=== PATIENT | male | born 1940 | race Caucasian/White ===

== ENCOUNTER 2018-01-11 10:16 | Emergency (ER) | payer MEDICARE, SELFPAY ==
[2018-01-11 10:16] VITALS: BP 133/83; PULSE 82; RESP 16; TEMP 36.7; O2SAT 97; BMI 22.7
[2018-01-11 10:33] VITALS: PULSE 81; RESP 17
[2018-01-11] MEDS: 0.9% Normal Saline 1,000 ML 1000 ML IV (10:39)
[2018-01-11] MEDS: Ondansetron 4 MG/2 ML Vial IV (10:40)
[2018-01-11 10:58] LABS: Anion Gap 8 (5-15); BUN 14 mg/dL (7-18); BUN/Creat Ratio 16.4 RATIO (10-20); Calcium,Total 8.6 mg/dL (8.5-10.1); Chloride 104 mmol/L (98-107); Creatinine, Serum 0.85 mg/dL (0.70-1.30); EST Glomerular Filtration Rate 92 mL/min (>60); Est Glom Filt Rate - Afr Amer 111 mL/min (>60); Estimated Creatinine Clearance 75.95 ml/min; Glucose 159 mg/dL (74-106); Potassium 3.7 mmol/L (3.5-5.1); Sodium Level 138 mmol/L (136-145)
--- NOTE | 2018-01-11 12:24 | ED.VISSUMM ---
- ER Visit Summary Date of Service: 01/11/18 Chief Complaint: Abdominal pain with nausea, vomiting and diarrhea. History of Present Illness: The patient is a 77 M who presents to the emergency room because of abdominal pain with nausea, vomiting diarrhea. He vomited 6 times since awakening this morning and 2-3 loose watery stools without blood or mucus. Apparently did not feel well yesterday with complaint of headache and generalized weakness. He had increased week and slept more than normal according to the . Abdominal pain is intermittent and colicky. Pain is worse when he vomits or has a loose stool. He denies any fever, chills night sweats. There is no history of weight gain or weight loss. He denies any visual, ocular or auditory symptoms. I trouble speech or swallowing. Does complain of dry mouth and increased thirst. He denies any cardiac respiratory symptoms. He does report decreased urination. He denies dysuria, frequency, urgency or hematuria. He denies any skin lesions or bruising easily. Physical Examination: Pleasant elderly gentleman who is hard of hearing and needs to supplement his history. Blood pressure elevated 133/83. HEENT is remarkable for dry mucosa. Patient's heart irregular. Lungs are clear to auscultation. Abdomen is soft nontender with slightly increased bowel sounds. Lower extremity is without swelling, discoloration or tenderness. Pulses are palpable upper and lower extremity. Neuro exam is nonfocal. Test Results: BMP is remarkable for glucose of 159, otherwise normal Emergency Department Course and Treatment: Patient was treated with IV Zofran and 1 L of normal saline. Because he is elderly diabetic and complains of thirst lightheadedness a BMP was obtained. Treatment Plan: And felt better after first liter of normal saline. He passed p.o. challenge. Disposition: Discharged home with appropriate home-going instructions. Impression: 1. Acute abdominal pain with nausea, vomiting diarrhea secondary to viral illness 2. Mild dehydration 3. Hyperglycemia and type II diabetic This note was generated with Pikimal dictation software. It may contain incorrect words, spelling, and punctuation that were not noted in review of the chart prior to signing ED Disposition - Plan for ED Patient: Disposition: Home or Assisted Living Chief Complaint: Nausea/Vomiting/Diarrhea Instructions: ED Vomiting Diarrhea Nonspecific Ad Referrals: Julio C Ridley MD [Primary Care Provider] - 1-2 Days if not improving
[2018-01-11 12:39] VITALS: BP 146/89; PULSE 77; RESP 16; O2SAT 99
[2018-01-11 12:41] VITALS: BP 146/89; PULSE 77; RESP 16; O2SAT 99
== END 2018-01-11 12:51 | disposition home or self-care (01) ==
PROVIDERS: Emergency Provider Emergency Medicine; Family Provider Family Medicine; PCP Family Medicine
DX: R10.9 Unspecified abdominal pain (principal); R11.2 Nausea with vomiting, unspecified; A08.4 Viral intestinal infection, unspecified; E86.0 Dehydration; E11.65 Type 2 diabetes mellitus with hyperglycemia; I25.10 Atherosclerotic heart disease of native coronary artery without angina pectoris; I10 Essential (primary) hypertension; E78.00 Pure hypercholesterolemia, unspecified; I48.91 Unspecified atrial fibrillation; N40.0 Benign prostatic hyperplasia without lower urinary tract symptoms; Z79.51 Long term (current) use of inhaled steroids; Z79.02 Long term (current) use of antithrombotics/antiplatelets; Z79.82 Long term (current) use of aspirin; Z79.899 Other long term (current) drug therapy
CPT/HCPCS: 80048; 96361; 96374; 99283; J7030; A4216; J2405

== ENCOUNTER → 2018-02-08 09:29 | Outpatient (CLI) | payer MEDICARE, SELFPAY ==
[2018-02-08 12:36] LABS: Vitamin B12 870 pg/mL (211-911)
== END ==
PROVIDERS: Family Provider Family Medicine; PCP Family Medicine; Visit Provider Family Medicine
DX: E53.8 Deficiency of other specified B group vitamins (principal)
CPT/HCPCS: 36415; 82607

== ENCOUNTER → 2018-03-10 10:17 | Outpatient (CLI) | payer MEDICARE, SELFPAY ==
--- NOTE | 2018-03-10 10:25 | VDLE_ITS ---
Reason For Study: LEG PAIN AND SWELLING RIGHT LEFT GSV is normal. CFV is compressible, spontaneous, phasic, CFV is compressible, spontaneous, phasic, competent, and demonstrates normal competent and demonstrates normal augmentation. augmentation. FV is compressible, spontaneous, phasic, competent and demonstrates normal augmentation. POP V is compressible, spontaneous, phasic, competent and demonstrates normal augmentation. T/P Trunk is compressible. PTV is compressible. RT PerV is compressible. Heterogenous mass noted medial pop space measuring 2.7 x 2.6 x 4.6 cm. Non-vascular. Procedure Exam performed in department. A preliminary report was called and/or faxed to Dr. Ridley. Interpretation Summary Deep veins of the right lower extremity are patent and compressible segmentally. There is no evidence of right lower extremity deep vein thrombosis. Valvular competence appears intact within the proximal deep venous system on the right . The right greater saphenous vein appears patent and compressible segmentally. A non-vascular, heterogeneous structure is noted in the right medial popliteal space, measuring 2.7 cm x 2.6 cm x 4.6 cm. This probably represents a popliteal cyst. Clinical correlation is advised. Ordering Physician: Michael Ridley Referring Physician: Michael Ridley Performed By: Caitlin Lorenz RVT
== END ==
PROVIDERS: Family Provider Family Medicine; PCP Family Medicine; Visit Provider Family Medicine
DX: M79.89 Other specified soft tissue disorders (principal)
CPT/HCPCS: 93971

== ENCOUNTER → 2018-04-19 12:51 | Outpatient (CLI) | payer MEDICARE, SELFPAY ==
--- NOTE | 2018-04-19 12:56 | RAD_ITS ---
STUDY: X-RAY - RIGHT ELBOW REASON FOR EXAM: Male, 77 years old. fell on right elbow recently, right elbow pain and swelling TECHNIQUE: 3 view(s) of the elbow. COMPARISON: None. FINDINGS: Normal visualized humerus, radius and ulna. Normal radiocapitellar and ulnotrochlear articulations. The soft tissue structures are unremarkable. RAD/Elbow min 3 Views IMPRESSION: Normal x-ray examination of the elbow. Electronically Signed: Giorgio Cobian MD at 14:29 EDT Tel , Service support ,
== END ==
PROVIDERS: Family Provider Family Medicine; PCP Family Medicine; Visit Provider Family Medicine
DX: M25.521 Pain in right elbow (principal)
CPT/HCPCS: 73080

== ENCOUNTER → 2018-09-19 16:45 | Outpatient (CLI) | payer MEDICARE, SELFPAY ==
[2018-09-19 18:03] LABS: Absolute Lymphocyte Count 2.17 X10^3/ul (0.83-4.51); Absolute Neutrophil Count 2.2 X10^3/uL (2.0-7.7); Basophil# 0.06 X10^3/uL; Basophil% 1.1 % (0-1); Eosinophil# 0.07 X10^3/uL; Eosinophils% 1.3 % (0-5); Hematocrit 43.5 % (40-54); Hemoglobin 14.5 g/dl (13.0-16.5); Lymphocyte # 2.17 X10^3/ul (4.0); Lymphocyte % 39.1 % (19-41); Mean Corp Hgb Conc 33.3 g/gl (32-36); Mean Corpuscular Hgb 28.3 pg (27.0-32.0); Mean Platelet Vol. 10.9 fl (6.2-12.0); Monocyte# 0.93 X10^3/uL; Monocyte% 16.8 % (0-10); Neutrophil # 2.24 X10^3/uL (2.7-7.7); Neutrophil % 40.3 % (47-70); POSITIVE COUNT NO; POSITIVE DIFFERENTIAL NO; POSITIVE MORPHOLOGY NO; Platelet Count 208 K/mm3 (150-450); RBC Distribution Width CV 13.5 % (11.6-14.6); RBC Distribution Width SD 41.7 fl (35.1-43.9); Red Blood Count 5.12 M/mm3 (4.6-6.2); White Blood Count 5.6 K/mm3 (4.4-11.0)
[2018-09-19 18:30] LABS: Anion Gap 8 (5-15); BUN 15 mg/dL (7-18); BUN/Creat Ratio 12.8 RATIO (10-20); Chloride 100 mmol/L (98-107); Creatinine, Serum 1.17 mg/dL (0.70-1.30); EST Glomerular Filtration Rate 64 mL/min (>60); Est Glom Filt Rate - Afr Amer 77 mL/min (>60); Glucose 205 mg/dL (74-106); Potassium 4.1 mmol/L (3.5-5.1); Sodium Level 137 mmol/L (136-145); Thyroid Stim Hormone (TSH) 1.17 uIU/mL (0.358-3.74)
[2018-09-19 18:41] LABS: Vitamin B12 > 2000 pg/mL (211-911)
== END ==
PROVIDERS: Family Provider Family Medicine; PCP Family Medicine; Visit Provider Family Medicine
DX: E03.9 Hypothyroidism, unspecified (principal); I10 Essential (primary) hypertension; E53.8 Deficiency of other specified B group vitamins; W19.XXXA Unspecified fall, initial encounter
CPT/HCPCS: 36415; 80048; 82607; 84443; 85025

== ENCOUNTER 2018-09-22 17:13 | Inpatient (IN) | payer MEDICARE, SELFPAY ==
[2018-09-22 17:16] VITALS: BP 135/75; PULSE 100; RESP 18; TEMP 37.3; O2SAT 97; BMI 22.1
--- NOTE | 2018-09-22 17:35 | ED.RN ---
FAMILY STATES PT HAS NOT BEEN EATING. PT NEEDS ASSISTANCE WITH SITTING UP AND TAKING SHIRT OFF.
--- NOTE | 2018-09-22 18:12 | CT_ITS ---
STUDY: CT BRAIN WITHOUT CONTRAST REASON FOR EXAM: Male, 78 years old. Confusion and imbalance. RADIATION DOSAGE (If Supplied By Facility): CTDIvol = ( 44.99 ) mGy, DLP = ( 796.11 ) mGycm TECHNIQUE: Transaxial CT imaging of the brain was performed without administration of intravenous contrast material. Individualized dose optimization techniques were used for this CT. COMPARISON: Prior head CT exam of May 04, 2017 FINDINGS: Normal soft tissue structures. Normal calvarium. There is moderate cerebral atrophy with widening of the extra-axial spaces and ventricular dilatation. There are areas of decreased attenuation within the white matter tracts of the supratentorial brain, consistent with microvascular disease changes. 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 Normal cerebellum. There is no intracranial hemorrhage. There are no findings of an acute ischemic infarction. Normal visualized paranasal sinuses. CT/Brain/Head without Contrast IMPRESSION: No acute intracranial findings or changes. Negative for hemorrhage, hematoma or mass density. Stable chronic involutional changes. Electronically Signed: Nati Moore MD at 19:02 EST , Service support ,
--- NOTE | 2018-09-22 18:13 | EKG12_ITS ---
Test Reason : WEAKNESS Blood Pressure : / mmHG Vent. Rate : 070 BPM Atrial Rate : 049 BPM P-R Int : 000 ms QRS Dur : 092 ms QT Int : 390 ms P-R-T Axes : 000 013 045 degrees QTc Int : 421 ms Atrial fibrillation Abnormal ECG When compared with ECG of 04-MAY-2017 02:28, Questionable change in QRS axis Confirmed by JESSE KESSLER, LEW ([id number]), editorial assistant MARIAMA WELLS ([id number]) on 10/02/2018 2:24:57 PM Referred By: MARY Confirmed By:LEW MOLINA MD
--- NOTE | 2018-09-22 18:24 | ED.VISSUMM ---
- ER Visit Summary Date of Service: 09/22/18 Chief Complaint: Weakness, confusion History of Present Illness: The patient is a 78 M presents here with family from home for increasing weakness confusion and decreased appetite for the past week. Does not walk with assistance. Reports patient needing assistance for times this week. Reports that the weakness he would lowered himself to the ground however would need assistance up. Significant other at home who recently had a hysterectomy 2 weeks ago. Reports a nonproductive cough. No urinary symptoms. No vomiting or diarrhea. Normal bowel movements over the last 2 days. History of dementia on medications. Reports more confused than normal. Patient denies any pain. Reports blood work 2 days outpatient was normal. Discussed with covering physician Dr. Gonsales today was sent to ED for evaluation. Physical Examination: General: Alert and oriented to person, no acute distress HEENT: Normocephalic, atraumatic. Moist mucosa membranes Neck: supple, nontender. Cardiovascular: Irregular rhythm normal rate, no murmurs Respiratory: Normal breath sounds, symmetric, no distress Abdomen: Soft, nontender, nondistended Extremities: Nontender, no edema, pulses intact ?4 Neuro: no focal neurological deficits. Test Results: CT head no acute process. Chest x-ray atelectasis versus infiltrate right lower lobe. White count 6.0. Hemoglobin 13. Creatinine 0.91. Urine with leukocytes. EKG A. fib rate of 70. Emergency Department Course and Treatment: EKG was A. fib rate controlled. Chronic A. fib history. Weakness workup labs stable. Chest x-ray noted atelectasis versus right lobe infiltrate. He has been coughing. CT head negative. Reevaluation discussion with family is been increasing weakness decreased appetite over the past week. Discussed with hospitalist Dr. Bell, secondary cough and weakness will cover for community acquired pneumonia with Rocephin and Zithromax. He does not meet sepsis criteria. He will be admitted to [facility] floor for management. Treatment Plan: [] Disposition: Admission Impression: 1. Weakness 2. Community-acquired pneumonia 3. Chronic A. fib This note was generated with Xoinkaation software. It may contain incorrect words, spelling, and punctuation that were not noted in review of the chart prior to signing ED Disposition - Plan for ED Patient: Disposition: Acute Care Hospital [facility] Chief Complaint: Weakness Diagnosis: Weakness, Community acquired pneumonia, Chronic atrial fibrillation Referrals: Julio C Ridley MD [Primary Care Provider] -
[2018-09-22] MEDS: 0.9% Normal Saline 1,000 ML 150 ML IV (18:28)
--- NOTE | 2018-09-22 18:40 | RAD_ITS ---
STUDY: X-RAY CHEST REASON FOR EXAM: Male, 78 years old. Increased weakness, confusion and fatigue. History of dementia. TECHNIQUE: Single AP portable view of the chest. COMPARISON: A prior chest radiograph of May 04, 2017, March 14, 2017 and November 04, 2016 FINDINGS: Shallow inspiration with bibasilar atelectatic changes that is asymmetrically greater on the right side. Negative for substantial pleural effusion. Stable cardiac size allowing for poor reduced inspiration. Normal mediastinum and martin. Normal visualized pulmonary arteries. There is atherosclerotic calcification of the aortic arch with tortuosity. There are diffuse degenerative changes of the visualized thoracic spine. Normal visualized ribs, clavicles, and shoulders. There is no demonstrated abnormality of the visualized soft tissue structures of the upper abdomen. RAD/Chest 1 View (Portable) IMPRESSION: Shallow inspiration with mild atelectatic changes at the left lung base. More substantial atelectatic changes versus pneumonic infiltrate at the right lung base. Negative for pleural effusion. Stable cardiac size without evidence of pulmonary venous congestion. Electronically Signed: Nati Moore MD at 19:07 EST , Service support ,
[2018-09-22 19:50] VITALS: BP 122/94; PULSE 68; RESP 14; O2SAT 95
[2018-09-22 20:25] LABS: Absolute Lymphocyte Count 2.14 X10^3/ul (0.83-4.51); Absolute Neutrophil Count 3.1 X10^3/uL (2.0-7.7); Basophil# 0.03 X10^3/uL; Basophil% 0.5 % (0-1); Eosinophil# 0.07 X10^3/uL; Eosinophils% 1.2 % (0-5); Hematocrit 39.6 % (40-54); Hemoglobin 13.1 g/dl (13.0-16.5); Lymphocyte # 2.14 X10^3/ul (4.0); Lymphocyte % 35.4 % (19-41); Mean Corp Hgb Conc 33.1 g/gl (32-36); Mean Corpuscular Volume 84.6 fL (80-94); Mean Platelet Vol. 9.9 fl (6.2-12.0); Monocyte# 0.72 X10^3/uL; Monocyte% 11.9 % (0-10); Neutrophil # 3.05 X10^3/uL (2.7-7.7); Neutrophil % 50.5 % (47-70); Platelet Count 177 K/mm3 (150-450); RBC Distribution Width CV 13.6 % (11.6-14.6); RBC Distribution Width SD 41.4 fl (35.1-43.9); Red Blood Count 4.68 M/mm3 (4.6-6.2)
[2018-09-22 20:33] LABS: Anion Gap 5 (5-15); BUN 12 mg/dL (7-18); BUN/Creat Ratio 13.2 RATIO (10-20); Calcium,Total 8.3 mg/dL (8.5-10.1); Chloride 99 mmol/L (98-107); Creatinine, Serum 0.91 mg/dL (0.70-1.30); EST Glomerular Filtration Rate 85 mL/min (>60); Est Glom Filt Rate - Afr Amer 103 mL/min (>60); Estimated Creatinine Clearance 67.71 ml/min; Glucose 162 mg/dL (74-106); Potassium 3.9 mmol/L (3.5-5.1); Sodium Level 131 mmol/L (136-145)
[2018-09-22 20:52] LABS: Bacteria 0 SEEN /hpf (None Seen); Mucous, Urine 0 SEEN /hpf (<or=2+); Red Blood Cells-Urine 0 SEEN /hpf (0-5); Squamous Epithelial Cells - UA 0 SEEN /hpf (0-5); White Blood Cells 0 SEEN /hpf (0-5)
[2018-09-22 20:53] LABS: Color, Urine Yellow (Yellow); Glucose, Dipstick Normal (Normal); Ketone-Dipstick 5 mg/dl (Negative); Leukocyte Esterase-Dipstick 25 /ul (Negative); Nitrite-Dipstick Negative (Negative); Occult Blood-Urine Negative /ul (Negative); Protein-Dipstick 30 mg/dl (Negative); Urine Bilirubin Dipstick Negative (Negative); Urine Clarity Clear (Clear); Urine Urobilinogen 4 mg/dl (Normal)
[2018-09-22 20:55] LABS: POSITIVE COUNT NO; POSITIVE DIFFERENTIAL NO; POSITIVE MORPHOLOGY NO
[2018-09-22 21:00] VITALS: BP 129/76; PULSE 70; RESP 18; O2SAT 98
[2018-09-22] MEDS: Ceftriaxone 1 GM/50 ML BAG IV (22:19)
[2018-09-22 22:22] VITALS: BP 145/98; PULSE 75; RESP 16; O2SAT 96
--- NOTE | 2018-09-22 22:30 | PCM.HP.STD ---
Problem List (1) Weakness Status: Acute (2) Community acquired pneumonia Status: Acute History of Present Illness Date of Admission: 09/22/18 Chief Complaint: Generalized weakness The patient is a 78 year old M with a significant history of hypertension; diabetes; chronic A. fib; and dementia who presents with 1 week history of progressively worsening weakness. Per his patient is listless and sleeps most of the day. He has had episode where he slid to the floor and it was difficult for him to get up. Associated with his symptoms is increasing confusion; anorexia and cough. His reported that patient states that things smells differently. Patient has been using Flonase at home. Patient complains of pain around his maxillary area. Past Medical History Past Medical History (Chronic Problems): Chronic Problems (Last Reviewed 09/22/18 @ 22:46 by Jeanmarie Bell MD) Chronic atrial fibrillation (Chronic) Nonrheumatic tricuspid valve regurgitation (Chronic) Syncope and collapse (Chronic) Atherosclerosis of [place] coronary artery (Chronic) PTCA of RCA intracoronary stent November 1999 Presence of coronary angioplasty implant and graft (Chronic) PTCA of the RCA intracoronary stent 11/1999 HTN (hypertension) (Chronic) HLD (hyperlipidemia) (Chronic) Essential (primary) hypertension (Chronic) CAD (coronary artery disease) (Chronic) BPH (benign prostatic hyperplasia) (Chronic) DM2 (diabetes mellitus, type 2) (Chronic) S/P PTCA (percutaneous transluminal coronary angioplasty) (Chronic) PTCA of RCA intracoronary stent November 1999 HLD (hyperlipidemia) (Chronic) Diabetes mellitus (Chronic) Aphasia (Chronic) Medical History: Medical History (Last Reviewed 09/22/18 @ 22:46 by Jeanmarie Bell MD) Chronic atrial fibrillation (Chronic) I48.2 Nonrheumatic tricuspid valve regurgitation (Chronic) I36.1 Syncope and collapse (Chronic) R55 Atherosclerosis of [place] coronary artery (Chronic) I25.10 PTCA of RCA intracoronary stent November 1999 HTN (hypertension) (Chronic) I10 HLD (hyperlipidemia) (Chronic) E78.5 Essential (primary) hypertension (Chronic) I10 CAD (coronary artery disease) (Chronic) I25.10 DM2 (diabetes mellitus, type 2) (Chronic) E11.9 HLD (hyperlipidemia) (Chronic) E78.5 custodial use of drug Z79.899 Allergies lovastatin [From Mevacor] Adverse Reaction (Severe, Verified 09/22/18 17:18) myalgias metoprolol succinate [From Toprol XL] Adverse Reaction (Severe, Verified 09/22/18 17:18) Heart rate too slow beta blockers Adverse Reaction (Uncoded 09/22/18 17:18) low heart rate Home Medications: Ambulatory Orders Medication Instructions Recorded Atorvastatin Calcium [Lipitor] 10 mg PO QHS 11/30/14 Donepezil HCl [Aricept] 10 mg PO DAILY 09/30/16 Tamsulosin HCl [Flomax] 0.8 mg PO QHS 09/30/16 Cholecalciferol (Vitamin D3) 2,000 unit PO DAILY 11/04/16 [Vitamin D3] Metformin HCl [Metformin HCl ER] 500 mg PO BID 11/04/16 Apixaban [Eliquis] 5 mg PO BID #90 tab 11/05/16 Albuterol Sulfate [Ventolin Hfa] 18 gm IH DAILY PRN 05/03/17 memantine 5 mg tablet 5 mg PO QDAY 11/25/17 escitalopram 10 mg tablet 10 mg PO QDAY 12/29/17 Aspirin E.C. [Ecotrin] 81 mg PO DAILY 09/22/18 Fluticasone 0.05% [Flonase Nasal 1 spray NASAL PRN PRN 09/22/18 [place]] Levothyroxine Sodium [Synthroid] 125 mcg PO DAILY 09/22/18 Omeprazole Magnesium [Prilosec Otc] 20 mg PO DAILY 09/22/18 Ramipril 10 mg PO DAILY 09/22/18 Surgical History: Surgical History (Last Reviewed 09/22/18 @ 22:46 by Jeanmarie Bell MD) Presence of coronary angioplasty implant and graft (Chronic) Z95.5 PTCA of the RCA intracoronary stent 11/1999 S/P PTCA (percutaneous transluminal coronary angioplasty) (Chronic) Z98.61 PTCA of RCA intracoronary stent November 1999 H/O hernia repair Z98.890, Z87.19 History of tonsillectomy Z98.890, Z90.89 History of left heart catheterization (LHC) Z98.890 LHC: 11/20/1999 Surgical History: angioplasty Lives: Spouse/ Significant Other Smoking Status: Former smoker Alcohol: None - *Family History Offspring Family History: Family History (Last Reviewed 09/22/18 @ 22:46 by Jeanmarie Bell MD) Father Cancer Mother CAD (coronary artery disease) CVA (cerebral vascular accident) Brother CAD (coronary artery disease) Brother CVA (cerebral vascular accident) Hypertension Sister Myocardial infarction, Onset Age: 73 Sister CVA (cerebral vascular accident) Sister CVA (cerebral vascular accident) Sister Breast cancer Sister CVA (cerebral vascular accident) Sister TIA (transient ischemic attack) History Items: Heart Disease Review of Systems Constitutional: Reports: Weakness. Denies: Chills, Fever, Weight Change HEENT: Denies: Head Aches Cardiovascular: Denies: Chest Pain, Palpitations Respiratory: Reports: Cough. Denies: Shortness of breath at rest Gastrointestinal: Denies: Abdominal Pain, Nausea, Vomiting Genitourinary: Denies: Dysuria Musculoskeletal: Denies: Joint Pain, Joint Tenderness Skin: Denies: Rash, Wounds Neurological: Denies: Numbness, Tingling, Focal weakness Psychiatric: Denies: Anxiety, Depression, Homicidal Ideations, Suicidal Ideations Hematologic/ Lymphatic: Denies: Easy Bruising, Easy Bleeding VTE Information - Inpt Only VTE Present on Admission: No VTE Mechan Device Prophylaxis: None VTE Pharm Prophylaxis ordered?: No Reason prophylaxis not ordered:: Treatment Not Indicated - On Eliquis for A. fib. Patient Problems: Active and Suspected Problems (Last Reviewed 09/22/18 @ 22:46 by Jeanmarie Bell MD) Weakness (Acute) Community acquired pneumonia (Acute) - Physical Exam General: Alert, Confused HEENT: Atraumatic, PERRLA, EOMI, Normocephalic Neck: Supple, No JVD, Negative Carotid Bruits Lungs: Clear to auscultation, Normal air movement Cardiovascular: No murmurs, Irregular Rate Abdomen: Bowel Sounds Present, Soft, Non Tender Extremities: No edema, Capillary Refill Less than 3 Seconds Skin: No rashes, No breakdown Musculoskeletal: No Tenderness to Palpation of Joints or Extremities Neurological: Cranial nerves II-XII grossly intact Psych/Mental Status: Normal Affect, Appropriate Vital Signs Temp Pulse Resp BP Pulse Ox 99.2 F H 75 16 145/98 H 96 09/22/18 17:16 09/22/18 22:22 09/22/18 22:22 09/22/18 22:22 09/22/18 22:22 Oxygen Delivery Method Room Air Weight: 73.936 kg Body Mass Index (BMI) 22.1 Finger Stick Blood Glucose 181 Laboratory Tests Past 24 Hrs 09/22/18 09/22/18 09/22/18 20:05 20:05 20:39 WBC 6.0 RBC 4.68 Hgb 13.1 Hct 39.6 L MCV 84.6 MCH 28.0 MCHC 33.1 RDW 13.6 RDW Differential 41.4 Plt Count 177 MPV 9.9 Immature Gran % (Auto) 0.500 Neut % (Auto) 50.5 Lymph % (Auto) 35.4 Alexander % (Auto) 11.9 H Eos % (Auto) 1.2 Baso % (Auto) 0.5 Absolute Neuts (auto) 3.1 Absolute Lymphs (auto) 2.14 Total Counted Not Reportable Sodium 131 L Potassium 3.9 Chloride 99 Carbon Dioxide 27.0 Anion Gap 5 BUN 12 Creatinine 0.91 Estim Creat Clear Calc 67.71 Est GFR (MDRD) Af Amer 103 Est GFR (MDRD) Non-Af 85 BUN/Creatinine Ratio 13.2 Glucose 162 H Calcium 8.3 L Urine Color Yellow Urine Clarity Clear Urine pH 7.0 Ur Specific [place] 1.010 Urine Protein 30 H Urine Glucose (UA) Normal Urine Ketones 5 H Urine Occult Blood Negative Urine Nitrite Negative Urine Bilirubin Negative Urine Urobilinogen 4 H Ur Leukocyte Esterase 25 H Urine RBC 0 SEEN Urine WBC 0 SEEN Ur Squamous Epith Cells 0 SEEN Urine Bacteria 0 SEEN Urine Mucus 0 SEEN Assessment/Plan All Active Problems (Last Reviewed 09/22/18 @ 22:46 by Jeanmarie Bell MD) Weakness (Acute) Community acquired pneumonia (Acute) The patient is a 78 year old M with a significant history of hypertension; diabetes; chronic A. fib; and dementia who presents with 1 week history of progressively worsening weakness; smelling changes of maxillary pain and found to have radiographic evidence of lung atelectasis versus infiltrate. Generalized weakness Likely due to debility. Patient to work with PT and OT. PT and OT to make recommendation to see whether patient would benefit from rehabilitation. Probable pneumonia Independent review of chest x-ray confirms atelectasis versus infiltrates. Patient has no fever, chills or leukocytosis making pneumonia less likely. However because of his generalized weakness which can be explained fully we will treat as community-acquired pneumonia. Patient received azithromycin and ceftriaxone at emergency department Ceftriaxone and azithromycin continued. Incentive parameter and chest physiotherapy ordered. No Blood cultures or sputum cultures ordered at this time. Probable sinusitis. Family is concerned whether patient had a sinus infection and was requesting test to prove. It was explained to family that if patient has sinusitis same antibiotics for pneumonia would be adequate. Ceftriaxone and azithromycin as above. Continue Flonase. Acute encephalopathy CT head unremarkable. Likely progression of his dementia We will do CMP. Hyponatremia Sodium level of 131; mild Trend BMP. Hypocalcemia Calcium on admission 8.3; mild Albumin level measured. Hypertension Blood pressure on admission was not within goal. Ramipril continued Trend blood pressure and adjust blood pressure medication as necessary. Dementia Continue Namenda and Aricept Diabetes mellitus stated that patient is pre-diabetic, while son stated that patient is diabetic. Blood glucose is within goal of 140-180 Patient is on home metformin. We will hold home metformin since it is too early in his admission. Correction scale insulin sliding scale ordered. Depression Lexapro continued Hypothyroidism Synthroid continued Chronic A. fib Eliquis continued. BPH Flomax continued. DVT prophylaxis Not Indicated. Patient on Eliquis for A. fib. Code Visit OBSV E&M: [id number] Initial observation care L3
[2018-09-22 22:51] VITALS: BMI 21.6
[2018-09-22 22:57] VITALS: BP 152/68; PULSE 72; RESP 24; TEMP 37.4; O2SAT 95
[2018-09-22 23:03] VITALS: BMI 21.6
[2018-09-23 02:52] VITALS: BP 148/76; PULSE 73; RESP 16; TEMP 37.2; O2SAT 96
[2018-09-23] MEDS: Levothyroxine 125 MCG Tablet PO (06:21)
[2018-09-23 06:31] LABS: Bedside Glucose 153 mg/dL (70-110)
[2018-09-23] MEDS: Insulin Lispro 100 UNIT/ML INSULN.PEN SQ ×2 (06:31→12:32)
[2018-09-23 06:37] LABS: Absolute Lymphocyte Count 2.02 X10^3/ul (0.83-4.51); Absolute Neutrophil Count 2.5 X10^3/uL (2.0-7.7); Basophil# 0.04 X10^3/uL; Basophil% 0.7 % (0-1); Eosinophil# 0.07 X10^3/uL; Eosinophils% 1.2 % (0-5); Hematocrit 38.6 % (40-54); Hemoglobin 13.2 g/dl (13.0-16.5); Lymphocyte # 2.02 X10^3/ul (4.0); Lymphocyte % 33.9 % (19-41); Mean Corp Hgb Conc 34.2 g/gl (32-36); Mean Corpuscular Hgb 28.3 pg (27.0-32.0); Mean Corpuscular Volume 82.7 fL (80-94); Mean Platelet Vol. 10.4 fl (6.2-12.0); Monocyte# 1.31 X10^3/uL; Neutrophil # 2.48 X10^3/uL (2.7-7.7); Neutrophil % 41.5 % (47-70); Platelet Count 204 K/mm3 (150-450); RBC Distribution Width CV 13.2 % (11.6-14.6); RBC Distribution Width SD 39.4 fl (35.1-43.9); Red Blood Count 4.67 M/mm3 (4.6-6.2)
[2018-09-23 06:42] LABS: POSITIVE COUNT NO; POSITIVE DIFFERENTIAL NO; POSITIVE MORPHOLOGY NO
[2018-09-23 07:03] LABS: ALB/GLOB Ratio 0.7 RATIO (0.9-2.4); AST(SGOT) 44 U/L (15-37); Alanine Aminotransfer ALT/SGPT 44 U/L (16-61); Albumin, Serum 2.8 g/dL (3.2-5.0); Alkaline Phosphatase 153 U/L (45-117); Anion Gap 8 (5-15); BUN 10 mg/dL (7-18); BUN/Creat Ratio 11.4 RATIO (10-20); Calcium,Total 8.4 mg/dL (8.5-10.1); Chloride 102 mmol/L (98-107); Creatinine, Serum 0.88 mg/dL (0.70-1.30); EST Glomerular Filtration Rate 89 mL/min (>60); Est Glom Filt Rate - Afr Amer 107 mL/min (>60); Estimated Creatinine Clearance 68.56 ml/min; Globulin 3.8 g/dL (2.2-4.2); Glucose 135 mg/dL (74-106); Potassium 3.9 mmol/L (3.5-5.1); Protein, Total 6.6 g/dL (6.4-8.2); Sodium Level 135 mmol/L (136-145)
[2018-09-23 09:00] VITALS: BP 139/86; PULSE 91; RESP 16; TEMP 36.7; O2SAT 97
[2018-09-23] MEDS: Donepezil HCl 10 MG Tablet PO (10:13)
[2018-09-23] MEDS: APIXABAN 5 MG TABLET PO ×2 (10:13→22:26)
[2018-09-23] MEDS: Escitalopram Oxalate 10 MG Tablet PO (10:13)
[2018-09-23] MEDS: Memantine Hydrochloride 5 MG Tablet PO (10:13)
[2018-09-23] MEDS: Aspirin E.C. 81 MG Tablet PO (10:13)
[2018-09-23] MEDS: Ramipril 10 MG Capsule PO (10:13)
[2018-09-23] MEDS: Pantoprazole Sodium 20 MG Tablet PO (10:13)
[2018-09-23] MEDS: Glucerna Shake 120 ML LIQUID PO ×3 (10:52→22:26)
[2018-09-23 12:46] LABS: Bedside Glucose 224 mg/dL (70-110)
--- NOTE | 2018-09-23 14:49 | CT_ITS ---
STUDY: CT CHEST WITH CONTRAST REASON FOR EXAM: Male, 78 years old. Weight loss, anorexia, weakness, pneumonia with history of coronary artery disease, atrial fibrillation, hypertension and diabetes. RADIATION DOSAGE (If Supplied By Facility): CTDIvol = ( 17.18 ) mGy, DLP = ( 1404.41 ) mGycm TECHNIQUE: Transaxial imaging was performed following intravenous administration of 100ML ml of Isovue 300 contrast material. Coronal and sagittal 2-D MPR Individualized dose optimization techniques were used for this CT. COMPARISON: CT abdomen and pelvis same date. X-ray chest 09/22/2018. FINDINGS: Supraclavicular: Normal. Thoracic body wall soft tissues: Normal. Osseous structures: There is a heterogeneous pattern of osteopenia in the thoracic spine, with numerous small punched out appearing lytic foci in the bones. This could be a lytic pattern of osteopenia, infiltrate or metastatic disease. Upper abdomen: Normal appearance of the evaluated portions of the liver, biliary tree, adrenal glands, spleen, stomach and bowel. There is mild pancreatic atrophy. There is an exophytic cyst projecting from the superior pole of the left kidney, posterior laterally, measuring 1 cm, incompletely characterized at the base of the field of view. See dictation of CT abdomen and pelvis for details. Mediastinum: Normal esophagus. Metastatic-appearing mediastinal lymphadenopathy. Subcarinal lymph node measuring 5.6 x 2.1 x 2.7 cm, lymph node subjacent to the right mainstem bronchus measuring 1.7 x 2.5 cm. Pretracheal lymph node at the level of the nader measuring 2.3 x 2.3 cm. Enlarged right hilar lymph nodes, superior hilum 1.4 x 1.6 cm, clustered enlarged lymph nodes. Hilum measuring up to 4.0 x 2.7 cm, and the largest lymph node of the inferior hilum measuring 1.7 x 1.8 cm. In the superior mediastinum, multiple clustered mildly enlarged lymph nodes. There is no left-sided hilar lymphadenopathy. Cardiovascular: Mild cardiomegaly without pericardial effusion. Three-vessel coronary calcifications. Ectatic aortic arch without aneurysm, ascending aorta 3.5 cm. Mild arch atherosclerosis with widely patent three-vessel cervical arch branching. Normal central pulmonary arteries. Lungs: The left lung is clear. There is irregular masslike spiculated focus within the right lower lobe, lateral basilar segment, measuring approximately 3.6 cm anterior-posterior, up to 1.8 cm transverse, and up to 1.9 cm craniocaudal. Pulmonary nodule of the right lower lobe posterior basilar segment posterior pleural margin 7 mm. Another in the superior aspect of the lateral basilar segment measuring 1 cm. Pneumonialike infiltrate with intermediately dense groundglass opacities in the posterior segment of the right upper lobe along the margin of the major fissure, nearly segmental distribution. Centered within this there is an additional pulmonary nodule measuring approximately 1.3 cm. Minimal right pleural effusion. CT/Chest WITH Contrast IMPRESSION: Right lower lobe lung mass associated with prominent right hilar and mediastinal lymphadenopathy. Right lower lobe and right upper lobe pulmonary nodules may reflect additional neoplasia. Infiltrate of the right upper lobe posterior basilar segment is most suspicious for acute pneumonia. Centered within this is a 1.3 cm pulmonary nodule suspicious for additional neoplasia. Cardiomegaly and prominent three-vessel coronary atherosclerosis. Conspicuous appearance of the bones, numerous small lytic foci, heterogeneous pattern of osteopenia, which must be regarded with suspicion for metastatic disease. Follow-up PET/CT scan is recommended. A bone scan may be helpful for assessment of the distribution of suspected bone metastases. Electronically Signed: Minh Jim, at 18:42 EST Tel , Service support ,
--- NOTE | 2018-09-23 14:49 | CT_ITS ---
STUDY: CT ABDOMEN AND PELVIS WITH CONTRAST REASON FOR EXAM: Male, 78 years old. Anorexia, weight loss, weakness, pneumonia. RADIATION DOSAGE (If Supplied By Facility): CTDIvol = ( 17.18 ) mGy, DLP = ( 1404.41 ) mGycm TECHNIQUE: Transaxial images were obtained from the dome of the diaphragm to the symphysis pubis without oral contrast. 100ML ml of Isovue 300 contrast was administered. Sagittal and coronal images were reconstructed. Individualized dose optimization techniques were used for this CT. COMPARISON: CT chest same date. FINDINGS: Body wall soft tissues: No acute process. Osseous structures: Multifocal small lytic lesions in numerous lumbar vertebral bodies. The largest lesion lies in the posterior inferior aspect of the L3 vertebral body about 9 mm, the remainder are rather small. The background mineralization pattern of the bones mildly heterogeneous. There is lumbar degenerative disc disease at multiple levels most prominent at L2-L3 and L3-L4 contributing to mild foraminal stenosis. There is no convincing evidence of sacral or pelvic metastatic disease. Inferior chest: Please see chest CT dictation same date. Multiple pertinent findings. Hepatobiliary: Normal. Pancreas: Moderate atrophy. Spleen: Normal. Adrenal glands: Normal. Urogenital: There are multiple subcentimeter grossly simple appearing cysts of the right kidney. Incompletely characterized due to small size. In the left kidney, inferior pole simple cyst 1.0 cm, superior pole simple cyst 1.2 cm. Otherwise normal kidneys, clicking systems, ureters, urinary bladder. Mild prostatomegaly. Normal seminal vesicles. Pelvic floor and sidewalls and retroperitoneum: No mass or adenopathy. Vasculature: Moderate atherosclerosis. Stomach: No acute process. Small bowel and mesentery: No acute process. Large bowel: Normal appendix. Mild sigmoid diverticulosis without diverticulitis. Normal rectum. Free fluid or free air: None. CT/Abdomen/Pelvis WITH Contrast IMPRESSION: No acute intra-abdominal or intrapelvic process is evident. Numerous small lytic bone lesions suspicious for metastatic disease. Follow-up PET/CT is recommended. A bone scan may be helpful for further assessment of distribution of suspected bone lesions. Electronically Signed: Minh Jim, at 18:46 EST Tel , Service support ,
--- NOTE | 2018-09-23 14:57 | PN_ITS ---
Patient Problems: Active and Suspected Problems (Last Reviewed 09/22/18 @ 22:46 by Jeanmarie Bell MD) Weakness (Acute) Community acquired pneumonia (Acute) Subjective: Pt sitting up in chair and doesn't give me direct answers to questions or confabulates answers. and son at bedside and state that his lack of appetite and wgt loss has been worsening over the last several mos and report at least a 10 lb wgt loss in the last 3mos. His states that his po intake is down and state that he c/o things just not tasting good with intermittent co things getting stuck in his upper esophagus. 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 Mental status has overall been worse in the last several weeks. Son reports that this is the thinnest he ever remembers his father. They have visited doctors and have been told that his lab work all looks okay. Dementia was diagnosed 2 yrs ago. - Physical Exam General: Alert, Cooperative, Confused, Disoriented, - - thin overall with decreased lean mm mass and temporal wasting HEENT: Atraumatic, PERRLA, EOMI, EAC Clear Oral: Moist Mucosa, No Gingival or Mucosal Lesions/ Ulcerations, - - dentures in place and appear well fitting Neck: Supple, No JVD, Negative Carotid Bruits, No Nodes, Trachea Midline, Thyroid Normal Size and Texture Lungs: Clear to auscultation, No rhonchi, No wheeze, No rales, Diminished - R base Cardiovascular: No murmurs, No rub noted, No Gallop, - - irregularly irregular Abdomen: Bowel Sounds Present, Soft, Non Tender, Non-Distended, No Hepato- splenomegaly, No hernias noted Extremities: No clubbing, No cyanosis, No edema, Capillary Refill Less than 3 Seconds Skin: No rashes, No breakdown Musculoskeletal: No Tenderness to Palpation of Joints or Extremities, No Muscle Wasting Lymphatic: No Cervical, Supraclavicular, or Inguinal Adenopathy Neurological: Cranial nerves II-XII grossly intact, Neuro grossly intact, - - generalized weakness-->proximal>distal Psych/Mental Status: Impulsive, - - confused Vital Signs Temp Pulse Resp BP Pulse Ox 98.1 F 91 16 139/86 H 97 09/23/18 09:00 09/23/18 09:00 09/23/18 09:00 09/23/18 09:00 09/23/18 09:00 Oxygen Delivery Method Room Air Weight: 72.4 kg Body Mass Index (BMI) 21.6 Finger Stick Blood Glucose 181 Intake and Output for Last 24 Hours 09/21/18 09/22/18 09/23/18 23:59 23:59 23:59 Intake Total 1225 / 1225 Output Total 300 / 300 Balance 925 / 925 Laboratory Tests Past 24 Hrs 09/22/18 09/22/18 09/22/18 20:05 20:05 20:39 WBC 6.0 RBC 4.68 Hgb 13.1 Hct 39.6 L MCV 84.6 MCH 28.0 MCHC 33.1 RDW 13.6 RDW Differential 41.4 Plt Count 177 MPV 9.9 Immature Gran % (Auto) 0.500 Neut % (Auto) 50.5 Lymph % (Auto) 35.4 Baxter % (Auto) 11.9 H Eos % (Auto) 1.2 Baso % (Auto) 0.5 Absolute Neuts (auto) 3.1 Absolute Lymphs (auto) 2.14 Total Counted Not Reportable Sodium 131 L Potassium 3.9 Chloride 99 Carbon Dioxide 27.0 Anion Gap 5 BUN 12 Creatinine 0.91 Estim Creat Clear Calc 67.71 Est GFR (MDRD) Af Amer 103 Est GFR (MDRD) Non-Af 85 BUN/Creatinine Ratio 13.2 Glucose 162 H Calcium 8.3 L Total Bilirubin AST ALT Alkaline Phosphatase Total Protein Albumin Globulin Albumin/Globulin Ratio Urine Color Yellow Urine Clarity Clear Urine pH 7.0 Ur Specific [place] 1.010 Urine Protein 30 H Urine Glucose (UA) Normal Urine Ketones 5 H Urine Occult Blood Negative Urine Nitrite Negative Urine Bilirubin Negative Urine Urobilinogen 4 H Ur Leukocyte Esterase 25 H Urine RBC 0 SEEN Urine WBC 0 SEEN Ur Squamous Epith Cells 0 SEEN Urine Bacteria 0 SEEN Urine Mucus 0 SEEN 09/23/18 09/23/18 06:23 06:23 WBC 6.0 RBC 4.67 Hgb 13.2 Hct 38.6 L MCV 82.7 MCH 28.3 MCHC 34.2 RDW 13.2 RDW Differential 39.4 Plt Count 204 MPV 10.4 Immature Gran % (Auto) 0.700 Neut % (Auto) 41.5 L Lymph % (Auto) 33.9 Baxter % (Auto) 22.0 H Eos % (Auto) 1.2 Baso % (Auto) 0.7 Absolute Neuts (auto) 2.5 Absolute Lymphs (auto) 2.02 Total Counted Not Reportable Sodium 135 L Potassium 3.9 Chloride 102 Carbon Dioxide 25.0 Anion Gap 8 BUN 10 Creatinine 0.88 Estim Creat Clear Calc 68.56 Est GFR (MDRD) Af Amer 107 Est GFR (MDRD) Non-Af 89 BUN/Creatinine Ratio 11.4 Glucose 135 H Calcium 8.4 L Total Bilirubin 0.80 AST 44 H ALT 44 Alkaline Phosphatase 153 H Total Protein 6.6 Albumin 2.8 L Globulin 3.8 Albumin/Globulin Ratio 0.7 L Urine Color Urine Clarity Urine pH Ur Specific [place] Urine Protein Urine Glucose (UA) Urine Ketones Urine Occult Blood Urine Nitrite Urine Bilirubin Urine Urobilinogen Ur Leukocyte Esterase Urine RBC Urine WBC Ur Squamous Epith Cells Urine Bacteria Urine Mucus POC Glucose 09/23/18 09/23/18 12:30 06:26 POC Glucose 224 H 153 H Medical Necessity - Tobacco Use Smoking Status: Former smoker Assessment/Plan All Active Problems (Last Reviewed 09/22/18 @ 22:46 by Jeanmarie Bell MD) Weakness (Acute) Community acquired pneumonia (Acute) 1. ? Acute Pneumonia -infiltrate noted on R ML/LL on CXR -check urine antigens -check viral resp panel -GUEST SERVICES ATTENDANT to r/o aspiration with h/o dementia -check blood cx -CT of chest -continue CTX and Azithro for now -no leukocytosis and not febrile but has had cough on and off -maintaining sats on room air 2. Toxic/Metabolic Encephalopathy -suspect 2/2 to acute illness -CT head neg for acute issues--> chronic atrophy noted -no sinusitis on CT 3. Hyponatremia -improved -will follow -check TSH in am 4. Anorexia/wgt loss -GUEST SERVICES ATTENDANT eval -will liberalize diet -IVF -check CT of chest/abd/pelvis -at least 10 lb wgt loss in the last 3 mos -? if related to worsening dementia -TSH 5. DM-2 -SSI if BGT consistently > 180 6. CAD/HTN/HPL -Continue home meds 7. Hypothyroidism -check am TSH -continue home synthroid 8. [id number] -OAC with Eliquis -rate controlled on no meds 9. Dementia--> suspect vascular dementia -continue Aricept and Namenda -was diagnosed 2 yrs ago -check B12 10. GERD -continue PPI 11. BPH -continue Flomax 12. Depression -continue Lexapro 13. Debility -PT/OT 14. DVT Prophylaxis -fully anti-coagulated with apixaban
[2018-09-23] MEDS: Lactated Ringers 1,000 ML 75 ML IV (15:51)
[2018-09-23 15:57] VITALS: BP 130/80; PULSE 62; RESP 16; TEMP 37.2; O2SAT 99
[2018-09-23 18:06] LABS: Bedside Glucose 131 mg/dL (70-110)
[2018-09-23 22:00] VITALS: BP 162/86; PULSE 75; RESP 16; TEMP 36.4; O2SAT 95
[2018-09-23] MEDS: Tamsulosin HCl 0.4 MG Capsule 0.8 MG PO (22:26)
[2018-09-23] MEDS: Atorvastatin Calcium 10 MG Tablet PO (22:26)
[2018-09-23] MEDS: Ceftriaxone 1 GM/50 ML BAG IV (22:35)
[2018-09-23] MEDS: MELATONIN 10 MG TABLET 5 MG PO (22:36)
[2018-09-23 22:46] LABS: Bedside Glucose 139 mg/dL (70-110)
[2018-09-24 04:00] VITALS: BP 140/82; PULSE 108; RESP 16; TEMP 36.9; O2SAT 99
[2018-09-24] MEDS: Levothyroxine 125 MCG Tablet PO (05:59)
[2018-09-24] MEDS: Insulin Lispro 100 UNIT/ML INSULN.PEN SQ ×2 (06:28→16:51)
[2018-09-24 06:36] LABS: Bedside Glucose 151 mg/dL (70-110)
[2018-09-24 07:09] LABS: Thyroid Stim Hormone (TSH) 1.41 uIU/mL (0.358-3.74)
[2018-09-24 07:40] VITALS: O2SAT 93
[2018-09-24 07:44] LABS: Absolute Lymphocyte Count 1.53 X10^3/ul (0.83-4.51); Absolute Neutrophil Count 3.8 X10^3/uL (2.0-7.7); Basophil# 0.03 X10^3/uL; Basophil% 0.4 % (0-1); Eosinophil# 0.07 X10^3/uL; Hematocrit 40.6 % (40-54); Hemoglobin 13.3 g/dl (13.0-16.5); Lymphocyte # 1.53 X10^3/ul (4.0); Lymphocyte % 21.9 % (19-41); Mean Corp Hgb Conc 32.8 g/gl (32-36); Mean Corpuscular Hgb 27.5 pg (27.0-32.0); Mean Corpuscular Volume 83.9 fL (80-94); Mean Platelet Vol. 10.5 fl (6.2-12.0); Monocyte# 1.56 X10^3/uL; Monocyte% 22.3 % (0-10); Neutrophil # 3.77 X10^3/uL (2.7-7.7); Neutrophil % 53.8 % (47-70); Platelet Count 199 K/mm3 (150-450); RBC Distribution Width CV 13.4 % (11.6-14.6); RBC Distribution Width SD 40.7 fl (35.1-43.9); Red Blood Count 4.84 M/mm3 (4.6-6.2)
[2018-09-24 07:48] LABS: Differential Indicated SCAN CRITERIA MET; POSITIVE COUNT NO; POSITIVE DIFFERENTIAL YES; POSITIVE MORPHOLOGY NO
[2018-09-24 07:52] LABS: Anion Gap 10 (5-15); BUN 8 mg/dL (7-18); BUN/Creat Ratio 8.9 RATIO (10-20); Calcium,Total 8.2 mg/dL (8.5-10.1); Chloride 98 mmol/L (98-107); EST Glomerular Filtration Rate 86 mL/min (>60); Est Glom Filt Rate - Afr Amer 105 mL/min (>60); Estimated Creatinine Clearance 67.04 ml/min; Glucose 134 mg/dL (74-106); Potassium 3.8 mmol/L (3.5-5.1); Sodium Level 134 mmol/L (136-145)
[2018-09-24 08:01] LABS: Differential Comment SCANNED
--- NOTE | 2018-09-24 08:47 | PCM.CONS.GEN ---
Problem List (1) Dementia, vascular Status: Suspected Qualifiers: Dementia behavioral disturbance: without behavioral disturbance Qualified Code(s): F01.50 - Vascular dementia without behavioral disturbance (2) Community acquired pneumonia Status: Acute (3) Nonrheumatic tricuspid valve regurgitation Status: Chronic (4) Syncope and collapse Status: Chronic (5) Atherosclerosis of squax[place] coronary artery Status: Chronic Qualifiers: [place] vs. transplanted heart: squ[place] heart Associated angina: without angina Qualified Code(s): I25.10 - Atherosclerotic heart disease of [place] coronary artery without angina pectoris Comment: PTCA of RCA intracoronary stent November 1999 (6) Presence of coronary angioplasty implant and graft Status: Chronic Comment: PTCA of the RCA intracoronary stent 11/1999 (7) HTN (hypertension) Status: Chronic Qualifiers: Hypertension type: essential hypertension Qualified Code(s): I10 - Essential (primary) hypertension (8) HLD (hyperlipidemia) Status: Chronic (9) CAD (coronary artery disease) Status: Chronic Qualifiers: Coronary Disease-Associated Artery/Lesion type: [place] artery [place] vs. transplanted heart: squ[place] heart Associated angina: without angina Qualified Code(s): I25.10 - Atherosclerotic heart disease of [place] coronary artery without angina pectoris (10) BPH (benign prostatic hyperplasia) Status: Chronic Qualifiers: Lower urinary tract symptom presence: presence of symptoms unspecified Qualified Code(s): N40.0 - Benign prostatic hyperplasia without lower urinary tract symptoms (11) DM2 (diabetes mellitus, type 2) Status: Chronic Qualifiers: Diabetes mellitus longterm insulin use: without roasterman use Diabetes mellitus complication status: without complication Qualified Code(s): E11.9 - Type 2 diabetes mellitus without complications (12) S/P PTCA (percutaneous transluminal coronary angioplasty) Status: Chronic Comment: PTCA of RCA intracoronary stent November 1999 (13) HLD (hyperlipidemia) Status: Chronic Qualifiers: Hyperlipidemia type: pure hypercholesterolemia Qualified Code(s): E78.00 - Pure hypercholesterolemia, unspecified; E78.0 - Pure hypercholesterolemia (14) Diabetes mellitus Status: Chronic Qualifiers: Diabetes mellitus type: type 2 (15) Aphasia Status: Chronic Reason for Consult Date of Consultation: 09/24/18 Reason for Consultation: Abnormal chest CT History of Present Illness: The patient is a 78 year old M, with past medical history listed below, who presented to [facility] on 09/22/2018 secondary to increasing weakness, confusion and decreased appetite for the past week. Patient reportedly was unable to ambulate without any assistance and frequently lowered himself to the ground with an inability to stand back up. Patient did report a nonproductive cough, but no fever, urinary symptoms, vomiting or diarrhea have been reported. Patient does have a history of dementia at baseline and is taking medications. However, patient's family reported that he was more confused than normal. No pain have been reported. Patient had been receiving a workup for failure to thrive as an outpatient. While in the hospital, patient has been noted to have decreased p.o. diet with a right lower lobe infiltrate. This led to a CT scan of the chest showing mediastinal lymphadenopathy and right lower lobe nodules. A pulmonary consultation has been obtained for recommendations. Patient is being followed for speech therapy for possible aspiration given history of dementia. During my evaluation, patient's and son were not available at the bedside. Patient was very pleasant, but unable to provide any other information. Most of the information was per the electronic medical record and discussion with the hospitalist. Patient reportedly does have a 21-29-jvsy-year smoking history. 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 Patient denies any need for taking the trenches for pipe. Unable to provide any other review of systems. Past Medical History Past Medical History (Chronic Problems): Chronic Problems (Last Reviewed 09/22/18 @ 22:46 by Jeanmarie Bell MD) Chronic atrial fibrillation (Chronic) Nonrheumatic tricuspid valve regurgitation (Chronic) Syncope and collapse (Chronic) Atherosclerosis of squaxin coronary artery (Chronic) PTCA of RCA intracoronary stent November 1999 Presence of coronary angioplasty implant and graft (Chronic) PTCA of the RCA intracoronary stent 11/1999 HTN (hypertension) (Chronic) HLD (hyperlipidemia) (Chronic) Essential (primary) hypertension (Chronic) CAD (coronary artery disease) (Chronic) BPH (benign prostatic hyperplasia) (Chronic) DM2 (diabetes mellitus, type 2) (Chronic) S/P PTCA (percutaneous transluminal coronary angioplasty) (Chronic) PTCA of RCA intracoronary stent November 1999 HLD (hyperlipidemia) (Chronic) Diabetes mellitus (Chronic) Aphasia (Chronic) Medical History: Medical History (Last Reviewed 09/22/18 @ 22:46 by Jeanmarie Bell MD) Chronic atrial fibrillation (Chronic) I48.2 Nonrheumatic tricuspid valve regurgitation (Chronic) I36.1 Syncope and collapse (Chronic) R55 Atherosclerosis of squaxin coronary artery (Chronic) I25.10 PTCA of RCA intracoronary stent November 1999 HTN (hypertension) (Chronic) I10 HLD (hyperlipidemia) (Chronic) E78.5 Essential (primary) hypertension (Chronic) I10 CAD (coronary artery disease) (Chronic) I25.10 DM2 (diabetes mellitus, type 2) (Chronic) E11.9 HLD (hyperlipidemia) (Chronic) 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 Allergies lovastatin [From Mevacor] Adverse Reaction (Severe, Verified 09/22/18 17:18) myalgias metoprolol succinate [From Toprol XL] Adverse Reaction (Severe, Verified 09/22/18 17:18) Heart rate too slow beta blockers Adverse Reaction (Uncoded 09/22/18 17:18) low heart rate Home Medications: Ambulatory Orders Medication Instructions Recorded Atorvastatin Calcium [Lipitor] 10 mg PO QHS 11/30/14 Donepezil HCl [Aricept] 10 mg PO DAILY 09/30/16 Tamsulosin HCl [Flomax] 0.8 mg PO QHS 09/30/16 Cholecalciferol (Vitamin D3) 2,000 unit PO DAILY 11/04/16 [Vitamin D3] Metformin HCl [Metformin HCl ER] 500 mg PO BID 11/04/16 Apixaban [Eliquis] 5 mg PO BID #90 tab 11/05/16 Albuterol Sulfate [Ventolin Hfa] 18 gm IH DAILY PRN 05/03/17 memantine 5 mg tablet 5 mg PO QDAY 11/25/17 escitalopram 10 mg tablet 10 mg PO QDAY 12/29/17 Aspirin E.C. [Ecotrin] 81 mg PO DAILY 09/22/18 Fluticasone 0.05% [Flonase Nasal 1 spray NASAL PRN PRN 09/22/18 [place]] Levothyroxine Sodium [Synthroid] 125 mcg PO DAILY 09/22/18 Omeprazole Magnesium [Prilosec Otc] 20 mg PO DAILY 09/22/18 Ramipril 10 mg PO DAILY 09/22/18 Surgical History: Surgical History (Last Reviewed 09/22/18 @ 22:46 by Jeanmarie Bell MD) Presence of coronary angioplasty implant and graft (Chronic) Z95.5 PTCA of the RCA intracoronary stent 11/1999 S/P PTCA (percutaneous transluminal coronary angioplasty) (Chronic) Z98.61 PTCA of RCA intracoronary stent November 1999 H/O hernia repair Z98.890, Z87.19 History of tonsillectomy Z98.890, Z90.89 History of left heart catheterization (LHC) Z98.890 LHC: 11/20/1999 Surgical History: angioplasty Lives: Spouse/ Significant Other Smoking Status: Former smoker Alcohol: None - *Family History Offspring Family History: Family History (Last Reviewed 09/22/18 @ 22:46 by Jeanmarie Bell MD) Father Cancer Mother CAD (coronary artery disease) CVA (cerebral vascular accident) Brother CAD (coronary artery disease) Brother CVA (cerebral vascular accident) Hypertension Sister Myocardial infarction, Onset Age: 73 Sister CVA (cerebral vascular accident) Sister CVA (cerebral vascular accident) Sister Breast cancer Sister CVA (cerebral vascular accident) Sister TIA (transient ischemic attack) History Items: Heart Disease Review of Systems Unable to obtain accurate/complete ROS d/t: See HPI Patient Problems: Active and Suspected Problems (Last Reviewed 09/22/18 @ 22:46 by Jeanmarie Bell MD) Weakness (Acute) Community acquired pneumonia (Acute) Dementia, vascular (Suspected) Objective: CT scan of the chest, abdomen and pelvis were personally reviewed. Agree with formal interpretation. Patient does have significant mediastinal lymphadenopathy and right lower lobe infiltrate. Some possible nodules versus consolidation appreciated within the infiltrate. Patient also has a lytic lesion of L3. CT of the head did not show any masses and there appears to be chronic involutional changes. Last echocardiogram was relatively unremarkable in 2015 with an EF of 60%, pulmonary artery pressure of 21 mmHg and mild valvular insufficiency. No pulmonary function tests are available for review. - Physical Exam General: Alert, Cooperative, No apparent distress, Disoriented, - - Pleasant. Alopecia. Appears stated age. HEENT: Atraumatic, PERRLA, EOMI, Normocephalic, - - No scleral icterus or injection noted. Oral: Moist Mucosa, No Gingival or Mucosal Lesions/ Ulcerations Neck: Supple, No JVD, No Nodes, Trachea Midline Lungs: No wheeze, No rales, Diminished, Rhonchi - Right lung base, - - Symmetric expansion. No dullness to percussion. Cardiovascular: Regular rate, Regular Rhythm, Normal S1, Normal S2, Murmur - Grade 2 out of 6 systolic ejection murmur right sternal border, No rub noted, No Gallop Abdomen: Bowel Sounds Present, Soft, Non Tender, Non-Distended Extremities: No clubbing, No cyanosis, No edema, Capillary Refill Less than 3 Seconds Skin: No rashes, No breakdown Musculoskeletal: No Tenderness to Palpation of Joints or Extremities Lymphatic: No Cervical, Supraclavicular, or Inguinal Adenopathy Neurological: Cranial nerves II-XII grossly intact, Neuro grossly intact, Motor Exam 5/5 strength throughout Psych/Mental Status: Appropriate, Flat Affect Vital Signs Temp Pulse Resp BP Pulse Ox 36.9 C 108 H 16 140/82 H 93 09/24/18 04:00 09/24/18 04:00 09/24/18 04:00 09/24/18 04:00 09/24/18 07:40 Oxygen Delivery Method Room Air Weight: 72.4 kg Body Mass Index (BMI) 21.6 Finger Stick Blood Glucose 181 Intake and Output for Last 24 Hours 09/22/18 09/23/18 09/24/18 23:59 23:59 23:59 Intake Total 1686 / 1686 1222 / 1222 Output Total 300 / 300 100 / 100 Balance 1386 / 1386 1122 / 1122 Microbiology Past 72 Hours 09/22/18 20:39 Streptococcus pneumoniae Antigen (M - Final Urine, Clean Catch 09/22/18 20:39 Legionella Antigen - Final Urine, Clean Catch Laboratory Tests Past 24 Hrs 09/23/18 09/24/18 09/24/18 06:23 06:00 06:00 WBC RBC Hgb Hct MCV MCH MCHC RDW RDW Differential Plt Count MPV Immature Gran % (Auto) Neut % (Auto) Lymph % (Auto) [place] % (Auto) Eos % (Auto) Baso % (Auto) Absolute Neuts (auto) Absolute Lymphs (auto) Total Counted Differential Comment Sodium Potassium Chloride Carbon Dioxide Anion Gap BUN Creatinine Estim Creat Clear Calc Est GFR (MDRD) Af Amer Est GFR (MDRD) Non-Af BUN/Creatinine Ratio Glucose Calcium Vitamin B12 Pending Cancelled TSH 1.41 09/24/18 09/24/18 06:00 06:00 WBC 7.0 RBC 4.84 Hgb 13.3 Hct 40.6 MCV 83.9 MCH 27.5 MCHC 32.8 RDW 13.4 RDW Differential 40.7 Plt Count 199 MPV 10.5 Immature Gran % (Auto) 0.600 Neut % (Auto) 53.8 Lymph % (Auto) 21.9 [place] % (Auto) 22.3 H Eos % (Auto) 1.0 Baso % (Auto) 0.4 Absolute Neuts (auto) 3.8 Absolute Lymphs (auto) 1.53 Total Counted Not Reportable Differential Comment SCANNED Sodium 134 L Potassium 3.8 Chloride 98 Carbon Dioxide 26.0 Anion Gap 10 BUN 8 Creatinine 0.90 Estim Creat Clear Calc 67.04 Est GFR (MDRD) Af Amer 105 Est GFR (MDRD) Non-Af 86 BUN/Creatinine Ratio 8.9 L Glucose 134 H Calcium 8.2 L Vitamin B12 TSH POC Glucose 09/24/18 09/23/18 09/23/18 06:26 22:35 15:54 POC Glucose 151 H 139 H 131 H 09/23/18 12:30 POC Glucose 224 H Clinical Impression(s) from Imaging Studies Brain CT 09/22/18 18:12 IMPRESSION: No acute intracranial findings or changes. Negative for hemorrhage, hematoma or mass density. Stable chronic involutional changes. Electronically Signed: Nati Moore MD at 19:02 EST , Service support , Chest X-Ray 09/22/18 18:40 IMPRESSION: Shallow inspiration with mild atelectatic changes at the left lung base. More substantial atelectatic changes versus pneumonic infiltrate at the right lung base. Negative for pleural effusion. Stable cardiac size without evidence of pulmonary venous congestion. Electronically Signed: Nati Moore MD at 19:07 EST , Service support , Abdomen/Pelvis CT 09/23/18 14:49 IMPRESSION: No acute intra-abdominal or intrapelvic process is evident. Numerous small lytic bone lesions suspicious for metastatic disease. Follow-up PET/CT is recommended. A bone scan may be helpful for further assessment of distribution of suspected bone lesions. Electronically Signed: Minh Jim, at 18:46 EST Tel , Service support , Chest CT 09/23/18 14:49 IMPRESSION: Right lower lobe lung mass associated with prominent right hilar and mediastinal lymphadenopathy. Right lower lobe and right upper lobe pulmonary nodules may reflect additional neoplasia. Infiltrate of the right upper lobe posterior basilar segment is most suspicious for acute pneumonia. Centered within this is a 1.3 cm pulmonary nodule suspicious for additional neoplasia. Cardiomegaly and prominent three-vessel coronary atherosclerosis. Conspicuous appearance of the bones, numerous small lytic foci, heterogeneous pattern of osteopenia, which must be regarded with suspicion for metastatic disease. Follow-up PET/CT scan is recommended. A bone scan may be helpful for assessment of the distribution of suspected bone metastases. Electronically Signed: Minh Jim, at 18:42 EST Tel , Service support , Assessment/Plan All Active Problems (Last Reviewed 09/22/18 @ 22:46 by Jeanmarie Bell MD) Weakness (Acute) Community acquired pneumonia (Acute) RECOMMENDATIONS: 1. Family meeting to discuss test results 2. Potential candidate for outpatient EBUS versus L3 biopsy 3. Await swallow evaluation 4. Consider outpatient complete PFT IMPRESSIONS: 1. Abnormal CT Patient does have an infiltrate in the right lower lobe on CT scan of the chest. There are 2 areas that appear to be nodules versus increased infiltrate in this area. Significant mediastinal lymphadenopathy is appreciated. Patient is on antibiotics, but does not have any leukocytosis at this time. Patient also has a possible lytic lesion of L3. Cannot exclude metastatic disease. Biopsy could be obtained using EBUS versus CT-guided L3 biopsy if aggressive course is recommended/requested. Cannot exclude a postobstructive pneumonia, but airways appear to be patent at this time. Patient does have significant mediastinal lymphadenopathy, which could limit pulmonary toileting. 2. Anorexia/weight loss/metabolic encephalopathy Patient does not have any lytic lesions noted in the CT scan of the head. Patient likely has an element of vascular dementia and is on medications at this time. Not able to provide much history. Patient does have weight loss, but denies any dysphasia, odynophagia or choking episodes. 3. Probable vascular dementia/paroxysmal A. fib/hypothyroidism/CAD/diabetes mellitus type 2/GERD/BPH/depression/debility Complicates care, management, recovery and prognosis. Patient appears to be relatively advanced on his dementia at this time. Unclear if patient has an element of delirium. Clinical suspicion that patient will not tolerate aggressive intervention for cancer given his debility. Hospitalist to speak with the family about goals of therapy prior to any biopsies. Code Visit Inpatient E&M: 62690 Init Hosp L2
--- NOTE | 2018-09-24 08:52 | CON.PCM_ITS ---
Problem List (1) Dementia, vascular Status: Suspected Qualifiers: Dementia behavioral disturbance: without behavioral disturbance Qualified Code(s): F01.50 - Vascular dementia without behavioral disturbance (2) Community acquired pneumonia Status: Acute (3) Nonrheumatic tricuspid valve regurgitation Status: Chronic (4) Syncope and collapse Status: Chronic (5) Atherosclerosis of [place] coronary artery Status: Chronic Qualifiers: [place] vs. transplanted heart: [place] heart Associated angina: without angina Qualified Code(s): I25.10 - Atherosclerotic heart disease of [place] coronary artery without angina pectoris Comment: PTCA of RCA intracoronary stent November 1999 (6) Presence of coronary angioplasty implant and graft Status: Chronic Comment: PTCA of the RCA intracoronary stent 11/1999 (7) HTN (hypertension) Status: Chronic Qualifiers: Hypertension type: essential hypertension Qualified Code(s): I10 - Essential (primary) hypertension (8) HLD (hyperlipidemia) Status: Chronic (9) CAD (coronary artery disease) Status: Chronic Qualifiers: Coronary Disease-Associated Artery/Lesion type: [place] artery [place] vs. transplanted heart: [place] heart Associated angina: without angina Qualified Code(s): I25.10 - Atherosclerotic heart disease of [place] coronary artery without angina pectoris (10) BPH (benign prostatic hyperplasia) Status: Chronic Qualifiers: Lower urinary tract symptom presence: presence of symptoms unspecified Qualified Code(s): N40.0 - Benign prostatic hyperplasia without lower urinary tract symptoms (11) DM2 (diabetes mellitus, type 2) Status: Chronic Qualifiers: Diabetes mellitus fpc insulin use: without technician terminal and repeater use Diabetes mellitus complication status: without complication Qualified Code(s): E11.9 - Type 2 diabetes mellitus without complications (12) S/P PTCA (percutaneous transluminal coronary angioplasty) Status: Chronic Comment: PTCA of RCA intracoronary stent November 1999 (13) HLD (hyperlipidemia) Status: Chronic Qualifiers: Hyperlipidemia type: pure hypercholesterolemia Qualified Code(s): E78.00 - Pure hypercholesterolemia, unspecified; E78.0 - Pure hypercholesterolemia (14) Diabetes mellitus Status: Chronic Qualifiers: Diabetes mellitus type: type 2 (15) Aphasia Status: Chronic Reason for Consult Date of Consultation: 09/24/18 Reason for Consultation: Abnormal chest CT History of Present Illness: The patient is a 78 year old M, with past medical history listed below, who presented to [facility] on 09/22/2018 secondary to increasing weakness, confusion and decreased appetite for the past week. Patient reportedly was unable to ambulate without any assistance and frequently lowered himself to the ground with an inability to stand back up. Patient did report a nonproductive cough, but no fever, urinary symptoms, vomiting or diarrhea have been reported. Patient does have a history of dementia at baseline and is taking medications. However, patient's family reported that he was more confused than normal. No pain have been reported. Patient had been receiving a workup for failure to thrive as an outpatient. While in the hospital, patient has been noted to have decreased p.o. diet with a right lower lobe infiltrate. This led to a CT scan of the chest showing mediastinal lymphadenopathy and right lower lobe nodules. A pulmonary consultation has been obtained for recommendations. Patient is being followed for speech therapy for possible aspiration given history of dementia. During my evaluation, patient's and son were not available at the bedside. Patient was very pleasant, but unable to provide any other information. Most of the information was per the electronic medical record and discussion with the hospitalist. Patient reportedly does have a [id number]-szuf-year smoking history. 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 Patient denies any need for taking the trenches for pipe. Unable to provide any other review of systems. Past Medical History Past Medical History (Chronic Problems): Chronic Problems (Last Reviewed 09/22/18 @ 22:46 by Jeanmarie Bell MD) Chronic atrial fibrillation (Chronic) Nonrheumatic tricuspid valve regurgitation (Chronic) Syncope and collapse (Chronic) Atherosclerosis of [place] coronary artery (Chronic) PTCA of RCA intracoronary stent November 1999 Presence of coronary angioplasty implant and graft (Chronic) PTCA of the RCA intracoronary stent 11/1999 HTN (hypertension) (Chronic) HLD (hyperlipidemia) (Chronic) Essential (primary) hypertension (Chronic) CAD (coronary artery disease) (Chronic) BPH (benign prostatic hyperplasia) (Chronic) DM2 (diabetes mellitus, type 2) (Chronic) S/P PTCA (percutaneous transluminal coronary angioplasty) (Chronic) PTCA of RCA intracoronary stent November 1999 HLD (hyperlipidemia) (Chronic) Diabetes mellitus (Chronic) Aphasia (Chronic) Medical History: Medical History (Last Reviewed 09/22/18 @ 22:46 by Jeanmarie Bell MD) Chronic atrial fibrillation (Chronic) I48.2 Nonrheumatic tricuspid valve regurgitation (Chronic) I36.1 Syncope and collapse (Chronic) R55 Atherosclerosis of [place] coronary artery (Chronic) I25.10 PTCA of RCA intracoronary stent November 1999 HTN (hypertension) (Chronic) I10 HLD (hyperlipidemia) (Chronic) E78.5 Essential (primary) hypertension (Chronic) I10 CAD (coronary artery disease) (Chronic) I25.10 DM2 (diabetes mellitus, type 2) (Chronic) E11.9 HLD (hyperlipidemia) (Chronic) 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 Z79.899 Allergies lovastatin [From Mevacor] Adverse Reaction (Severe, Verified 09/22/18 17:18) myalgias metoprolol succinate [From Toprol XL] Adverse Reaction (Severe, Verified 09/22/18 17:18) Heart rate too slow beta blockers Adverse Reaction (Uncoded 09/22/18 17:18) low heart rate Home Medications: Ambulatory Orders Medication Instructions Recorded Atorvastatin Calcium [Lipitor] 10 mg PO QHS 11/30/14 Donepezil HCl [Aricept] 10 mg PO DAILY 09/30/16 Tamsulosin HCl [Flomax] 0.8 mg PO QHS 09/30/16 Cholecalciferol (Vitamin D3) 2,000 unit PO DAILY 11/04/16 [Vitamin D3] Metformin HCl [Metformin HCl ER] 500 mg PO BID 11/04/16 Apixaban [Eliquis] 5 mg PO BID #90 tab 11/05/16 Albuterol Sulfate [Ventolin Hfa] 18 gm IH DAILY PRN 05/03/17 memantine 5 mg tablet 5 mg PO QDAY 11/25/17 escitalopram 10 mg tablet 10 mg PO QDAY 12/29/17 Aspirin E.C. [Ecotrin] 81 mg PO DAILY 09/22/18 Fluticasone 0.05% [Flonase Nasal 1 spray NASAL PRN PRN 09/22/18 [place]] Levothyroxine Sodium [Synthroid] 125 mcg PO DAILY 09/22/18 Omeprazole Magnesium [Prilosec Otc] 20 mg PO DAILY 09/22/18 Ramipril 10 mg PO DAILY 09/22/18 Surgical History: Surgical History (Last Reviewed 09/22/18 @ 22:46 by Jeanmarie Bell MD) Presence of coronary angioplasty implant and graft (Chronic) Z95.5 PTCA of the RCA intracoronary stent 11/1999 S/P PTCA (percutaneous transluminal coronary angioplasty) (Chronic) Z98.61 PTCA of RCA intracoronary stent November 1999 H/O hernia repair Z98.890, Z87.19 History of tonsillectomy Z98.890, Z90.89 History of left heart catheterization (LHC) Z98.890 LHC: 11/20/1999 Surgical History: angioplasty Lives: Spouse/ Significant Other Smoking Status: Former smoker Alcohol: None - *Family History Offspring Family History: Family History (Last Reviewed 09/22/18 @ 22:46 by Jeanmarie Bell MD) Father Cancer Mother CAD (coronary artery disease) CVA (cerebral vascular accident) Brother CAD (coronary artery disease) Brother CVA (cerebral vascular accident) Hypertension Sister Myocardial infarction, Onset Age: 73 Sister CVA (cerebral vascular accident) Sister CVA (cerebral vascular accident) Sister Breast cancer Sister CVA (cerebral vascular accident) Sister TIA (transient ischemic attack) History Items: Heart Disease Review of Systems Unable to obtain accurate/complete ROS d/t: See HPI Patient Problems: Active and Suspected Problems (Last Reviewed 09/22/18 @ 22:46 by Jeanmarie Bell MD) Weakness (Acute) Community acquired pneumonia (Acute) Dementia, vascular (Suspected) Objective: CT scan of the chest, abdomen and pelvis were personally reviewed. Agree with formal interpretation. Patient does have significant mediastinal lymphadenopathy and right lower lobe infiltrate. Some possible nodules versus consolidation appreciated within the infiltrate. Patient also has a lytic lesion of L3. CT of the head did not show any masses and there appears to be chronic involutional changes. Last echocardiogram was relatively unremarkable in 2015 with an EF of 60%, pulmonary artery pressure of 21 mmHg and mild valvular insufficiency. No pulmonary function tests are available for review. - Physical Exam General: Alert, Cooperative, No apparent distress, Disoriented, - - Pleasant. Alopecia. Appears stated age. HEENT: Atraumatic, PERRLA, EOMI, Normocephalic, - - No scleral icterus or injection noted. Oral: Moist Mucosa, No Gingival or Mucosal Lesions/ Ulcerations Neck: Supple, No JVD, No Nodes, Trachea Midline Lungs: No wheeze, No rales, Diminished, Rhonchi - Right lung base, - - Symmetric expansion. No dullness to percussion. Cardiovascular: Regular rate, Regular Rhythm, Normal S1, Normal S2, Murmur - Grade 2 out of 6 systolic ejection murmur right sternal border, No rub noted, No Gallop Abdomen: Bowel Sounds Present, Soft, Non Tender, Non-Distended Extremities: No clubbing, No cyanosis, No edema, Capillary Refill Less than 3 Seconds Skin: No rashes, No breakdown Musculoskeletal: No Tenderness to Palpation of Joints or Extremities Lymphatic: No Cervical, Supraclavicular, or Inguinal Adenopathy Neurological: Cranial nerves II-XII grossly intact, Neuro grossly intact, Motor Exam 5/5 strength throughout Psych/Mental Status: Appropriate, Flat Affect Vital Signs Temp Pulse Resp BP Pulse Ox 36.9 C 108 H 16 140/82 H 93 09/24/18 04:00 09/24/18 04:00 09/24/18 04:00 09/24/18 04:00 09/24/18 07:40 Oxygen Delivery Method Room Air Weight: 72.4 kg Body Mass Index (BMI) 21.6 Finger Stick Blood Glucose 181 Intake and Output for Last 24 Hours 09/22/18 09/23/18 09/24/18 23:59 23:59 23:59 Intake Total 1686 / 1686 1222 / 1222 Output Total 300 / 300 100 / 100 Balance 1386 / 1386 1122 / 1122 Microbiology Past 72 Hours 09/22/18 20:39 Streptococcus pneumoniae Antigen (M - Final Urine, Clean Catch 09/22/18 20:39 Legionella Antigen - Final Urine, Clean Catch Laboratory Tests Past 24 Hrs 09/23/18 09/24/18 09/24/18 06:23 06:00 06:00 WBC RBC Hgb Hct MCV MCH MCHC RDW RDW Differential Plt Count MPV Immature Gran % (Auto) Neut % (Auto) Lymph % (Auto) [place] % (Auto) Eos % (Auto) Baso % (Auto) Absolute Neuts (auto) Absolute Lymphs (auto) Total Counted Differential Comment Sodium Potassium Chloride Carbon Dioxide Anion Gap BUN Creatinine Estim Creat Clear Calc Est GFR (MDRD) Af Amer Est GFR (MDRD) Non-Af BUN/Creatinine Ratio Glucose Calcium Vitamin B12 Pending Cancelled TSH 1.41 09/24/18 09/24/18 06:00 06:00 WBC 7.0 RBC 4.84 Hgb 13.3 Hct 40.6 MCV 83.9 MCH 27.5 MCHC 32.8 RDW 13.4 RDW Differential 40.7 Plt Count 199 MPV 10.5 Immature Gran % (Auto) 0.600 Neut % (Auto) 53.8 Lymph % (Auto) 21.9 [place] % (Auto) 22.3 H Eos % (Auto) 1.0 Baso % (Auto) 0.4 Absolute Neuts (auto) 3.8 Absolute Lymphs (auto) 1.53 Total Counted Not Reportable Differential Comment SCANNED Sodium 134 L Potassium 3.8 Chloride 98 Carbon Dioxide 26.0 Anion Gap 10 BUN 8 Creatinine 0.90 Estim Creat Clear Calc 67.04 Est GFR (MDRD) Af Amer 105 Est GFR (MDRD) Non-Af 86 BUN/Creatinine Ratio 8.9 L Glucose 134 H Calcium 8.2 L Vitamin B12 TSH POC Glucose 09/24/18 09/23/18 09/23/18 06:26 22:35 15:54 POC Glucose 151 H 139 H 131 H 09/23/18 12:30 POC Glucose 224 H Clinical Impression(s) from Imaging Studies Brain CT 09/22/18 18:12 IMPRESSION: No acute intracranial findings or changes. Negative for hemorrhage, hematoma or mass density. Stable chronic involutional changes. Electronically Signed: Nati Moore MD at 19:02 EST , Service support , Chest X-Ray 09/22/18 18:40 IMPRESSION: Shallow inspiration with mild atelectatic changes at the left lung base. More substantial atelectatic changes versus pneumonic infiltrate at the right lung base. Negative for pleural effusion. Stable cardiac size without evidence of pulmonary venous congestion. Electronically Signed: Nati Moore MD at 19:07 EST , Service support , Abdomen/Pelvis CT 09/23/18 14:49 IMPRESSION: No acute intra-abdominal or intrapelvic process is evident. Numerous small lytic bone lesions suspicious for metastatic disease. Follow-up PET/CT is recommended. A bone scan may be helpful for further assessment of distribution of suspected bone lesions. Electronically Signed: Minh Jim, at 18:46 EST Tel , Service support , Chest CT 09/23/18 14:49 IMPRESSION: Right lower lobe lung mass associated with prominent right hilar and mediastinal lymphadenopathy. Right lower lobe and right upper lobe pulmonary nodules may reflect additional neoplasia. Infiltrate of the right upper lobe posterior basilar segment is most suspicious for acute pneumonia. Centered within this is a 1.3 cm pulmonary nodule suspicious for additional neoplasia. Cardiomegaly and prominent three-vessel coronary atherosclerosis. Conspicuous appearance of the bones, numerous small lytic foci, heterogeneous pattern of osteopenia, which must be regarded with suspicion for metastatic disease. Follow-up PET/CT scan is recommended. A bone scan may be helpful for assessment of the distribution of suspected bone metastases. Electronically Signed: Minh Jim, at 18:42 EST Tel , Service support , Assessment/Plan All Active Problems (Last Reviewed 09/22/18 @ 22:46 by Jeanmarie Bell MD) Weakness (Acute) Community acquired pneumonia (Acute) RECOMMENDATIONS: 1. Family meeting to discuss test results 2. Potential candidate for outpatient EBUS versus L3 biopsy 3. Await swallow evaluation 4. Consider outpatient complete PFT IMPRESSIONS: 1. Abnormal CT Patient does have an infiltrate in the right lower lobe on CT scan of the chest. There are 2 areas that appear to be nodules versus increased infiltrate in this area. Significant mediastinal lymphadenopathy is appreciated. Patient is on antibiotics, but does not have any leukocytosis at this time. Patient also has a possible lytic lesion of L3. Cannot exclude metastatic disease. Biopsy could be obtained using EBUS versus CT-guided L3 biopsy if aggressive course is recommended/requested. Cannot exclude a postobstructive pneumonia, but airways appear to be patent at this time. Patient does have significant mediastinal lymphadenopathy, which could limit pulmonary toileting. 2. Anorexia/weight loss/metabolic encephalopathy Patient does not have any lytic lesions noted in the CT scan of the head. Patient likely has an element of vascular dementia and is on medications at this time. Not able to provide much history. Patient does have weight loss, but denies any dysphasia, odynophagia or choking episodes. 3. Probable vascular dementia/paroxysmal A. fib/hypothyroidism/CAD/diabetes mellitus type 2/GERD/BPH/depression/debility Complicates care, management, recovery and prognosis. Patient appears to be relatively advanced on his dementia at this time. Unclear if patient has an element of delirium. Clinical suspicion that patient will not tolerate aggressive intervention for cancer given his debility. Hospitalist to speak with the family about goals of therapy prior to any biopsies. Code Visit Inpatient E&M: 56462 Init Hosp L2
--- NOTE | 2018-09-24 10:56 | PN_ITS ---
Patient Problems: Active and Suspected Problems (Last Reviewed 09/22/18 @ 22:46 by Jeanmarie Bell MD) Weakness (Acute) Community acquired pneumonia (Acute) Dementia, vascular (Suspected) Subjective: States he is feeling okay. Denies pain. Per he has had some back pain. Reviewed results of CT scans with and son. Would like to proceed with bx. PO intake remains poor. - Physical Exam General: Alert, Confused, Disoriented HEENT: Atraumatic, PERRLA, EOMI, Normocephalic, EAC Clear Oral: Moist Mucosa, No Gingival or Mucosal Lesions/ Ulcerations Neck: Supple, No JVD, Negative Carotid Bruits, Negative Hepatojugular Reflux, No Nuchal Rigidity Lungs: Clear to auscultation, No rhonchi, No wheeze, No rales, Diminished - diffusely Cardiovascular: Normal S1, Normal S2, No murmurs, No rub noted, No Gallop, - - irreg/irreg Abdomen: Bowel Sounds Present, Soft, Non Tender, Non-Distended, - - thin Extremities: No clubbing, No cyanosis, No edema Skin: No rashes, No breakdown Musculoskeletal: No Tenderness to Palpation of Joints or Extremities, Cachexia, Muscle Wasting Lymphatic: No Cervical, Supraclavicular, or Inguinal Adenopathy Neurological: Cranial nerves II-XII grossly intact, Neuro grossly intact Psych/Mental Status: Normal Affect, - - confused Vital Signs Temp Pulse Resp BP Pulse Ox 98.5 F 108 H 16 140/82 H 93 09/24/18 04:00 09/24/18 04:00 09/24/18 04:00 09/24/18 04:00 09/24/18 07:40 Oxygen Delivery Method Room Air Weight: 72.4 kg Body Mass Index (BMI) 21.6 Finger Stick Blood Glucose 181 Intake and Output for Last 24 Hours 09/22/18 09/23/18 09/24/18 23:59 23:59 23:59 Intake Total 1686 / 1686 1222 / 1222 Output Total 300 / 300 100 / 100 Balance 1386 / 1386 1122 / 1122 Microbiology Past 72 Hours 09/22/18 20:39 Streptococcus pneumoniae Antigen (M - Final Urine, Clean Catch 09/22/18 20:39 Legionella Antigen - Final Urine, Clean Catch Laboratory Tests Past 24 Hrs 09/23/18 09/24/18 09/24/18 06:23 06:00 06:00 WBC RBC Hgb Hct MCV MCH MCHC RDW RDW Differential Plt Count MPV Immature Gran % (Auto) Neut % (Auto) Lymph % (Auto) [place] % (Auto) Eos % (Auto) Baso % (Auto) Absolute Neuts (auto) Absolute Lymphs (auto) Total Counted Differential Comment Sodium Potassium Chloride Carbon Dioxide Anion Gap BUN Creatinine Estim Creat Clear Calc Est GFR (MDRD) Af Amer Est GFR (MDRD) Non-Af BUN/Creatinine Ratio Glucose Calcium Vitamin B12 Pending Cancelled TSH 1.41 09/24/18 09/24/18 06:00 06:00 WBC 7.0 RBC 4.84 Hgb 13.3 Hct 40.6 MCV 83.9 MCH 27.5 MCHC 32.8 RDW 13.4 RDW Differential 40.7 Plt Count 199 MPV 10.5 Immature Gran % (Auto) 0.600 Neut % (Auto) 53.8 Lymph % (Auto) 21.9 [place] % (Auto) 22.3 H Eos % (Auto) 1.0 Baso % (Auto) 0.4 Absolute Neuts (auto) 3.8 Absolute Lymphs (auto) 1.53 Total Counted Not Reportable Differential Comment SCANNED Sodium 134 L Potassium 3.8 Chloride 98 Carbon Dioxide 26.0 Anion Gap 10 BUN 8 Creatinine 0.90 Estim Creat Clear Calc 67.04 Est GFR (MDRD) Af Amer 105 Est GFR (MDRD) Non-Af 86 BUN/Creatinine Ratio 8.9 L Glucose 134 H Calcium 8.2 L Vitamin B12 TSH POC Glucose 09/24/18 09/23/18 09/23/18 06:26 22:35 15:54 POC Glucose 151 H 139 H 131 H 09/23/18 12:30 POC Glucose 224 H Medical Necessity - Tobacco Use Smoking Status: Former smoker Assessment/Plan All Active Problems (Last Reviewed 09/22/18 @ 22:46 by Jeanmarie Bell MD) Weakness (Acute) Community acquired pneumonia (Acute) 1. Suspected Lung Mass with Mediasinal LAD and lytic lesions in lumbar spine -change to zosyn alone for abx to cover potential post-obstructive PNA -no leukocytosis and not febrile but has had cough on and off -maintaining sats on room air -Consult to Pulmonlogy for EBUS for diagnosis as family would like to pursue a tissue diagnosis and at the very least find out what his options are--> hold NOAC -check coags in am -will hold on further diagnostic studies ie bone scan for now -consult heme/onc once tissue dx 2. Toxic/Metabolic Encephalopathy -suspect 2/2 to acute illness/+/- metastatic dz--> CT neg--> ? MRI will await bx if family want to proceed -CT head neg for acute issues--> chronic atrophy noted -no sinusitis on CT 3. Hyponatremia -TSH WNL -? mild SIADH from Lung cancer -will follow -stable 4. Anorexia/wgt loss -[employer] eval -will liberalize diet -supplements added -at least 10 lb wgt loss in the last 3 mos 5. DM-2 -SSI if BGT consistently > 180 -no current need for further treatment 6. CAD/HTN/HPL -Continue home meds 7. Hypothyroidism -continue home synthroid -tsh wnl 8. [id number] -OAC with Eliquis--> will hold now for potential bronch with EBUS -rate controlled on no meds 9. Dementia--> suspect vascular dementia -continue Aricept and Namenda -was diagnosed 2 yrs ago -B12 pending 10. GERD -continue PPI 11. BPH -continue Flomax 12. Depression -continue Lexapro 13. Debility -PT/OT 14. DVT Prophylaxis -start sub q heparin since holding NOAC
[2018-09-24 11:00] VITALS: BP 143/73; PULSE 78; RESP 20; TEMP 36.9; O2SAT 96
[2018-09-24] MEDS: Lactated Ringers 1,000 ML 75 ML IV (11:31)
[2018-09-24] MEDS: Ramipril 10 MG Capsule PO (11:37)
[2018-09-24] MEDS: Aspirin E.C. 81 MG Tablet PO (11:37)
[2018-09-24] MEDS: Pantoprazole Sodium 20 MG Tablet PO (11:37)
[2018-09-24] MEDS: Memantine Hydrochloride 5 MG Tablet PO (11:39)
[2018-09-24] MEDS: Donepezil HCl 10 MG Tablet PO (11:39)
[2018-09-24] MEDS: Escitalopram Oxalate 10 MG Tablet PO (11:39)
[2018-09-24] MEDS: Glucerna Shake 120 ML LIQUID PO ×4 (11:56→21:11)
[2018-09-24 12:10] LABS: Bedside Glucose 144 mg/dL (70-110)
[2018-09-24 16:28] VITALS: BP 155/82; PULSE 83; RESP 20; TEMP 38.4; O2SAT 98
[2018-09-24] MEDS: Piperacil/Tazobactam 3.375 GM/50 ML ML IV ×2 (16:39→22:28)
[2018-09-24] MEDS: Acetaminophen 325 MG Tablet 650 MG PO (16:39)
[2018-09-24 17:21] LABS: Bedside Glucose 207 mg/dL (70-110)
[2018-09-24 18:43] VITALS: TEMP 37
[2018-09-24 20:51] VITALS: BP 99/62; PULSE 68; RESP 20; TEMP 36.4; O2SAT 98
[2018-09-24] MEDS: Tamsulosin HCl 0.4 MG Capsule 0.8 MG PO (21:12)
[2018-09-24] MEDS: Atorvastatin Calcium 10 MG Tablet PO (21:13)
[2018-09-24] MEDS: Heparin Injection (Vial) 5,000 UNIT/ML VIAL 5000 UNIT SC (21:16)
[2018-09-24] MEDS: MELATONIN 3 MG TABLET PO (21:16)
[2018-09-24 22:05] LABS: Bedside Glucose 147 mg/dL (70-110)
[2018-09-25] MEDS: Lactated Ringers 1,000 ML 75 ML IV ×2 (01:35→14:48)
[2018-09-25 02:35] VITALS: BP 111/76; PULSE 73; RESP 18; TEMP 36.2; O2SAT 95
[2018-09-25 05:50] LABS: Absolute Lymphocyte Count 1.14 X10^3/ul (0.83-4.51); Absolute Neutrophil Count 2.4 X10^3/uL (2.0-7.7); Basophil# 0.03 X10^3/uL; Basophil% 0.6 % (0-1); Eosinophil# 0.09 X10^3/uL; Eosinophils% 1.9 % (0-5); Hematocrit 40.3 % (40-54); Hemoglobin 13.5 g/dl (13.0-16.5); Lymphocyte # 1.14 X10^3/ul (4.0); Lymphocyte % 24.4 % (19-41); Mean Corp Hgb Conc 33.5 g/gl (32-36); Mean Corpuscular Hgb 28.1 pg (27.0-32.0); Mean Corpuscular Volume 83.8 fL (80-94); Mean Platelet Vol. 10.4 fl (6.2-12.0); Monocyte# 0.98 X10^3/uL; Neutrophil # 2.39 X10^3/uL (2.7-7.7); Neutrophil % 51.2 % (47-70); Platelet Count 187 K/mm3 (150-450); RBC Distribution Width CV 13.5 % (11.6-14.6); Red Blood Count 4.81 M/mm3 (4.6-6.2); White Blood Count 4.7 K/mm3 (4.4-11.0)
[2018-09-25 05:57] LABS: POSITIVE COUNT NO; POSITIVE DIFFERENTIAL NO; POSITIVE MORPHOLOGY NO
[2018-09-25 06:01] LABS: Anion Gap 11 (5-15); BUN 9 mg/dL (7-18); BUN/Creat Ratio 9.2 RATIO (10-20); Calcium,Total 8.3 mg/dL (8.5-10.1); Chloride 102 mmol/L (98-107); Creatinine, Serum 0.98 mg/dL (0.70-1.30); EST Glomerular Filtration Rate 79 mL/min (>60); Est Glom Filt Rate - Afr Amer 95 mL/min (>60); Estimated Creatinine Clearance 61.56 ml/min; Glucose 190 mg/dL (74-106); Potassium 4.1 mmol/L (3.5-5.1); Sodium Level 139 mmol/L (136-145)
[2018-09-25 06:05] LABS: International Normalized Ratio 1.3
[2018-09-25] MEDS: Levothyroxine 125 MCG Tablet PO (06:24)
[2018-09-25] MEDS: Piperacil/Tazobactam 3.375 GM/50 ML ML IV ×3 (06:24→22:06)
[2018-09-25] MEDS: Insulin Lispro 100 UNIT/ML INSULN.PEN SQ ×4 (06:39→22:26)
--- NOTE | 2018-09-25 06:59 | PCM.PROGNOTE ---
Patient Problems: Active and Suspected Problems (Last Reviewed 09/22/18 @ 22:46 by Jeanmarie Bell MD) Weakness (Acute) Community acquired pneumonia (Acute) Dementia, vascular (Suspected) Subjective: The patient was seen and examined at the bedside this morning. Events from the last 24 hours have been reviewed. The patient is currently afebrile, hemodynamically stable and maintaining appropriate oxygen saturations on room air. The patient is currently resting in his bedside recliner with his at the bedside. He denies any chest pain or shortness of breath. Objective: The patient's most recent lab work, culture data and imaging studies have all been personally reviewed. CT chest revealed extensive mediastinal and hilar adenopathy along with a masslike density in the right lower lobe measuring 3.6 cm. Blood cultures are currently pending. Strep and urine Legionella antigens were both negative. Respiratory viral panel was negative. - Physical Exam General: Alert, Cooperative, No apparent distress HEENT: Atraumatic, PERRLA, Normocephalic Oral: No Gingival or Mucosal Lesions/ Ulcerations Neck: Supple, No Nodes, Trachea Midline Lungs: No rhonchi, No wheeze, No rales, Diminished Cardiovascular: Regular rate, Regular Rhythm, Normal S1, Normal S2, Murmur Abdomen: Bowel Sounds Present, Soft, Non Tender, Non-Distended Extremities: No clubbing, No cyanosis, No edema Skin: No breakdown Musculoskeletal: No Tenderness to Palpation of Joints or Extremities Lymphatic: No Cervical, Supraclavicular, or Inguinal Adenopathy Neurological: Cranial nerves II-XII grossly intact, Neuro grossly intact Psych/Mental Status: Normal Affect, Appropriate Vital Signs Temp Pulse Resp BP Pulse Ox 36.2 C L 73 18 111/76 95 09/25/18 02:35 09/25/18 02:35 09/25/18 02:35 09/25/18 02:35 09/25/18 02:35 Oxygen Delivery Method Room Air Weight: 159 lb 9.835 oz Body Mass Index (BMI) 21.6 Finger Stick Blood Glucose 181 Intake and Output for Last 24 Hours 09/23/18 09/24/18 09/25/18 23:59 23:59 23:59 Intake Total 1686 / 1686 2653 / 2653 1530 / 1530 Output Total 300 / 300 200 / 200 700 / 700 Balance 1386 / 1386 2453 / 2453 830 / 830 Microbiology Past 72 Hours 09/23/18 15:38 Respiratory Panel (PCR) - Final Mucosa - Nose 09/22/18 20:39 Streptococcus pneumoniae Antigen (M - Final Urine, Clean Catch 09/22/18 20:39 Legionella Antigen - Final Urine, Clean Catch Laboratory Tests Past 24 Hrs 09/24/18 09/24/18 09/24/18 06:00 06:00 06:00 WBC 7.0 RBC 4.84 Hgb 13.3 Hct 40.6 MCV 83.9 MCH 27.5 MCHC 32.8 RDW 13.4 RDW Differential 40.7 Plt Count 199 MPV 10.5 Immature Gran % (Auto) 0.600 Neut % (Auto) 53.8 Lymph % (Auto) 21.9 [place] % (Auto) 22.3 H Eos % (Auto) 1.0 Baso % (Auto) 0.4 Absolute Neuts (auto) 3.8 Absolute Lymphs (auto) 1.53 Total Counted Not Reportable Differential Comment SCANNED PT INR Sodium 134 L Potassium 3.8 Chloride 98 Carbon Dioxide 26.0 Anion Gap 10 BUN 8 Creatinine 0.90 Estim Creat Clear Calc 67.04 Est GFR (MDRD) Af Amer 105 Est GFR (MDRD) Non-Af 86 BUN/Creatinine Ratio 8.9 L Glucose 134 H Calcium 8.2 L TSH 1.41 09/25/18 09/25/18 09/25/18 05:10 05:10 05:10 WBC 4.7 RBC 4.81 Hgb 13.5 Hct 40.3 MCV 83.8 MCH 28.1 MCHC 33.5 RDW 13.5 RDW Differential 41.0 Plt Count 187 MPV 10.4 Immature Gran % (Auto) 0.900 Neut % (Auto) 51.2 Lymph % (Auto) 24.4 [place] % (Auto) 21.0 H Eos % (Auto) 1.9 Baso % (Auto) 0.6 Absolute Neuts (auto) 2.4 Absolute Lymphs (auto) 1.14 Total Counted Not Reportable Differential Comment PT Pending INR Pending Sodium 139 Potassium 4.1 Chloride 102 Carbon Dioxide 26.0 Anion Gap 11 BUN 9 Creatinine 0.98 Estim Creat Clear Calc 61.56 Est GFR (MDRD) Af Amer 95 Est GFR (MDRD) Non-Af 79 BUN/Creatinine Ratio 9.2 L Glucose 190 H Calcium 8.3 L TSH POC Glucose 09/24/18 09/24/18 09/24/18 21:09 16:45 11:36 POC Glucose 147 H 207 H 144 H Clinical Impression(s) from Imaging Studies Brain CT 09/22/18 18:12 IMPRESSION: No acute intracranial findings or changes. Negative for hemorrhage, hematoma or mass density. Stable chronic involutional changes. Electronically Signed: Nati Moore MD at 19:02 EST , Service support , Chest X-Ray 09/22/18 18:40 IMPRESSION: Shallow inspiration with mild atelectatic changes at the left lung base. More substantial atelectatic changes versus pneumonic infiltrate at the right lung base. Negative for pleural effusion. Stable cardiac size without evidence of pulmonary venous congestion. Electronically Signed: Nati Moore MD at 19:07 EST , Service support , Abdomen/Pelvis CT 09/23/18 14:49 IMPRESSION: No acute intra-abdominal or intrapelvic process is evident. Numerous small lytic bone lesions suspicious for metastatic disease. Follow-up PET/CT is recommended. A bone scan may be helpful for further assessment of distribution of suspected bone lesions. Electronically Signed: Minh Jim, at 18:46 EST Tel , Service support , Chest CT 09/23/18 14:49 IMPRESSION: Right lower lobe lung mass associated with prominent right hilar and mediastinal lymphadenopathy. Right lower lobe and right upper lobe pulmonary nodules may reflect additional neoplasia. Infiltrate of the right upper lobe posterior basilar segment is most suspicious for acute pneumonia. Centered within this is a 1.3 cm pulmonary nodule suspicious for additional neoplasia. Cardiomegaly and prominent three-vessel coronary atherosclerosis. Conspicuous appearance of the bones, numerous small lytic foci, heterogeneous pattern of osteopenia, which must be regarded with suspicion for metastatic disease. Follow-up PET/CT scan is recommended. A bone scan may be helpful for assessment of the distribution of suspected bone metastases. Electronically Signed: Minh Jim, at 18:42 EST Tel , Service support , Medical Necessity - Tobacco Use Smoking Status: Former smoker Assessment/Plan All Active Problems (Last Reviewed 09/22/18 @ 22:46 by Jeanmarie Bell MD) Weakness (Acute) Community acquired pneumonia (Acute) RECOMMENDATIONS: 1. Mediastinal lymph node sampling can be accomplished on an outpatient basis by EBUS. 2. Continue antibiotics 3. Continue gentle supplemental IV fluid hydration. IMPRESSIONS: 1. Abnormal chest CT The patient's chest CT was personally reviewed and did reveal significant mediastinal and hilar adenopathy. In addition, there is a masslike density/consolidation in the right lower lobe along with several pulmonary nodules and evidence of right upper lobe groundglass changes. While the patient would be a candidate for mediastinal lymph node sampling via EBUS, this would need to be accomplished as an outpatient. Given the current [facility] caseload, the earliest the patient could be scheduled for bronchoscopy would be mid October. Alternatively, a tissue diagnosis could be attempted from the patient's lumbar lytic lesion. This would need to be discussed with radiology further. The family is wishing to discuss further with regards to how aggressive to be, as I am not certain that the patient would be a great candidate from a performance status for aggressive treatment. Okay from my perspective to continue antibiotics for potential pneumonia, pending finalized infectious workup. 2. Anorexia/weight loss/metabolic encephalopathy CT head did not reveal any significant lesions. The patient likely has an element of vascular dementia. 3. Atrial fibrillation/dementia/hypertension/hypothyroidism/hyperlipidemia Complicates care, management, recovery and prognosis. Continue Eliquis, unless radiology is planning for L spine biopsy. This note was generated with [employer] dictation software. It may contain incorrect words, spelling, and punctuation that were not noted in checking the note before signing. Code Visit Inpatient E&M: 56471 Subs Hosp L2
[2018-09-25 07:01] LABS: Bedside Glucose 196 mg/dL (70-110)
--- NOTE | 2018-09-25 07:07 | PN_ITS ---
Patient Problems: Active and Suspected Problems (Last Reviewed 09/22/18 @ 22:46 by Jeanmarie Bell MD) Weakness (Acute) Community acquired pneumonia (Acute) Dementia, vascular (Suspected) Subjective: The patient was seen and examined at the bedside this morning. Events from the last 24 hours have been reviewed. The patient is currently afebrile, hemodynamically stable and maintaining appropriate oxygen saturations on room air. The patient is currently resting in his bedside recliner with his at the bedside. He denies any chest pain or shortness of breath. Objective: The patient's most recent lab work, culture data and imaging studies have all been personally reviewed. CT chest revealed extensive mediastinal and hilar adenopathy along with a masslike density in the right lower lobe measuring 3.6 cm. Blood cultures are currently pending. Strep and urine Legionella antigens were both negative. Respiratory viral panel was negative. - Physical Exam General: Alert, Cooperative, No apparent distress HEENT: Atraumatic, PERRLA, Normocephalic Oral: No Gingival or Mucosal Lesions/ Ulcerations Neck: Supple, No Nodes, Trachea Midline Lungs: No rhonchi, No wheeze, No rales, Diminished Cardiovascular: Regular rate, Regular Rhythm, Normal S1, Normal S2, Murmur Abdomen: Bowel Sounds Present, Soft, Non Tender, Non-Distended Extremities: No clubbing, No cyanosis, No edema Skin: No breakdown Musculoskeletal: No Tenderness to Palpation of Joints or Extremities Lymphatic: No Cervical, Supraclavicular, or Inguinal Adenopathy Neurological: Cranial nerves II-XII grossly intact, Neuro grossly intact Psych/Mental Status: Normal Affect, Appropriate Vital Signs Temp Pulse Resp BP Pulse Ox 36.2 C L 73 18 111/76 95 09/25/18 02:35 09/25/18 02:35 09/25/18 02:35 09/25/18 02:35 09/25/18 02:35 Oxygen Delivery Method Room Air Weight: 159 lb 9.835 oz Body Mass Index (BMI) 21.6 Finger Stick Blood Glucose 181 Intake and Output for Last 24 Hours 09/23/18 09/24/18 09/25/18 23:59 23:59 23:59 Intake Total 1686 / 1686 2653 / 2653 1530 / 1530 Output Total 300 / 300 200 / 200 700 / 700 Balance 1386 / 1386 2453 / 2453 830 / 830 Microbiology Past 72 Hours 09/23/18 15:38 Respiratory Panel (PCR) - Final Mucosa - Nose 09/22/18 20:39 Streptococcus pneumoniae Antigen (M - Final Urine, Clean Catch 09/22/18 20:39 Legionella Antigen - Final Urine, Clean Catch Laboratory Tests Past 24 Hrs 09/24/18 09/24/18 09/24/18 06:00 06:00 06:00 WBC 7.0 RBC 4.84 Hgb 13.3 Hct 40.6 MCV 83.9 MCH 27.5 MCHC 32.8 RDW 13.4 RDW Differential 40.7 Plt Count 199 MPV 10.5 Immature Gran % (Auto) 0.600 Neut % (Auto) 53.8 Lymph % (Auto) 21.9 [place] % (Auto) 22.3 H Eos % (Auto) 1.0 Baso % (Auto) 0.4 Absolute Neuts (auto) 3.8 Absolute Lymphs (auto) 1.53 Total Counted Not Reportable Differential Comment SCANNED PT INR Sodium 134 L Potassium 3.8 Chloride 98 Carbon Dioxide 26.0 Anion Gap 10 BUN 8 Creatinine 0.90 Estim Creat Clear Calc 67.04 Est GFR (MDRD) Af Amer 105 Est GFR (MDRD) Non-Af 86 BUN/Creatinine Ratio 8.9 L Glucose 134 H Calcium 8.2 L TSH 1.41 09/25/18 09/25/18 09/25/18 05:10 05:10 05:10 WBC 4.7 RBC 4.81 Hgb 13.5 Hct 40.3 MCV 83.8 MCH 28.1 MCHC 33.5 RDW 13.5 RDW Differential 41.0 Plt Count 187 MPV 10.4 Immature Gran % (Auto) 0.900 Neut % (Auto) 51.2 Lymph % (Auto) 24.4 [place] % (Auto) 21.0 H Eos % (Auto) 1.9 Baso % (Auto) 0.6 Absolute Neuts (auto) 2.4 Absolute Lymphs (auto) 1.14 Total Counted Not Reportable Differential Comment PT Pending INR Pending Sodium 139 Potassium 4.1 Chloride 102 Carbon Dioxide 26.0 Anion Gap 11 BUN 9 Creatinine 0.98 Estim Creat Clear Calc 61.56 Est GFR (MDRD) Af Amer 95 Est GFR (MDRD) Non-Af 79 BUN/Creatinine Ratio 9.2 L Glucose 190 H Calcium 8.3 L TSH POC Glucose 09/24/18 09/24/18 09/24/18 21:09 16:45 11:36 POC Glucose 147 H 207 H 144 H Clinical Impression(s) from Imaging Studies Brain CT 09/22/18 18:12 IMPRESSION: No acute intracranial findings or changes. Negative for hemorrhage, hematoma or mass density. Stable chronic involutional changes. Electronically Signed: Nati Moore MD at 19:02 EST , Service support , Chest X-Ray 09/22/18 18:40 IMPRESSION: Shallow inspiration with mild atelectatic changes at the left lung base. More substantial atelectatic changes versus pneumonic infiltrate at the right lung base. Negative for pleural effusion. Stable cardiac size without evidence of pulmonary venous congestion. Electronically Signed: Nati Moore MD at 19:07 EST , Service support , Abdomen/Pelvis CT 09/23/18 14:49 IMPRESSION: No acute intra-abdominal or intrapelvic process is evident. Numerous small lytic bone lesions suspicious for metastatic disease. Follow-up PET/CT is recommended. A bone scan may be helpful for further assessment of distribution of suspected bone lesions. Electronically Signed: Minh Jim, at 18:46 EST Tel , Service support , Chest CT 09/23/18 14:49 IMPRESSION: Right lower lobe lung mass associated with prominent right hilar and mediastinal lymphadenopathy. Right lower lobe and right upper lobe pulmonary nodules may reflect additional neoplasia. Infiltrate of the right upper lobe posterior basilar segment is most suspicious for acute pneumonia. Centered within this is a 1.3 cm pulmonary nodule suspicious for additional neoplasia. Cardiomegaly and prominent three-vessel coronary atherosclerosis. Conspicuous appearance of the bones, numerous small lytic foci, heterogeneous pattern of osteopenia, which must be regarded with suspicion for metastatic disease. Follow-up PET/CT scan is recommended. A bone scan may be helpful for assessment of the distribution of suspected bone metastases. Electronically Signed: Minh Jim, at 18:42 EST Tel , Service support , Medical Necessity - Tobacco Use Smoking Status: Former smoker Assessment/Plan All Active Problems (Last Reviewed 09/22/18 @ 22:46 by Jeanmarie Bell MD) Weakness (Acute) Community acquired pneumonia (Acute) RECOMMENDATIONS: 1. Mediastinal lymph node sampling can be accomplished on an outpatient basis by EBUS. 2. Continue antibiotics 3. Continue gentle supplemental IV fluid hydration. IMPRESSIONS: 1. Abnormal chest CT The patient's chest CT was personally reviewed and did reveal significant mediastinal and hilar adenopathy. In addition, there is a masslike density/consolidation in the right lower lobe along with several pulmonary nodules and evidence of right upper lobe groundglass changes. While the patient would be a candidate for mediastinal lymph node sampling via EBUS, this would need to be accomplished as an outpatient. Given the current [facility] caseload, the earliest the patient could be scheduled for bronchoscopy would be mid October. Alternatively, a tissue diagnosis could be attempted from the patient's lumbar lytic lesion. This would need to be discussed with radiology further. The family is wishing to discuss further with regards to how aggressive to be, as I am not certain that the patient would be a great candidate from a performance status for aggressive treatment. Okay from my perspective to continue antibiotics for potential pneumonia, pending finalized infectious workup. 2. Anorexia/weight loss/metabolic encephalopathy CT head did not reveal any significant lesions. The patient likely has an element of vascular dementia. 3. Atrial fibrillation/dementia/hypertension/hypothyroidism/hyperlipidemia Complicates care, management, recovery and prognosis. Continue Eliquis, unless radiology is planning for L spine biopsy. This note was generated with [employer] dictation software. It may contain incorrect words, spelling, and punctuation that were not noted in checking the note before signing. Code Visit Inpatient E&M: 03632 Subs Hosp L2
[2018-09-25 08:11] VITALS: O2SAT 95
--- NOTE | 2018-09-25 08:47 | EKG12_ITS ---
Test Reason : CP Blood Pressure : / mmHG Vent. Rate : 080 BPM Atrial Rate : 197 BPM P-R Int : 000 ms QRS Dur : 088 ms QT Int : 378 ms P-R-T Axes : 000 024 038 degrees QTc Int : 435 ms Atrial fibrillation Abnormal ECG When compared with ECG of 22-SEP-2018 18:32, MANUAL COMPARISON REQUIRED, DATA IS UNCONFIRMED Confirmed by JESSE KESSLER, LEW ([id number]), loan expeditor MARIAMA WELLS ([id number] on 10/02/2018 2:25:28 PM Referred By: DR. NUNEZ Confirmed By:LEW MOLINA MD
[2018-09-25] MEDS: Ramipril 10 MG Capsule PO (09:49)
[2018-09-25 09:50] VITALS: BP 123/71; PULSE 68; RESP 18; TEMP 37; O2SAT 97
[2018-09-25] MEDS: Escitalopram Oxalate 10 MG Tablet PO (09:50)
[2018-09-25] MEDS: Memantine Hydrochloride 5 MG Tablet PO (09:50)
[2018-09-25] MEDS: Aspirin E.C. 81 MG Tablet PO (09:50)
[2018-09-25] MEDS: Donepezil HCl 10 MG Tablet PO (09:50)
[2018-09-25] MEDS: Heparin Injection (Vial) 5,000 UNIT/ML VIAL 5000 UNIT SC ×2 (09:51→22:33)
[2018-09-25] MEDS: Glucerna Shake 120 ML LIQUID PO ×4 (09:51→22:19)
[2018-09-25] MEDS: Pantoprazole Sodium 20 MG Tablet PO (09:53)
[2018-09-25 10:08] LABS: Vitamin B12 > 2000 pg/mL (211-911)
--- NOTE | 2018-09-25 10:12 | PCM.PN.HOSP ---
Patient Problems: Active and Suspected Problems (Last Reviewed 09/22/18 @ 22:46 by Jeanmarie Bell MD) Weakness (Acute) Community acquired pneumonia (Acute) Dementia, vascular (Suspected) Subjective: Patient seen and examined. He was admitted with a complaint of progressively worsening weakness and was initially managed for pneumonia. CT scan done picked up right lung mass with mediastinal lymphadenopathy. Pulmonary is on board and plan is for an endoscopic bronchial ultrasound with biopsy. However because of the schedule, patient can have it until October. Patient was seen with granddaughter by his bedside he was eating breakfast. It turns out that patient has not been told by the family about this lung mass as they do not want him to know yet. I had an extensive discussion with patient's and granddaughter to know the goals of care. was very tearful and feels guilty that patient was still diagnosed earlier. However she cannot take care of him at home because she says she just had surgery and a hysterectomy and a bladder lift and so cannot care for him. However granddaughter insist that patient would want to go home. Family counseled that they would have to discuss patient's wishes as states that she knows that patient would not want any further intervention. However family wants him to have a biopsy to get a definite diagnosis. to discuss with son for signal whether they would want him to go home in the interim or there would want him placed as cannot take care of him at home. Patient denies any fever or chills, any cough or chest pain, shortness of breath, abdominal pain, diarrhea vomiting. Review of systems otherwise negative. Labs and vitals reviewed. Vitals/I&O's: Vital Signs Temp Pulse Resp BP Pulse Ox 97.2 F L 73 18 111/76 95 09/25/18 02:35 09/25/18 02:35 09/25/18 02:35 09/25/18 02:35 09/25/18 08:11 Oxygen Delivery Method Room Air Weight: 159 lb 9.835 oz Body Mass Index (BMI) 21.6 Finger Stick Blood Glucose 181 Intake and Output for Last 24 Hours 09/23/18 09/24/18 09/25/18 23:59 23:59 23:59 Intake Total 1686 / 1686 2653 / 2653 1530 / 1530 Output Total 300 / 300 200 / 200 700 / 700 Balance 1386 / 1386 2453 / 2453 830 / 830 General: Alert, Cooperative, No apparent distress, - HEENT: Atraumatic, PERRLA, EOMI, Normocephalic Oral: Moist Mucosa Neck: Supple, No JVD, Negative Carotid Bruits Lungs: - - has few crackles bibasally, with no wheezing or rhonchi Cardiovascular: Regular rate, Regular Rhythm, Normal S1, Normal S2, No murmurs Abdomen: Bowel Sounds Present, Soft, Non Tender, Non-Distended, No Hepato-splenomegaly Extremities: No clubbing, No cyanosis, No edema, Capillary Refill Less than 3 Seconds Skin: No rashes, No breakdown Musculoskeletal: No Tenderness to Palpation of Joints or Extremities Lymphatic: No Cervical, Supraclavicular, or Inguinal Adenopathy Neurological: Cranial nerves II-XII grossly intact, Neuro grossly intact, Motor Exam 5/5 strength throughout Psych/Mental Status: Normal Affect, Appropriate, Alert and oriented to time, place, person, mood and affect Microbiology Past 72 Hours 09/23/18 15:38 Mucosa - Nose Respiratory Panel (PCR) - Final 09/22/18 20:39 Urine, Clean Catch Streptococcus pneumoniae Antigen (M - Final 09/22/18 20:39 Urine, Clean Catch Legionella Antigen - Final Laboratory Results 09/23/18 06:23: Vitamin B12 > 2000 H 09/24/18 11:36: POC Glucose 144 H 09/24/18 16:45: POC Glucose 207 H 09/24/18 21:09: POC Glucose 147 H 09/25/18 05:10: WBC 4.7, RBC 4.81, Hgb 13.5, Hct 40.3, MCV 83.8, MCH 28.1, MCHC 33.5, RDW 13.5, RDW Differential 41.0, Plt Count 187, MPV 10.4, Immature Gran % (Auto) 0.900, Neut % (Auto) 51.2, Lymph % (Auto) 24.4, [place] % (Auto) 21.0 H, Eos % (Auto) 1.9, Baso % (Auto) 0.6, Absolute Neuts (auto) 2.4, Absolute Lymphs (auto) 1.14, Total Counted Not Reportable 09/25/18 05:10: PT 16.0 H, INR 1.3 11/19/18 05:10: Sodium 139, Potassium 4.1, Chloride 102, Carbon Dioxide 26.0, Anion Gap 11, BUN 9, Creatinine 0.98, Estim Creat Clear Calc 61.56, Est GFR (MDRD) Af Amer 95, Est GFR (MDRD) Non-Af 79, BUN/Creatinine Ratio 9.2 L, Glucose 190 H, Calcium 8.3 L 09/25/18 06:35: POC Glucose 196 H 09/25/18 09:00: Troponin I < 0.[address] 09/22/18 18:12 IMPRESSION: No acute intracranial findings or changes. Negative for hemorrhage, hematoma or mass density. Stable chronic involutional changes. Electronically Signed: Ntai Moore MD at 19:02 EST , Service support , Chest X-Ray 09/22/18 18:40 IMPRESSION: Shallow inspiration with mild atelectatic changes at the left lung base. More substantial atelectatic changes versus pneumonic infiltrate at the right lung base. Negative for pleural effusion. Stable cardiac size without evidence of pulmonary venous congestion. Electronically Signed: Nati Moore MD at 19:07 EST , Service support , Abdomen/Pelvis CT 09/23/18 14:49 IMPRESSION: No acute intra-abdominal or intrapelvic process is evident. Numerous small lytic bone lesions suspicious for metastatic disease. Follow-up PET/CT is recommended. A bone scan may be helpful for further assessment of distribution of suspected bone lesions. Electronically Signed: Minh Jim, at 18:46 EST Tel , Service support , Chest CT 09/23/18 14:49 IMPRESSION: Right lower lobe lung mass associated with prominent right hilar and mediastinal lymphadenopathy. Right lower lobe and right upper lobe pulmonary nodules may reflect additional neoplasia. Infiltrate of the right upper lobe posterior basilar segment is most suspicious for acute pneumonia. Centered within this is a 1.3 cm pulmonary nodule suspicious for additional neoplasia. Cardiomegaly and prominent three-vessel coronary atherosclerosis. Conspicuous appearance of the bones, numerous small lytic foci, heterogeneous pattern of osteopenia, which must be regarded with suspicion for metastatic disease. Follow-up PET/CT scan is recommended. A bone scan may be helpful for assessment of the distribution of suspected bone metastases. Electronically Signed: Minh Jim, at 18:42 EST Tel , Service support , Current Medications Acetaminophen (Tylenol) 650 mg PO Q6H PRN PRN PRN Reason: temp > 100.4 Last Admin: 09/24/18 16:39 Dose: 650 mg Albuterol Sulfate (Ventolin Aerosols) 2.5 mg INHALATION Q2H PRN PRN PRN Reason: sob/wheezing Aspirin (Ecotrin) 81 mg PO DAILYCM [facility] Last Admin: 09/25/18 09:50 Dose: 81 mg Atorvastatin Calcium (Lipitor) 10 mg PO QHS [facility] Last Admin: 09/24/18 21:13 Dose: 10 mg Cholecalciferol (Vitamin D) 2,000 unit PO DAILY [facility] Last Admin: 09/25/18 09:49 Dose: 2,000 unit Dextrose (D50w Syringe) 0 gm IV X1 PRN; Protocol PRN Reason: Hypoglycemia Donepezil HCl (Aricept) 10 mg PO DAILY [facility] Last Admin: 09/25/18 09:50 Dose: 10 mg Escitalopram Oxalate (Lexapro) 10 mg PO DAILY [facility] Last Admin: 09/25/18 09:50 Dose: 10 mg Fluticasone Propionate (Flonase Nasal [place]) 1 spray NASAL DAILY PRN PRN PRN Reason: ALLERGIES Glucagon () 1 mg IM .X1 PRN PRN Reason: Hypoglycemia Heparin Sodium (Porcine) (Heparin Na) 5,000 unit SC Q12 [facility] Last Admin: 09/25/18 09:51 Dose: 5,000 unit Sodium Chloride () 250 mls @ 15 mls/hr IV .[id number] PRN PRN Reason: SALINE FLUSH Lactated Ringer's () 1,000 mls @ 75 mls/hr IV .[id number] [facility] Last Admin: 09/25/18 01:35 Dose: 75 mls/hr Piperacillin Sod/Tazobactam Sod (Zosyn) 3.375 gm in 50 mls @ 12.5 mls/hr IV Q8 [facility] Last Admin: 09/25/18 06:24 Dose: 12.5 mls/hr Insulin Human Lispro (Humalog Kwikpen (Bkc)) 0 unit SQ ACHS [facility]; Protocol Last Admin: 09/25/18 06:39 Dose: 2 u Levothyroxine Sodium (Synthroid) 125 mcg PO DAILY@0600 [facility] Last Admin: 09/25/18 06:24 Dose: 125 mcg Magnesium Hydroxide (Milk Of Magnesia) 30 ml PO DAILY PRN PRN PRN Reason: Constipation Melatonin (Melatonin) 3 mg PO QHS [facility] Last Admin: 09/24/18 21:16 Dose: 3 mg Memantine (Namenda) 5 mg PO DAILY [facility] Last Admin: 09/25/18 09:50 Dose: 5 mg Nutritional Formula (Lactose Free) (Glucerna Shake) 120 ml PO 4X/DAY [facility] Last Admin: 09/25/18 09:51 Dose: 120 ml Pantoprazole Sodium (Protonix) 20 mg PO DAILY [facility] Last Admin: 09/25/18 09:53 Dose: 20 mg Ramipril (Altace) 10 mg PO DAILY [facility] Last Admin: 09/25/18 09:49 Dose: 10 mg Sodium Chloride () 5 - 30 ml IV UD PRN PRN Reason: SALINE FLUSH Tamsulosin HCl (Flomax) 0.8 mg PO QHS [facility] Last Admin: 09/24/18 21:12 Dose: 0.8 mg Medical Necessity - Tobacco Use Smoking Status: Former smoker Assessment/Plan All Active Problems (Last Reviewed 09/22/18 @ 22:46 by Jeanmarie Bell MD) Weakness (Acute) Community acquired pneumonia (Acute) 1. 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 and granddaughter counseled extensively that it is important that the goals of care be established and if patient would not want to be treated, whether they would want to go through the whole process of an E bus for diagnosis. Again, she is cannot take care of patient at home in the interim until he has a E bus. However granddaughter and says that patient would want to go home. Family undecided about goals of care and were counseled extensively that they needed to do was best for the patient and with the belief that the patient would want and this included telling the patient and became aware of what is going on so that he could be involved in the plan of care. Discussed with Dr. Corrigan as well. Another possibility is for him to have a biopsy of the spinal and bone lesions if that can be done earlier. keep NOACs on hold for now, pending decision about bone biopsy 2. Post obstructive pneumonia currently afebrile, with no leucocytosis remains on IV zosyn will stop afer today and switch to oral antibiotic as patient is tolerating oral diet 3. Acute metaoblic encephalopathy Was thought to be due to the pneumonia. Brain metastasis ruled out with negative CT. Resolving. Patient is currently alert and oriented and able to carry on a conversation. 4. Hyponatremia: resolved. Na is now 139 5. Afib: currently rate and rhythm controlled. Eliquis on hold o/a of potential biopsy. Stable 6. Dementia: on aricept and namenda 7. Hypertension: On ramipril 8. Hypothyroidism: On Synthroid 9. Hyperlipidemia: on statin 10. GERD: on PPI 11. Depression: on lexapro DVT prophylaxis: heparin Code status: full code. Code Visit Inpatient E&M: 56204 [facility] Hosp L3
--- NOTE | 2018-09-25 10:17 | PN_ITS ---
Patient Problems: Active and Suspected Problems (Last Reviewed 09/22/18 @ 22:46 by Jeanmarie Bell MD) Weakness (Acute) Community acquired pneumonia (Acute) Dementia, vascular (Suspected) Subjective: Patient seen and examined. He was admitted with a complaint of progressively worsening weakness and was initially managed for pneumonia. CT scan done picked up right lung mass with mediastinal lymphadenopathy. Pulmonary is on board and plan is for an endoscopic bronchial ultrasound with biopsy. However because of the schedule, patient can have it until October. Patient was seen with granddaughter by his bedside he was eating breakfast. It turns out that patient has not been told by the family about this lung mass as they do not want him to know yet. I had an extensive discussion with patient's and granddaughter to know the goals of care. was very tearful and feels guilty that patient was still diagnosed earlier. However she cannot take care of him at home because she says she just had surgery and a hysterectomy and a bladder lift and so cannot care for him. However granddaughter insist that patient would want to go home. Family counseled that they would have to discuss patient's wishes as states that she knows that patient would not want any further intervention. However family wants him to have a biopsy to get a definite diagnosis. to discuss with son for signal whether they would want him to go home in the interim or there would want him placed as cannot take care of him at home. Patient denies any fever or chills, any cough or chest pain, shortness of breath, abdominal pain, diarrhea vomiting. Review of systems otherwise negative. Labs and vitals reviewed. Vitals/I&O's: Vital Signs Temp Pulse Resp BP Pulse Ox 97.2 F L 73 18 111/76 95 09/25/18 02:35 09/25/18 02:35 09/25/18 02:35 09/25/18 02:35 09/25/18 08:11 Oxygen Delivery Method Room Air Weight: 159 lb 9.835 oz Body Mass Index (BMI) 21.6 Finger Stick Blood Glucose 181 Intake and Output for Last 24 Hours 09/23/18 09/24/18 09/25/18 23:59 23:59 23:59 Intake Total 1686 / 1686 2653 / 2653 1530 / 1530 Output Total 300 / 300 200 / 200 700 / 700 Balance 1386 / 1386 2453 / 2453 830 / 830 General: Alert, Cooperative, No apparent distress, - HEENT: Atraumatic, PERRLA, EOMI, Normocephalic Oral: Moist Mucosa Neck: Supple, No JVD, Negative Carotid Bruits Lungs: - - has few crackles bibasally, with no wheezing or rhonchi Cardiovascular: Regular rate, Regular Rhythm, Normal S1, Normal S2, No murmurs Abdomen: Bowel Sounds Present, Soft, Non Tender, Non-Distended, No Hepato- splenomegaly Extremities: No clubbing, No cyanosis, No edema, Capillary Refill Less than 3 Seconds Skin: No rashes, No breakdown Musculoskeletal: No Tenderness to Palpation of Joints or Extremities Lymphatic: No Cervical, Supraclavicular, or Inguinal Adenopathy Neurological: Cranial nerves II-XII grossly intact, Neuro grossly intact, Motor Exam 5/5 strength throughout Psych/Mental Status: Normal Affect, Appropriate, Alert and oriented to time, place, person, mood and affect Microbiology Past 72 Hours 09/23/18 15:38 Mucosa - Nose Respiratory Panel (PCR) - Final 09/22/18 20:39 Urine, Clean Catch Streptococcus pneumoniae Antigen (M - Final 09/22/18 20:39 Urine, Clean Catch Legionella Antigen - Final Laboratory Results 09/23/18 06:23: Vitamin B12 > 2000 H 09/24/18 11:36: POC Glucose 144 H 09/24/18 16:45: POC Glucose 207 H 09/24/18 21:09: POC Glucose 147 H 09/25/18 05:10: WBC 4.7, RBC 4.81, Hgb 13.5, Hct 40.3, MCV 83.8, MCH 28.1, MCHC 33.5, RDW 13.5, RDW Differential 41.0, Plt Count 187, MPV 10.4, Immature Gran % (Auto) 0.900, Neut % (Auto) 51.2, Lymph % (Auto) 24.4, [place] % (Auto) 21.0 H, Eos % (Auto) 1.9, Baso % (Auto) 0.6, Absolute Neuts (auto) 2.4, Absolute Lymphs (auto) 1.14, Total Counted Not Reportable 09/25/18 05:10: PT 16.0 H, INR 1.3 11/19/18 05:10: Sodium 139, Potassium 4.1, Chloride 102, Carbon Dioxide 26.0, Anion Gap 11, BUN 9, Creatinine 0.98, Estim Creat Clear Calc 61.56, Est GFR (MDRD) Af Amer 95, Est GFR (MDRD) Non-Af 79, BUN/Creatinine Ratio 9.2 L, Glucose 190 H, Calcium 8.3 L 09/25/18 06:35: POC Glucose 196 H 09/25/18 09:00: Troponin I < 0.[address] 09/22/18 18:12 IMPRESSION: No acute intracranial findings or changes. Negative for hemorrhage, hematoma or mass density. Stable chronic involutional changes. Electronically Signed: Nati Moore MD at 19:02 EST , Service support , Chest X-Ray 09/22/18 18:40 IMPRESSION: Shallow inspiration with mild atelectatic changes at the left lung base. More substantial atelectatic changes versus pneumonic infiltrate at the right lung base. Negative for pleural effusion. Stable cardiac size without evidence of pulmonary venous congestion. Electronically Signed: Nati Moore MD at 19:07 EST , Service support , Abdomen/Pelvis CT 09/23/18 14:49 IMPRESSION: No acute intra-abdominal or intrapelvic process is evident. Numerous small lytic bone lesions suspicious for metastatic disease. Follow-up PET/CT is recommended. A bone scan may be helpful for further assessment of distribution of suspected bone lesions. Electronically Signed: Minh Jim, at 18:46 EST Tel , Service support , Chest CT 09/23/18 14:49 IMPRESSION: Right lower lobe lung mass associated with prominent right hilar and mediastinal lymphadenopathy. Right lower lobe and right upper lobe pulmonary nodules may reflect additional neoplasia. Infiltrate of the right upper lobe posterior basilar segment is most suspicious for acute pneumonia. Centered within this is a 1.3 cm pulmonary nodule suspicious for additional neoplasia. Cardiomegaly and prominent three-vessel coronary atherosclerosis. Conspicuous appearance of the bones, numerous small lytic foci, heterogeneous pattern of osteopenia, which must be regarded with suspicion for metastatic disease. Follow-up PET/CT scan is recommended. A bone scan may be helpful for assessment of the distribution of suspected bone metastases. Electronically Signed: Minh Jim, at 18:42 EST Tel , Service support , Current Medications Acetaminophen (Tylenol) 650 mg PO Q6H PRN PRN PRN Reason: temp > 100.4 Last Admin: 09/24/18 16:39 Dose: 650 mg Albuterol Sulfate (Ventolin Aerosols) 2.5 mg INHALATION Q2H PRN PRN PRN Reason: sob/wheezing Aspirin (Ecotrin) 81 mg PO DAILYCM [facility] Last Admin: 09/25/18 09:50 Dose: 81 mg Atorvastatin Calcium (Lipitor) 10 mg PO QHS [facility] Last Admin: 09/24/18 21:13 Dose: 10 mg Cholecalciferol (Vitamin D) 2,000 unit PO DAILY [facility] Last Admin: 09/25/18 09:49 Dose: 2,000 unit Dextrose (D50w Syringe) 0 gm IV X1 PRN; Protocol PRN Reason: Hypoglycemia Donepezil HCl (Aricept) 10 mg PO DAILY [facility] Last Admin: 09/25/18 09:50 Dose: 10 mg Escitalopram Oxalate (Lexapro) 10 mg PO DAILY [facility] Last Admin: 09/25/18 09:50 Dose: 10 mg Fluticasone Propionate (Flonase Nasal [place]) 1 spray NASAL DAILY PRN PRN PRN Reason: ALLERGIES Glucagon () 1 mg IM .X1 PRN PRN Reason: Hypoglycemia Heparin Sodium (Porcine) (Heparin Na) 5,000 unit SC Q12 [facility] Last Admin: 09/25/18 09:51 Dose: 5,000 unit Sodium Chloride () 250 mls @ 15 mls/hr IV .[id number] PRN PRN Reason: SALINE FLUSH Lactated Ringer's () 1,000 mls @ 75 mls/hr IV .[id number] [facility] Last Admin: 09/25/18 01:35 Dose: 75 mls/hr Piperacillin Sod/Tazobactam Sod (Zosyn) 3.375 gm in 50 mls @ 12.5 mls/hr IV Q8 [facility] Last Admin: 09/25/18 06:24 Dose: 12.5 mls/hr Insulin Human Lispro (Humalog Kwikpen (Bkc)) 0 unit SQ ACHS [facility]; Protocol Last Admin: 09/25/18 06:39 Dose: 2 u Levothyroxine Sodium (Synthroid) 125 mcg PO DAILY@0600 [facility] Last Admin: 09/25/18 06:24 Dose: 125 mcg Magnesium Hydroxide (Milk Of Magnesia) 30 ml PO DAILY PRN PRN PRN Reason: Constipation Melatonin (Melatonin) 3 mg PO QHS [facility] Last Admin: 09/24/18 21:16 Dose: 3 mg Memantine (Namenda) 5 mg PO DAILY [facility] Last Admin: 09/25/18 09:50 Dose: 5 mg Nutritional Formula (Lactose Free) (Glucerna Shake) 120 ml PO 4X/DAY [facility] Last Admin: 09/25/18 09:51 Dose: 120 ml Pantoprazole Sodium (Protonix) 20 mg PO DAILY [facility] Last Admin: 09/25/18 09:53 Dose: 20 mg Ramipril (Altace) 10 mg PO DAILY [facility] Last Admin: 09/25/18 09:49 Dose: 10 mg Sodium Chloride () 5 - 30 ml IV UD PRN PRN Reason: SALINE FLUSH Tamsulosin HCl (Flomax) 0.8 mg PO QHS [facility] Last Admin: 09/24/18 21:12 Dose: 0.8 mg Medical Necessity - Tobacco Use Smoking Status: Former smoker Assessment/Plan All Active Problems (Last Reviewed 09/22/18 @ 22:46 by Jeanmarie Bell MD) Weakness (Acute) Community acquired pneumonia (Acute) 1. Right lung mass likely malignant * has mediastinal lymphadenopathy and lytic lesions in lumbar spine * pulmonary on board; for EBUS, but procedure can only be done in October on outpatient basis * paitent not yet informed by family about probable malignant lung mass * Per , patient may not even want to treatment. and granddaughter counseled extensively that it is important that the goals of care be established and if patient would not want to be treated, whether they would want to go through the whole process of an E bus for diagnosis. Again, she is cannot take care of patient at home in the interim until he has a E bus. However granddaughter and says that patient would want to go home. Family undecided about goals of care and were counseled extensively that they needed to do was best for the patient and with the belief that the patient would want and this included telling the patient and became aware of what is going on so that he could be involved in the plan of care. * Discussed with Dr. Corrigan as well. Another possibility is for him to have a biopsy of the spinal and bone lesions if that can be done earlier. * keep NOACs on hold for now, pending decision about bone biopsy * 2. Post obstructive pneumonia * currently afebrile, with no leucocytosis * remains on IV zosyn * will stop afer today and switch to oral antibiotic as patient is tolerating oral diet * 3. Acute metaoblic encephalopathy * Was thought to be due to the pneumonia. Brain metastasis ruled out with negative CT. * Resolving. Patient is currently alert and oriented and able to carry on a conversation. * 4. Hyponatremia: resolved. Na is now 139 5. Afib: currently rate and rhythm controlled. Eliquis on hold o/a of potential biopsy. Stable 6. Dementia: on aricept and namenda 7. Hypertension: On ramipril 8. Hypothyroidism: On Synthroid 9. Hyperlipidemia: on statin 10. GERD: on PPI 11. Depression: on lexapro DVT prophylaxis: heparin Code status: full code. Code Visit Inpatient E&M: 43248 [facility] Hosp L3
[2018-09-25 12:20] LABS: Bedside Glucose 193 mg/dL (70-110)
--- NOTE | 2018-09-25 14:00 | CASEMGMT ---
RN KITA and AARON Aaron in to speak with patient and regarding discharge planning. Discharge options reviewed, as well as patient's progress with therapy. Patient and understand patient's needs at this time and are agreeable to SNF. AARON Aaron provided list of in-network facilities. Patient and family's first choice is TCU, second choice [facility]. AARON Aaron to assist with SNF placement.
[2018-09-25 14:50] VITALS: BP 126/73; PULSE 96; RESP 18; TEMP 36.9; O2SAT 96
--- NOTE | 2018-09-25 15:42 | CASEMGMT ---
Social Work Note AARON and LIBERTAD Cerrato met with pt and pt's present in room. RN KITA and SW explained options for discharge planning and at this time pt is a mod assist of 2. Pt and pt's agreeable to SNF at discharge. SW provided pt's with list of in network facilities. Pt and pt's would like [facility]. SW explained that this worker will have to check on bed availability and will have to see if TCU is able to accept pt. AARON explained that once a facility accepts pt, pre-cert from pt's insurance will need to be obtained before pt can discharge. Pt and pt's states understanding. AARON placed a call to [facility] in [facility]. Per [facility], she has beds available and can accept pt and will start pre-cert. Plan: TCU pending pre-cert Jennifer Aaron MSW,[employer]
[2018-09-25 16:35] LABS: Bedside Glucose 165 mg/dL (70-110)
[2018-09-25] MEDS: Acetaminophen 325 MG Tablet 650 MG PO (19:16)
[2018-09-25 21:21] VITALS: BP 130/59; PULSE 57; RESP 18; TEMP 37.1; O2SAT 94
[2018-09-25] MEDS: MELATONIN 3 MG TABLET PO (22:23)
[2018-09-25] MEDS: Tamsulosin HCl 0.4 MG Capsule 0.8 MG PO (22:23)
[2018-09-25] MEDS: Atorvastatin Calcium 10 MG Tablet PO (22:23)
[2018-09-25 22:40] LABS: Bedside Glucose 224 mg/dL (70-110)
[2018-09-26 03:20] VITALS: BP 125/75; PULSE 51; RESP 16; TEMP 36.5
[2018-09-26] MEDS: Lactated Ringers 1,000 ML 75 ML IV ×2 (03:22→16:39)
[2018-09-26] MEDS: 0.9% NaCl IVPB Med Flush (250 mL) 15 ML IV (05:36)
[2018-09-26] MEDS: Piperacil/Tazobactam 3.375 GM/50 ML ML IV ×3 (05:39→21:22)
[2018-09-26] MEDS: Levothyroxine 125 MCG Tablet PO (06:47)
[2018-09-26 06:50] LABS: Absolute Lymphocyte Count 1.21 X10^3/ul (0.83-4.51); Basophil# 0.07 X10^3/uL; Basophil% 1.6 % (0-1); Eosinophil# 0.11 X10^3/uL; Eosinophils% 2.6 % (0-5); Hematocrit 38.5 % (40-54); Lymphocyte # 1.21 X10^3/ul (4.0); Lymphocyte % 28.1 % (19-41); Mean Corp Hgb Conc 33.8 g/gl (32-36); Mean Corpuscular Hgb 28.6 pg (27.0-32.0); Mean Corpuscular Volume 84.6 fL (80-94); Mean Platelet Vol. 10.6 fl (6.2-12.0); Monocyte# 0.89 X10^3/uL; Monocyte% 20.6 % (0-10); Neutrophil % 46.4 % (47-70); Platelet Count 200 K/mm3 (150-450); RBC Distribution Width CV 13.6 % (11.6-14.6); RBC Distribution Width SD 41.4 fl (35.1-43.9); Red Blood Count 4.55 M/mm3 (4.6-6.2); White Blood Count 4.3 K/mm3 (4.4-11.0)
--- NOTE | 2018-09-26 06:55 | PN_ITS ---
Patient Problems: Active and Suspected Problems (Last Reviewed 09/22/18 @ 22:46 by Jeanmarie Bell MD) Weakness (Acute) Community acquired pneumonia (Acute) Dementia, vascular (Suspected) Subjective: The patient was seen and examined at the bedside this morning. Events from the last 24 hours have been reviewed. The patient is currently afebrile, hemodynamically stable and maintaining appropriate oxygen saturations on room air. Decision regarding proceeding with biopsy remains unclear at this time. Objective: The patient's most recent lab work, culture data and imaging studies have all been personally reviewed. CT chest revealed extensive mediastinal and hilar adenopathy along with a masslike density in the right lower lobe measuring 3.6 cm. Blood cultures are currently pending. Strep and urine Legionella antigens were both negative. Respiratory viral panel was negative. - Physical Exam General: Alert, Cooperative, No apparent distress HEENT: Atraumatic, PERRLA, Normocephalic Oral: Moist Mucosa, No Gingival or Mucosal Lesions/ Ulcerations Neck: Supple, No Nodes, Trachea Midline Lungs: Normal air movement, No rhonchi, No wheeze, No rales Cardiovascular: Regular rate, Regular Rhythm, Normal S1, Normal S2, No murmurs Abdomen: Bowel Sounds Present, Soft, Non Tender Extremities: No clubbing, No cyanosis, No edema Skin: No breakdown Musculoskeletal: No Tenderness to Palpation of Joints or Extremities Lymphatic: No Cervical, Supraclavicular, or Inguinal Adenopathy Neurological: Neuro grossly intact Psych/Mental Status: Normal Affect, Appropriate Vital Signs Temp Pulse Resp BP Pulse Ox 36.5 C L 51 L 16 125/75 H 94 09/26/18 03:20 09/26/18 03:20 09/26/18 03:20 09/26/18 03:20 09/25/18 21:21 Oxygen Delivery Method Room Air Weight: 159 lb 9.835 oz Body Mass Index (BMI) 21.6 Finger Stick Blood Glucose 181 Intake and Output for Last 24 Hours 09/24/18 09/25/18 09/26/18 23:59 23:59 23:59 Intake Total 2653 / 2653 2890 / 2890 1328 / 1328 Output Total 200 / 200 700 / 700 625 / 625 Balance 2453 / 2453 2190 / 2190 703 / 703 Microbiology Past 72 Hours 09/23/18 15:38 Respiratory Panel (PCR) - Final Mucosa - Nose 09/22/18 20:39 Streptococcus pneumoniae Antigen (M - Final Urine, Clean Catch 09/22/18 20:39 Legionella Antigen - Final Urine, Clean Catch Laboratory Tests Past 24 Hrs 09/23/18 09/25/18 09/25/18 06:23 05:10 09:00 WBC RBC Hgb Hct MCV MCH MCHC RDW RDW Differential Plt Count Neut % (Auto) Absolute Neuts (auto) Total Counted PT 16.0 H INR 1.3 Sodium Potassium Chloride Carbon Dioxide Anion Gap BUN Creatinine Est GFR (MDRD) Af Amer Est GFR (MDRD) Non-Af BUN/Creatinine Ratio Glucose Calcium Troponin I < 0.015 Vitamin B12 > 2000 H 09/26/18 09/26/18 06:15 06:15 WBC Pending RBC Pending Hgb Pending Hct Pending MCV Pending MCH Pending MCHC Pending RDW Pending RDW Differential Pending Plt Count Pending Neut % (Auto) Pending Absolute Neuts (auto) Pending Total Counted Pending PT INR Sodium Pending Potassium Pending Chloride Pending Carbon Dioxide Pending Anion Gap Pending BUN Pending Creatinine Pending Est GFR (MDRD) Af Amer Pending Est GFR (MDRD) Non-Af Pending BUN/Creatinine Ratio Pending Glucose Pending Calcium Pending Troponin I Vitamin B12 POC Glucose 09/25/18 09/25/18 09/25/18 22:17 16:27 12:07 POC Glucose 224 H 165 H 193 H 09/25/18 06:35 POC Glucose 196 H Clinical Impression(s) from Imaging Studies Brain CT 09/22/18 18:12 IMPRESSION: No acute intracranial findings or changes. Negative for hemorrhage, hematoma or mass density. Stable chronic involutional changes. Electronically Signed: Nati Moore MD at 19:02 EST , Service support , Chest X-Ray 09/22/18 18:40 IMPRESSION: Shallow inspiration with mild atelectatic changes at the left lung base. More substantial atelectatic changes versus pneumonic infiltrate at the right lung base. Negative for pleural effusion. Stable cardiac size without evidence of pulmonary venous congestion. Electronically Signed: Nati Moore MD at 19:07 EST , Service support , Abdomen/Pelvis CT 09/23/18 14:49 IMPRESSION: No acute intra-abdominal or intrapelvic process is evident. Numerous small lytic bone lesions suspicious for metastatic disease. Follow-up PET/CT is recommended. A bone scan may be helpful for further assessment of distribution of suspected bone lesions. Electronically Signed: Minh Jim, at 18:46 EST Tel , Service support , Chest CT 09/23/18 14:49 IMPRESSION: Right lower lobe lung mass associated with prominent right hilar and mediastinal lymphadenopathy. Right lower lobe and right upper lobe pulmonary nodules may reflect additional neoplasia. Infiltrate of the right upper lobe posterior basilar segment is most suspicious for acute pneumonia. Centered within this is a 1.3 cm pulmonary nodule suspicious for additional neoplasia. Cardiomegaly and prominent three-vessel coronary atherosclerosis. Conspicuous appearance of the bones, numerous small lytic foci, heterogeneous pattern of osteopenia, which must be regarded with suspicion for metastatic disease. Follow-up PET/CT scan is recommended. A bone scan may be helpful for assessment of the distribution of suspected bone metastases. Electronically Signed: Minh Jim, at 18:42 EST Tel , Service support , Medical Necessity - Tobacco Use Smoking Status: Former smoker Assessment/Plan All Active Problems (Last Reviewed 09/22/18 @ 22:46 by Jeanmarie Bell MD) Weakness (Acute) Community acquired pneumonia (Acute) RECOMMENDATIONS: 1. Mediastinal lymph node sampling can be accomplished on an outpatient basis by EBUS. 2. Continue antibiotics IMPRESSIONS: 1. Abnormal chest CT The patient's chest CT was personally reviewed and did reveal significant mediastinal and hilar adenopathy. In addition, there is a masslike densi ty/consolidation in the right lower lobe along with several pulmonary nodules and evidence of right upper lobe groundglass changes. While the patient would be a candidate for mediastinal lymph node sampling via EBUS, this would need to be accomplished as an outpatient. Given the current EBUS caseload, the earliest the patient could be scheduled for bronchoscopy would be mid October. The family is wishing to discuss further with regards to how aggressive to be, as I am not certain that the patient would be a great candidate from a performance status for aggressive treatment. The patient is now being considered for a percutaneous CT-guided lung biopsy. However, the decision to proceed with said biopsy is still unclear at this time. 2. Anorexia/weight loss/metabolic encephalopathy CT head did not reveal any significant lesions. The patient likely has an element of vascular dementia. 3. Atrial fibrillation/dementia/hypertension/hypothyroidism/hyperlipidemia Complicates care, management, recovery and prognosis. Continue Eliquis, unless radiology is planning for L spine biopsy. This note was generated with [employer] dictation software. It may contain incorrect words, spelling, and punctuation that were not noted in checking the note before signing. DISPOSITION: Given the lack of further acute pulmonary needs, will sign off. Please call if the patient wishes to proceed with EBUS and I will assist in coordinating the procedure. Code Visit Inpatient E&M: 67959 Subs Hosp L2
[2018-09-26 06:56] LABS: Bedside Glucose 136 mg/dL (70-110)
[2018-09-26 06:59] LABS: POSITIVE COUNT NO; POSITIVE DIFFERENTIAL NO; POSITIVE MORPHOLOGY NO
[2018-09-26 07:15] LABS: Anion Gap 10 (5-15); BUN 6 mg/dL (7-18); Calcium,Total 8.4 mg/dL (8.5-10.1); Chloride 108 mmol/L (98-107); Creatinine, Serum 0.86 mg/dL (0.70-1.30); EST Glomerular Filtration Rate 91 mL/min (>60); Est Glom Filt Rate - Afr Amer 111 mL/min (>60); Estimated Creatinine Clearance 70.16 ml/min; Glucose 117 mg/dL (74-106); Sodium Level 138 mmol/L (136-145)
[2018-09-26 08:36] VITALS: BP 142/64; PULSE 68; RESP 18; TEMP 36.7; O2SAT 97
[2018-09-26] MEDS: Glucerna Shake 120 ML LIQUID PO ×4 (08:40→21:22)
[2018-09-26] MEDS: Aspirin E.C. 81 MG Tablet PO (08:41)
[2018-09-26] MEDS: Pantoprazole Sodium 20 MG Tablet PO (08:41)
[2018-09-26] MEDS: Donepezil HCl 10 MG Tablet PO (08:41)
[2018-09-26] MEDS: Ramipril 10 MG Capsule PO (08:41)
[2018-09-26] MEDS: Escitalopram Oxalate 10 MG Tablet PO (08:41)
[2018-09-26] MEDS: Heparin Injection (Vial) 5,000 UNIT/ML VIAL 5000 UNIT SC ×2 (08:42→21:23)
[2018-09-26] MEDS: Memantine Hydrochloride 5 MG Tablet PO (08:43)
[2018-09-26 08:45] VITALS: O2SAT 93
[2018-09-26] MEDS: Insulin Lispro 100 UNIT/ML INSULN.PEN SQ ×2 (11:13→16:42)
[2018-09-26 11:21] LABS: Bedside Glucose 243 mg/dL (70-110)
--- NOTE | 2018-09-26 12:16 | PCM.PN.HOSP ---
Patient Problems: Active and Suspected Problems (Last Reviewed 09/22/18 @ 22:46 by Jeanmarie Bell MD) Weakness (Acute) Community acquired pneumonia (Acute) Dementia, vascular (Suspected) Subjective: Patient seen and examined. He was lying in bed comfortably and had no complaints. Granddaughter and her boyfriend were by his side. He denied any fever, chills, cough, chest pain, SOB, abdominal pain, diarrhea or vomiting. Review of systems was otherwise negative. Labs and vitals reviewed. I discussed with Dr Conteh about possible biopsy of lumbar lytic lesion. However, he said that would be difficult, but proposed that he would be able to take a biopsy of the lung mass tomorrow. Vitals/I&O's: Vital Signs Temp Pulse Resp BP Pulse Ox 98.0 F 68 18 142/64 H 93 09/26/18 08:36 09/26/18 08:36 09/26/18 08:36 09/26/18 08:36 09/26/18 08:45 Oxygen Delivery Method Room Air Weight: 159 lb 9.835 oz Body Mass Index (BMI) 21.6 Finger Stick Blood Glucose 181 Intake and Output for Last 24 Hours 09/24/18 09/25/18 09/26/18 23:59 23:59 23:59 Intake Total 2653 / 2653 2890 / 2890 1328 / 1328 Output Total 200 / 200 700 / 700 625 / 625 Balance 2453 / 2453 2190 / 2190 703 / 703 General: Alert, Oriented x3, Cooperative, No apparent distress HEENT: Atraumatic, PERRLA, EOMI, Normocephalic Oral: Moist Mucosa Neck: Supple, No JVD, Negative Carotid Bruits Lungs: Clear to auscultation, Normal air movement, No rhonchi, No wheeze, No rales Cardiovascular: Regular rate, Regular Rhythm, Normal S1, Normal S2, No murmurs Abdomen: Bowel Sounds Present, Soft, Non Tender, Non-Distended, No Hepato-splenomegaly Extremities: No clubbing, No cyanosis, No edema, Capillary Refill Less than 3 Seconds Skin: No rashes, No breakdown Musculoskeletal: No Tenderness to Palpation of Joints or Extremities Lymphatic: No Cervical, Supraclavicular, or Inguinal Adenopathy Neurological: Cranial nerves II-XII grossly intact, Neuro grossly intact, Motor Exam 5/5 strength throughout Psych/Mental Status: Normal Affect, Appropriate, Alert and oriented to time, place, person, mood and affect - does have brief episodes of confusion, but is lucid most of the time and is able to carry on a conversation. Microbiology Past 72 Hours 09/23/18 15:50 Blood Culture (Wb) - Left Hand Blood Culture - Preliminary No growth in 48 hours. 09/23/18 15:25 Blood Culture (Wb) - Left Forearm Blood Culture - Preliminary No growth in 48 hours. 09/23/18 15:38 Mucosa - Nose Respiratory Panel (PCR) - Final 09/22/18 20:39 Urine, Clean Catch Streptococcus pneumoniae Antigen (M - Final 09/22/18 20:39 Urine, Clean Catch Legionella Antigen - Final Laboratory Results 09/25/18 12:07: POC Glucose 193 H 09/25/18 16:27: POC Glucose 165 H 09/25/18 22:17: POC Glucose 224 H 09/26/18 06:15: WBC 4.3 L, RBC 4.55 L, Hgb 13.0, Hct 38.5 L, MCV 84.6, MCH 28.6, MCHC 33.8, RDW 13.6, RDW Differential 41.4, Plt Count 200, MPV 10.6, Immature Gran % (Auto) 0.700, Neut % (Auto) 46.4 L, Lymph % (Auto) 28.1, [place] % (Auto) 20.6 H, Eos % (Auto) 2.6, Baso % (Auto) 1.6 H, Absolute Neuts (auto) 2.0, Absolute Lymphs (auto) 1.21, Total Counted Not Reportable 09/26/18 06:15: Sodium 138, Potassium 4.0, Chloride 108 H, Carbon Dioxide 20.0 L, Anion Gap 10, BUN 6 L, Creatinine 0.86, Estim Creat Clear Calc 70.16, Est GFR (MDRD) Af Amer 111, Est GFR (MDRD) Non-Af 91, BUN/Creatinine Ratio 7.0 L, Glucose 117 H, Calcium 8.4 L 09/26/18 06:42: POC Glucose 136 H 09/26/18 11:12: POC Glucose 243 H Diagnostic Data Brain CT 09/22/18 18:12 IMPRESSION: No acute intracranial findings or changes. Negative for hemorrhage, hematoma or mass density. Stable chronic involutional changes. Electronically Signed: Nati Moore MD at 19:02 EST , Service support , Chest X-Ray 09/22/18 18:40 IMPRESSION: Shallow inspiration with mild atelectatic changes at the left lung base. More substantial atelectatic changes versus pneumonic infiltrate at the right lung base. Negative for pleural effusion. Stable cardiac size without evidence of pulmonary venous congestion. Electronically Signed: Nati Moore MD at 19:07 EST , Service support , Abdomen/Pelvis CT 09/23/18 14:49 IMPRESSION: No acute intra-abdominal or intrapelvic process is evident. Numerous small lytic bone lesions suspicious for metastatic disease. Follow-up PET/CT is recommended. A bone scan may be helpful for further assessment of distribution of suspected bone lesions. Electronically Signed: Minh Jim, at 18:46 EST Tel , Service support , Chest CT 09/23/18 14:49 IMPRESSION: Right lower lobe lung mass associated with prominent right hilar and mediastinal lymphadenopathy. Right lower lobe and right upper lobe pulmonary nodules may reflect additional neoplasia. Infiltrate of the right upper lobe posterior basilar segment is most suspicious for acute pneumonia. Centered within this is a 1.3 cm pulmonary nodule suspicious for additional neoplasia. Cardiomegaly and prominent three-vessel coronary atherosclerosis. Conspicuous appearance of the bones, numerous small lytic foci, heterogeneous pattern of osteopenia, which must be regarded with suspicion for metastatic disease. Follow-up PET/CT scan is recommended. A bone scan may be helpful for assessment of the distribution of suspected bone metastases. Electronically Signed: Minh Jim, at 18:42 EST Tel , Service support , Current Medications Acetaminophen (Tylenol) 650 mg PO Q6H PRN PRN PRN Reason: temp > 100.4 Last Admin: 09/25/18 19:16 Dose: 650 mg Albuterol Sulfate (Ventolin Aerosols) 2.5 mg INHALATION Q2H PRN PRN PRN Reason: sob/wheezing Aspirin (Ecotrin) 81 mg PO DAILYCM [facility] Last Admin: 09/26/18 08:41 Dose: 81 mg Atorvastatin Calcium (Lipitor) 10 mg PO QHS [facility] Last Admin: 09/25/18 22:23 Dose: 10 mg Cholecalciferol (Vitamin D) 2,000 unit PO DAILY [facility] Last Admin: 09/26/18 08:40 Dose: 2,000 unit Dextrose (D50w Syringe) 0 gm IV X1 PRN; Protocol PRN Reason: Hypoglycemia Donepezil HCl (Aricept) 10 mg PO DAILY [facility] Last Admin: 09/26/18 08:41 Dose: 10 mg Escitalopram Oxalate (Lexapro) 10 mg PO DAILY [facility] Last Admin: 09/26/18 08:41 Dose: 10 mg Fluticasone Propionate (Flonase Nasal [place]) 1 spray NASAL DAILY PRN PRN PRN Reason: ALLERGIES Glucagon () 1 mg IM .X1 PRN PRN Reason: Hypoglycemia Heparin Sodium (Porcine) (Heparin Na) 5,000 unit SC Q12 [facility] Last Admin: 09/26/18 08:42 Dose: 5,000 unit Sodium Chloride () 250 mls @ 15 mls/hr IV .[id number] PRN PRN Reason: SALINE FLUSH Last Admin: 09/26/18 05:36 Dose: 15 mls/hr Lactated Ringer's () 1,000 mls @ 75 mls/hr IV .[id number] [facility] Last Admin: 09/26/18 03:22 Dose: 75 mls/hr Piperacillin Sod/Tazobactam Sod (Zosyn) 3.375 gm in 50 mls @ 12.5 mls/hr IV Q8 [facility] Last Admin: 09/26/18 05:39 Dose: 12.5 mls/hr Insulin Human Lispro (Humalog Kwikpen (Bkc)) 0 unit SQ ACHS [facility]; Protocol Last Admin: 09/26/18 11:13 Dose: 3 u Levothyroxine Sodium (Synthroid) 125 mcg PO DAILY@0600 [facility] Last Admin: 09/26/18 06:47 Dose: 125 mcg Magnesium Hydroxide (Milk Of Magnesia) 30 ml PO DAILY PRN PRN PRN Reason: Constipation Melatonin (Melatonin) 3 mg PO QHS [facility] Last Admin: 09/25/18 22:23 Dose: 3 mg Memantine (Namenda) 5 mg PO DAILY [facility] Last Admin: 09/26/18 08:43 Dose: 5 mg Nutritional Formula (Lactose Free) (Glucerna Shake) 120 ml PO 4X/DAY [facility] Last Admin: 09/26/18 08:40 Dose: 120 ml Pantoprazole Sodium (Protonix) 20 mg PO DAILY [facility] Last Admin: 09/26/18 08:41 Dose: 20 mg Ramipril (Altace) 10 mg PO DAILY [facility] Last Admin: 09/26/18 08:41 Dose: 10 mg Sodium Chloride () 5 - 30 ml IV UD PRN PRN Reason: SALINE FLUSH Tamsulosin HCl (Flomax) 0.8 mg PO QHS [facility] Last Admin: 09/25/18 22:23 Dose: 0.8 mg Medical Necessity - Tobacco Use Smoking Status: Former smoker Assessment/Plan All Active Problems (Last Reviewed 09/22/18 @ 22:46 by Jeanmarie Bell MD) Weakness (Acute) Community acquired pneumonia (Acute) 1. 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 However, the radiologist that this would be difficult and is to propose that he biopsy the lung mass. Patient's informed about the biopsy. Patient still has not been told about his condition. is unable to make a decision was very tearful as her granddaughter was upset that was considering residential for patient. As stated previously, patient may not want all the workup done if he was told about it. I expressed my strong reservations to the about the fact that patient had not been told about the mass in his lung, and had no see whatsoever in his care so far per the family wishes as they said he did not want to tell him. I asked how we could possibly do a biopsy for the patient without getting consent from him since he was alert and oriented x3 and she did not want us to tell him about this lung mass and the need for biopsy. 's explanation is that they do not want to scare patient but I counseled that by saying that since patient may not want all this workup, the biopsy may be futile if he is able to make an informed decision about his care. I urged strongly to inform patient about his condition, so he could make his wishes known. says she is going to discuss with her son before deciding on whether to tell the patient about his condition, and to decide if they want him to do the biopsy tomorrow continue keeping xarelto on hold for now, pending possible biopsy tomorrow 2. Post obstructive pneumonia still afebrile, no leucocoytosis continue IV zosyn for now, until after biopsy 3. Acute metabolic encephalopathy Was thought to be due to the pneumonia. Brain metastasis ruled out with negative CT. Resolving. Patient is currently alert and oriented and able to carry on a conversation. 4. Hyponatremia: resolved. 5. Afib: currently rate and rhythm controlled. Eliquis on hold o/a of potential biopsy. Stable 6. Dementia: on aricept and namenda 7. Hypertension: On ramipril 8. Hypothyroidism: On Synthroid 9. Hyperlipidemia: on statin 10. GERD: on PPI 11. Depression: on lexapro DVT prophylaxis: heparin Code status: full code. Disposition: family considering residential placement for him. Code Visit Inpatient E&M: 45715 Subs Hosp L3
--- NOTE | 2018-09-26 12:21 | PN_ITS ---
Patient Problems: Active and Suspected Problems (Last Reviewed 09/22/18 @ 22:46 by Jeanmarie Bell MD) Weakness (Acute) Community acquired pneumonia (Acute) Dementia, vascular (Suspected) Subjective: Patient seen and examined. He was lying in bed comfortably and had no complaints. Granddaughter and her boyfriend were by his side. He denied any fever, chills, cough, chest pain, SOB, abdominal pain, diarrhea or vomiting. Review of systems was otherwise negative. Labs and vitals reviewed. I discussed with Dr Conteh about possible biopsy of lumbar lytic lesion. However, he said that would be difficult, but proposed that he would be able to take a biopsy of the lung mass tomorrow. Vitals/I&O's: Vital Signs Temp Pulse Resp BP Pulse Ox 98.0 F 68 18 142/64 H 93 09/26/18 08:36 09/26/18 08:36 09/26/18 08:36 09/26/18 08:36 09/26/18 08:45 Oxygen Delivery Method Room Air Weight: 159 lb 9.835 oz Body Mass Index (BMI) 21.6 Finger Stick Blood Glucose 181 Intake and Output for Last 24 Hours 09/24/18 09/25/18 09/26/18 23:59 23:59 23:59 Intake Total 2653 / 2653 2890 / 2890 1328 / 1328 Output Total 200 / 200 700 / 700 625 / 625 Balance 2453 / 2453 2190 / 2190 703 / 703 General: Alert, Oriented x3, Cooperative, No apparent distress HEENT: Atraumatic, PERRLA, EOMI, Normocephalic Oral: Moist Mucosa Neck: Supple, No JVD, Negative Carotid Bruits Lungs: Clear to auscultation, Normal air movement, No rhonchi, No wheeze, No rales Cardiovascular: Regular rate, Regular Rhythm, Normal S1, Normal S2, No murmurs Abdomen: Bowel Sounds Present, Soft, Non Tender, Non-Distended, No Hepato- splenomegaly Extremities: No clubbing, No cyanosis, No edema, Capillary Refill Less than 3 Seconds Skin: No rashes, No breakdown Musculoskeletal: No Tenderness to Palpation of Joints or Extremities Lymphatic: No Cervical, Supraclavicular, or Inguinal Adenopathy Neurological: Cranial nerves II-XII grossly intact, Neuro grossly intact, Motor Exam 5/5 strength throughout Psych/Mental Status: Normal Affect, Appropriate, Alert and oriented to time, place, person, mood and affect - does have brief episodes of confusion, but is lucid most of the time and is able to carry on a conversation. Microbiology Past 72 Hours 09/23/18 15:50 Blood Culture (Wb) - Left Hand Blood Culture - Preliminary No growth in 48 hours. 09/23/18 15:25 Blood Culture (Wb) - Left Forearm Blood Culture - Preliminary No growth in 48 hours. 09/23/18 15:38 Mucosa - Nose Respiratory Panel (PCR) - Final 09/22/18 20:39 Urine, Clean Catch Streptococcus pneumoniae Antigen (M - Final 09/22/18 20:39 Urine, Clean Catch Legionella Antigen - Final Laboratory Results 09/25/18 12:07: POC Glucose 193 H 09/25/18 16:27: POC Glucose 165 H 09/25/18 22:17: POC Glucose 224 H 09/26/18 06:15: WBC 4.3 L, RBC 4.55 L, Hgb 13.0, Hct 38.5 L, MCV 84.6, MCH 28.6, MCHC 33.8, RDW 13.6, RDW Differential 41.4, Plt Count 200, MPV 10.6, Immature Gran % (Auto) 0.700, Neut % (Auto) 46.4 L, Lymph % (Auto) 28.1, [place] % (Auto) 20.6 H, Eos % (Auto) 2.6, Baso % (Auto) 1.6 H, Absolute Neuts (auto) 2.0, Absolute Lymphs (auto) 1.21, Total Counted Not Reportable 09/26/18 06:15: Sodium 138, Potassium 4.0, Chloride 108 H, Carbon Dioxide 20.0 L , Anion Gap 10, BUN 6 L, Creatinine 0.86, Estim Creat Clear Calc 70.16, Est GFR (MDRD) Af Amer 111, Est GFR (MDRD) Non-Af 91, BUN/Creatinine Ratio 7.0 L, Glucose 117 H, Calcium 8.4 L 09/26/18 06:42: POC Glucose 136 H 09/26/18 11:12: POC Glucose 243 H Diagnostic Data Brain CT 09/22/18 18:12 IMPRESSION: No acute intracranial findings or changes. Negative for hemorrhage, hematoma or mass density. Stable chronic involutional changes. Electronically Signed: Nati Moore MD at 19:02 EST , Service support , Chest X-Ray 09/22/18 18:40 IMPRESSION: Shallow inspiration with mild atelectatic changes at the left lung base. More substantial atelectatic changes versus pneumonic infiltrate at the right lung base. Negative for pleural effusion. Stable cardiac size without evidence of pulmonary venous congestion. Electronically Signed: Nati Moore MD at 19:07 EST , Service support , Abdomen/Pelvis CT 09/23/18 14:49 IMPRESSION: No acute intra-abdominal or intrapelvic process is evident. Numerous small lytic bone lesions suspicious for metastatic disease. Follow-up PET/CT is recommended. A bone scan may be helpful for further assessment of distribution of suspected bone lesions. Electronically Signed: Minh Jim, at 18:46 EST Tel , Service support , Chest CT 09/23/18 14:49 IMPRESSION: Right lower lobe lung mass associated with prominent right hilar and mediastinal lymphadenopathy. Right lower lobe and right upper lobe pulmonary nodules may reflect additional neoplasia. Infiltrate of the right upper lobe posterior basilar segment is most suspicious for acute pneumonia. Centered within this is a 1.3 cm pulmonary nodule suspicious for additional neoplasia. Cardiomegaly and prominent three-vessel coronary atherosclerosis. Conspicuous appearance of the bones, numerous small lytic foci, heterogeneous pattern of osteopenia, which must be regarded with suspicion for metastatic disease. Follow-up PET/CT scan is recommended. A bone scan may be helpful for assessment of the distribution of suspected bone metastases. Electronically Signed: Minh Jim, at 18:42 EST Tel , Service support , Current Medications Acetaminophen (Tylenol) 650 mg PO Q6H PRN PRN PRN Reason: temp > 100.4 Last Admin: 09/25/18 19:16 Dose: 650 mg Albuterol Sulfate (Ventolin Aerosols) 2.5 mg INHALATION Q2H PRN PRN PRN Reason: sob/wheezing Aspirin (Ecotrin) 81 mg PO DAILYCM [facility] Last Admin: 09/26/18 08:41 Dose: 81 mg Atorvastatin Calcium (Lipitor) 10 mg PO QHS [facility] Last Admin: 09/25/18 22:23 Dose: 10 mg Cholecalciferol (Vitamin D) 2,000 unit PO DAILY [facility] Last Admin: 09/26/18 08:40 Dose: 2,000 unit Dextrose (D50w Syringe) 0 gm IV X1 PRN; Protocol PRN Reason: Hypoglycemia Donepezil HCl (Aricept) 10 mg PO DAILY [facility] Last Admin: 09/26/18 08:41 Dose: 10 mg Escitalopram Oxalate (Lexapro) 10 mg PO DAILY [facility] Last Admin: 09/26/18 08:41 Dose: 10 mg Fluticasone Propionate (Flonase Nasal [place]) 1 spray NASAL DAILY PRN PRN PRN Reason: ALLERGIES Glucagon () 1 mg IM .X1 PRN PRN Reason: Hypoglycemia Heparin Sodium (Porcine) (Heparin Na) 5,000 unit SC Q12 [facility] Last Admin: 09/26/18 08:42 Dose: 5,000 unit Sodium Chloride () 250 mls @ 15 mls/hr IV .[id number] PRN PRN Reason: SALINE FLUSH Last Admin: 09/26/18 05:36 Dose: 15 mls/hr Lactated Ringer's () 1,000 mls @ 75 mls/hr IV .[id number] [facility] Last Admin: 09/26/18 03:22 Dose: 75 mls/hr Piperacillin Sod/Tazobactam Sod (Zosyn) 3.375 gm in 50 mls @ 12.5 mls/hr IV Q8 [facility] Last Admin: 09/26/18 05:39 Dose: 12.5 mls/hr Insulin Human Lispro (Humalog Kwikpen (Bkc)) 0 unit SQ ACHS [facility]; Protocol Last Admin: 09/26/18 11:13 Dose: 3 u Levothyroxine Sodium (Synthroid) 125 mcg PO DAILY@0600 [facility] Last Admin: 09/26/18 06:47 Dose: 125 mcg Magnesium Hydroxide (Milk Of Magnesia) 30 ml PO DAILY PRN PRN PRN Reason: Constipation Melatonin (Melatonin) 3 mg PO QHS [facility] Last Admin: 09/25/18 22:23 Dose: 3 mg Memantine (Namenda) 5 mg PO DAILY [facility] Last Admin: 09/26/18 08:43 Dose: 5 mg Nutritional Formula (Lactose Free) (Glucerna Shake) 120 ml PO 4X/DAY [facility] Last Admin: 09/26/18 08:40 Dose: 120 ml Pantoprazole Sodium (Protonix) 20 mg PO DAILY [facility] Last Admin: 09/26/18 08:41 Dose: 20 mg Ramipril (Altace) 10 mg PO DAILY [facility] Last Admin: 09/26/18 08:41 Dose: 10 mg Sodium Chloride () 5 - 30 ml IV UD PRN PRN Reason: SALINE FLUSH Tamsulosin HCl (Flomax) 0.8 mg PO QHS [facility] Last Admin: 09/25/18 22:23 Dose: 0.8 mg Medical Necessity - Tobacco Use Smoking Status: Former smoker Assessment/Plan All Active Problems (Last Reviewed 09/22/18 @ 22:46 by Jeanmarie Bell MD) Weakness (Acute) Community acquired pneumonia (Acute) 1. 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 However, the radiologist that this would be difficult and is to propose that he biopsy the lung mass. * Patient's informed about the biopsy. Patient still has not been told about his condition. is unable to make a decision was very tearful as her granddaughter was upset that was considering jail for patient. As stated previously, patient may not want all the workup done if he was told about it. I expressed my strong reservations to the about the fact that patient had not been told about the mass in his lung, and had no see whatsoever in his care so far per the family wishes as they said he did not want to tell him. I asked how we could possibly do a biopsy for the patient without getting consent from him since he was alert and oriented x3 and she did not want us to tell him about this lung mass and the need for biopsy. 's explanation is that they do not want to scare patient but I counseled that by saying that since patient may not want all this workup, the biopsy may be futile if he is able to make an informed decision about his care. I urged strongly to inform patient about his condition, so he could make his wishes known. * says she is going to discuss with her son before deciding on whether to tell the patient about his condition, and to decide if they want him to do the biopsy tomorrow * continue keeping xarelto on hold for now, pending possible biopsy tomorrow * 2. Post obstructive pneumonia * still afebrile, no leucocoytosis * continue IV zosyn for now, until after biopsy * 3. Acute metabolic encephalopathy * Was thought to be due to the pneumonia. Brain metastasis ruled out with negative CT. * Resolving. Patient is currently alert and oriented and able to carry on a conversation. * 4. Hyponatremia: resolved. 5. Afib: currently rate and rhythm controlled. Eliquis on hold o/a of potential biopsy. Stable 6. Dementia: on aricept and namenda 7. Hypertension: On ramipril 8. Hypothyroidism: On Synthroid 9. Hyperlipidemia: on statin 10. GERD: on PPI 11. Depression: on lexapro DVT prophylaxis: heparin Code status: full code. Disposition: family considering jail placement for him. Code Visit Inpatient E&M: 96406 Subs Hosp L3
--- NOTE | 2018-09-26 12:57 | CASEMGMT ---
Social Work Note AARON received call from Maral in TCU stating pre-cert has been obtained. Per physician, pt is not medically ready to be discharged today. AARON updated Maral in TCU of this. Pt was updated on acceptance into TCU. Plan: TCU once medically cleared Jennifer Aaron TRANSPLANT SURGEON, DAIRY POWDER MIXER OPERATOR
--- NOTE | 2018-09-26 13:45 | CASEMGMT ---
Social Work Note SW met with pt and pt's . Pt's states that she is very overwhelmed at this time. SW offered support to pt's . SW explained that it is pt's choice and pt's choice in regards to discharge planning. Pt and Pt's is still agreeable to pt going to TCU at discharge. SW explained that it can be for short term. SW asked pt's about advanced directives. Pt's states pt has completed them and pt's son Jignesh is supposed to be bringing them in to [facility]. SW explained that once Advanced directives are brought into [facility], staff can make a copy and place on pt's chart. Pt and pt's state understanding. Plan: TCU once medically cleared Jennifer Aaron RFID MANAGER, TINTER PHOTOGRAPH
--- NOTE | 2018-09-26 13:48 | CASEMGMT ---
Social Work Note Per pt's , pt's son Jignesh has advanced directives and can bring in copy to [facility]. Jennifer Aaron POCKETBOOK MAKER, SENIOR MEDICAL TECHNOLOGIST
[2018-09-26 14:45] VITALS: BP 129/62; PULSE 77; RESP 18; TEMP 37.1; O2SAT 95
[2018-09-26 16:56] LABS: Bedside Glucose 160 mg/dL (70-110)
[2018-09-26 21:15] VITALS: O2SAT 97
[2018-09-26 21:20] VITALS: BP 141/84; PULSE 61; RESP 18; TEMP 37.3; O2SAT 97
[2018-09-26] MEDS: Atorvastatin Calcium 10 MG Tablet PO (21:22)
[2018-09-26] MEDS: QUEtiapine 25 MG Tablet PO (21:22)
[2018-09-26] MEDS: MELATONIN 3 MG TABLET PO (21:22)
[2018-09-26] MEDS: Tamsulosin HCl 0.4 MG Capsule 0.8 MG PO (21:22)
[2018-09-26 21:40] LABS: Bedside Glucose 146 mg/dL (70-110)
[2018-09-27] VITALS (8 sets, daily range): BP systolic 115–145; BP diastolic 56–81; PULSE 62–79; RESP 14–27; TEMP 36.6–38.6; O2SAT 32–98
[2018-09-27] MEDS: Lactated Ringers 1,000 ML 75 ML IV (04:47)
[2018-09-27] MEDS: Piperacil/Tazobactam 3.375 GM/50 ML ML IV ×2 (04:51→13:56)
[2018-09-27 05:46] LABS: Absolute Lymphocyte Count 1.38 X10^3/ul (0.83-4.51); Absolute Neutrophil Count 3.2 X10^3/uL (2.0-7.7); Basophil# 0.03 X10^3/uL; Basophil% 0.5 % (0-1); Eosinophil# 0.08 X10^3/uL; Eosinophils% 1.4 % (0-5); Hematocrit 35.8 % (40-54); Hemoglobin 12.1 g/dl (13.0-16.5); Lymphocyte # 1.38 X10^3/ul (4.0); Lymphocyte % 24.3 % (19-41); Mean Corp Hgb Conc 33.8 g/gl (32-36); Mean Corpuscular Hgb 28.1 pg (27.0-32.0); Mean Corpuscular Volume 83.3 fL (80-94); Mean Platelet Vol. 10.3 fl (6.2-12.0); Monocyte# 1.02 X10^3/uL; Monocyte% 17.9 % (0-10); Neutrophil # 3.16 X10^3/uL (2.7-7.7); Neutrophil % 55.5 % (47-70); Platelet Count 226 K/mm3 (150-450); RBC Distribution Width CV 13.6 % (11.6-14.6); RBC Distribution Width SD 40.9 fl (35.1-43.9); White Blood Count 5.7 K/mm3 (4.4-11.0)
[2018-09-27 05:47] LABS: POSITIVE COUNT NO; POSITIVE DIFFERENTIAL NO; POSITIVE MORPHOLOGY NO
[2018-09-27 05:51] LABS: International Normalized Ratio 1.2; Prothrombin Time (Protime)PT. 15.2 SECONDS (11.7-14.9)
[2018-09-27 06:19] LABS: Anion Gap 11 (5-15); BUN 8 mg/dL (7-18); BUN/Creat Ratio 8.7 RATIO (10-20); Chloride 103 mmol/L (98-107); Creatinine, Serum 0.92 mg/dL (0.70-1.30); EST Glomerular Filtration Rate 84 mL/min (>60); Est Glom Filt Rate - Afr Amer 102 mL/min (>60); Estimated Creatinine Clearance 65.58 ml/min; Glucose 126 mg/dL (74-106); Sodium Level 136 mmol/L (136-145)
[2018-09-27 07:01] LABS: Bedside Glucose 140 mg/dL (70-110)
--- NOTE | 2018-09-27 08:00 | CT_ITS ---
STUDY: CT CHEST WITHOUT CONTRAST REASON FOR EXAM: Male, 78 years old. Pneumonia versus mass. RADIATION DOSAGE (If Supplied By Facility): CTDIvol = ( 16.59 ) mGy, DLP = ( 592.68 ) mGycm TECHNIQUE: Transaxial imaging was performed without the administration of intravenous contrast material. Individualized dose optimization techniques were used for this CT. COMPARISON: None. FINDINGS: Heart size is normal. Pericardium is unremarkable. Descending aortic aneurysm measures 4 cm. Descending thoracic aorta is borderline aneurysmal, measuring 3 cm in AP diameter. There is mild mediastinal adenopathy. There is mild right hilar adenopathy. Small bilateral pleural effusions are noted. Airspace disease in the right upper lobe is consistent with pneumonia. There is masslike airspace disease in the right lower lobe, which may represent pneumonia versus mass. There is a 4 mm nodule in the left lower lobe on series 4 image 86. Demonstrated abdomen is unremarkable. There is no osseous abnormality. CT/Chest without Contrast IMPRESSION: 1. Acute right upper lobe pneumonia. 2. Right lower lobe pneumonia is favored over mass. Follow-up to resolution is advised to exclude underlying malignancy. 3. Mild mediastinal adenopathy. This may be reactive, but is nonspecific. 4. A 4 mm nodule in the left lower lobe. 12 month follow-up is advised if the patient is at high risk for pulmonary malignancy. 5. Small bilateral pleural effusions. Electronically Signed: Natacha Vazquez MD at 18:28 EST Tel , Service support ,
--- NOTE | 2018-09-27 09:10 | CT_ITS ---
PROCEDURE: CT GUIDED CORE NEEDLE BIOPSY OF A right lower lobe LUNG LESION INDICATION: Male, 78 years old. Irregular mass in the right lower lobe. PHYSICIAN: CONSENT: Written informed consent was obtained having explained the risks, benefits and alternatives in detail with the patient who accepted the risks and agreed to proceed. Laboratory review and clinical assessment was performed. CONSCIOUS SEDATION PROTOCOL: The Drugs used were: 1 mg Versed, IV., and 25 mcg Fentanyl, IV. The sedation time was: 15 minutes. The conscious sedation protocol was independently monitored. RADIATION DOSAGE (If Supplied By Facility): CTDIvol = ( 16.67 ) mGy, DLP = ( 471.26 ) mGycm Individualized dose optimization techniques were used for this CT. TECHNIQUE: The patient was placed in the left side down decubitus position. A noncontrast CT was performed to localize the lesion in the . The skin surface was prepped and draped in a sterile fashion. 1% lidocaine was used for local anesthesia. Using CT guidance, a 20-gauge coaxial biopsy device was utilized. Due to the patient's mental condition, the biopsy was not successful. CT/Biopsy/Inj or Needle Placement IMPRESSION: 1. Successful right lower lobe lung biopsy due to the patient's condition. The patient was nonstationary. There was constant movement despite sedation. 2. Conscious Sedation protocol utilized with independent monitoring. Electronically Signed: Dragan Conteh MD at 14:42 EST Tel [phone], Service support ,
[2018-09-27] MEDS: fentaNYL 100 MCG/2 ML Ampul IV (09:50)
[2018-09-27] MEDS: Midazolam 2 MG/2 ML Syringe IV (09:51)
[2018-09-27] MEDS: Ramipril 10 MG Capsule PO (10:59)
[2018-09-27] MEDS: Memantine Hydrochloride 5 MG Tablet PO (10:59)
[2018-09-27] MEDS: Pantoprazole Sodium 20 MG Tablet PO (11:00)
[2018-09-27] MEDS: Escitalopram Oxalate 10 MG Tablet PO (11:00)
[2018-09-27] MEDS: Donepezil HCl 10 MG Tablet PO (11:00)
[2018-09-27 12:05] LABS: Bedside Glucose 139 mg/dL (70-110)
[2018-09-27] MEDS: Glucerna Shake 120 ML LIQUID PO (13:56)
--- NOTE | 2018-09-27 14:17 | PCM.TXEXTCAR ---
- Diet 09/27/18 11:19 Diet: Cardiac/Low Cholesterol Is pt able to select menu?: No - Routine Orders/Code Status Enema Type: Fleetz Enema Frequency: Daily PRN Suppository Type: Dulcolax 10mg Suppository Frequency: Daily PRN O2 Frequency: PRN Keep PO Greater than or Equal to (%): 92 Code Status: Full Code - Wound(s) Left Knee Wound Type: Abrasion - Therapies Weight Bearing: Weight bearing as tolerated Physical Therapy: Eval and Treat Occupational Therapy: Eval and Treat - Allergies/Procedures Done in Hospital Allergies/Adverse Reactions: Allergies lovastatin [From Mevacor] Adverse Reaction (Severe, Verified 09/22/18 17:18) myalgias metoprolol succinate [From Toprol XL] Adverse Reaction (Severe, Verified 09/22/18 17:18) Heart rate too slow beta blockers Adverse Reaction (Uncoded 09/22/18 17:18) low heart rate Procedures: None - Type of Care/Length of Stay Estimated LOS: Convalescent Care Less Than 30 days Type of Care Needed: Skilled Rehab Potential: Fair Prognosis: Fair - Additional Orders/Day of Discharge Additional Orders: Follow up with Dr Israel Corrigan [phone]) in 1 week for EBUS to be scheduled. Also pls call Dr Jacqueline Villa's office ([phone]) for appointment to see if EBUS can be done earlier. Aspirin and Eliquis should be held 5 days and 2 days respectively prior to EBUS. Day of Discharge: 09/27/18 - Dietary and Speech Recommendations Dietitian Recommendations/Changes: Rec liberalize diet to regular d/t very poor intake at meals. May benefit from appetite stimulant. Will continue to provide Glucerna ONS w/ medpass and Magic Cup BID for additional calories/protein if consumed. - Follow Up Care Primary Care Physician: Julio C Ridley MD [Primary Care Provider] - Please follow up with your Primary Care Physician in: 1 week Please Follow Up With: Israel Corrigan DO When: 1 week
--- NOTE | 2018-09-27 14:18 | CASEMGMT ---
Social Work Note SW updated javier in TCU that pt is able to discharge to TCU today. Plan: TCU today Jennifer Aaron DIRECTOR OF PATIENT SAFETY, PAINT ROLLER COVER MACHINE SETTER
--- NOTE | 2018-09-27 14:22 | PCM.DC.SUM ---
Discharge Date and Diagnosis - Problem List Patient Problems: Active and Suspected Problems (Last Reviewed 09/22/18 @ 22:46 by Jeanmarie Bell MD) Weakness (Acute) Community acquired pneumonia (Acute) Dementia, vascular (Suspected) Date of Admission: 09/22/18 Date of Discharge: 09/27/18 - Primary Discharge Diagnosis Active and Suspected Problems (Last Reviewed 09/22/18 @ 22:46 by Jeanmarie Bell MD) Weakness (Acute) Community acquired pneumonia (Acute) Dementia, vascular (Suspected) lung mass - Secondary Discharge Diagnosis Chronic Problems (Last Reviewed 09/22/18 @ 22:46 by Jeanmarie Bell MD) Chronic atrial fibrillation (Chronic) Nonrheumatic tricuspid valve regurgitation (Chronic) Syncope and collapse (Chronic) Atherosclerosis of [place] coronary artery (Chronic) PTCA of RCA intracoronary stent November 1999 Presence of coronary angioplasty implant and graft (Chronic) PTCA of the RCA intracoronary stent 11/1999 HTN (hypertension) (Chronic) HLD (hyperlipidemia) (Chronic) Essential (primary) hypertension (Chronic) CAD (coronary artery disease) (Chronic) BPH (benign prostatic hyperplasia) (Chronic) DM2 (diabetes mellitus, type 2) (Chronic) S/P PTCA (percutaneous transluminal coronary angioplasty) (Chronic) PTCA of RCA intracoronary stent November 1999 HLD (hyperlipidemia) (Chronic) Diabetes mellitus (Chronic) Aphasia (Chronic) Hospital Course and Treatment Imaging Results: 09/27/18 08:00 Chest without Contrast [CT] Urgent 09/27/18 09:10 Biopsy/Inj or Needle Placement [CT] Urgent Diagnostic Data Brain CT 09/22/18 18:12 IMPRESSION: No acute intracranial findings or changes. Negative for hemorrhage, hematoma or mass density. Stable chronic involutional changes. Electronically Signed: Nati Moore MD at 19:02 EST , Service support , Chest X-Ray 09/22/18 18:40 IMPRESSION: Shallow inspiration with mild atelectatic changes at the left lung base. More substantial atelectatic changes versus pneumonic infiltrate at the right lung base. Negative for pleural effusion. Stable cardiac size without evidence of pulmonary venous congestion. Electronically Signed: Nati Moore MD at 19:07 EST , Service support , Abdomen/Pelvis CT 09/23/18 14:49 IMPRESSION: No acute intra-abdominal or intrapelvic process is evident. Numerous small lytic bone lesions suspicious for metastatic disease. Follow-up PET/CT is recommended. A bone scan may be helpful for further assessment of distribution of suspected bone lesions. Electronically Signed: Minh Jmi, at 18:46 EST Tel , Service support , Biopsy CT 09/27/18 09:10 IMPRESSION: 1. Successful right lower lobe lung biopsy due to the patient's condition. The patient was nonstationary. There was constant movement despite sedation. 2. Conscious Sedation protocol utilized with independent monitoring. Electronically Signed: Dragna Conteh MD at 14:42 EST Tel [phone], Service support , pulmonology- Dr Corrigan Operations: None Procedures: - - CT guided biopsy of lung nodule attempted and was unsuccessful as patient kept on moving. Summary of Care Provided: The patient is a 78 year old M with a PMH of hypertension, diabetes and chronic A. fib as well as dementia. He was admitted through the ED with a one-week history of progressively worsening weakness and lethargy. He had assisted increasing confusion, anorexia and cough. Initial x-ray done showed atelectasis versus infiltrates. He was initially admitted and managed for community-acquired pneumonia. Chest and abdominal CT done showed numerous small lytic bone lesions suspicious for metastatic disease. Chest CT showed an irregular masslike spiculated focus in the right lower lobe measuring about 3.6 cm anterior-posterior and a pulmonary nodule the right lower lobe measuring about 7 mm. He also had associated prominent right hilar and mediastinal lymphadenopathy and also had an infiltrate of the right upper lobe suspicious for acute pneumonia. He was managed for pneumonia and started on IV ceftriaxone and azithromycin. Pulmonology was consulted on account of lung mass and nodules. Pulmonology, patient will need EBUS to biopsy the mediastinal lymph nodes in the lung nodules. However to be done on an outpatient basis and according to pulmonology, the schedule was fully perpendicular to his procedure until at least the middle of October. Radiology was consulted to biopsy the lung nodules. However, despite sedation, patient was agitated throughout the procedure and so the biopsy was not successful. Family was also given option to follow-up with Dr. Gutierrez in [facility]. Dr. Corrigan's recommendation to see if he could do the EBUS procedure earlier. In the interim, patient was told to follow-up with Dr. Corrigan for the EBUS to be done for tissue biopsy and definite diagnosis to be made. After this is done, plan is to refer patient to oncology as needed if cancer is diagnosed for treatment options to be discussed with patient. Of note, patient's family initially did not want to tell him about his diagnosis and wanted to wait until the biopsy was done before telling him. However it was explained to patient's family that patient had a right to know to be part of the decision-making process as part of his right to autonomy. Patient was therefore informed by his family on 09/26/2018 and he consented to biopsy which was not successful as detailed above. Patient was discharged to the transitional care unit on 09/27/2018. He is to resume his Eliquis which had been on hold since admission on account of need for a BUS and biopsy. He is to hold the Eliquis 48 hours before and aspirin for 5 days before the EBUS procedure on which he would need to be scheduled by either Dr. Corrigan or Dr. Villa. He is to follow-up with Dr. Corrigan's office in 1 week and his primary care doctor in 1 week and is to call Dr. Villa's office at [facility] to make an appointment to see if the EBU S procedure can be done for him earlier. Patient was seen and examined prior to discharge. He complained of feeling tired as he wasnt able to get enough sleep during the night. He denied any fever or chills, any cough or chest pain, any shortness of breath, abdominal pain, any diarrhea vomiting. Review of systems is otherwise negative. Labs and vitals reviewed. On examination: Vital Signs Height 6 ft Weight: 159 lb 9.835 oz Weight in Pounds 159.6 lbs Pulse Ox 92 Temperature 101.4 F Pulse Rate [6] 70 Pulse Rate [5] 74 Pulse Rate [4] 75 Pulse Rate [3] 70 Pulse Rate [2] 64 Pulse Rate [1 (Initial 65 Baseline)] Pulse Rate 76 Respiratory Rate [6] 26 Respiratory Rate [5] 25 Respiratory Rate [4] 21 Respiratory Rate [3] 23 Respiratory Rate [2] 27 Respiratory Rate [1 (Initial 14 Baseline)] Respiratory Rate 18 Blood Pressure [BP] 130/81 Blood Pressure [6] 115/64 Blood Pressure [5] 120/81 Blood Pressure [4] 136/61 Blood Pressure [3] 135/60 Blood Pressure [2] 131/75 Blood Pressure [1 (Initial 131/75 Baseline)] Blood Pressure 144/75 Blood Pressure Position [BP] Semi-Fowlers Blood Pressure Position Semi-Fowlers [] General: Alert, Oriented x3, Cooperative, No apparent distress HEENT: Atraumatic, PERRLA, EOMI, Normocephalic Oral: Moist Mucosa Neck: Supple, No JVD, Negative Carotid Bruits Lungs: Clear to auscultation, Normal air movement, No rhonchi, No wheeze, No rales Cardiovascular: Regular rate, Regular Rhythm, Normal S1, Normal S2, No murmurs Abdomen: Bowel Sounds Present, Soft, Non Tender, Non-Distended, No Hepato-splenomegaly Extremities: No clubbing, No cyanosis, No edema, Capillary Refill Less than 3 Seconds Skin: No rashes, No breakdown Musculoskeletal: No Tenderness to Palpation of Joints or Extremities Lymphatic: No Cervical, Supraclavicular, or Inguinal Adenopathy Neurological: Cranial nerves II-XII grossly intact, Neuro grossly intact, Motor Exam 5/5 strength throughout Psych/Mental Status: Normal Affect, Appropriate, Alert and oriented to time, place, person, mood and affect Plan as described above. Family counselled several times during this meeting about patient's condition. He remains full code. Patient Problems: Active and Suspected Problems (Last Reviewed 09/22/18 @ 22:46 by Jeanmarie Bell MD) Weakness (Acute) Community acquired pneumonia (Acute) Dementia, vascular (Suspected) - Physical Exam Vital Signs Temp Pulse Resp BP Pulse Ox 101.4 F H 76 18 144/75 H 92 09/27/18 13:53 09/27/18 13:53 09/27/18 13:53 09/27/18 13:53 09/27/18 13:53 Oxygen Flow Rate (L/min) [6] 2 Oxygen Flow Rate (L/min) [5] 2 Oxygen Flow Rate (L/min) [4] 2 Oxygen Flow Rate (L/min) [3] 2 Oxygen Flow Rate (L/min) [2] 2 Oxygen Flow Rate (L/min) [1 ( 2 Initial Baseline)] Oxygen Flow Rate (L/min) 2 Oxygen Delivery Method [6] Nasal Cannula Oxygen Delivery Method [5] Nasal Cannula Oxygen Delivery Method [4] Nasal Cannula Oxygen Delivery Method [3] Nasal Cannula Oxygen Delivery Method [2] Nasal Cannula Oxygen Delivery Method [1 ( Nasal Cannula Initial Baseline)] Oxygen Delivery Method Room Air Weight: 159 lb 9.835 oz Body Mass Index (BMI) 21.6 Finger Stick Blood Glucose 181 Intake and Output for Last 24 Hours 09/25/18 09/26/18 09/27/18 23:59 23:59 23:59 Intake Total 2890 / 2890 2997 / 2997 1703 / 1703 Output Total 700 / 700 625 / 625 Balance 2190 / 2190 2372 / 2372 1703 / 1703 Microbiology Past 72 Hours 09/23/18 15:50 Blood Culture - Preliminary Blood Culture (Wb) - Left Hand No growth in 48 hours. 09/23/18 15:25 Blood Culture - Preliminary Blood Culture (Wb) - Left Forearm No growth in 48 hours. 09/23/18 15:38 Respiratory Panel (PCR) - Final Mucosa - Nose Laboratory Tests Past 24 Hrs 09/27/18 09/27/18 09/27/18 05:20 05:20 05:20 WBC 5.7 RBC 4.30 L Hgb 12.1 L Hct 35.8 L MCV 83.3 MCH 28.1 MCHC 33.8 RDW 13.6 RDW Differential 40.9 Plt Count 226 MPV 10.3 Immature Gran % (Auto) 0.400 Neut % (Auto) 55.5 Lymph % (Auto) 24.3 [place] % (Auto) 17.9 H Eos % (Auto) 1.4 Baso % (Auto) 0.5 Absolute Neuts (auto) 3.2 Absolute Lymphs (auto) 1.38 Total Counted Not Reportable PT 15.2 H INR 1.2 Sodium 136 Potassium 4.0 Chloride 103 Carbon Dioxide 22.0 Anion Gap 11 BUN 8 Creatinine 0.92 Estim Creat Clear Calc 65.58 Est GFR (MDRD) Af Amer 102 Est GFR (MDRD) Non-Af 84 BUN/Creatinine Ratio 8.7 L Glucose 126 H Calcium 8.0 L POC Glucose 09/27/18 09/27/18 09/26/18 10:55 06:48 21:31 POC Glucose 139 H 140 H 146 H 09/26/18 16:41 POC Glucose 160 H Discharge Diet: Low fat/ Low Cholesterol Weight Bearing Status: Weight bearing as tolerated Call your doctor if you observe: Fever of 101 or Higher, Shortness of breath Home Medications: Medications to take at Discharge Atorvastatin Calcium [Lipitor] 10 mg PO QHS 11/30/14 Donepezil HCl [Aricept] 10 mg PO DAILY 09/30/16 Tamsulosin HCl [Flomax] 0.8 mg PO QHS 09/30/16 Cholecalciferol (Vitamin D3) [Vitamin D3] 2,000 unit PO DAILY 11/04/16 Metformin HCl [Metformin HCl ER] 500 mg PO BID 11/04/16 Apixaban [Eliquis] 5 mg PO BID #90 tab 11/05/16 Albuterol Sulfate [Ventolin Hfa] 18 gm IH DAILY PRN 05/03/17 memantine 5 mg tablet 5 mg PO QDAY 11/25/17 escitalopram 10 mg tablet 10 mg PO QDAY 12/29/17 Aspirin E.C. [Ecotrin] 81 mg PO DAILY 09/22/18 Fluticasone 0.05% [Flonase Nasal [place]] 1 spray NASAL PRN PRN 09/22/18 Levothyroxine Sodium [Synthroid] 125 mcg PO DAILY 09/22/18 Omeprazole Magnesium [Prilosec Otc] 20 mg PO DAILY 09/22/18 Ramipril 10 mg PO DAILY 09/22/18 Primary Care Physician: Julio C Ridley MD [Primary Care Provider] - Please follow up with your Primary Care Physician in: 1 week Please Follow Up With: Israel Corrigan DO When: 1 week Additional Instructions: To call Dr Flaquito Villa's office at [facility] ([phone]) for an appointment to try to schedule EBUS earlier. Disposition: Home Minutes spent on discharge:: 45 Patient Condition:: Fair Medical Necessity - Tobacco Use Smoking Status: Former smoker Meaningful Use Info Meaningful Use Diagnoses (Choose all that apply): None applicable Code Visit Inpatient E&M: 40177 Disch Hosp
--- NOTE | 2018-09-27 15:23 | NURSING ---
Called report to Victoria in TCU at this time.
== END 2018-09-27 15:33 | disposition skilled nursing facility (03) | DRG 193 ==
LOC: ED 22:15 → MS3 22:58 → ED 09-23 16:26
PROVIDERS: Internal Medicine; Admitting Provider Hospitalist; Emergency Provider Emergency Medicine; Family Provider Family Medicine; PCP Family Medicine; Visit Provider Student in an Organized Health Care Education/Training Program
DX: J18.9 Pneumonia, unspecified organism (principal); G93.41 Metabolic encephalopathy; E87.1 Hypo-osmolality and hyponatremia; F32.9 Major depressive disorder, single episode, unspecified; I48.2 Chronic atrial fibrillation; R91.8 Other nonspecific abnormal finding of lung field; N40.0 Benign prostatic hyperplasia without lower urinary tract symptoms; E03.9 Hypothyroidism, unspecified; F01.50 Vascular dementia, unspecified severity, without behavioral disturbance, psychotic disturbance, mood disturbance, and anxiety; E78.5 Hyperlipidemia, unspecified; I25.10 Atherosclerotic heart disease of native coronary artery without angina pectoris; E83.51 Hypocalcemia; I10 Essential (primary) hypertension; I36.1 Nonrheumatic tricuspid (valve) insufficiency; Z95.5 Presence of coronary angioplasty implant and graft; E11.9 Type 2 diabetes mellitus without complications; Z79.899 Other long term (current) drug therapy; Z79.84 Long term (current) use of oral hypoglycemic drugs; Z79.01 Long term (current) use of anticoagulants; K21.9 Gastro-esophageal reflux disease without esophagitis; Z87.891 Personal history of nicotine dependence; R53.1 Weakness
CPT/HCPCS: 36415; 70450; 71045; 71250; 71260; 74177; 77012; 80048; 80053; 81001; 82607; 82962; 84443; 84484; 85025; 85610; 87040; 87449; 87633; 92526; 93005; 94667; 94668; 97162; 97166; 97530; 97802; 99156; 99157; 99282; J7030; J7040; J7050; J7120; Q9967; A4216

== ENCOUNTER 2018-09-27 15:47 | Inpatient (IN) | payer MEDICARE, SELFPAY ==
[2018-09-27 15:51] VITALS: BP 156/92; PULSE 85; RESP 20; TEMP 36.9; O2SAT 91
--- NOTE | 2018-09-27 15:53 | NURSING ---
pt arrived via bed from [facility], at side
[2018-09-27 16:26] VITALS: BMI 24.0
[2018-09-27 16:29] VITALS: BMI 24.0
[2018-09-27 17:01] LABS: Bedside Glucose 137 mg/dL (70-110)
[2018-09-27] MEDS: APIXABAN 5 MG TABLET PO (18:23)
--- NOTE | 2018-09-27 18:44 | NURSING ---
PT IS REQUESTING A PAIN MED FOR THE PT. REPORTED TO LIBERTAD JACKSON
[2018-09-27 19:10] VITALS: TEMP 39.8
--- NOTE | 2018-09-27 19:11 | NURSING ---
PT TEMP AT 103.6 AX. REPORTED TO LIBERTAD JACKSON
--- NOTE | 2018-09-27 19:18 | NURSING ---
GAVE TYLENOL TO PT ,OK PER RAJAT FROM PHARMACY TO TAKE OUT OF ACCUDOSE AND GIVE DUE TO PT HAVING FEVER AND MAR WILL NOT LET RN ACKNOWLEDGE MED. OK PER LIBERTAD JACKSON
[2018-09-27 20:05] VITALS: BP 149/83; PULSE 80; RESP 20; TEMP 37.4; O2SAT 92
--- NOTE | 2018-09-27 20:16 | PCM.HP.STD ---
Problem List (1) Encephalopathy Status: Acute (2) Lung mass Status: Acute (3) Mediastinal lymphadenopathy Status: Acute (4) Lytic bone lesions on xray Status: Acute (5) Atrial fibrillation Status: Chronic (6) Alzheimer's disease Status: Chronic (7) Depression Status: Chronic (8) GERD (gastroesophageal reflux disease) Status: Chronic (9) Weakness Status: Acute (10) Community acquired pneumonia Status: Acute (11) HTN (hypertension) Status: Chronic Qualifiers: (12) BPH (benign prostatic hyperplasia) Status: Chronic (13) HLD (hyperlipidemia) Status: Chronic Qualifiers: (14) Diabetes mellitus Status: Chronic History of Present Illness Date of Admission: 09/27/18 Chief Complaint: Here for rehabilitation, strengthening, prior to disposition determination. The patient is a 78 year old Male with below past medical history presented to [facility] Emergency Department 09/22/2018 with weakness confusion. 09/22/2018 CT brain chronic involutional changes. 09/22/2018 Chest X-ray right base atelectasis vs. infiltrate. Weakness, confusion, decreased appetite x 1 week. Dry cough. WBC 6, Hemoglobin 13, Cr 0.91. UA leukocytes, EKG atrial fibrillation HR 70. Rocephin, Zithromax given. 09/22/2018 Admit to Hospital. PT/OT. Rocephin, Zithromax after panculture for community acquired pneumonia. 09/23/2018 CT abdomen/pelvis showed lumbar lytic bony lesions concerning for metastatic disease. 09/27/2018 CT chest right upper lobe pneumonia, right lower lobe pneumonia. Mild mediastinal adenopathy. Left lower lobe nodule. CT guided biopsy of lung mass failed. EBUS biopsy offered for definitive diagnosis of metastatic lung cancer. 11/27/2017 Admit to TCU with debility, here for rehabilitation, strengthening, prior to disposition determination. I had long discuss with Mrs. Villafuerte. I let her know EBUS biopsy will give the lung cancer a name, but unlikely to change his prognosis or management. Resident's dementia is severe, and he is unlikely to survive for long. He is not eating, and I offered to add Mirtazapine as appetite stimulant. I let spouse know we will try our best to improve Jose's functional status, but if he is unable to improve, hospice care is a preferable option. Spouse unable to care for him at home, she is recovering from recent hysterectomy. Jose may benefit from either inpatient hospice care or manager terminal care with hospice. I let spouse know resident has about 2 months to live, maybe less. Past Medical History Past Medical History (Chronic Problems): Chronic Problems (Last Reviewed 09/22/18 @ 22:46 by Jeanmarie Bell MD) Atrial fibrillation (Chronic) Alzheimer's disease (Chronic) Depression (Chronic) GERD (gastroesophageal reflux disease) (Chronic) Chronic atrial fibrillation (Chronic) Nonrheumatic tricuspid valve regurgitation (Chronic) Syncope and collapse (Chronic) Atherosclerosis of [place] coronary artery (Chronic) PTCA of RCA intracoronary stent November 1999 Presence of coronary angioplasty implant and graft (Chronic) PTCA of the RCA intracoronary stent 11/1999 HTN (hypertension) (Chronic) HLD (hyperlipidemia) (Chronic) Essential (primary) hypertension (Chronic) CAD (coronary artery disease) (Chronic) BPH (benign prostatic hyperplasia) (Chronic) DM2 (diabetes mellitus, type 2) (Chronic) S/P PTCA (percutaneous transluminal coronary angioplasty) (Chronic) PTCA of RCA intracoronary stent November 1999 HLD (hyperlipidemia) (Chronic) Diabetes mellitus (Chronic) Aphasia (Chronic) Medical History: Medical History (Last Reviewed 09/22/18 @ 22:46 by Jeanmarie Bell MD) Chronic atrial fibrillation (Chronic) I48.2 Nonrheumatic tricuspid valve regurgitation (Chronic) I36.1 Syncope and collapse (Chronic) R55 Atherosclerosis of [place] coronary artery (Chronic) I25.10 PTCA of RCA intracoronary stent November 1999 HTN (hypertension) (Chronic) I10 HLD (hyperlipidemia) (Chronic) E78.5 Essential (primary) hypertension (Chronic) I10 CAD (coronary artery disease) (Chronic) I25.10 DM2 (diabetes mellitus, type 2) (Chronic) E11.9 HLD (hyperlipidemia) (Chronic) E78.5 intermediate use of drug Z79.899 Allergies lovastatin [From Mevacor] Adverse Reaction (Severe, Verified 09/22/18 17:18) myalgias metoprolol succinate [From Toprol XL] Adverse Reaction (Severe, Verified 09/22/18 17:18) Heart rate too slow beta blockers Adverse Reaction (Uncoded 09/22/18 17:18) low heart rate Home Medications: Ambulatory Orders Medication Instructions Recorded Atorvastatin Calcium [Lipitor] 10 mg PO QHS 11/30/14 Donepezil HCl [Aricept] 10 mg PO DAILY 09/30/16 Tamsulosin HCl [Flomax] 0.8 mg PO QHS 09/30/16 Cholecalciferol (Vitamin D3) 2,000 unit PO DAILY 11/04/16 [Vitamin D3] Metformin HCl [Metformin HCl ER] 500 mg PO BID 11/04/16 Albuterol Sulfate [Ventolin Hfa] 18 gm IH DAILY PRN 05/03/17 memantine 5 mg tablet 5 mg PO QDAY 11/25/17 escitalopram 10 mg tablet 10 mg PO QDAY 12/29/17 Aspirin E.C. [Ecotrin] 81 mg PO DAILY 09/22/18 Fluticasone 0.05% [Flonase Nasal 1 spray NASAL PRN PRN 09/22/18 [place]] Levothyroxine Sodium [Synthroid] 125 mcg PO DAILY 09/22/18 Omeprazole Magnesium [Prilosec Otc] 20 mg PO DAILY 09/22/18 Ramipril 10 mg PO DAILY 09/22/18 Apixaban [Eliquis] 5 mg PO BID 09/27/18 Surgical History: Surgical History (Last Reviewed 09/22/18 @ 22:46 by Jeanmarie Bell MD) Presence of coronary angioplasty implant and graft (Chronic) Z95.5 PTCA of the RCA intracoronary stent 11/1999 S/P PTCA (percutaneous transluminal coronary angioplasty) (Chronic) Z98.61 PTCA of RCA intracoronary stent November 1999 H/O hernia repair Z98.890, Z87.19 History of tonsillectomy Z98.890, Z90.89 History of left heart catheterization (LHC) Z98.890 LHC: 11/20/1999 Surgical History: angioplasty, herniorrhaphy, tonsillectomy Psychiatric History: Depression Lives: Spouse/ Significant Other Smoking Status: Former smoker Tobacco Use: Cigarettes Alcohol: None Drugs: None - *Family History Offspring Family History: Family History (Last Reviewed 09/22/18 @ 22:46 by Jeanmarie Bell MD) Father Cancer Mother CAD (coronary artery disease) CVA (cerebral vascular accident) Brother CAD (coronary artery disease) Brother CVA (cerebral vascular accident) Hypertension Sister Myocardial infarction, Onset Age: 73 Sister CVA (cerebral vascular accident) Sister CVA (cerebral vascular accident) Sister Breast cancer Sister CVA (cerebral vascular accident) Sister TIA (transient ischemic attack) History Items: Heart Disease Review of Systems Constitutional: Denies: Chills, Fever, Weight Change HEENT: Denies: Head Aches, Sinus Congestion, Sinus Drainage Cardiovascular: Denies: Chest Pain, Palpitations Respiratory: Denies: Cough, Shortness of breath at rest, Sputum production Gastrointestinal: Denies: Abdominal Pain, Nausea, Vomiting Genitourinary: Denies: Dysuria Musculoskeletal: Denies: Joint Pain, Joint Tenderness Skin: Denies: Rash, Wounds Neurological: Denies: Numbness, Tingling, Focal weakness Psychiatric: Denies: Anxiety, Depression, Homicidal Ideations, Suicidal Ideations Hematologic/ Lymphatic: Denies: Easy Bruising, Easy Bleeding VTE Information - Inpt Only VTE Present on Admission: No VTE Mechan Device Prophylaxis: Knee High YAMIL Hose VTE Pharm Prophylaxis ordered?: No Reason prophylaxis not ordered:: Treatment Not Indicated Patient Problems: Active and Suspected Problems (Last Reviewed 09/22/18 @ 22:46 by Jeanmarie Bell MD) Encephalopathy (Acute) Lung mass (Acute) Mediastinal lymphadenopathy (Acute) Lytic bone lesions on xray (Acute) - Physical Exam General: Alert, Oriented x3, Cooperative HEENT: Atraumatic, PERRLA, EOMI, Normocephalic Neck: Supple, No JVD, Negative Carotid Bruits Lungs: Clear to auscultation, Normal air movement Cardiovascular: Regular rate, No murmurs Abdomen: Bowel Sounds Present, Soft, Non Tender Extremities: No edema, Capillary Refill Less than 3 Seconds Skin: No rashes, No breakdown Musculoskeletal: No Tenderness to Palpation of Joints or Extremities Neurological: Cranial nerves II-XII grossly intact Psych/Mental Status: Normal Affect, Appropriate Vital Signs Temp Pulse Resp BP Pulse Ox 103.6 F H 85 20 H 156/92 H 91 09/27/18 19:10 09/27/18 15:51 09/27/18 15:51 09/27/18 15:51 09/27/18 15:51 Oxygen Delivery Method Room Air Weight: 78 kg Body Mass Index (BMI) 24.0 Finger Stick Blood Glucose 181 POC Glucose 09/27/18 16:55 POC Glucose 137 H Assessment/Plan All Active Problems (Last Reviewed 09/22/18 @ 22:46 by Jeanmarie Bell MD) Weakness (Acute) Community acquired pneumonia (Acute) Encephalopathy (Acute) Lung mass (Acute) Mediastinal lymphadenopathy (Acute) Lytic bone lesions on xray (Acute) 78 year old male with below past medical history significant for severe Alzheimer's Disease, hospitalized for encephalopathy secondary to community acquired pneumonia, complicated by metastatic lung cancer, admitted to TCU with debility, here for rehabilitation, strengthening, prior to disposition determination. Debility - PT/OT. Pain - Tylenol 1000MG Q6H PRN mild pain. Bowel - Miralax 17GM daily, Senna/colace 1 tablet BID, Dulcolax 10MG PO daily PRN. Pneumonia vaccination - Administer Prevnar 13 and/or Pneumovax 23 as necessary. DVT prophylaxis - Not necessary, already on Eliquis. Shortness of breath - Albuterol 2.5MG nebulized daily PRN. Atrial Fibrillation - Eliquis 5MG BID. Coronary Artery Disease - Ramipril 10MG daily, Aspirin 81MG daily. Hyperlipidemia - Atorvastatin 10MG QHS. Vitamin D deficiency - D3 2000IU daily. Alzheimer's Disease - Donepezil 10MG QHS, Memantine 5MG daily. Depression - Lexapro 10MG daily, resident doing well with chronic penitentiary use, GDR clinically contraindicated. Allergic Rhinitis - Flonase 1 spray daily. Hypothyroidism - Levothyroxine 125MCG daily. Diabetes Mellitus II - Metformin XR 500MG BID, Ramipril 10MG daily, Aspirin 81MG daily, follow glucose. GERD - Pantoprazole 20MG daily. BPH - Tamsulosin 0.8MG QHS. Appetite decrease - Rx Mirtazapine 7.5MG QHS. Metastatic lung cancer - Recommend AGAINST EBUS biopsy, will not price changer, resident is dying. Recommend hospice care when appropriate.
[2018-09-27] MEDS: Atorvastatin Calcium 10 MG Tablet PO (20:27)
[2018-09-27] MEDS: Tamsulosin HCl 0.4 MG Capsule 0.8 MG PO (20:27)
--- NOTE | 2018-09-27 20:27 | HP.PCM_ITS ---
Problem List (1) Encephalopathy Status: Acute (2) Lung mass Status: Acute (3) Mediastinal lymphadenopathy Status: Acute (4) Lytic bone lesions on xray Status: Acute (5) Atrial fibrillation Status: Chronic (6) Alzheimer's disease Status: Chronic (7) Depression Status: Chronic (8) GERD (gastroesophageal reflux disease) Status: Chronic (9) Weakness Status: Acute (10) Community acquired pneumonia Status: Acute (11) HTN (hypertension) Status: Chronic Qualifiers: (12) BPH (benign prostatic hyperplasia) Status: Chronic (13) HLD (hyperlipidemia) Status: Chronic Qualifiers: (14) Diabetes mellitus Status: Chronic History of Present Illness Date of Admission: 09/27/18 Chief Complaint: Here for rehabilitation, strengthening, prior to disposition determination. The patient is a 78 year old Male with below past medical history presented to [facility] Emergency Department 09/22/2018 with weakness confusion. 09/22/2018 CT brain chronic involutional changes. 09/22/2018 Chest X-ray right base atelectasis vs. infiltrate. Weakness, confusion, decreased appetite x 1 week. Dry cough. WBC 6, Hemoglobin 13, Cr 0.91. UA leukocytes, EKG atrial fibrillation HR 70. Rocephin, Zithromax given. 09/22/2018 Admit to Hospital. PT/OT. Rocephin, Zithromax after panculture for community acquired pneumonia. 09/23/2018 CT abdomen/pelvis showed lumbar lytic bony lesions concerning for metastatic disease. 09/27/2018 CT chest right upper lobe pneumonia, right lower lobe pneumonia. Mild mediastinal adenopathy. Left lower lobe nodule. CT guided biopsy of lung mass failed. EBUS biopsy offered for definitive diagnosis of metastatic lung cancer. 11/27/2017 Admit to TCU with debility, here for rehabilitation, strengthening, prior to disposition determination. I had long discuss with Mrs. Villafuerte. I let her know EBUS biopsy will give the lung cancer a name, but unlikely to change his prognosis or management. Resident's dementia is severe, and he is unlikely to survive for long. He is not eating, and I offered to add Mirtazapine as appetite stimulant. I let spouse know we will try our best to improve Jose's functional status, but if he is unable to improve, hospice care is a preferable option. Spouse unable to care for him at home, she is recovering from recent hysterectomy. 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 I let spouse know resident has about 2 months to live, maybe less. Past Medical History Past Medical History (Chronic Problems): Chronic Problems (Last Reviewed 09/22/18 @ 22:46 by Jeanmarie Bell MD) Atrial fibrillation (Chronic) Alzheimer's disease (Chronic) Depression (Chronic) GERD (gastroesophageal reflux disease) (Chronic) Chronic atrial fibrillation (Chronic) Nonrheumatic tricuspid valve regurgitation (Chronic) Syncope and collapse (Chronic) Atherosclerosis of [place] coronary artery (Chronic) PTCA of RCA intracoronary stent November 1999 Presence of coronary angioplasty implant and graft (Chronic) PTCA of the RCA intracoronary stent 11/1999 HTN (hypertension) (Chronic) HLD (hyperlipidemia) (Chronic) Essential (primary) hypertension (Chronic) CAD (coronary artery disease) (Chronic) BPH (benign prostatic hyperplasia) (Chronic) DM2 (diabetes mellitus, type 2) (Chronic) S/P PTCA (percutaneous transluminal coronary angioplasty) (Chronic) PTCA of RCA intracoronary stent November 1999 HLD (hyperlipidemia) (Chronic) Diabetes mellitus (Chronic) Aphasia (Chronic) Medical History: Medical History (Last Reviewed 09/22/18 @ 22:46 by Jeanmarie Bell MD) Chronic atrial fibrillation (Chronic) I48.2 Nonrheumatic tricuspid valve regurgitation (Chronic) I36.1 Syncope and collapse (Chronic) R55 Atherosclerosis of [place] coronary artery (Chronic) I25.10 PTCA of RCA intracoronary stent November 1999 HTN (hypertension) (Chronic) I10 HLD (hyperlipidemia) (Chronic) E78.5 Essential (primary) hypertension (Chronic) I10 CAD (coronary artery disease) (Chronic) I25.10 DM2 (diabetes mellitus, type 2) (Chronic) E11.9 HLD (hyperlipidemia) (Chronic) E78.5 [facility] use of drug Z79.899 Allergies lovastatin [From Mevacor] Adverse Reaction (Severe, Verified 09/22/18 17:18) myalgias metoprolol succinate [From Toprol XL] Adverse Reaction (Severe, Verified 09/22/18 17:18) Heart rate too slow beta blockers Adverse Reaction (Uncoded 09/22/18 17:18) low heart rate Home Medications: Ambulatory Orders Medication Instructions Recorded Atorvastatin Calcium [Lipitor] 10 mg PO QHS 11/30/14 Donepezil HCl [Aricept] 10 mg PO DAILY 09/30/16 Tamsulosin HCl [Flomax] 0.8 mg PO QHS 09/30/16 Cholecalciferol (Vitamin D3) 2,000 unit PO DAILY 11/04/16 [Vitamin D3] Metformin HCl [Metformin HCl ER] 500 mg PO BID 11/04/16 Albuterol Sulfate [Ventolin Hfa] 18 gm IH DAILY PRN 05/03/17 memantine 5 mg tablet 5 mg PO QDAY 11/25/17 escitalopram 10 mg tablet 10 mg PO QDAY 12/29/17 Aspirin E.C. [Ecotrin] 81 mg PO DAILY 09/22/18 Fluticasone 0.05% [Flonase Nasal 1 spray NASAL PRN PRN 09/22/18 [place]] Levothyroxine Sodium [Synthroid] 125 mcg PO DAILY 09/22/18 Omeprazole Magnesium [Prilosec Otc] 20 mg PO DAILY 09/22/18 Ramipril 10 mg PO DAILY 09/22/18 Apixaban [Eliquis] 5 mg PO BID 09/27/18 Surgical History: Surgical History (Last Reviewed 09/22/18 @ 22:46 by Jeanmarie Bell MD) Presence of coronary angioplasty implant and graft (Chronic) Z95.5 PTCA of the RCA intracoronary stent 11/1999 S/P PTCA (percutaneous transluminal coronary angioplasty) (Chronic) Z98.61 PTCA of RCA intracoronary stent November 1999 H/O hernia repair Z98.890, Z87.19 History of tonsillectomy Z98.890, Z90.89 History of left heart catheterization (LHC) Z98.890 LHC: 11/20/1999 Surgical History: angioplasty, herniorrhaphy, tonsillectomy Psychiatric History: Depression Lives: Spouse/ Significant Other Smoking Status: Former smoker Tobacco Use: Cigarettes Alcohol: None Drugs: None - *Family History Offspring Family History: Family History (Last Reviewed 09/22/18 @ 22:46 by Jeanmarie Bell MD) Father Cancer Mother CAD (coronary artery disease) CVA (cerebral vascular accident) Brother CAD (coronary artery disease) Brother CVA (cerebral vascular accident) Hypertension Sister Myocardial infarction, Onset Age: 73 Sister CVA (cerebral vascular accident) Sister CVA (cerebral vascular accident) Sister Breast cancer Sister CVA (cerebral vascular accident) Sister TIA (transient ischemic attack) History Items: Heart Disease Review of Systems Constitutional: Denies: Chills, Fever, Weight Change HEENT: Denies: Head Aches, Sinus Congestion, Sinus Drainage Cardiovascular: Denies: Chest Pain, Palpitations Respiratory: Denies: Cough, Shortness of breath at rest, Sputum production Gastrointestinal: Denies: Abdominal Pain, Nausea, Vomiting Genitourinary: Denies: Dysuria Musculoskeletal: Denies: Joint Pain, Joint Tenderness Skin: Denies: Rash, Wounds Neurological: Denies: Numbness, Tingling, Focal weakness Psychiatric: Denies: Anxiety, Depression, Homicidal Ideations, Suicidal Ideations Hematologic/ Lymphatic: Denies: Easy Bruising, Easy Bleeding VTE Information - Inpt Only VTE Present on Admission: No VTE Mechan Device Prophylaxis: Knee High YAMIL Hose VTE Pharm Prophylaxis ordered?: No Reason prophylaxis not ordered:: Treatment Not Indicated Patient Problems: Active and Suspected Problems (Last Reviewed 09/22/18 @ 22:46 by Jeanmarie Bell MD) Encephalopathy (Acute) Lung mass (Acute) Mediastinal lymphadenopathy (Acute) Lytic bone lesions on xray (Acute) - Physical Exam General: Alert, Oriented x3, Cooperative HEENT: Atraumatic, PERRLA, EOMI, Normocephalic Neck: Supple, No JVD, Negative Carotid Bruits Lungs: Clear to auscultation, Normal air movement Cardiovascular: Regular rate, No murmurs Abdomen: Bowel Sounds Present, Soft, Non Tender Extremities: No edema, Capillary Refill Less than 3 Seconds Skin: No rashes, No breakdown Musculoskeletal: No Tenderness to Palpation of Joints or Extremities Neurological: Cranial nerves II-XII grossly intact Psych/Mental Status: Normal Affect, Appropriate Vital Signs Temp Pulse Resp BP Pulse Ox 103.6 F H 85 20 H 156/92 H 91 09/27/18 19:10 09/27/18 15:51 09/27/18 15:51 09/27/18 15:51 09/27/18 15:51 Oxygen Delivery Method Room Air Weight: 78 kg Body Mass Index (BMI) 24.0 Finger Stick Blood Glucose 181 POC Glucose 09/27/18 16:55 POC Glucose 137 H Assessment/Plan All Active Problems (Last Reviewed 09/22/18 @ 22:46 by Jeanmarie Bell MD) Weakness (Acute) Community acquired pneumonia (Acute) Encephalopathy (Acute) Lung mass (Acute) Mediastinal lymphadenopathy (Acute) Lytic bone lesions on xray (Acute) 78 year old male with below past medical history significant for severe Alzheimer's Disease, hospitalized for encephalopathy secondary to community acquired pneumonia, complicated by metastatic lung cancer, admitted to TCU with debility, here for rehabilitation, strengthening, prior to disposition determination. * Debility - PT/OT. * Pain - Tylenol 1000MG Q6H PRN mild pain. * Bowel - Miralax 17GM daily, Senna/colace 1 tablet BID, Dulcolax 10MG PO daily PRN. * Pneumonia vaccination - Administer Prevnar 13 and/or Pneumovax 23 as necessary. * DVT prophylaxis - Not necessary, already on Eliquis. * Shortness of breath - Albuterol 2.5MG nebulized daily PRN. * Atrial Fibrillation - Eliquis 5MG BID. * Coronary Artery Disease - Ramipril 10MG daily, Aspirin 81MG daily. * Hyperlipidemia - Atorvastatin 10MG QHS. * Vitamin D deficiency - D3 2000IU daily. * Alzheimer's Disease - Donepezil 10MG QHS, Memantine 5MG daily. 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 * Allergic Rhinitis - Flonase 1 spray daily. * Hypothyroidism - Levothyroxine 125MCG daily. * Diabetes Mellitus II - Metformin XR 500MG BID, Ramipril 10MG daily, Aspirin 81MG daily, follow glucose. * GERD - Pantoprazole 20MG daily. * BPH - Tamsulosin 0.8MG QHS. * Appetite decrease - Rx Mirtazapine 7.5MG QHS. * Metastatic lung cancer - Recommend AGAINST EBUS biopsy, will not exchange specialist, resident is dying. Recommend hospice care when appropriate.
--- NOTE | 2018-09-27 20:49 | PCM.PN.RX ---
<MignonalinfernandoCarmine - Last Filed: 09/27/18 20:49> Progress Note - Pharmacy Subjective: TCU Admission Objective: Allergies lovastatin [From Mevacor] Adverse Reaction (Severe, Verified 09/22/18 17:18) myalgias metoprolol succinate [From Toprol XL] Adverse Reaction (Severe, Verified 09/22/18 17:18) Heart rate too slow beta blockers Adverse Reaction (Uncoded 09/22/18 17:18) low heart rate Current Medications Generic Name Dose Route Start Last Admin Trade Name Freq PRN Reason Stop Dose Admin Acetaminophen 1,000 mg 09/27/18 19:01 Tylenol PO Q6H PRN PRN MILD PAIN (1-10) Albuterol Sulfate 2.5 mg 09/27/18 17:33 Ventolin Aerosols INHALATION DAILY PRN PRN SHORTNESS OF BREATH/WHEEZING Apixaban 5 mg 09/27/18 18:00 09/27/18 18:23 Eliquis PO 5 mg BID SHELDON Administration Aspirin 81 mg 09/28/18 06:00 Ecotrin PO DAILY [facility] Atorvastatin Calcium 10 mg 09/27/18 22:00 09/27/18 20:27 Lipitor PO 10 mg QHS [facility] Administration Bisacodyl 10 mg 09/27/18 20:38 Dulcolax PO DAILY PRN PRN Constipation Cholecalciferol 2,000 unit 09/28/18 06:00 Vitamin D PO DAILY [facility] Donepezil HCl 10 mg 09/28/18 22:00 Aricept PO QHS [facility] Escitalopram Oxalate 10 mg 09/28/18 06:00 Lexapro PO DAILY [facility] Fluticasone Propionate 1 spray 09/27/18 17:06 Flonase Nasal [place] NASAL DAILY PRN PRN ALLERGIES Levothyroxine Sodium 125 mcg 09/28/18 06:00 Synthroid PO DAILY [facility] Memantine 5 mg 09/28/18 06:00 Namenda PO DAILY [facility] Metformin HCl 500 mg 09/28/18 08:00 [facility] Mirtazapine 7.5 mg 09/27/18 22:00 Remeron PO QHS [facility] Pantoprazole Sodium 20 mg 09/28/18 06:00 Protonix PO DAILY [facility] Polyethylene Glycol 17 gm 09/28/18 06:00 Miralax PO DAILY [facility] Ramipril 10 mg 09/28/18 06:00 Altace PO DAILY [facility] Senna/Docusate Sodium 1 tablet 09/28/18 06:00 Senokot-S, Jes-Colace PO BID [facility] Tamsulosin HCl 0.8 mg 09/27/18 22:00 09/27/18 20:27 Flomax PO 0.8 mg QHS SHELDON Administration Tuberculin PPD 5 tu 09/28/18 10:00 Tubersol, Aplisol, Ppd ID 09/28/18 10:01 X1 ONE Tuberculin PPD 5 tu 10/05/18 10:00 Tubersol, Aplisol, Ppd ID 10/05/18 10:01 X1 ONE Problem List (Last Reviewed 09/22/18 @ 22:46 by Jeanmarie Bell MD) Encephalopathy (Acute) Lung mass (Acute) Mediastinal lymphadenopathy (Acute) Lytic bone lesions on xray (Acute) Atrial fibrillation (Chronic) Alzheimer's disease (Chronic) Depression (Chronic) GERD (gastroesophageal reflux disease) (Chronic) Vital Signs Temp Pulse Resp BP Pulse Ox 103.6 F H 85 20 H 156/92 H 91 09/27/18 19:10 09/27/18 15:51 09/27/18 15:51 09/27/18 15:51 09/27/18 15:51 Oxygen Delivery Method Room Air Weight: 78 kg Body Mass Index (BMI) 24.0 Finger Stick Blood Glucose 181 Assessment/Plan: 1) Pain APAP for mild pain. Continue to monitor prn medication use, daily pain scores. 2) Pulm Albuterol for shortness of breath. Continue to monitor prn medication use. 3) AFib/CAD/HTN ASA, atorvastatin, apixaban, ramipril. Continue to monitor BP/HR, renal function, electrolytes, lipids, for chest pain, s/s bleeding/clot. 4) Alzheimer's Memantine, donepezil. Continue to monitor clinically. 5) DM2 Metformin XR. Continue to monitor BGT, renal function. 6) GI Pantoprazole daily. Continue to monitor s/s GI distress. 7) BPH Tamsulosin daily. Continue to monitor for symptoms. 8) Hypothyroidism Levothyroxine daily. Continue to monitor s/s hyper/hypothyroidism. Psychotropic Medications: 9) Appetite Escitalopram, mirtazapine at HS. Continue to monitor s/s depression, serotonin syndrome with dual serotoninergic drug therapy. Unnecessary Medications: None Bowel Regimen: 10) Senna/s, PEG, prn bisacodyl. Continue to monitor prn medication use, for constipation/diarrhea. Date of Note:: 09/27/18 - Provider Comments Provider responsibility: Provider responsible to enter orders to implement recommendations <Rafael Wallis Chi - Last Filed: 09/27/18 21:22> Progress Note - Pharmacy Subjective: [] Objective: Allergies lovastatin [From Mevacor] Adverse Reaction (Severe, Verified 09/22/18 17:18) myalgias metoprolol succinate [From Toprol XL] Adverse Reaction (Severe, Verified 09/22/18 17:18) Heart rate too slow beta blockers Adverse Reaction (Uncoded 09/22/18 17:18) low heart rate Current Medications Generic Name Dose Route Start Last Admin Trade Name Freq PRN Reason Stop Dose Admin Acetaminophen 1,000 mg 09/27/18 19:01 Tylenol PO Q6H PRN PRN MILD PAIN (1-3/10) Albuterol Sulfate 2.5 mg 09/27/18 17:33 Ventolin Aerosols INHALATION DAILY PRN PRN SHORTNESS OF BREATH/WHEEZING Apixaban 5 mg 09/27/18 18:00 09/27/18 18:23 Eliquis PO 5 mg BID SHELDON Administration Aspirin 81 mg 09/28/18 06:00 Ecotrin PO DAILY SHELDON Atorvastatin Calcium 10 mg 09/27/18 22:00 09/27/18 20:27 Lipitor PO 10 mg QHS SHELDON Administration Bisacodyl 10 mg 09/27/18 20:38 Dulcolax PO DAILY PRN PRN Constipation Cholecalciferol 2,000 unit 09/28/18 06:00 Vitamin D PO DAILY [facility] Donepezil HCl 10 mg 09/28/18 22:00 Aricept PO QHS [facility] Escitalopram Oxalate 10 mg 09/28/18 06:00 Lexapro PO DAILY [facility] Fluticasone Propionate 1 spray 09/27/18 17:06 Flonase Nasal [place] NASAL DAILY PRN PRN ALLERGIES Levothyroxine Sodium 125 mcg 09/28/18 06:00 Synthroid PO DAILY [facility] Memantine 5 mg 09/28/18 06:00 Namenda PO DAILY [facility] Metformin HCl 500 mg 09/28/18 08:00 Glucophage Xr PO BIDCM SHELDON Mirtazapine 7.5 mg 09/27/18 22:00 09/27/18 21:14 Remeron PO 7.5 mg QHS SHELDON Administration Pantoprazole Sodium 20 mg 09/28/18 06:00 Protonix PO DAILY [facility] Polyethylene Glycol 17 gm 09/28/18 06:00 Miralax PO DAILY SHE[facility]ON Ramipril 10 mg 09/28/18 06:00 Altace PO DAILY SHE[facility]ON Senna/Docusate Sodium 1 tablet 09/28/18 06:00 Senokot-S, Jes-Colace PO BID SHELDON Tamsulosin HCl 0.8 mg 09/27/18 22:00 09/27/18 20:27 Flomax PO 0.8 mg QHS SHELDON Administration Tuberculin PPD 5 tu 09/28/18 10:00 Tubersol, Aplisol, Ppd ID 09/28/18 10:01 X1 ONE Tuberculin PPD 5 tu 10/05/18 10:00 Tubersol, Aplisol, Ppd ID 10/05/18 10:01 X1 ONE Problem List (Last Reviewed 09/22/18 @ 22:46 by Jeanmarie Bell MD) Encephalopathy (Acute) Lung mass (Acute) Mediastinal lymphadenopathy (Acute) Lytic bone lesions on xray (Acute) Atrial fibrillation (Chronic) Alzheimer's disease (Chronic) Depression (Chronic) GERD (gastroesophageal reflux disease) (Chronic) Vital Signs Temp Pulse Resp BP Pulse Ox 103.6 F H 85 20 H 156/92 H 91 09/27/18 19:10 09/27/18 15:51 09/27/18 15:51 09/27/18 15:51 09/27/18 15:51 Oxygen Delivery Method Room Air Weight: 78 kg Body Mass Index (BMI) 24.0 Finger Stick Blood Glucose 181 Assessment/Plan: Psychotropic Medications: Unnecessary Medications: Bowel Regimen: - Provider Comments Provider responsibility: Provider responsible to enter orders to implement recommendations Provider Comments to Recommendations by Pharmacy: Agree
--- NOTE | 2018-09-27 20:54 | PHA.CONS_ITS ---
<MignonalinfernandoCarmine - Last Filed: 09/27/18 20:49> Progress Note - Pharmacy Subjective: TCU Admission Objective: Allergies lovastatin [From Mevacor] Adverse Reaction (Severe, Verified 09/22/18 17:18) myalgias metoprolol succinate [From Toprol XL] Adverse Reaction (Severe, Verified 09/22/18 17:18) Heart rate too slow beta blockers Adverse Reaction (Uncoded 09/22/18 17:18) low heart rate Current Medications Generic Name Dose Route Start Last Admin Trade Name Freq PRN Reason Stop Dose Admin Acetaminophen 1,000 mg 09/27/18 19:01 Tylenol PO Q6H PRN PRN MILD PAIN (1-10) Albuterol Sulfate 2.5 mg 09/27/18 17:33 Ventolin Aerosols INHALATION DAILY PRN PRN SHORTNESS OF BREATH/WHEEZING Apixaban 5 mg 09/27/18 18:00 09/27/18 18:23 Eliquis PO 5 mg BID [facility]ON Administration Aspirin 81 mg 09/28/18 06:00 Ecotrin PO DAILY [facility] Atorvastatin Calcium 10 mg 09/27/18 22:00 09/27/18 20:27 Lipitor PO 10 mg QHS [facility] Administration Bisacodyl 10 mg 09/27/18 20:38 Dulcolax PO DAILY PRN PRN Constipation Cholecalciferol 2,000 unit 09/28/18 06:00 Vitamin D PO DAILY [facility] Donepezil HCl 10 mg 09/28/18 22:00 Aricept PO QHS [facility] Escitalopram Oxalate 10 mg 09/28/18 06:00 Lexapro PO DAILY [facility] Fluticasone Propionate 1 spray 09/27/18 17:06 Flonase Nasal [place] NASAL DAILY PRN PRN ALLERGIES Levothyroxine Sodium 125 mcg 09/28/18 06:00 Synthroid PO DAILY [facility] Memantine 5 mg 09/28/18 06:00 Namenda PO DAILY [facility] Metformin HCl 500 mg 09/28/18 08:00 [facility] Mirtazapine 7.5 mg 09/27/18 22:00 Remeron PO QHS [facility] Pantoprazole Sodium 20 mg 09/28/18 06:00 Protonix PO DAILY [facility] Polyethylene Glycol 17 gm 09/28/18 06:00 Miralax PO DAILY [facility] Ramipril 10 mg 09/28/18 06:00 Altace PO DAILY [facility] Senna/Docusate Sodium 1 tablet 09/28/18 06:00 Senokot-S, Jes-Colace PO BID [facility] Tamsulosin HCl 0.8 mg 09/27/18 22:00 09/27/18 20:27 Flomax PO 0.8 mg QHS [facility] Administration Tuberculin PPD 5 tu 09/28/18 10:00 Tubersol, Aplisol, Ppd ID 09/28/18 10:01 X1 ONE Tuberculin PPD 5 tu 10/05/18 10:00 Tubersol, Aplisol, Ppd ID 10/05/18 10:01 X1 ONE Problem List (Last Reviewed 09/22/18 @ 22:46 by Jeanmarie Bell MD) Encephalopathy (Acute) Lung mass (Acute) Mediastinal lymphadenopathy (Acute) Lytic bone lesions on xray (Acute) Atrial fibrillation (Chronic) Alzheimer's disease (Chronic) Depression (Chronic) GERD (gastroesophageal reflux disease) (Chronic) Vital Signs Temp Pulse Resp BP Pulse Ox 103.6 F H 85 20 H 156/92 H 91 09/27/18 19:10 09/27/18 15:51 09/27/18 15:51 09/27/18 15:51 09/27/18 15:51 Oxygen Delivery Method Room Air Weight: 78 kg Body Mass Index (BMI) 24.0 Finger Stick Blood Glucose 181 Assessment/Plan: 1) Pain APAP for mild pain. Continue to monitor prn medication use, daily pain scores. 2) Pulm Albuterol for shortness of breath. Continue to monitor prn medication use. 3) AFib/CAD/HTN ASA, atorvastatin, apixaban, ramipril. Continue to monitor BP/HR, renal function, electrolytes, lipids, for chest pain, s/s bleeding/clot. 4) Alzheimer's Memantine, donepezil. Continue to monitor clinically. 5) DM2 Metformin XR. Continue to monitor BGT, renal function. 6) GI Pantoprazole daily. Continue to monitor s/s GI distress. 7) BPH Tamsulosin daily. Continue to monitor for symptoms. 8) Hypothyroidism Levothyroxine daily. Continue to monitor s/s hyper/hypothyroidism. Psychotropic Medications: 9) Appetite Escitalopram, mirtazapine at HS. Continue to monitor s/s depression, serotonin syndrome with dual serotoninergic drug therapy. Unnecessary Medications: None Bowel Regimen: 10) Senna/s, PEG, prn bisacodyl. Continue to monitor prn medication use, for constipation/diarrhea. Date of Note:: 09/27/18 - Provider Comments Provider responsibility: Provider responsible to enter orders to implement recommendations <Rafael Wallis Chi - Last Filed: 09/27/18 21:22> Progress Note - Pharmacy Subjective: [] Objective: Allergies lovastatin [From Mevacor] Adverse Reaction (Severe, Verified 09/22/18 17:18) myalgias metoprolol succinate [From Toprol XL] Adverse Reaction (Severe, Verified 09/22/18 17:18) Heart rate too slow beta blockers Adverse Reaction (Uncoded 09/22/18 17:18) low heart rate Current Medications Generic Name Dose Route Start Last Admin Trade Name Freq PRN Reason Stop Dose Admin Acetaminophen 1,000 mg 09/27/18 19:01 Tylenol PO Q6H PRN PRN MILD PAIN (1-3/10) Albuterol Sulfate 2.5 mg 09/27/18 17:33 Ventolin Aerosols INHALATION DAILY PRN PRN SHORTNESS OF BREATH/WHEEZING Apixaban 5 mg 09/27/18 18:00 09/27/18 18:23 Eliquis PO 5 mg BID [facility] Administration Aspirin 81 mg 09/28/18 06:00 Ecotrin PO DAILY [facility] Atorvastatin Calcium 10 mg 09/27/18 22:00 09/27/18 20:27 Lipitor PO 10 mg QHS [facility] Administration Bisacodyl 10 mg 09/27/18 20:38 Dulcolax PO DAILY PRN PRN Constipation Cholecalciferol 2,000 unit 09/28/18 06:00 Vitamin D PO DAILY [facility] Donepezil HCl 10 mg 09/28/18 22:00 Aricept PO QHS [facility] Escitalopram Oxalate 10 mg 09/28/18 06:00 Lexapro PO DAILY [facility] Fluticasone Propionate 1 spray 09/27/18 17:06 Flonase Nasal [place] NASAL DAILY PRN PRN ALLERGIES Levothyroxine Sodium 125 mcg 09/28/18 06:00 Synthroid PO DAILY [facility] Memantine 5 mg 09/28/18 06:00 Namenda PO DAILY [facility] Metformin HCl 500 mg 09/28/18 08:00 Glucophage Xr PO BIDCM [facility] Mirtazapine 7.5 mg 09/27/18 22:00 09/27/18 21:14 Remeron PO 7.5 mg QHS [facility] Administration Pantoprazole Sodium 20 mg 09/28/18 06:00 Protonix PO DAILY [facility] Polyethylene Glycol 17 gm 09/28/18 06:00 Miralax PO DAILY [facility] Ramipril 10 mg 09/28/18 06:00 Altace PO DAILY [facility] Senna/Docusate Sodium 1 tablet 09/28/18 06:00 Senokot-S, Jes-Colace PO BID [facility] Tamsulosin HCl 0.8 mg 09/27/18 22:00 09/27/18 20:27 Flomax PO 0.8 mg QHS [facility] Administration Tuberculin PPD 5 tu 09/28/18 10:00 Tubersol, Aplisol, Ppd ID 09/28/18 10:01 X1 ONE Tuberculin PPD 5 tu 10/05/18 10:00 Tubersol, Aplisol, Ppd ID 10/05/18 10:01 X1 ONE Problem List (Last Reviewed 09/22/18 @ 22:46 by Jeanmarie Bell MD) Encephalopathy (Acute) Lung mass (Acute) Mediastinal lymphadenopathy (Acute) Lytic bone lesions on xray (Acute) Atrial fibrillation (Chronic) Alzheimer's disease (Chronic) Depression (Chronic) GERD (gastroesophageal reflux disease) (Chronic) Vital Signs Temp Pulse Resp BP Pulse Ox 103.6 F H 85 20 H 156/92 H 91 09/27/18 19:10 09/27/18 15:51 09/27/18 15:51 09/27/18 15:51 09/27/18 15:51 Oxygen Delivery Method Room Air Weight: 78 kg Body Mass Index (BMI) 24.0 Finger Stick Blood Glucose 181 Assessment/Plan: Psychotropic Medications: Unnecessary Medications: Bowel Regimen: - Provider Comments Provider responsibility: Provider responsible to enter orders to implement recommendations Provider Comments to Recommendations by Pharmacy: Agree
[2018-09-27 21:10] LABS: Bedside Glucose 159 mg/dL (70-110)
[2018-09-27] MEDS: Mirtazapine 15 MG Tablet 7.5 MG PO (21:14)
[2018-09-28] MEDS: Aspirin E.C. 81 MG Tablet PO (04:32)
[2018-09-28] MEDS: APIXABAN 5 MG TABLET PO ×2 (04:32→18:30)
[2018-09-28] MEDS: Memantine Hydrochloride 5 MG Tablet PO (04:32)
[2018-09-28] MEDS: Levothyroxine 125 MCG Tablet PO (04:32)
[2018-09-28] MEDS: Escitalopram Oxalate 10 MG Tablet PO (04:32)
[2018-09-28] MEDS: Pantoprazole Sodium 20 MG Tablet PO (04:32)
[2018-09-28] MEDS: Ramipril 10 MG Capsule PO (04:34)
[2018-09-28 06:35] LABS: Bedside Glucose 116 mg/dL (70-110)
[2018-09-28 07:00] LABS: Absolute Lymphocyte Count 1.16 X10^3/ul (0.83-4.51); Absolute Neutrophil Count 3.3 X10^3/uL (2.0-7.7); Basophil# 0.06 X10^3/uL; Eosinophil# 0.08 X10^3/uL; Eosinophils% 1.4 % (0-5); Lymphocyte # 1.16 X10^3/ul (4.0); Lymphocyte % 20.1 % (19-41); Mean Corp Hgb Conc 33.3 g/gl (32-36); Mean Corpuscular Hgb 28.1 pg (27.0-32.0); Mean Corpuscular Volume 84.3 fL (80-94); Mean Platelet Vol. 10.3 fl (6.2-12.0); Monocyte# 1.09 X10^3/uL; Monocyte% 18.9 % (0-10); Neutrophil # 3.34 X10^3/uL (2.7-7.7); Neutrophil % 58.1 % (47-70); Platelet Count 215 K/mm3 (150-450); RBC Distribution Width CV 13.6 % (11.6-14.6); RBC Distribution Width SD 41.9 fl (35.1-43.9); Red Blood Count 4.98 M/mm3 (4.6-6.2); White Blood Count 5.8 K/mm3 (4.4-11.0)
[2018-09-28 07:06] VITALS: O2SAT 91
[2018-09-28 07:12] LABS: Anion Gap 9 (5-15); BUN 9 mg/dL (7-18); BUN/Creat Ratio 10.8 RATIO (10-20); Calcium,Total 8.6 mg/dL (8.5-10.1); Chloride 107 mmol/L (98-107); Creatinine, Serum 0.84 mg/dL (0.70-1.30); EST Glomerular Filtration Rate 94 mL/min (>60); Est Glom Filt Rate - Afr Amer 114 mL/min (>60); Glucose 115 mg/dL (74-106); POSITIVE COUNT NO; POSITIVE DIFFERENTIAL NO; POSITIVE MORPHOLOGY NO; Sodium Level 138 mmol/L (136-145)
[2018-09-28 11:25] LABS: Bedside Glucose 159 mg/dL (70-110)
[2018-09-28] MEDS: Tuberculin,Purif.prot.deriv. 50 TU/ML Vial 5 ML ID (12:48)
[2018-09-28 13:00] VITALS: BP 150/86; PULSE 86; RESP 16; TEMP 38.5; O2SAT 90
[2018-09-28] MEDS: Acetaminophen 500 MG Tablet 1000 MG PO ×2 (13:40→23:50)
--- NOTE | 2018-09-28 14:39 | NURSING ---
RISK CONTROL OFFICER reported to this nurse that patient with red spots on hands and fingers. Temp 101.3, LSCTA, HR irregular and rapid. BSx4, abdomen non-tender. BP 150/86, HR 86. Dr. Wallis notified. NO for CXR, SC UA C&S, zpack, cefdinir 300mg PO bid x 10 days. Patient and family updated.
--- NOTE | 2018-09-28 14:40 | RAD_ITS ---
STUDY: X-RAY CHEST REASON FOR EXAM: Male, 78 years old. Fever TECHNIQUE: Single view of the chest was obtained COMPARISON: September 22, 2018 FINDINGS: No definite pneumothorax. Small bilateral pleural effusions suspected. Right lower lobe airspace opacities. Mild bilateral perihilar congestive changes. Osseous structures demonstrate no acute abnormalities. Cardiac size is stable IMPRESSION: Mild bilateral pulmonary vascular congestion and subtle right lower lobe airspace disease. No pneumothorax. Electronically Signed: Cory Dotson, at 15:00 EST Tel , Service support , RAD/Chest 1 View (Portable)
[2018-09-28 15:36] VITALS: BP 131/75; PULSE 73; RESP 20; TEMP 36.8; O2SAT 91
[2018-09-28] MEDS: Azithromycin 250 MG Tablet 500 MG PO (15:55)
[2018-09-28 16:08] LABS: Bacteria 0 SEEN /hpf (None Seen); Mucous, Urine 0 SEEN /hpf (<or=2+); Red Blood Cells-Urine 0 SEEN /hpf (0-5); Squamous Epithelial Cells - UA 0 SEEN /hpf (0-5); White Blood Cells 0 SEEN /hpf (0-5)
[2018-09-28 16:10] LABS: Color, Urine Yellow (Yellow); Glucose, Dipstick Normal (Normal); Ketone-Dipstick 5 mg/dl (Negative); Leukocyte Esterase-Dipstick Negative /ul (Negative); Nitrite-Dipstick Negative (Negative); Occult Blood-Urine 10 /ul (Negative); Protein-Dipstick 30 mg/dl (Negative); Urine Bilirubin Dipstick Negative (Negative); Urine Clarity Clear (Clear); Urine Urobilinogen 1 mg/dl (Normal)
[2018-09-28 16:21] LABS: Renal Epithelial Cells 0-5 SEEN /hpf (0-5)
[2018-09-28 17:06] LABS: Bedside Glucose 170 mg/dL (70-110)
[2018-09-28] MEDS: Senna/Docusate Sodium 1 Tablet PO (18:30)
[2018-09-28] MEDS: Cefdinir 300 MG Capsule PO (18:31)
[2018-09-28 20:30] VITALS: TEMP 37.3; O2SAT 86
[2018-09-28 21:30] VITALS: PULSE 88; RESP 20; O2SAT 92
[2018-09-28 21:36] LABS: Bedside Glucose 204 mg/dL (70-110)
[2018-09-28] MEDS: Mirtazapine 15 MG Tablet 7.5 MG PO (21:48)
[2018-09-28] MEDS: Tamsulosin HCl 0.4 MG Capsule 0.8 MG PO (21:50)
[2018-09-28] MEDS: Atorvastatin Calcium 10 MG Tablet PO (21:50)
[2018-09-28] MEDS: Donepezil HCl 10 MG Tablet PO (21:51)
[2018-09-28 23:50] VITALS: TEMP 37.9
[2018-09-29 00:30] VITALS: TEMP 37
[2018-09-29 09:15] VITALS: O2SAT 94
[2018-09-29] MEDS: Levothyroxine 125 MCG Tablet PO (09:15)
[2018-09-29] MEDS: Azithromycin 250 MG Tablet PO (09:16)
[2018-09-29] MEDS: Senna/Docusate Sodium 1 Tablet PO ×2 (09:17→18:33)
[2018-09-29] MEDS: Pantoprazole Sodium 20 MG Tablet PO (09:17)
[2018-09-29] MEDS: Memantine Hydrochloride 5 MG Tablet PO (09:18)
[2018-09-29] MEDS: APIXABAN 5 MG TABLET PO ×2 (09:18→18:34)
[2018-09-29] MEDS: Aspirin E.C. 81 MG Tablet PO (09:18)
[2018-09-29] MEDS: Escitalopram Oxalate 10 MG Tablet PO (09:18)
[2018-09-29] MEDS: Cefdinir 300 MG Capsule PO ×2 (09:18→18:33)
[2018-09-29] MEDS: Ramipril 10 MG Capsule PO (09:18)
[2018-09-29 09:21] LABS: Bedside Glucose 153 mg/dL (70-110)
[2018-09-29 11:56] LABS: Bedside Glucose 179 mg/dL (70-110)
[2018-09-29] MEDS: Glucerna Shake 120 ML LIQUID PO ×2 (12:08→18:34)
[2018-09-29 15:06] VITALS: BP 133/89; PULSE 78; RESP 18; TEMP 37.5; O2SAT 93
[2018-09-29 16:55] LABS: Bedside Glucose 129 mg/dL (70-110)
[2018-09-29 21:06] LABS: Bedside Glucose 145 mg/dL (70-110)
[2018-09-29] MEDS: Atorvastatin Calcium 10 MG Tablet PO (21:40)
[2018-09-29] MEDS: Mirtazapine 15 MG Tablet 7.5 MG PO (21:41)
[2018-09-29] MEDS: Donepezil HCl 10 MG Tablet PO (21:41)
[2018-09-29] MEDS: Tamsulosin HCl 0.4 MG Capsule 0.8 MG PO (21:42)
[2018-09-30 07:00] LABS: Bedside Glucose 133 mg/dL (70-110)
[2018-09-30] MEDS: APIXABAN 5 MG TABLET PO ×2 (07:09→18:43)
[2018-09-30] MEDS: Cefdinir 300 MG Capsule PO ×2 (07:09→18:43)
[2018-09-30] MEDS: Pantoprazole Sodium 20 MG Tablet PO (07:09)
[2018-09-30] MEDS: Memantine Hydrochloride 5 MG Tablet PO (07:10)
[2018-09-30] MEDS: Escitalopram Oxalate 10 MG Tablet PO (07:10)
[2018-09-30] MEDS: Ramipril 10 MG Capsule PO (07:11)
[2018-09-30] MEDS: Senna/Docusate Sodium 1 Tablet PO ×2 (07:11→18:43)
[2018-09-30] MEDS: Levothyroxine 125 MCG Tablet PO (07:12)
[2018-09-30] MEDS: Aspirin E.C. 81 MG Tablet PO (07:12)
[2018-09-30 07:17] VITALS: O2SAT 90
--- NOTE | 2018-09-30 07:28 | NURSING ---
Pt unable to sip water with straw even with sons help. Pt drank small amount last night with meds. Water offered from cup alone and small amount given spilled right from pt mouth. Pt eyes closed but he responds and seems to understand what is being asked, just unable. Meds crushed and put in small bite of applesauce that was followed immediately with regular applesauce. Pt tolerated well. Son still in room, oncoming shift aware as well as RNs. Continuing to monitor.
[2018-09-30] MEDS: Glucerna Shake 120 ML LIQUID PO ×2 (08:51→11:59)
[2018-09-30] MEDS: Azithromycin 250 MG Tablet PO (09:00)
[2018-09-30 11:21] LABS: Bedside Glucose 138 mg/dL (70-110)
--- NOTE | 2018-09-30 15:09 | NURSING ---
THIS NURSE OFFERED PAIN MED TO PT AT 9AM. PT REFUSED, WITH SON IN ROOM. SON THEN ASKED PT IF HE WANTED ANYTHING FOR PAIN. PT REFUSED.
[2018-09-30] MEDS: Acetaminophen 500 MG Tablet 1000 MG PO (15:12)
--- NOTE | 2018-09-30 15:22 | NURSING ---
PT CALLED FOR A NURSE TO PT ROOM. WANTED TO KNOW WHY PT HASN'T HAD ANY PAIN MEDS FOR HIS HANDS. EXPLAINED TO THAT THIS NURSE HAS OFFERED PAIN MEDS TO PT AND PT STATED NO, WITH HER SON IN ROOM AND SON ALSO ASKED PT IF HE NEEDED ANY PAIN MEDS FOR HIS HANDS AND PT STATED NO. STATED WELL I WANT HIM TO HAVE THE PAIN MED, I AM THE POA. THIS NURSE GAVE PT THE PAIN MED. REPORTED TO LIBERTAD HERNANDEZ
[2018-09-30 16:00] VITALS: BP 135/82; PULSE 80; RESP 16; TEMP 36.4; O2SAT 96
[2018-09-30 16:46] LABS: Bedside Glucose 154 mg/dL (70-110)
--- NOTE | 2018-09-30 16:58 | NURSING ---
PT ASKED THIS NURSE WHEN THEY WERE GOING TO START IV FLUIDS. REPORTED TO LIBERTAD HERNANDEZ
--- NOTE | 2018-09-30 17:58 | NURSING ---
PT FAMILY REUSED PT 5 AND 6PM MEDS AT THIS TIME. WILL TRY AGAIN LATER. REPORTED TO LIBERTAD HERNANDEZ
[2018-09-30] MEDS: Bisacodyl 5 MG Tablet 10 MG PO (18:41)
[2018-09-30 18:57] VITALS: TEMP 36.9
--- NOTE | 2018-09-30 18:58 | NURSING ---
PT HAS BEEN IN A COLD SWEAT SENSE 1600. VITALS AND SUGAR CHECKS HAVE BEEN DONE. LINEN HAS BEEN CHANGED BY AIDS 3 TIMES.THIS NURSE HAS BEEN REPORTING TO LIBERTAD HERNANDEZ
[2018-09-30 21:05] LABS: Bedside Glucose 141 mg/dL (70-110)
--- NOTE | 2018-09-30 21:24 | NURSING ---
Family requesting that blood sugars be dc'd. Dr. Wallis notified. Orders given to d/c blood sugar checks
[2018-09-30] MEDS: Mirtazapine 15 MG Tablet 7.5 MG PO (21:47)
[2018-09-30] MEDS: Donepezil HCl 10 MG Tablet PO (21:48)
[2018-09-30] MEDS: Tamsulosin HCl 0.4 MG Capsule 0.8 MG PO (21:48)
[2018-09-30] MEDS: Atorvastatin Calcium 10 MG Tablet PO (21:48)
[2018-09-30 21:50] VITALS: PULSE 68; O2SAT 92
[2018-10-01 09:30] VITALS: PULSE 77; RESP 16; O2SAT 94
[2018-10-01] MEDS: Cefdinir 300 MG Capsule PO ×2 (09:49→18:13)
[2018-10-01] MEDS: Senna/Docusate Sodium 1 Tablet PO (09:52)
[2018-10-01] MEDS: Levothyroxine 125 MCG Tablet PO (09:52)
[2018-10-01] MEDS: Escitalopram Oxalate 10 MG Tablet PO (09:52)
[2018-10-01] MEDS: Ramipril 10 MG Capsule PO (09:52)
[2018-10-01] MEDS: Aspirin E.C. 81 MG Tablet PO (09:52)
[2018-10-01] MEDS: APIXABAN 5 MG TABLET PO ×2 (09:52→18:12)
[2018-10-01] MEDS: Azithromycin 250 MG Tablet PO (09:58)
--- NOTE | 2018-10-01 10:24 | NURSING ---
BLADDER SCANNED PT AT 0915. 165 SCANNED. REPORTED TO LIBERTAD HERNANDEZ
[2018-10-01 11:08] VITALS: O2SAT 92
[2018-10-01 15:42] VITALS: BP 118/72; PULSE 68; RESP 18; TEMP 36.7; O2SAT 96
[2018-10-01] MEDS: Menthol/Lanolin/Calamine/Znox 113 GM Tube 1 APPLIC TOPICAL (19:53)
[2018-10-01] MEDS: Nystatin Powder 15gm Bottle 1 APPLIC TOPICAL (19:54)
[2018-10-01] MEDS: Tamsulosin HCl 0.4 MG Capsule 0.8 MG PO (19:58)
[2018-10-01] MEDS: Mirtazapine 15 MG Tablet 7.5 MG PO (19:59)
--- NOTE | 2018-10-01 22:40 | NURSING ---
This nurse and a LOSS PREVENTION CONSULTANT heard a sound coming from this patient room and we walked in this patient stated, that he couldn't breathe. So this nurse put blood pressure and Spo2 monitor on pt vitals were Bp-154/98, Spo2 84% on 4L nasal cannula, P-104. Respiratory was called by Deb MAURER for a breathing treatment. LOSS PREVENTION CONSULTANT made RN's aware and they came in to further assess pt.
--- NOTE | 2018-10-02 02:13 | NURSING ---
Pt states patient having pain this nurse did a assessment on this patient at this time. Pt c/o pain in left side of ribs rates pain level at a 3 out of 10. BP-174/94, Sp02 95% RA, P-91, Resp- 22. Pupils sluggish d/t having cataract surgery on both eyes per . This nurse asked pt if he would like something for the pain he stated no. RN's aware and will continue to monitor.
--- NOTE | 2018-10-02 10:32 | CASEMGMT ---
Insurance Clinical information sent. Pending continued stay approval at this time. Auth#[id number] THOMAS Kilgore, NURSING EDUCATION CONSULTANT
--- NOTE | 2018-10-02 11:05 | NURSING ---
pt sleeping soundly this AM, responding to tactile stimuli, but eyes remain closed. present in room and states for this nurse not to administer medication d/t pt being increasingly drowsy and not being able to swallow meds. Attempted x2. also states pt spit out tylenol earlier this AM after administration. Pharmacy called and made aware of missed ATB dose and will extend x1 dose. Will continue to monitor.
--- NOTE | 2018-10-02 13:00 | CASEMGMT ---
Insurance Continued stay approved with next update due on 10/05/18. Auth#[id number] THOMAS Kilgore, BRANCH SERVICE SPECIALIST
[2018-10-02] MEDS: Polyethylene Glycol 3350 17 GM PACKET PO (13:54)
[2018-10-02] MEDS: Aspirin E.C. 81 MG Tablet PO (13:54)
[2018-10-02] MEDS: Levothyroxine 125 MCG Tablet PO (13:55)
[2018-10-02] MEDS: Escitalopram Oxalate 10 MG Tablet PO (14:34)
[2018-10-02] MEDS: Ramipril 10 MG Capsule PO (14:34)
[2018-10-02 14:39] VITALS: BP 147/79; PULSE 73; RESP 18; TEMP 36.6; O2SAT 92
--- NOTE | 2018-10-02 14:40 | NURSING ---
pt requesting he receives his missed AM meds as pt is more awake and alert at this time and able to safely swallow meds. All QD meds given at this time w/o difficulty.
[2018-10-02 16:02] VITALS: O2SAT 93
[2018-10-02] MEDS: APIXABAN 5 MG TABLET PO (18:04)
--- NOTE | 2018-10-02 18:08 | NURSING ---
Addendum entered by Victoria Roberts 10/02/18 18:25: discontinued per pt and request Original Note: When attempting to give pt scheduled glucerna x2, pt states pt does not drink glucerna and does not want it. Glucerna D/C'd at this time d/t refusal by Victoria MAURER.
[2018-10-02] MEDS: MethylPREDNISolone DosePak 4 MG BOX PO ×2 (18:56→20:29)
[2018-10-02] MEDS: Acetaminophen 500 MG Tablet 1000 MG PO (20:27)
[2018-10-02 20:30] VITALS: PULSE 88; RESP 15; O2SAT 97
[2018-10-02] MEDS: Tamsulosin HCl 0.4 MG Capsule 0.8 MG PO (20:30)
--- NOTE | 2018-10-02 20:30 | NURSING ---
When this nurse attempted to give patient HS meds. I explained to family that they were crushing patient's meds. His refused to let nurse crush meds. Patient's son held water glass and this nurse spooned in one pill at a time. Patient tolerated taking med via spoon. Patient was sitting completely up at time of med adminstration. Same reported to LIBERTAD Ruiz. Will cont to monitor.
[2018-10-02] MEDS: Nystatin Powder 15gm Bottle 1 APPLIC TOPICAL (20:31)
[2018-10-02] MEDS: Mirtazapine 15 MG Tablet 7.5 MG PO (20:32)
[2018-10-02] MEDS: Menthol/Lanolin/Calamine/Znox 113 GM Tube 1 APPLIC TOPICAL (20:34)
[2018-10-02] MEDS: Cefdinir 300 MG Capsule PO (20:39)
[2018-10-03 08:05] VITALS: O2SAT 92
--- NOTE | 2018-10-03 09:11 | NURSING ---
Dr Mack office notified of pt not needing EBUS procedure, pt wanting to go hospice.
--- NOTE | 2018-10-03 09:24 | NURSING ---
THIS NURSE WENT TO PT ROOM TO GIVE 8AM MEDS AND PT AND GRANDDAUGHTER IN ROOM CRYING. ASKED PT WHAT WAS WRONG,PT DIDNT ANSWER. TOLD PT THAT I HAD HIS MEDS AND ASKED PT IF HE HAD ANY PAIN. PT STATED NO PAIN. THEN PT STATED I DO NOT WANT ANY MORE PILLS AND THAT I JUST WANT TO GET THREW THE DAY WITH OUT DIEING, I BELIEVE IT IS GODS WILL. THIS NURSE STATED THAT IT WAS OK AND TOLD GRANDDAUGHTER AND PT TO CALL IF NEED ANYTHING AND THAT I WILL BE BACK TO CHECK ON THEM. REPORTED TO LIBERTAD JACKSON
--- NOTE | 2018-10-03 10:21 | CASEMGMT ---
Addendum entered by Shavonne Tidwell 10/03/18 11:54: This social security benefits interviewer did provide Montserrat with list of private duty aides agencies within the area. Original Note: Social Work Pre nursing staff, Dr. Wallis recommending Hospice referral and has spoken with the family. This social security benefits interviewer met with resident and resident spouse, Montserrat and granddaughter Jing, all are agreeable to hospice referral and requesting [facility] services. Montserrat is unsure about discharge disposition at this time and is wanting resident to be able to transition to home with hospice services but aware that [place] is unable to provide needed assistance and that hospice will not be able to provide 24hr care within the home. Montserrat aware of information about private duty aides that family could pay to come into the home. Montserrat and resident to meet with hospice on this day. Support given. Telephone call to [facility], Shavon. Referral made. Shavon to contact Montserrat to set up a time to meet. Clinical information faxed. Will continue to follow. Shavonne Tidwell, THOMAS, TRANSVERSE ABDOMINAL MUSCLE NURSE
--- NOTE | 2018-10-03 10:57 | CASEMGMT ---
[facility] to meet with resident and resident family at 5:00pm on this day. Team notified. Will continue to follow. THOMAS Kilgore, FINANCIAL ADVISOR
[2018-10-03] MEDS: MethylPREDNISolone DosePak 4 MG BOX PO ×3 (11:14→20:44)
--- NOTE | 2018-10-03 11:18 | NURSING ---
PT REFUSED NOON MED WITH IN ROOM. STATED TO THIS NURSE THAT HIS SON WANTS PT TO TAKE HIS MEDS. I STATED TO PT SAID NO AND SON IS NOT THE POA AND I CAN NOT FORCE A PT TO TAKE SOMETHING THEY REFUSED. PT TOLD HE DID NOT WANT ANY PILLS. TOLD I WOULD CHECK IN LATER. 15 MINS LATER CALLED OUT AND STATED PT WILL TAKE HIS MED. THIS NURSE WENT TO ROOM AND ASKED PT IF HE WOULD LIKE HIS MED, PT STATED YES. MED GIVEN. REPORTED TO LIBERTAD JACKSON
--- NOTE | 2018-10-03 15:10 | CHAPLAIN ---
Type of Pastoral Visit _x__ Initial Visit ___ Follow-up Visit ___ On-call Visit ___ General Patient Visit ___ Spiritual Assessment ___ Family Conference ___ Bereavement ___ Rapid Response ___ Code Blue ___ Other (describe below) Pastoral Care Referral From _x__ Patient _x__ Family ___ Nurse ___ Physician ___ Service Desk Manager ___ Senior Reservoir Engineer ___ Other (describe below) Sacrament/Intervention _x__ Active listening ___ Anointing ___ Uatsdin ___ Bereavement ___ Communion _x__ Maricel exploration ___ ___ Life review _x__ Prayer ___ Reconciliation ___ Sacrament of Sick _x__ Supportive presence ___ Wedding ___ Other (describe below) Pastoral Comments spouse and granddaughter are with patient; pt has a long history in a local mormonism and desires spiritual care visits and prayers
--- NOTE | 2018-10-03 15:49 | CASEMGMT ---
Brief interview for mental status (BIMS) and resident mood interview (PHQ-9) completed on this day. BIMS score 03/21. PHQ-9 score
[2018-10-03 16:00] VITALS: BP 130/66; PULSE 55; RESP 16; TEMP 36.3; O2SAT 96
[2018-10-03] MEDS: APIXABAN 5 MG TABLET PO (18:07)
[2018-10-03] MEDS: Cefdinir 300 MG Capsule PO (20:41)
[2018-10-03] MEDS: Menthol/Lanolin/Calamine/Znox 113 GM Tube 1 APPLIC TOPICAL (20:41)
[2018-10-03] MEDS: Tamsulosin HCl 0.4 MG Capsule 0.8 MG PO (20:42)
[2018-10-03] MEDS: Mirtazapine 15 MG Tablet 7.5 MG PO (20:43)
[2018-10-03] MEDS: Nystatin Powder 15gm Bottle 1 APPLIC TOPICAL (20:43)
[2018-10-03] MEDS: Senna/Docusate Sodium 1 Tablet PO (20:53)
[2018-10-03 22:00] VITALS: PULSE 64; RESP 16; O2SAT 95
--- NOTE | 2018-10-04 07:00 | NURSING ---
LATE ENTRY DUE TO CHARTING ON WRONG PT. ON Tuesday10/01/18 THIS NURSE SAT DOWN WITH PT AND WENT OVER PT MEDS DUE TO WANTED TO GET RID OF SOME OF PT MEDS. CAME TO AGREEMENT ON WHAT TO KEEP. THIS NURSE THEN CHANGED PT ATTENDS AND LINEN WITH HELP OF CAROLINE ALANIZ. ASSESSMENT DONE AND VITALS,FOUND ELBOWS RED. APPLIED ELBOW PROTECTORS. HEELS RED,FLOATED HEELS. SET PT UP 90 DEGREES AND GAVE MEDS WITH HELP OF . PT TOLERATED WELL. TURNED PT ON TO RIGHT SIDE. IN TEARS AND TIRED STATED IT IS SO HARD TO SEE HIM GO THREW THIS. TALKED 1 ON 1 WITH FOR A WHILE. THANKED ME. STATED TO TO PLEASE LET US KNOW IF SHE NEEDED ANYTHING. REPORTED TO LIBERTAD HERNANDEZ
[2018-10-04 08:11] VITALS: O2SAT 93
[2018-10-04] MEDS: Menthol/Lanolin/Calamine/Znox 113 GM Tube 1 APPLIC TOPICAL ×2 (09:15→21:08)
[2018-10-04] MEDS: Nystatin Powder 15gm Bottle 1 APPLIC TOPICAL ×2 (09:17→21:08)
[2018-10-04] MEDS: Levothyroxine 125 MCG Tablet PO (09:18)
[2018-10-04] MEDS: Escitalopram Oxalate 10 MG Tablet PO (09:18)
[2018-10-04] MEDS: Cefdinir 300 MG Capsule PO ×2 (09:18→21:08)
[2018-10-04] MEDS: MethylPREDNISolone DosePak 4 MG BOX PO ×4 (09:19→21:09)
[2018-10-04] MEDS: Ramipril 10 MG Capsule PO (09:19)
[2018-10-04] MEDS: Polyethylene Glycol 3350 17 GM PACKET PO (09:19)
[2018-10-04] MEDS: APIXABAN 5 MG TABLET PO ×2 (09:19→17:45)
[2018-10-04] MEDS: Aspirin E.C. 81 MG Tablet PO (09:19)
[2018-10-04 10:30] VITALS: PULSE 91; RESP 18; O2SAT 92
--- NOTE | 2018-10-04 12:39 | CASEMGMT ---
Social Work Spoke with resident spouse, Montserrat. Montserrat reporting to have meet with hospice and to have decided that resident will continue with stay to work towards getting stronger and then transition to home with hospice services. Support given. [facility]. This social sciences department chair communicating above information. Will continue to follow. LUIS KilgoreW, DIAL LATHE OPERATOR
--- NOTE | 2018-10-04 13:33 | CASEMGMT ---
Plan of care meeting held. Resident present as well as resident family. No discharge date set at this time. Resident to continue with further care and treatment on the Transitional Care Unit. Resident plans to discharge to home with spouse and hospice services at time of discharge. Resident family working towards setting up assistance within the home. Support given. Will continue to follow. THOMAS Kilgore, PLANER SETUP OPERATOR
[2018-10-04 16:00] VITALS: BP 124/55; PULSE 56; RESP 20; TEMP 36.7; O2SAT 97
[2018-10-04] MEDS: Mirtazapine 15 MG Tablet 7.5 MG PO (21:09)
[2018-10-04] MEDS: Tamsulosin HCl 0.4 MG Capsule 0.8 MG PO (21:10)
[2018-10-05 06:08] LABS: Absolute Lymphocyte Count 1.58 X10^3/ul (0.83-4.51); Absolute Neutrophil Count 2.6 X10^3/uL (2.0-7.7); Basophil# 0.04 X10^3/uL; Basophil% 0.8 % (0-1); Eosinophil# 0.14 X10^3/uL; Eosinophils% 2.6 % (0-5); Hematocrit 40.1 % (40-54); Hemoglobin 13.1 g/dl (13.0-16.5); Lymphocyte # 1.58 X10^3/ul (4.0); Lymphocyte % 29.8 % (19-41); Mean Corp Hgb Conc 32.7 g/gl (32-36); Mean Corpuscular Hgb 27.5 pg (27.0-32.0); Mean Corpuscular Volume 84.1 fL (80-94); Mean Platelet Vol. 9.9 fl (6.2-12.0); Monocyte% 15.1 % (0-10); Neutrophil # 2.64 X10^3/uL (2.7-7.7); Neutrophil % 49.8 % (47-70); Platelet Count 306 K/mm3 (150-450); RBC Distribution Width CV 13.7 % (11.6-14.6); RBC Distribution Width SD 41.7 fl (35.1-43.9); Red Blood Count 4.77 M/mm3 (4.6-6.2); White Blood Count 5.3 K/mm3 (4.4-11.0)
[2018-10-05 06:35] LABS: POSITIVE COUNT NO; POSITIVE DIFFERENTIAL NO; POSITIVE MORPHOLOGY NO
[2018-10-05 06:42] LABS: Anion Gap 6 (5-15); BUN 17 mg/dL (7-18); BUN/Creat Ratio 24.4 RATIO (10-20); Calcium,Total 8.3 mg/dL (8.5-10.1); Chloride 106 mmol/L (98-107); EST Glomerular Filtration Rate 116 mL/min (>60); Est Glom Filt Rate - Afr Amer 140 mL/min (>60); Estimated Creatinine Clearance 56.11 ml/min; Glucose 147 mg/dL (74-106); Potassium 4.1 mmol/L (3.5-5.1); Sodium Level 139 mmol/L (136-145)
[2018-10-05] MEDS: Escitalopram Oxalate 10 MG Tablet PO (09:09)
[2018-10-05] MEDS: Cefdinir 300 MG Capsule PO ×2 (09:09→21:06)
[2018-10-05] MEDS: Polyethylene Glycol 3350 17 GM PACKET PO (09:10)
[2018-10-05] MEDS: APIXABAN 5 MG TABLET PO ×2 (09:10→17:29)
[2018-10-05] MEDS: Ramipril 10 MG Capsule PO (09:10)
[2018-10-05] MEDS: Menthol/Lanolin/Calamine/Znox 113 GM Tube 1 APPLIC TOPICAL ×2 (09:10→21:09)
[2018-10-05] MEDS: Levothyroxine 125 MCG Tablet PO (09:10)
[2018-10-05] MEDS: Aspirin E.C. 81 MG Tablet PO (09:10)
[2018-10-05] MEDS: Nystatin Powder 15gm Bottle 1 APPLIC TOPICAL ×2 (09:11→21:09)
[2018-10-05 09:16] VITALS: BP 146/85; PULSE 89; RESP 16
[2018-10-05] MEDS: MethylPREDNISolone DosePak 4 MG BOX PO ×3 (09:16→21:05)
--- NOTE | 2018-10-05 09:59 | CASEMGMT ---
Insurance Clinical information faxed. Pending continued stay approval at this time. Auth#[id number] THOMAS Kilgore, QUALITY CONTROL CHECKER
[2018-10-05 10:00] VITALS: PULSE 92; RESP 16
--- NOTE | 2018-10-05 14:31 | CASEMGMT ---
Insurance Continued stay approved with next update due on 10/09/18. Auth#[id number] THOMAS Kilgore, SCHOOL LUNCH MONITOR
[2018-10-05 14:56] VITALS: BP 130/68; PULSE 71; RESP 18; TEMP 37.4; O2SAT 97
[2018-10-05] MEDS: Tuberculin,Purif.prot.deriv. 50 TU/ML Vial 5 ML ID (15:05)
[2018-10-05] MEDS: Tamsulosin HCl 0.4 MG Capsule 0.8 MG PO (21:04)
[2018-10-05] MEDS: Mirtazapine 15 MG Tablet 7.5 MG PO (21:04)
[2018-10-06 09:38] VITALS: BP 124/79; PULSE 81
[2018-10-06] MEDS: Cefdinir 300 MG Capsule PO ×2 (09:41→21:33)
[2018-10-06] MEDS: Aspirin E.C. 81 MG Tablet PO (09:41)
[2018-10-06] MEDS: APIXABAN 5 MG TABLET PO ×2 (09:41→17:52)
[2018-10-06] MEDS: Ramipril 10 MG Capsule PO (09:41)
[2018-10-06] MEDS: Escitalopram Oxalate 10 MG Tablet PO (09:42)
[2018-10-06] MEDS: MethylPREDNISolone DosePak 4 MG BOX PO ×2 (09:42→21:43)
[2018-10-06] MEDS: Menthol/Lanolin/Calamine/Znox 113 GM Tube 1 APPLIC TOPICAL ×2 (09:47→21:25)
[2018-10-06] MEDS: Polyethylene Glycol 3350 17 GM PACKET PO (09:47)
[2018-10-06] MEDS: Nystatin Powder 15gm Bottle 1 APPLIC TOPICAL ×2 (09:48→21:30)
[2018-10-06] MEDS: Levothyroxine 125 MCG Tablet PO (11:55)
[2018-10-06 15:23] VITALS: O2SAT 95
[2018-10-06 16:00] VITALS: BP 128/70; PULSE 76; RESP 16; TEMP 36.7; O2SAT 95
[2018-10-06] MEDS: Mirtazapine 15 MG Tablet 7.5 MG PO (21:26)
[2018-10-06] MEDS: Tamsulosin HCl 0.4 MG Capsule 0.8 MG PO (21:27)
[2018-10-06 22:00] VITALS: PULSE 69; RESP 18; O2SAT 96
[2018-10-07 08:10] VITALS: O2SAT 97
[2018-10-07] MEDS: Aspirin E.C. 81 MG Tablet PO (09:26)
[2018-10-07] MEDS: APIXABAN 5 MG TABLET PO ×2 (09:26→18:06)
[2018-10-07] MEDS: Ramipril 10 MG Capsule PO (09:26)
[2018-10-07] MEDS: Escitalopram Oxalate 10 MG Tablet PO (09:28)
[2018-10-07] MEDS: MethylPREDNISolone DosePak 4 MG BOX PO (09:29)
[2018-10-07] MEDS: Cefdinir 300 MG Capsule PO ×2 (09:30→21:26)
[2018-10-07] MEDS: Levothyroxine 125 MCG Tablet PO (09:30)
[2018-10-07] MEDS: Menthol/Lanolin/Calamine/Znox 113 GM Tube 1 APPLIC TOPICAL ×2 (09:31→20:38)
[2018-10-07] MEDS: Polyethylene Glycol 3350 17 GM PACKET PO (09:31)
[2018-10-07] MEDS: Nystatin Powder 15gm Bottle 1 APPLIC TOPICAL ×2 (09:32→20:39)
[2018-10-07 15:40] VITALS: BP 127/62; PULSE 77; RESP 14; TEMP 36.5; O2SAT 98
[2018-10-07] MEDS: Tamsulosin HCl 0.4 MG Capsule 0.8 MG PO (20:38)
[2018-10-07] MEDS: Mirtazapine 15 MG Tablet 7.5 MG PO (20:39)
--- NOTE | 2018-10-07 20:45 | NURSING ---
Pt alert, pleasant. Took medications without difficulty. Son present in room. No complaints or concerns voiced. Continuing to monitor.
[2018-10-08 07:51] VITALS: O2SAT 93
[2018-10-08] MEDS: Cefdinir 300 MG Capsule PO ×2 (09:42→21:12)
[2018-10-08] MEDS: Levothyroxine 125 MCG Tablet PO (09:42)
[2018-10-08] MEDS: APIXABAN 5 MG TABLET PO ×2 (09:43→18:58)
[2018-10-08] MEDS: Escitalopram Oxalate 10 MG Tablet PO (09:43)
[2018-10-08] MEDS: Polyethylene Glycol 3350 17 GM PACKET PO (09:43)
[2018-10-08] MEDS: Ramipril 10 MG Capsule PO (09:43)
[2018-10-08] MEDS: Aspirin E.C. 81 MG Tablet PO (09:43)
[2018-10-08] MEDS: Nystatin Powder 15gm Bottle 1 APPLIC TOPICAL ×2 (09:44→21:12)
[2018-10-08] MEDS: Menthol/Lanolin/Calamine/Znox 113 GM Tube 1 APPLIC TOPICAL ×2 (09:56→21:10)
[2018-10-08 10:00] VITALS: PULSE 86; O2SAT 93
--- NOTE | 2018-10-08 13:26 | NURSING ---
NO to restart aricept per family request. Family updated
[2018-10-08 15:00] VITALS: BP 106/61; PULSE 113; RESP 16; TEMP 37.1; O2SAT 96
--- NOTE | 2018-10-08 19:56 | NURSING ---
Family is requesting to continue on prednisone saying he was more alert Since the evening of Oct 07, he has had increased confusion.
[2018-10-08] MEDS: Donepezil HCl 10 MG Tablet PO (21:10)
[2018-10-08] MEDS: Tamsulosin HCl 0.4 MG Capsule 0.8 MG PO (21:10)
[2018-10-08] MEDS: Mirtazapine 15 MG Tablet 7.5 MG PO (21:12)
[2018-10-09 06:55] VITALS: O2SAT 93
[2018-10-09] MEDS: Aspirin E.C. 81 MG Tablet PO (08:56)
[2018-10-09] MEDS: APIXABAN 5 MG TABLET PO ×2 (08:56→17:46)
[2018-10-09] MEDS: Ramipril 10 MG Capsule PO (08:56)
[2018-10-09] MEDS: Escitalopram Oxalate 10 MG Tablet PO (08:57)
[2018-10-09] MEDS: Levothyroxine 125 MCG Tablet PO (08:57)
[2018-10-09] MEDS: Polyethylene Glycol 3350 17 GM PACKET PO (08:57)
[2018-10-09] MEDS: Menthol/Lanolin/Calamine/Znox 113 GM Tube 1 APPLIC TOPICAL ×2 (09:06→20:51)
[2018-10-09] MEDS: Nystatin Powder 15gm Bottle 1 APPLIC TOPICAL ×2 (09:07→20:51)
[2018-10-09 09:09] VITALS: BP 131/76; PULSE 71; O2SAT 96
[2018-10-09] MEDS: Acetaminophen 500 MG Tablet 1000 MG PO (11:55)
--- NOTE | 2018-10-09 13:58 | CASEMGMT ---
Insurance Clinicals sent via secure email. Will await continued stay determination. Auth # [id number] THOMAS Loza
[2018-10-09 15:31] VITALS: BP 120/71; PULSE 63; RESP 16; TEMP 36.7; O2SAT 96
--- NOTE | 2018-10-09 18:07 | NURSING ---
Addendum entered by Victoria Roberts 10/09/18 18:09: pt urine dark, not drinking enough per . new order for IVF NS overnight. Original Note: still reporting that pt cont w/poor appetite. new order to increase remeron at hs to 15mg
[2018-10-09] MEDS: Mirtazapine 15 MG Tablet PO (20:34)
[2018-10-09] MEDS: Tamsulosin HCl 0.4 MG Capsule 0.8 MG PO (20:34)
[2018-10-09] MEDS: 0.9% Normal Saline 1,000 ML 60 ML IV (20:41)
[2018-10-09] MEDS: Donepezil HCl 10 MG Tablet PO (20:50)
[2018-10-09 22:42] VITALS: PULSE 84; RESP 16; O2SAT 93
[2018-10-10] MEDS: Bisacodyl 5 MG Tablet 10 MG PO (08:52)
[2018-10-10] MEDS: Escitalopram Oxalate 10 MG Tablet PO (09:00)
[2018-10-10] MEDS: Aspirin E.C. 81 MG Tablet PO (09:00)
[2018-10-10] MEDS: Polyethylene Glycol 3350 17 GM PACKET PO (09:01)
[2018-10-10] MEDS: Ramipril 10 MG Capsule PO (09:01)
[2018-10-10] MEDS: APIXABAN 5 MG TABLET PO ×2 (09:01→17:29)
[2018-10-10] MEDS: Levothyroxine 125 MCG Tablet PO (09:04)
[2018-10-10] MEDS: Menthol/Lanolin/Calamine/Znox 113 GM Tube 1 APPLIC TOPICAL ×2 (09:04→20:52)
[2018-10-10] MEDS: Nystatin Powder 15gm Bottle 1 APPLIC TOPICAL ×2 (09:05→20:52)
[2018-10-10 09:12] VITALS: BP 135/96; PULSE 84; O2SAT 95
--- NOTE | 2018-10-10 12:32 | MDS.RN ---
Information for the mds was obtained from review of the clinical record, interview of resident, staff, and direct observation of resident's care.
[2018-10-10 14:00] VITALS: TEMP 37.8
[2018-10-10] MEDS: Acetaminophen 500 MG Tablet 1000 MG PO (14:36)
[2018-10-10 14:45] VITALS: PULSE 81; RESP 16; O2SAT 96
--- NOTE | 2018-10-10 15:13 | NURSING ---
PT HAS A LOW GRADE TEMP. REPORTED TO LIBERTAD JACKSON
[2018-10-10 15:18] VITALS: BP 126/69; PULSE 65; RESP 20; TEMP 37.7; O2SAT 98
--- NOTE | 2018-10-10 15:57 | CASEMGMT ---
Insurance Continued stay approved with next update due 10/16/18. Auth# [id number] Phone call to pt and notified of continued stay. THOMAS Loza
--- NOTE | 2018-10-10 16:17 | NURSING ---
THIS NURSE FLUSHED PT IV AT 1445. PT TOLERATED WELL.
--- NOTE | 2018-10-10 18:11 | NURSING ---
Addendum entered by Victoria Roberts 10/10/18 18:26: and pt updated on orders. Original Note: appetite not improved yet, concerned. dr stevenson updated, new order to begin prednisone daily, labs in AM, restart IVF.
[2018-10-10] MEDS: 0.9% Normal Saline 1,000 ML 60 ML IV (18:31)
[2018-10-10] MEDS: Mirtazapine 15 MG Tablet PO (20:49)
[2018-10-10] MEDS: Tamsulosin HCl 0.4 MG Capsule 0.8 MG PO (20:49)
[2018-10-10] MEDS: Donepezil HCl 10 MG Tablet PO (20:49)
[2018-10-11 06:14] LABS: Absolute Lymphocyte Count 1.15 X10^3/ul (0.83-4.51); Absolute Neutrophil Count 2.6 X10^3/uL (2.0-7.7); Basophil# 0.06 X10^3/uL; Basophil% 1.2 % (0-1); Eosinophil# 0.19 X10^3/uL; Eosinophils% 3.8 % (0-5); Hematocrit 46.2 % (40-54); Hemoglobin 15.5 g/dl (13.0-16.5); Lymphocyte # 1.15 X10^3/ul (4.0); Mean Corp Hgb Conc 33.5 g/gl (32-36); Mean Corpuscular Hgb 28.1 pg (27.0-32.0); Mean Corpuscular Volume 83.8 fL (80-94); Mean Platelet Vol. 10.2 fl (6.2-12.0); Neutrophil # 2.62 X10^3/uL (2.7-7.7); Neutrophil % 52.6 % (47-70); Platelet Count 186 K/mm3 (150-450); Red Blood Count 5.51 M/mm3 (4.6-6.2)
[2018-10-11 06:26] LABS: Anion Gap 10 (5-15); BUN 14 mg/dL (7-18); BUN/Creat Ratio 17.5 RATIO (10-20); Calcium,Total 8.8 mg/dL (8.5-10.1); Chloride 104 mmol/L (98-107); EST Glomerular Filtration Rate 99 mL/min (>60); Est Glom Filt Rate - Afr Amer 119 mL/min (>60); Estimated Creatinine Clearance 67.57 ml/min; Glucose 135 mg/dL (74-106); Potassium 4.2 mmol/L (3.5-5.1); Sodium Level 140 mmol/L (136-145)
[2018-10-11 06:31] LABS: POSITIVE COUNT NO; POSITIVE DIFFERENTIAL NO
[2018-10-11 07:12] LABS: Differential Indicated SCAN CRITERIA MET; POSITIVE MORPHOLOGY YES
[2018-10-11 07:36] VITALS: BP 150/81; PULSE 88; RESP 18; TEMP 37.3; O2SAT 95
--- NOTE | 2018-10-11 07:37 | NURSING ---
LABOR ARBITRATOR HEARING OFFICE notified this nurse that pt had a emesis when they got him up to clean. This nurse went into pt room got vitals on Bp-150/81, P-88, Sp02- 95%, Temp-99.1 temporal. Pt sitting up in recliner with call light and son in room at this time. Will continue to monitor. RN aware.
--- NOTE | 2018-10-11 09:43 | RAD_ITS ---
STUDY: X-RAY - ABDOMEN/PELVIS REASON FOR EXAM: Male, 78 years old. Vomiting. TECHNIQUE: Two AP supine views of the abdomen and pelvis. COMPARISON: None. FINDINGS: Normal visualized lung bases. There is an unremarkable bowel gas pattern. The visualized liver, spleen and kidneys are grossly normal in size and morphology. There is evidence of a prior right inguinal hernia repair. There are diffuse degenerative changes of the visualized lumbar spine. RAD/Abdomen Single View (Portable) IMPRESSION: Nonspecific bowel gas pattern. Electronically Signed: Dragan Conteh MD at 13:37 EST Tel [phone], Service support ,
[2018-10-11] MEDS: Polyethylene Glycol 3350 17 GM PACKET PO (10:16)
[2018-10-11] MEDS: predniSONE 10 MG Tablet PO (10:16)
[2018-10-11] MEDS: APIXABAN 5 MG TABLET PO ×2 (10:17→16:59)
[2018-10-11] MEDS: Levothyroxine 125 MCG Tablet PO (10:17)
[2018-10-11] MEDS: 0.9% Normal Saline 1,000 ML 60 ML IV (11:03)
[2018-10-11] MEDS: Ramipril 10 MG Capsule PO (11:21)
[2018-10-11] MEDS: Aspirin E.C. 81 MG Tablet PO (11:21)
[2018-10-11] MEDS: Menthol/Lanolin/Calamine/Znox 113 GM Tube 1 APPLIC TOPICAL ×2 (11:23→20:01)
[2018-10-11] MEDS: Escitalopram Oxalate 10 MG Tablet PO (11:25)
[2018-10-11 15:38] VITALS: BP 106/55; PULSE 86; RESP 18; TEMP 37.1; O2SAT 98
[2018-10-11] MEDS: Nystatin Powder 15gm Bottle 1 APPLIC TOPICAL (20:01)
[2018-10-11] MEDS: Tamsulosin HCl 0.4 MG Capsule 0.8 MG PO (20:02)
[2018-10-11] MEDS: Donepezil HCl 10 MG Tablet PO (20:02)
[2018-10-11] MEDS: Mirtazapine 15 MG Tablet PO (20:03)
[2018-10-12] MEDS: 0.9% Normal Saline 1,000 ML 60 ML IV ×2 (03:45→21:58)
[2018-10-12 05:53] LABS: BUN 13 mg/dL (7-18); Calcium,Total 8.4 mg/dL (8.5-10.1); Chloride 110 mmol/L (98-107); Creatinine, Serum 0.65 mg/dL (0.70-1.30); EST Glomerular Filtration Rate 125 mL/min (>60); Est Glom Filt Rate - Afr Amer 152 mL/min (>60); Estimated Creatinine Clearance 54.05 ml/min; Glucose 131 mg/dL (74-106); Sodium Level 143 mmol/L (136-145)
[2018-10-12 05:54] LABS: Absolute Lymphocyte Count 1.48 X10^3/ul (0.83-4.51); Absolute Neutrophil Count 1.9 X10^3/uL (2.0-7.7); Anion Gap 7 (5-15); Basophil# 0.05 X10^3/uL; Basophil% 1.2 % (0-1); Eosinophil# 0.13 X10^3/uL; Hematocrit 39.3 % (40-54); Hemoglobin 12.7 g/dl (13.0-16.5); Lymphocyte # 1.48 X10^3/ul (4.0); Lymphocyte % 34.2 % (19-41); Mean Corp Hgb Conc 32.3 g/gl (32-36); Mean Corpuscular Hgb 27.3 pg (27.0-32.0); Mean Corpuscular Volume 84.5 fL (80-94); Mean Platelet Vol. 9.9 fl (6.2-12.0); Monocyte# 0.64 X10^3/uL; Monocyte% 14.8 % (0-10); Neutrophil # 1.93 X10^3/uL (2.7-7.7); Neutrophil % 44.5 % (47-70); Platelet Count 239 K/mm3 (150-450); RBC Distribution Width SD 42.4 fl (35.1-43.9); Red Blood Count 4.65 M/mm3 (4.6-6.2); White Blood Count 4.3 K/mm3 (4.4-11.0)
[2018-10-12 05:57] LABS: POSITIVE COUNT YES; POSITIVE DIFFERENTIAL NO; POSITIVE MORPHOLOGY YES
[2018-10-12 08:00] VITALS: BP 136/95; PULSE 76
[2018-10-12] MEDS: Aspirin E.C. 81 MG Tablet PO (08:11)
[2018-10-12] MEDS: Levothyroxine 125 MCG Tablet PO (08:11)
[2018-10-12] MEDS: Escitalopram Oxalate 10 MG Tablet PO (08:11)
[2018-10-12] MEDS: APIXABAN 5 MG TABLET PO ×2 (08:11→16:02)
[2018-10-12] MEDS: predniSONE 10 MG Tablet PO (08:11)
[2018-10-12] MEDS: Polyethylene Glycol 3350 17 GM PACKET PO (08:11)
[2018-10-12] MEDS: Menthol/Lanolin/Calamine/Znox 113 GM Tube 1 APPLIC TOPICAL ×2 (08:12→20:44)
[2018-10-12] MEDS: Ramipril 10 MG Capsule PO (08:13)
[2018-10-12] MEDS: Nystatin Powder 15gm Bottle 1 APPLIC TOPICAL ×2 (08:13→20:45)
[2018-10-12 10:00] VITALS: PULSE 68; RESP 16; O2SAT 94
[2018-10-12 10:13] LABS: Pathologist Review Reviewed
[2018-10-12 16:00] VITALS: BP 133/58; PULSE 77; RESP 16; TEMP 37.1; O2SAT 97
[2018-10-12] MEDS: Acetaminophen 500 MG Tablet 1000 MG PO (20:43)
[2018-10-12] MEDS: Tamsulosin HCl 0.4 MG Capsule 0.8 MG PO (20:44)
[2018-10-12] MEDS: Donepezil HCl 10 MG Tablet PO (20:45)
[2018-10-12] MEDS: Mirtazapine 15 MG Tablet PO (20:45)
[2018-10-13] MEDS: Aspirin E.C. 81 MG Tablet PO (08:54)
[2018-10-13] MEDS: Ramipril 10 MG Capsule PO (08:54)
[2018-10-13] MEDS: Escitalopram Oxalate 10 MG Tablet PO (08:55)
[2018-10-13] MEDS: Polyethylene Glycol 3350 17 GM PACKET PO (08:55)
[2018-10-13] MEDS: predniSONE 10 MG Tablet PO (08:55)
[2018-10-13] MEDS: APIXABAN 5 MG TABLET PO ×2 (08:55→17:38)
[2018-10-13] MEDS: Levothyroxine 125 MCG Tablet PO (08:56)
[2018-10-13] MEDS: Menthol/Lanolin/Calamine/Znox 113 GM Tube 1 APPLIC TOPICAL ×2 (08:58→21:09)
[2018-10-13] MEDS: Nystatin Powder 15gm Bottle 1 APPLIC TOPICAL ×2 (08:59→21:09)
[2018-10-13] MEDS: 0.9% Normal Saline 1,000 ML 60 ML IV (15:38)
[2018-10-13 16:00] VITALS: BP 122/64; PULSE 78; RESP 16; TEMP 37.2; O2SAT 98
[2018-10-13 21:00] VITALS: PULSE 66; RESP 16
[2018-10-13] MEDS: Tamsulosin HCl 0.4 MG Capsule 0.8 MG PO (21:07)
[2018-10-13] MEDS: Mirtazapine 15 MG Tablet PO (21:07)
[2018-10-13] MEDS: Donepezil HCl 10 MG Tablet PO (21:09)
[2018-10-14] MEDS: 0.9% Normal Saline 1,000 ML 60 ML IV ×2 (04:37→21:11)
[2018-10-14] MEDS: predniSONE 10 MG Tablet PO (09:39)
[2018-10-14] MEDS: Levothyroxine 125 MCG Tablet PO (09:39)
[2018-10-14] MEDS: Ramipril 10 MG Capsule PO (09:40)
[2018-10-14] MEDS: Polyethylene Glycol 3350 17 GM PACKET PO (09:40)
[2018-10-14] MEDS: APIXABAN 5 MG TABLET PO ×2 (09:40→17:01)
[2018-10-14] MEDS: Aspirin E.C. 81 MG Tablet PO (09:40)
[2018-10-14] MEDS: Escitalopram Oxalate 10 MG Tablet PO (09:40)
[2018-10-14] MEDS: Menthol/Lanolin/Calamine/Znox 113 GM Tube 1 APPLIC TOPICAL ×2 (09:44→21:24)
[2018-10-14] MEDS: Nystatin Powder 15gm Bottle 1 APPLIC TOPICAL ×2 (09:44→21:26)
[2018-10-14 15:25] VITALS: BP 132/68; PULSE 64; RESP 16; TEMP 36.9; O2SAT 96
[2018-10-14] MEDS: Donepezil HCl 10 MG Tablet PO (21:26)
[2018-10-14] MEDS: Tamsulosin HCl 0.4 MG Capsule 0.8 MG PO (21:27)
[2018-10-14] MEDS: Mirtazapine 15 MG Tablet PO (21:27)
[2018-10-14 21:30] VITALS: PULSE 70; RESP 18; O2SAT 97
[2018-10-15] MEDS: Polyethylene Glycol 3350 17 GM PACKET PO (08:38)
[2018-10-15] MEDS: Escitalopram Oxalate 10 MG Tablet PO (08:39)
[2018-10-15] MEDS: Ramipril 10 MG Capsule PO (08:39)
[2018-10-15] MEDS: predniSONE 10 MG Tablet PO (08:39)
[2018-10-15] MEDS: Aspirin E.C. 81 MG Tablet PO (08:39)
[2018-10-15] MEDS: APIXABAN 5 MG TABLET PO ×2 (08:39→16:50)
[2018-10-15 08:40] VITALS: BP 142/75; PULSE 78
[2018-10-15] MEDS: Nystatin Powder 15gm Bottle 1 APPLIC TOPICAL ×2 (08:44→21:28)
[2018-10-15] MEDS: Menthol/Lanolin/Calamine/Znox 113 GM Tube 1 APPLIC TOPICAL ×2 (08:44→21:28)
[2018-10-15] MEDS: Levothyroxine 125 MCG Tablet PO (08:45)
[2018-10-15] MEDS: 0.9% Normal Saline 1,000 ML 60 ML IV (13:46)
[2018-10-15 15:22] VITALS: BP 126/71; PULSE 70; RESP 16; TEMP 36.7; O2SAT 96
[2018-10-15] MEDS: Mirtazapine 15 MG Tablet PO (21:29)
[2018-10-15] MEDS: Donepezil HCl 10 MG Tablet PO (21:29)
[2018-10-15] MEDS: Tamsulosin HCl 0.4 MG Capsule 0.8 MG PO (21:29)
[2018-10-16] MEDS: 0.9% Normal Saline 1,000 ML 60 ML IV ×2 (06:50→23:46)
[2018-10-16] MEDS: Ramipril 10 MG Capsule PO (10:26)
[2018-10-16] MEDS: Aspirin E.C. 81 MG Tablet PO (10:26)
[2018-10-16] MEDS: predniSONE 10 MG Tablet PO (10:27)
[2018-10-16] MEDS: APIXABAN 5 MG TABLET PO ×2 (10:27→16:48)
[2018-10-16] MEDS: Escitalopram Oxalate 10 MG Tablet PO (10:27)
[2018-10-16] MEDS: Polyethylene Glycol 3350 17 GM PACKET PO (10:27)
[2018-10-16] MEDS: Levothyroxine 125 MCG Tablet PO (10:27)
[2018-10-16] MEDS: Menthol/Lanolin/Calamine/Znox 113 GM Tube 1 APPLIC TOPICAL ×2 (10:33→20:38)
[2018-10-16] MEDS: Nystatin Powder 15gm Bottle 1 APPLIC TOPICAL ×2 (10:34→20:39)
--- NOTE | 2018-10-16 13:53 | CASEMGMT ---
Insurance Clinical information sent. Pending continued stay approval at this time. Auth#[id number] THOMAS Kilgore, HOSE BUILDER
[2018-10-16 15:26] VITALS: BP 132/74; PULSE 62; RESP 16; TEMP 37.1; O2SAT 95
[2018-10-16] MEDS: Donepezil HCl 10 MG Tablet PO (20:35)
[2018-10-16] MEDS: Mirtazapine 15 MG Tablet PO (20:35)
[2018-10-16] MEDS: Tamsulosin HCl 0.4 MG Capsule 0.8 MG PO (20:35)
[2018-10-16 22:58] VITALS: PULSE 65; RESP 18; O2SAT 95
[2018-10-17] MEDS: Levothyroxine 125 MCG Tablet PO (08:44)
[2018-10-17] MEDS: Polyethylene Glycol 3350 17 GM PACKET PO (08:44)
[2018-10-17] MEDS: Escitalopram Oxalate 10 MG Tablet PO (08:44)
[2018-10-17] MEDS: predniSONE 10 MG Tablet PO (08:44)
[2018-10-17] MEDS: Ramipril 10 MG Capsule PO (08:44)
[2018-10-17] MEDS: Menthol/Lanolin/Calamine/Znox 113 GM Tube 1 APPLIC TOPICAL ×2 (08:45→21:09)
[2018-10-17] MEDS: APIXABAN 5 MG TABLET PO ×2 (08:45→17:53)
[2018-10-17] MEDS: Aspirin E.C. 81 MG Tablet PO (08:45)
[2018-10-17] MEDS: Nystatin Powder 15gm Bottle 1 APPLIC TOPICAL ×2 (08:45→21:10)
[2018-10-17 08:51] VITALS: BP 153/70; PULSE 83; O2SAT 97
[2018-10-17 15:21] VITALS: BP 110/71; PULSE 79; RESP 16; TEMP 36.8; O2SAT 95
[2018-10-17 15:26] VITALS: PULSE 77; RESP 18; O2SAT 95
--- NOTE | 2018-10-17 15:36 | NURSING ---
PT RIGHT THUMB,MIDDLE FINGER AND PINKY HAVE SKIN PEELING OFF. PT PICKING AT IT SKIN IS RED. REPORTED TO LIBERTAD JONES
--- NOTE | 2018-10-17 15:41 | NURSING ---
PT HAS RED RAISED,MOIST AREA TO LEFT GROIN AREA. REPORTED TO LIBERTAD JONES
[2018-10-17] MEDS: 0.9% Normal Saline 1,000 ML 60 ML IV (16:41)
--- NOTE | 2018-10-17 17:04 | CASEMGMT ---
Insurance Continued stay approved with next update due on 10/19/18. Auth#[id number] THOMAS Kilgore, COPPER PLATE PRINTER
--- NOTE | 2018-10-17 18:24 | NURSING ---
NO for eucerin cream to BL arms/hands r/t dry skin.
[2018-10-17] MEDS: Tamsulosin HCl 0.4 MG Capsule 0.8 MG PO (21:10)
[2018-10-17] MEDS: Mirtazapine 15 MG Tablet PO (21:10)
[2018-10-17] MEDS: Donepezil HCl 10 MG Tablet PO (21:11)
--- NOTE | 2018-10-18 07:15 | NURSING ---
requesting nails trimmed today while this nurse was applying lotion to hands, also asked about having toenails trimmed. Stated he is kind of a diabetic yeah. Explained a podiatry consult could be requested and she and pt were pleased with this. RN and oncoming shift aware of this. Continuing to monitor, anticipate needs.
[2018-10-18] MEDS: Escitalopram Oxalate 10 MG Tablet PO (08:43)
[2018-10-18] MEDS: Levothyroxine 125 MCG Tablet PO (08:43)
[2018-10-18] MEDS: predniSONE 10 MG Tablet PO (08:43)
[2018-10-18] MEDS: Aspirin E.C. 81 MG Tablet PO (08:44)
[2018-10-18] MEDS: Ramipril 10 MG Capsule PO (08:44)
[2018-10-18] MEDS: APIXABAN 5 MG TABLET PO ×2 (08:45→17:23)
[2018-10-18] MEDS: Polyethylene Glycol 3350 17 GM PACKET PO (08:46)
[2018-10-18 08:51] VITALS: BP 135/87; PULSE 67; O2SAT 95
[2018-10-18] MEDS: Menthol/Lanolin/Calamine/Znox 113 GM Tube 1 APPLIC TOPICAL ×2 (09:29→21:02)
[2018-10-18] MEDS: Nystatin Powder 15gm Bottle 1 APPLIC TOPICAL ×2 (09:30→21:02)
[2018-10-18] MEDS: 0.9% Normal Saline 1,000 ML 60 ML IV (09:32)
[2018-10-18 15:00] VITALS: BP 132/80; PULSE 68; RESP 20; TEMP 36.9; O2SAT 98
[2018-10-18] MEDS: Tamsulosin HCl 0.4 MG Capsule 0.8 MG PO (21:04)
[2018-10-18] MEDS: Mirtazapine 15 MG Tablet PO (21:04)
[2018-10-18] MEDS: Donepezil HCl 10 MG Tablet PO (21:05)
[2018-10-18 21:41] VITALS: PULSE 68; RESP 18; O2SAT 96
[2018-10-19] MEDS: 0.9% Normal Saline 1,000 ML 60 ML IV ×2 (02:03→16:43)
[2018-10-19] MEDS: Aspirin E.C. 81 MG Tablet PO (08:13)
[2018-10-19] MEDS: Menthol/Lanolin/Calamine/Znox 113 GM Tube 1 APPLIC TOPICAL ×2 (08:13→19:45)
[2018-10-19] MEDS: APIXABAN 5 MG TABLET PO ×2 (08:13→16:43)
[2018-10-19] MEDS: Ramipril 10 MG Capsule PO (08:13)
[2018-10-19] MEDS: Escitalopram Oxalate 10 MG Tablet PO (08:14)
[2018-10-19] MEDS: Polyethylene Glycol 3350 17 GM PACKET PO (08:14)
[2018-10-19] MEDS: Nystatin Powder 15gm Bottle 1 APPLIC TOPICAL ×2 (08:15→19:47)
[2018-10-19] MEDS: predniSONE 10 MG Tablet PO (08:15)
[2018-10-19] MEDS: Levothyroxine 125 MCG Tablet PO (08:15)
--- NOTE | 2018-10-19 12:08 | CASEMGMT ---
Insurance Clinical information sent. Pending continued stay approval. Auth#[id number] THOMAS Chandler, QUILL LAYER
[2018-10-19 15:49] VITALS: BP 128/72; PULSE 63; RESP 14; TEMP 37; O2SAT 95
--- NOTE | 2018-10-19 18:10 | NURSING ---
dr robles here to trim toenails.
[2018-10-19] MEDS: Donepezil HCl 10 MG Tablet PO (19:46)
[2018-10-19] MEDS: Tamsulosin HCl 0.4 MG Capsule 0.8 MG PO (19:47)
[2018-10-19] MEDS: Mirtazapine 15 MG Tablet PO (19:47)
--- NOTE | 2018-10-19 21:43 | PCM.CONS.GEN ---
Problem List (1) Tinea unguium Status: Chronic (2) Toe pain, right Status: Chronic (3) Toe pain, left Status: Chronic Reason for Consult Date of Consultation: 10/19/18 Reason for Consultation: Long slightly thickened toenails he does not feel safe performing on his own. History of Present Illness: The patient is a 78 year old M was seen bedside today for long thick toenails that he does not safely trim on his own. He has for help today. He denies other foot or ankle complaints today. His toenails are mildly painful. He is residing in the transitional care unit at this time. Past Medical History Past Medical History (Chronic Problems): Chronic Problems (Last Reviewed 09/22/18 @ 22:46 by Jeanmarie Bell MD) Atrial fibrillation (Chronic) Alzheimer's disease (Chronic) Depression (Chronic) GERD (gastroesophageal reflux disease) (Chronic) Tinea unguium (Chronic) Toe pain, right (Chronic) Toe pain, left (Chronic) Chronic atrial fibrillation (Chronic) Nonrheumatic tricuspid valve regurgitation (Chronic) Syncope and collapse (Chronic) Atherosclerosis of [place] coronary artery (Chronic) PTCA of RCA intracoronary stent November 1999 Presence of coronary angioplasty implant and graft (Chronic) PTCA of the RCA intracoronary stent 11/1999 HTN (hypertension) (Chronic) HLD (hyperlipidemia) (Chronic) Essential (primary) hypertension (Chronic) CAD (coronary artery disease) (Chronic) BPH (benign prostatic hyperplasia) (Chronic) DM2 (diabetes mellitus, type 2) (Chronic) S/P PTCA (percutaneous transluminal coronary angioplasty) (Chronic) PTCA of RCA intracoronary stent November 1999 HLD (hyperlipidemia) (Chronic) Diabetes mellitus (Chronic) Aphasia (Chronic) Medical History: Medical History (Last Reviewed 09/22/18 @ 22:46 by Jeanmarie Bell MD) Chronic atrial fibrillation (Chronic) I48.2 Nonrheumatic tricuspid valve regurgitation (Chronic) I36.1 Syncope and collapse (Chronic) R55 Atherosclerosis of [place] coronary artery (Chronic) I25.10 PTCA of RCA intracoronary stent November 1999 HTN (hypertension) (Chronic) I10 HLD (hyperlipidemia) (Chronic) E78.5 Essential (primary) hypertension (Chronic) I10 CAD (coronary artery disease) (Chronic) I25.10 DM2 (diabetes mellitus, type 2) (Chronic) E11.9 HLD (hyperlipidemia) (Chronic) E78.5 prison use of drug Z79.899 Allergies lovastatin [From Mevacor] Adverse Reaction (Severe, Verified 09/22/18 17:18) myalgias metoprolol succinate [From Toprol XL] Adverse Reaction (Severe, Verified 09/22/18 17:18) Heart rate too slow beta blockers Adverse Reaction (Uncoded 09/22/18 17:18) low heart rate Home Medications: Ambulatory Orders Medication Instructions Recorded Atorvastatin Calcium [Lipitor] 10 mg PO QHS 11/30/14 Donepezil HCl [Aricept] 10 mg PO DAILY 09/30/16 Tamsulosin HCl [Flomax] 0.8 mg PO QHS 09/30/16 Cholecalciferol (Vitamin D3) 2,000 unit PO DAILY 11/04/16 [Vitamin D3] Metformin HCl [Metformin HCl ER] 500 mg PO BID 11/04/16 Albuterol Sulfate [Ventolin Hfa] 18 gm IH DAILY PRN 05/03/17 memantine 5 mg tablet 5 mg PO QDAY 11/25/17 escitalopram 10 mg tablet 10 mg PO QDAY 12/29/17 Aspirin E.C. [Ecotrin] 81 mg PO DAILY 09/22/18 Fluticasone 0.05% [Flonase Nasal 1 spray NASAL PRN PRN 09/22/18 [place]] Levothyroxine Sodium [Synthroid] 125 mcg PO DAILY 09/22/18 Omeprazole Magnesium [Prilosec Otc] 20 mg PO DAILY 09/22/18 Ramipril 10 mg PO DAILY 09/22/18 Apixaban [Eliquis] 5 mg PO BID 09/27/18 Surgical History: Surgical History (Last Reviewed 09/22/18 @ 22:46 by Jeanmarie Bell MD) Presence of coronary angioplasty implant and graft (Chronic) Z95.5 PTCA of the RCA intracoronary stent 11/1999 S/P PTCA (percutaneous transluminal coronary angioplasty) (Chronic) Z98.61 PTCA of RCA intracoronary stent November 1999 H/O hernia repair Z98.890, Z87.19 History of tonsillectomy Z98.890, Z90.89 History of left heart catheterization (LHC) Z98.890 LHC: 11/20/1999 Surgical History: angioplasty, herniorrhaphy, tonsillectomy Psychiatric History: Depression Lives: Spouse/ Significant Other Smoking Status: Former smoker Tobacco Use: Cigarettes Alcohol: None Drugs: None - *Family History Offspring Family History: Family History (Last Reviewed 09/22/18 @ 22:46 by Jeanmarie Bell MD) Father Cancer Mother CAD (coronary artery disease) CVA (cerebral vascular accident) Brother CAD (coronary artery disease) Brother CVA (cerebral vascular accident) Hypertension Sister Myocardial infarction, Onset Age: 73 Sister CVA (cerebral vascular accident) Sister CVA (cerebral vascular accident) Sister Breast cancer Sister CVA (cerebral vascular accident) Sister TIA (transient ischemic attack) History Items: Heart Disease Review of Systems Constitutional: Reports: Weakness. Denies: Chills, Fever Musculoskeletal: Denies: Foot Pain, Leg Pain Skin: Reports: - - toe nails long and midly thickened. Denies: Skin Changes, Wounds Patient Problems: Active and Suspected Problems (Last Reviewed 09/22/18 @ 22:46 by Jeanmarie Bell MD) Encephalopathy (Acute) Lung mass (Acute) Mediastinal lymphadenopathy (Acute) Lytic bone lesions on xray (Acute) - Physical Exam General: Alert, Oriented x3, Cooperative Extremities: No cyanosis, Capillary Refill Less than 3 Seconds - all digits bilateral foot, No Calf Tenderness - negative chris and thomas bilateral, Diminished Peripheral Pulses - palpable dp pulses, bilateral Skin: - - toenails are midly elonged and thickened without infection or drainage bilateral [id number]. the skin is hairless and atrophic Musculoskeletal: No Tenderness to Palpation of Joints or Extremities, Muscle Wasting Neurological: Sensory exam intact to light touch and pain Psych/Mental Status: Normal Affect, Appropriate Vital Signs Temp Pulse Resp BP Pulse Ox 98.6 F 63 14 128/72 H 95 10/19/18 15:49 10/19/18 15:49 10/19/18 15:49 10/19/18 15:49 10/19/18 15:49 Oxygen Flow Rate (L/min) 2 Oxygen Delivery Method Room Air Weight: 66.74 kg Body Mass Index (BMI) 24.0 Finger Stick Blood Glucose 181 Intake and Output for Last 24 Hours 10/17/18 10/18/18 10/19/18 23:59 23:59 23:59 Intake Total 720 / 720 600 / 600 830 / 830 Balance 720 / 720 600 / 600 830 / 830 Assessment/Plan All Active Problems (Last Reviewed 09/22/18 @ 22:46 by Jeanmarie Bell MD) Weakness (Acute) Community acquired pneumonia (Acute) Encephalopathy (Acute) Lung mass (Acute) Mediastinal lymphadenopathy (Acute) Lytic bone lesions on xray (Acute) onychauxis Right and left toe pain metastatic lung cancer and other comorbidities are noted I discussed his toenail issue today and perform nail debridement to bilateral foot digits 1, 2, 3, 4, 5 without incident with a nail nipper. The toenails are reduced in length and thickness to decrease pressure and discomfort and to reduce potential fungal load. He understands microtrauma may cause these nail changes. He is reassured no signs of infection or ulcer sites were noted. To follow-up in the outpatient setting as needed. Medical management and rehabilitation services are appreciated. Delaney Marrero DPM, [facility] [phone]
--- NOTE | 2018-10-19 21:52 | CON.PCM_ITS ---
Problem List (1) Tinea unguium Status: Chronic (2) Toe pain, right Status: Chronic (3) Toe pain, left Status: Chronic Reason for Consult Date of Consultation: 10/19/18 Reason for Consultation: Long slightly thickened toenails he does not feel safe performing on his own. History of Present Illness: The patient is a 78 year old M was seen bedside today for long thick toenails that he does not safely trim on his own. He has for help today. He denies other foot or ankle complaints today. His toenails are mildly painful. He is residing in the transitional care unit at this time. Past Medical History Past Medical History (Chronic Problems): Chronic Problems (Last Reviewed 09/22/18 @ 22:46 by Jeanmarie Bell MD) Atrial fibrillation (Chronic) Alzheimer's disease (Chronic) Depression (Chronic) GERD (gastroesophageal reflux disease) (Chronic) Tinea unguium (Chronic) Toe pain, right (Chronic) Toe pain, left (Chronic) Chronic atrial fibrillation (Chronic) Nonrheumatic tricuspid valve regurgitation (Chronic) Syncope and collapse (Chronic) Atherosclerosis of [place] coronary artery (Chronic) PTCA of RCA intracoronary stent November 1999 Presence of coronary angioplasty implant and graft (Chronic) PTCA of the RCA intracoronary stent 11/1999 HTN (hypertension) (Chronic) HLD (hyperlipidemia) (Chronic) Essential (primary) hypertension (Chronic) CAD (coronary artery disease) (Chronic) BPH (benign prostatic hyperplasia) (Chronic) DM2 (diabetes mellitus, type 2) (Chronic) S/P PTCA (percutaneous transluminal coronary angioplasty) (Chronic) PTCA of RCA intracoronary stent November 1999 HLD (hyperlipidemia) (Chronic) Diabetes mellitus (Chronic) Aphasia (Chronic) Medical History: Medical History (Last Reviewed 09/22/18 @ 22:46 by Jeanmarie Bell MD) Chronic atrial fibrillation (Chronic) I48.2 Nonrheumatic tricuspid valve regurgitation (Chronic) I36.1 Syncope and collapse (Chronic) R55 Atherosclerosis of [place] coronary artery (Chronic) I25.10 PTCA of RCA intracoronary stent November 1999 HTN (hypertension) (Chronic) I10 HLD (hyperlipidemia) (Chronic) E78.5 Essential (primary) hypertension (Chronic) I10 CAD (coronary artery disease) (Chronic) I25.10 DM2 (diabetes mellitus, type 2) (Chronic) E11.9 HLD (hyperlipidemia) (Chronic) E78.5 correction use of drug Z79.899 Allergies lovastatin [From Mevacor] Adverse Reaction (Severe, Verified 09/22/18 17:18) myalgias metoprolol succinate [From Toprol XL] Adverse Reaction (Severe, Verified 09/22/18 17:18) Heart rate too slow beta blockers Adverse Reaction (Uncoded 09/22/18 17:18) low heart rate Home Medications: Ambulatory Orders Medication Instructions Recorded Atorvastatin Calcium [Lipitor] 10 mg PO QHS 11/30/14 Donepezil HCl [Aricept] 10 mg PO DAILY 09/30/16 Tamsulosin HCl [Flomax] 0.8 mg PO QHS 09/30/16 Cholecalciferol (Vitamin D3) 2,000 unit PO DAILY 11/04/16 [Vitamin D3] Metformin HCl [Metformin HCl ER] 500 mg PO BID 11/04/16 Albuterol Sulfate [Ventolin Hfa] 18 gm IH DAILY PRN 05/03/17 memantine 5 mg tablet 5 mg PO QDAY 11/25/17 escitalopram 10 mg tablet 10 mg PO QDAY 12/29/17 Aspirin E.C. [Ecotrin] 81 mg PO DAILY 09/22/18 Fluticasone 0.05% [Flonase Nasal 1 spray NASAL PRN PRN 09/22/18 [place]] Levothyroxine Sodium [Synthroid] 125 mcg PO DAILY 09/22/18 Omeprazole Magnesium [Prilosec Otc] 20 mg PO DAILY 09/22/18 Ramipril 10 mg PO DAILY 09/22/18 Apixaban [Eliquis] 5 mg PO BID 09/27/18 Surgical History: Surgical History (Last Reviewed 09/22/18 @ 22:46 by Jeanmarie Bell MD) Presence of coronary angioplasty implant and graft (Chronic) Z95.5 PTCA of the RCA intracoronary stent 11/1999 S/P PTCA (percutaneous transluminal coronary angioplasty) (Chronic) Z98.61 PTCA of RCA intracoronary stent November 1999 H/O hernia repair Z98.890, Z87.19 History of tonsillectomy Z98.890, Z90.89 History of left heart catheterization (LHC) Z98.890 LHC: 11/20/1999 Surgical History: angioplasty, herniorrhaphy, tonsillectomy Psychiatric History: Depression Lives: Spouse/ Significant Other Smoking Status: Former smoker Tobacco Use: Cigarettes Alcohol: None Drugs: None - *Family History Offspring Family History: Family History (Last Reviewed 09/22/18 @ 22:46 by Jeanmarie Bell MD) Father Cancer Mother CAD (coronary artery disease) CVA (cerebral vascular accident) Brother CAD (coronary artery disease) Brother CVA (cerebral vascular accident) Hypertension Sister Myocardial infarction, Onset Age: 73 Sister CVA (cerebral vascular accident) Sister CVA (cerebral vascular accident) Sister Breast cancer Sister CVA (cerebral vascular accident) Sister TIA (transient ischemic attack) History Items: Heart Disease Review of Systems Constitutional: Reports: Weakness. Denies: Chills, Fever Musculoskeletal: Denies: Foot Pain, Leg Pain Skin: Reports: - - toe nails long and midly thickened. Denies: Skin Changes, Wounds Patient Problems: Active and Suspected Problems (Last Reviewed 09/22/18 @ 22:46 by Jeanmarie Bell MD) Encephalopathy (Acute) Lung mass (Acute) Mediastinal lymphadenopathy (Acute) Lytic bone lesions on xray (Acute) - Physical Exam General: Alert, Oriented x3, Cooperative Extremities: No cyanosis, Capillary Refill Less than 3 Seconds - all digits bilateral foot, No Calf Tenderness - negative chris and thomas bilateral, Diminished Peripheral Pulses - palpable dp pulses, bilateral Skin: - - toenails are midly elonged and thickened without infection or drainage bilateral [id number]. the skin is hairless and atrophic Musculoskeletal: No Tenderness to Palpation of Joints or Extremities, Muscle Wasting Neurological: Sensory exam intact to light touch and pain Psych/Mental Status: Normal Affect, Appropriate Vital Signs Temp Pulse Resp BP Pulse Ox 98.6 F 63 14 128/72 H 95 10/19/18 15:49 10/19/18 15:49 10/19/18 15:49 10/19/18 15:49 10/19/18 15:49 Oxygen Flow Rate (L/min) 2 Oxygen Delivery Method Room Air Weight: 66.74 kg Body Mass Index (BMI) 24.0 Finger Stick Blood Glucose 181 Intake and Output for Last 24 Hours 10/17/18 10/18/18 10/19/18 23:59 23:59 23:59 Intake Total 720 / 720 600 / 600 830 / 830 Balance 720 / 720 600 / 600 830 / 830 Assessment/Plan All Active Problems (Last Reviewed 09/22/18 @ 22:46 by Jeanmarie Bell MD) Weakness (Acute) Community acquired pneumonia (Acute) Encephalopathy (Acute) Lung mass (Acute) Mediastinal lymphadenopathy (Acute) Lytic bone lesions on xray (Acute) onychauxis Right and left toe pain metastatic lung cancer and other comorbidities are noted I discussed his toenail issue today and perform nail debridement to bilateral foot digits 1, 2, 3, 4, 5 without incident with a nail nipper. The toenails are reduced in length and thickness to decrease pressure and discomfort and to r educe potential fungal load. He understands microtrauma may cause these nail changes. He is reassured no signs of infection or ulcer sites were noted. To follow-up in the outpatient setting as needed. Medical management and rehabilitation services are appreciated. Delaney Marrero DPM, [facility] [phone]
[2018-10-20] MEDS: Levothyroxine 125 MCG Tablet PO (04:09)
[2018-10-20] MEDS: predniSONE 10 MG Tablet PO (08:19)
[2018-10-20] MEDS: Aspirin E.C. 81 MG Tablet PO (08:19)
[2018-10-20] MEDS: Ramipril 10 MG Capsule PO (08:19)
[2018-10-20] MEDS: APIXABAN 5 MG TABLET PO ×2 (08:19→16:58)
[2018-10-20] MEDS: Escitalopram Oxalate 10 MG Tablet PO (08:21)
[2018-10-20] MEDS: Polyethylene Glycol 3350 17 GM PACKET PO (08:21)
[2018-10-20] MEDS: Menthol/Lanolin/Calamine/Znox 113 GM Tube 1 APPLIC TOPICAL ×2 (08:26→20:40)
[2018-10-20] MEDS: 0.9% Normal Saline 1,000 ML 60 ML IV (09:25)
[2018-10-20 10:00] VITALS: PULSE 60; O2SAT 95
[2018-10-20] MEDS: Nystatin Powder 15gm Bottle 1 APPLIC TOPICAL ×2 (12:28→20:41)
--- NOTE | 2018-10-20 14:04 | CASEMGMT ---
Insurance Continued stay approved with next update due on 10/23/18. Auth#[id number] THOMAS Chandler, HUMAN [employer]OURCES TEAM MEMBER
[2018-10-20 15:31] VITALS: BP 127/68; PULSE 64; RESP 18; TEMP 36.6; O2SAT 92
[2018-10-20] MEDS: Tamsulosin HCl 0.4 MG Capsule 0.8 MG PO (20:42)
[2018-10-20] MEDS: Donepezil HCl 10 MG Tablet PO (20:43)
[2018-10-20] MEDS: Mirtazapine 15 MG Tablet PO (20:43)
[2018-10-21] MEDS: Levothyroxine 125 MCG Tablet PO (06:49)
[2018-10-21] MEDS: Menthol/Lanolin/Calamine/Znox 113 GM Tube 1 APPLIC TOPICAL ×2 (08:31→21:32)
[2018-10-21] MEDS: Nystatin Powder 15gm Bottle 1 APPLIC TOPICAL ×2 (08:34→21:32)
[2018-10-21] MEDS: Polyethylene Glycol 3350 17 GM PACKET PO (08:37)
[2018-10-21] MEDS: APIXABAN 5 MG TABLET PO ×2 (08:45→17:34)
[2018-10-21] MEDS: Ramipril 10 MG Capsule PO (08:45)
[2018-10-21] MEDS: Escitalopram Oxalate 10 MG Tablet PO (08:45)
[2018-10-21] MEDS: predniSONE 10 MG Tablet PO (08:45)
[2018-10-21] MEDS: Aspirin E.C. 81 MG Tablet PO (08:50)
[2018-10-21 08:56] VITALS: BP 161/70; PULSE 88
--- NOTE | 2018-10-21 09:53 | NURSING ---
PT SITTING IN ROSE CRYING. THIS NURSE SAT DOWN WITH PT 1 ON 1. PT STATED SHE JUST DOESN'T KNOW WHAT TO EXPECT OR WHERE THINGS ARE GOING FROM HERE. STATED SHE FEELS SO OVER WHELMED TODAY. TALKED TO AWHILE TILL GOT HER LAUGHING, GOT PHONE CALL. REPORTED TO LIBERTAD HERNANDEZ
[2018-10-21 13:30] VITALS: PULSE 76; RESP 16; O2SAT 97
--- NOTE | 2018-10-21 15:42 | NURSING ---
IV FLUSHED. NO S/S OF INFECTION. PT TOLERATED WELL.
[2018-10-21 16:00] VITALS: BP 136/78; PULSE 68; RESP 16; TEMP 36.3; O2SAT 97
[2018-10-21] MEDS: Tamsulosin HCl 0.4 MG Capsule 0.8 MG PO (21:25)
[2018-10-21] MEDS: Donepezil HCl 10 MG Tablet PO (21:25)
[2018-10-21] MEDS: Mirtazapine 15 MG Tablet PO (21:30)
[2018-10-22] MEDS: Levothyroxine 125 MCG Tablet PO (06:51)
--- NOTE | 2018-10-22 07:23 | NURSING ---
Flushed saline locked no s/s noted during this time. No concerns voiced at this time.
[2018-10-22] MEDS: predniSONE 10 MG Tablet PO (08:44)
[2018-10-22] MEDS: Polyethylene Glycol 3350 17 GM PACKET PO (08:44)
[2018-10-22] MEDS: Escitalopram Oxalate 10 MG Tablet PO (08:44)
[2018-10-22] MEDS: Ramipril 10 MG Capsule PO (08:44)
[2018-10-22] MEDS: Aspirin E.C. 81 MG Tablet PO (08:44)
[2018-10-22] MEDS: APIXABAN 5 MG TABLET PO ×2 (08:44→17:15)
[2018-10-22 08:52] VITALS: BP 135/85; PULSE 94
[2018-10-22] MEDS: Menthol/Lanolin/Calamine/Znox 113 GM Tube 1 APPLIC TOPICAL ×2 (11:16→20:55)
[2018-10-22] MEDS: Nystatin Powder 15gm Bottle 1 APPLIC TOPICAL ×2 (11:16→20:55)
[2018-10-22 12:45] VITALS: PULSE 51; RESP 16; O2SAT 94
--- NOTE | 2018-10-22 14:55 | NURSING ---
REPORTED TO LIBERTAD HERNANDEZ PT IV SITE IS RED,SWOLLEN AND PT STATED IT HURT WHEN TOUCHED. LIBERTAD HERNANDEZ REMOVED IV IN LEFT FOREARM.
[2018-10-22 14:56] VITALS: BP 126/58; PULSE 77; RESP 20; TEMP 36.7; O2SAT 96
[2018-10-22] MEDS: Tamsulosin HCl 0.4 MG Capsule 0.8 MG PO (20:54)
[2018-10-22] MEDS: Donepezil HCl 10 MG Tablet PO (20:56)
[2018-10-22] MEDS: Mirtazapine 15 MG Tablet PO (20:56)
[2018-10-23] MEDS: Levothyroxine 125 MCG Tablet PO (06:10)
[2018-10-23] MEDS: Polyethylene Glycol 3350 17 GM PACKET PO (08:57)
[2018-10-23] MEDS: Menthol/Lanolin/Calamine/Znox 113 GM Tube 1 APPLIC TOPICAL ×2 (08:57→20:10)
[2018-10-23] MEDS: APIXABAN 5 MG TABLET PO ×2 (08:57→17:36)
[2018-10-23] MEDS: Aspirin E.C. 81 MG Tablet PO (08:57)
[2018-10-23] MEDS: Escitalopram Oxalate 10 MG Tablet PO (08:57)
[2018-10-23] MEDS: predniSONE 10 MG Tablet PO (08:57)
[2018-10-23] MEDS: Ramipril 10 MG Capsule PO (08:57)
[2018-10-23] MEDS: Nystatin Powder 15gm Bottle 1 APPLIC TOPICAL ×2 (08:58→20:12)
--- NOTE | 2018-10-23 12:50 | CASEMGMT ---
Insurance Clinical information sent. Pending continued stay approval at this time. Auth#[id number] THOMAS Chandler, [employer] SOLUTION ARCHITECT
[2018-10-23 16:00] VITALS: BP 118/75; PULSE 74; RESP 16; TEMP 36.4; O2SAT 96
--- NOTE | 2018-10-23 16:36 | CASEMGMT ---
Insurance Continued stay approved with next update due on 10/25/18. Auth#[id number] THOMAS Chandler, TIRE BUILDER
[2018-10-23 20:00] VITALS: PULSE 81; RESP 16; O2SAT 95
[2018-10-23] MEDS: Tamsulosin HCl 0.4 MG Capsule 0.8 MG PO (20:13)
[2018-10-23] MEDS: Mirtazapine 15 MG Tablet PO (20:13)
[2018-10-23] MEDS: Donepezil HCl 10 MG Tablet PO (20:13)
--- NOTE | 2018-10-23 20:28 | PCM.TCUNOT ---
Subjective: Resident seen in room, he is visiting with his , 2 granddaughters, grandson. He has no complaints, he has no pain, he has been eating well, ambulation improved. I spoke with regarding previously seen right lower lung mass. On admission, resident appeared to be dying, and I recommended aggressive intervention to diagnose possible metastatic cancer. Lately, resident does not appear to be dying, nor does he act like someone with metastatic cancer. Vitals/I&O's: Vital Signs Temp Pulse Resp BP Pulse Ox 97.6 F L 74 16 118/75 96 10/23/18 16:00 10/23/18 16:00 10/23/18 16:00 10/23/18 16:00 10/23/18 16:00 Oxygen Flow Rate (L/min) 2 Oxygen Delivery Method Room Air Weight: 66.74 kg Body Mass Index (BMI) 24.0 Finger Stick Blood Glucose 181 Intake and Output for Last 24 Hours 10/21/18 10/22/18 10/23/18 23:59 23:59 23:59 Intake Total 930 / 930 870 / 870 480 / 480 Balance 930 / 930 870 / 870 480 / 480 Past Medical History Past Medical History (Chronic Problems): Chronic Problems (Last Reviewed 09/22/18 @ 22:46 by Jeanmarie Bell MD) Atrial fibrillation (Chronic) Alzheimer's disease (Chronic) Depression (Chronic) GERD (gastroesophageal reflux disease) (Chronic) Tinea unguium (Chronic) Toe pain, right (Chronic) Toe pain, left (Chronic) Chronic atrial fibrillation (Chronic) Nonrheumatic tricuspid valve regurgitation (Chronic) Syncope and collapse (Chronic) Atherosclerosis of [place] coronary artery (Chronic) PTCA of RCA intracoronary stent November 1999 Presence of coronary angioplasty implant and graft (Chronic) PTCA of the RCA intracoronary stent 11/1999 HTN (hypertension) (Chronic) HLD (hyperlipidemia) (Chronic) Essential (primary) hypertension (Chronic) CAD (coronary artery disease) (Chronic) BPH (benign prostatic hyperplasia) (Chronic) DM2 (diabetes mellitus, type 2) (Chronic) S/P PTCA (percutaneous transluminal coronary angioplasty) (Chronic) PTCA of RCA intracoronary stent November 1999 HLD (hyperlipidemia) (Chronic) Diabetes mellitus (Chronic) Aphasia (Chronic) Medical History: Medical History (Last Reviewed 09/22/18 @ 22:46 by Jeanmarie Bell MD) Chronic atrial fibrillation (Chronic) I48.2 Nonrheumatic tricuspid valve regurgitation (Chronic) I36.1 Syncope and collapse (Chronic) R55 Atherosclerosis of [place] coronary artery (Chronic) I25.10 PTCA of RCA intracoronary stent November 1999 HTN (hypertension) (Chronic) I10 HLD (hyperlipidemia) (Chronic) E78.5 Essential (primary) hypertension (Chronic) I10 CAD (coronary artery disease) (Chronic) I25.10 DM2 (diabetes mellitus, type 2) (Chronic) E11.9 HLD (hyperlipidemia) (Chronic) E78.5 intermediate use of drug Z79.899 Allergies lovastatin [From Mevacor] Adverse Reaction (Severe, Verified 09/22/18 17:18) myalgias metoprolol succinate [From Toprol XL] Adverse Reaction (Severe, Verified 09/22/18 17:18) Heart rate too slow beta blockers Adverse Reaction (Uncoded 09/22/18 17:18) low heart rate Home Medications: Ambulatory Orders Medication Instructions Recorded Atorvastatin Calcium [Lipitor] 10 mg PO QHS 11/30/14 Donepezil HCl [Aricept] 10 mg PO DAILY 09/30/16 Tamsulosin HCl [Flomax] 0.8 mg PO QHS 09/30/16 Cholecalciferol (Vitamin D3) 2,000 unit PO DAILY 11/04/16 [Vitamin D3] Metformin HCl [Metformin HCl ER] 500 mg PO BID 11/04/16 Albuterol Sulfate [Ventolin Hfa] 18 gm IH DAILY PRN 05/03/17 memantine 5 mg tablet 5 mg PO QDAY 11/25/17 escitalopram 10 mg tablet 10 mg PO QDAY 12/29/17 Aspirin E.C. [Ecotrin] 81 mg PO DAILY 09/22/18 Fluticasone 0.05% [Flonase Nasal 1 spray NASAL PRN PRN 09/22/18 [place]] Levothyroxine Sodium [Synthroid] 125 mcg PO DAILY 09/22/18 Omeprazole Magnesium [Prilosec Otc] 20 mg PO DAILY 09/22/18 Ramipril 10 mg PO DAILY 09/22/18 Apixaban [Eliquis] 5 mg PO BID 09/27/18 Surgical History: Surgical History (Last Reviewed 09/22/18 @ 22:46 by Jeanmarie Bell MD) Presence of coronary angioplasty implant and graft (Chronic) Z95.5 PTCA of the RCA intracoronary stent 11/1999 S/P PTCA (percutaneous transluminal coronary angioplasty) (Chronic) Z98.61 PTCA of RCA intracoronary stent November 1999 H/O hernia repair Z98.890, Z87.19 History of tonsillectomy Z98.890, Z90.89 History of left heart catheterization (LHC) Z98.890 LHC: 11/20/1999 Surgical History: angioplasty, herniorrhaphy, tonsillectomy Psychiatric History: Depression Lives: Spouse/ Significant Other Smoking Status: Former smoker Tobacco Use: Cigarettes Alcohol: None Drugs: None - *Family History Offspring Family History: Family History (Last Reviewed 09/22/18 @ 22:46 by Jeanmarie Bell MD) Father Cancer Mother CAD (coronary artery disease) CVA (cerebral vascular accident) Brother CAD (coronary artery disease) Brother CVA (cerebral vascular accident) Hypertension Sister Myocardial infarction, Onset Age: 73 Sister CVA (cerebral vascular accident) Sister CVA (cerebral vascular accident) Sister Breast cancer Sister CVA (cerebral vascular accident) Sister TIA (transient ischemic attack) History Items: Heart Disease Review of Systems Constitutional: Denies: Chills, Fever, Weight Change HEENT: Denies: Head Aches, Sinus Congestion, Sinus Drainage Cardiovascular: Denies: Chest Pain, Palpitations Respiratory: Denies: Cough, Shortness of breath at rest, Sputum production Gastrointestinal: Denies: Abdominal Pain, Nausea, Vomiting Genitourinary: Denies: Dysuria Musculoskeletal: Denies: Joint Pain, Joint Tenderness Skin: Denies: Rash, Wounds Neurological: Denies: Numbness, Tingling, Focal weakness Psychiatric: Denies: Anxiety, Depression, Homicidal Ideations, Suicidal Ideations Hematologic/ Lymphatic: Denies: Easy Bruising, Easy Bleeding Patient Problems: Active and Suspected Problems (Last Reviewed 09/22/18 @ 22:46 by Jeanmarie Bell MD) Encephalopathy (Acute) Lung mass (Acute) Mediastinal lymphadenopathy (Acute) Lytic bone lesions on xray (Acute) - Physical Exam General: Alert, Oriented x3, Cooperative HEENT: Atraumatic, PERRLA, EOMI, Normocephalic Neck: Supple, No JVD, Negative Carotid Bruits Lungs: Clear to auscultation, Normal air movement Cardiovascular: Regular rate, No murmurs Abdomen: Bowel Sounds Present, Soft, Non Tender Extremities: No edema, Capillary Refill Less than 3 Seconds Skin: No rashes, No breakdown Musculoskeletal: No Tenderness to Palpation of Joints or Extremities Neurological: Cranial nerves II-XII grossly intact Psych/Mental Status: Normal Affect, Appropriate Vital Signs Temp Pulse Resp BP Pulse Ox 97.6 F L 74 16 118/75 96 10/23/18 16:00 10/23/18 16:00 10/23/18 16:00 10/23/18 16:00 10/23/18 16:00 Oxygen Flow Rate (L/min) 2 Oxygen Delivery Method Room Air Weight: 66.74 kg Body Mass Index (BMI) 24.0 Finger Stick Blood Glucose 181 Intake and Output for Last 24 Hours 10/21/18 10/22/18 10/23/18 23:59 23:59 23:59 Intake Total 930 / 930 870 / 870 480 / 480 Balance 930 / 930 870 / 870 480 / 480 Assessment/Plan All Active Problems (Last Reviewed 09/22/18 @ 22:46 by Jeanmarie Bell MD) Weakness (Acute) Community acquired pneumonia (Acute) Encephalopathy (Acute) Lung mass (Acute) Mediastinal lymphadenopathy (Acute) Lytic bone lesions on xray (Acute) 78 year old male with below past medical history significant for severe Alzheimer's Disease, hospitalized for encephalopathy secondary to community acquired pneumonia, complicated by metastatic lung cancer, admitted to TCU with debility, here for rehabilitation, strengthening, prior to disposition determination. Debility - PT/OT. Pain - Tylenol 1000MG Q6H PRN mild pain. Bowel - Miralax 17GM daily, Senna/colace 1 tablet BID, Dulcolax 10MG PO daily PRN. Pneumonia vaccination - Administer Prevnar 13 and/or Pneumovax 23 as necessary. DVT prophylaxis - Not necessary, already on Eliquis. Shortness of breath - Albuterol 2.5MG nebulized daily PRN. Atrial Fibrillation - Eliquis 5MG BID. Coronary Artery Disease - Ramipril 10MG daily, Aspirin 81MG daily. Hyperlipidemia - Atorvastatin 10MG QHS. Vitamin D deficiency - D3 2000IU daily. Alzheimer's Disease - Donepezil 10MG QHS, Memantine 5MG daily. Depression - Lexapro 10MG daily, resident doing well with chronic lobsterman use, GDR clinically contraindicated. Allergic Rhinitis - Flonase 1 spray daily. Hypothyroidism - Levothyroxine 125MCG daily. Diabetes Mellitus II - Metformin XR 500MG BID, Ramipril 10MG daily, Aspirin 81MG daily, follow glucose. GERD - Pantoprazole 20MG daily. BPH - Tamsulosin 0.8MG QHS. Appetite decrease - Rx Mirtazapine 7.5MG QHS, Prednisone 10MG daily. Metastatic lung cancer - Resident no longer appears to be dying, recommend appointment with Dr. Corrigan in office to schedule EBUS for diagnosis and treatment. My opinion is resident does not have lung cancer at all. He is eating like a horse, and walking well.
--- NOTE | 2018-10-23 20:33 | PN_ITS ---
Subjective: Resident seen in room, he is visiting with his , 2 granddaughters, grandson. He has no complaints, he has no pain, he has been eating well, ambulation improved. I spoke with regarding previously seen right lower lung mass. On admission, resident appeared to be dying, and I recommended aggressive intervention to diagnose possible metastatic cancer. Lately, resident does not appear to be dying, nor does he act like someone with metastatic cancer. Vitals/I&O's: Vital Signs Temp Pulse Resp BP Pulse Ox 97.6 F L 74 16 118/75 96 10/23/18 16:00 10/23/18 16:00 10/23/18 16:00 10/23/18 16:00 10/23/18 16:00 Oxygen Flow Rate (L/min) 2 Oxygen Delivery Method Room Air Weight: 66.74 kg Body Mass Index (BMI) 24.0 Finger Stick Blood Glucose 181 Intake and Output for Last 24 Hours 10/21/18 10/22/18 10/23/18 23:59 23:59 23:59 Intake Total 930 / 930 870 / 870 480 / 480 Balance 930 / 930 870 / 870 480 / 480 Past Medical History Past Medical History (Chronic Problems): Chronic Problems (Last Reviewed 09/22/18 @ 22:46 by Jeanmarie Bell MD) Atrial fibrillation (Chronic) Alzheimer's disease (Chronic) Depression (Chronic) GERD (gastroesophageal reflux disease) (Chronic) Tinea unguium (Chronic) Toe pain, right (Chronic) Toe pain, left (Chronic) Chronic atrial fibrillation (Chronic) Nonrheumatic tricuspid valve regurgitation (Chronic) Syncope and collapse (Chronic) Atherosclerosis of [place] coronary artery (Chronic) PTCA of RCA intracoronary stent November 1999 Presence of coronary angioplasty implant and graft (Chronic) PTCA of the RCA intracoronary stent 11/1999 HTN (hypertension) (Chronic) HLD (hyperlipidemia) (Chronic) Essential (primary) hypertension (Chronic) CAD (coronary artery disease) (Chronic) BPH (benign prostatic hyperplasia) (Chronic) DM2 (diabetes mellitus, type 2) (Chronic) S/P PTCA (percutaneous transluminal coronary angioplasty) (Chronic) PTCA of RCA intracoronary stent November 1999 HLD (hyperlipidemia) (Chronic) Diabetes mellitus (Chronic) Aphasia (Chronic) Medical History: Medical History (Last Reviewed 09/22/18 @ 22:46 by Jeanmarie Bell MD) Chronic atrial fibrillation (Chronic) I48.2 Nonrheumatic tricuspid valve regurgitation (Chronic) I36.1 Syncope and collapse (Chronic) R55 Atherosclerosis of [place] coronary artery (Chronic) I25.10 PTCA of RCA intracoronary stent November 1999 HTN (hypertension) (Chronic) I10 HLD (hyperlipidemia) (Chronic) E78.5 Essential (primary) hypertension (Chronic) I10 CAD (coronary artery disease) (Chronic) I25.10 DM2 (diabetes mellitus, type 2) (Chronic) E11.9 HLD (hyperlipidemia) (Chronic) E78.5 [facility] use of drug Z79.899 Allergies lovastatin [From Mevacor] Adverse Reaction (Severe, Verified 09/22/18 17:18) myalgias metoprolol succinate [From Toprol XL] Adverse Reaction (Severe, Verified 09/22/18 17:18) Heart rate too slow beta blockers Adverse Reaction (Uncoded 09/22/18 17:18) low heart rate Home Medications: Ambulatory Orders Medication Instructions Recorded Atorvastatin Calcium [Lipitor] 10 mg PO QHS 11/30/14 Donepezil HCl [Aricept] 10 mg PO DAILY 09/30/16 Tamsulosin HCl [Flomax] 0.8 mg PO QHS 09/30/16 Cholecalciferol (Vitamin D3) 2,000 unit PO DAILY 11/04/16 [Vitamin D3] Metformin HCl [Metformin HCl ER] 500 mg PO BID 11/04/16 Albuterol Sulfate [Ventolin Hfa] 18 gm IH DAILY PRN 05/03/17 memantine 5 mg tablet 5 mg PO QDAY 11/25/17 escitalopram 10 mg tablet 10 mg PO QDAY 12/29/17 Aspirin E.C. [Ecotrin] 81 mg PO DAILY 09/22/18 Fluticasone 0.05% [Flonase Nasal 1 spray NASAL PRN PRN 09/22/18 [place]] Levothyroxine Sodium [Synthroid] 125 mcg PO DAILY 09/22/18 Omeprazole Magnesium [Prilosec Otc] 20 mg PO DAILY 09/22/18 Ramipril 10 mg PO DAILY 09/22/18 Apixaban [Eliquis] 5 mg PO BID 09/27/18 Surgical History: Surgical History (Last Reviewed 09/22/18 @ 22:46 by Jeanmarie Bell MD) Presence of coronary angioplasty implant and graft (Chronic) Z95.5 PTCA of the RCA intracoronary stent 11/1999 S/P PTCA (percutaneous transluminal coronary angioplasty) (Chronic) Z98.61 PTCA of RCA intracoronary stent November 1999 H/O hernia repair Z98.890, Z87.19 History of tonsillectomy Z98.890, Z90.89 History of left heart catheterization (LHC) Z98.890 LHC: 11/20/1999 Surgical History: angioplasty, herniorrhaphy, tonsillectomy Psychiatric History: Depression Lives: Spouse/ Significant Other Smoking Status: Former smoker Tobacco Use: Cigarettes Alcohol: None Drugs: None - *Family History Offspring Family History: Family History (Last Reviewed 09/22/18 @ 22:46 by Jeanmarie Bell MD) Father Cancer Mother CAD (coronary artery disease) CVA (cerebral vascular accident) Brother CAD (coronary artery disease) Brother CVA (cerebral vascular accident) Hypertension Sister Myocardial infarction, Onset Age: 73 Sister CVA (cerebral vascular accident) Sister CVA (cerebral vascular accident) Sister Breast cancer Sister CVA (cerebral vascular accident) Sister TIA (transient ischemic attack) History Items: Heart Disease Review of Systems Constitutional: Denies: Chills, Fever, Weight Change HEENT: Denies: Head Aches, Sinus Congestion, Sinus Drainage Cardiovascular: Denies: Chest Pain, Palpitations Respiratory: Denies: Cough, Shortness of breath at rest, Sputum production Gastrointestinal: Denies: Abdominal Pain, Nausea, Vomiting Genitourinary: Denies: Dysuria Musculoskeletal: Denies: Joint Pain, Joint Tenderness Skin: Denies: Rash, Wounds Neurological: Denies: Numbness, Tingling, Focal weakness Psychiatric: Denies: Anxiety, Depression, Homicidal Ideations, Suicidal Id eations Hematologic/ Lymphatic: Denies: Easy Bruising, Easy Bleeding Patient Problems: Active and Suspected Problems (Last Reviewed 09/22/18 @ 22:46 by Jeanmarie Bell MD) Encephalopathy (Acute) Lung mass (Acute) Mediastinal lymphadenopathy (Acute) Lytic bone lesions on xray (Acute) - Physical Exam General: Alert, Oriented x3, Cooperative HEENT: Atraumatic, PERRLA, EOMI, Normocephalic Neck: Supple, No JVD, Negative Carotid Bruits Lungs: Clear to auscultation, Normal air movement Cardiovascular: Regular rate, No murmurs Abdomen: Bowel Sounds Present, Soft, Non Tender Extremities: No edema, Capillary Refill Less than 3 Seconds Skin: No rashes, No breakdown Musculoskeletal: No Tenderness to Palpation of Joints or Extremities Neurological: Cranial nerves II-XII grossly intact Psych/Mental Status: Normal Affect, Appropriate Vital Signs Temp Pulse Resp BP Pulse Ox 97.6 F L 74 16 118/75 96 10/23/18 16:00 10/23/18 16:00 10/23/18 16:00 10/23/18 16:00 10/23/18 16:00 Oxygen Flow Rate (L/min) 2 Oxygen Delivery Method Room Air Weight: 66.74 kg Body Mass Index (BMI) 24.0 Finger Stick Blood Glucose 181 Intake and Output for Last 24 Hours 10/21/18 10/22/18 10/23/18 23:59 23:59 23:59 Intake Total 930 / 930 870 / 870 480 / 480 Balance 930 / 930 870 / 870 480 / 480 Assessment/Plan All Active Problems (Last Reviewed 09/22/18 @ 22:46 by Jeanmarie Bell MD) Weakness (Acute) Community acquired pneumonia (Acute) Encephalopathy (Acute) Lung mass (Acute) Mediastinal lymphadenopathy (Acute) Lytic bone lesions on xray (Acute) 78 year old male with below past medical history significant for severe Alzheimer's Disease, hospitalized for encephalopathy secondary to community acquired pneumonia, complicated by metastatic lung cancer, admitted to TCU with debility, here for rehabilitation, strengthening, prior to disposition determination. * Debility - PT/OT. * Pain - Tylenol 1000MG Q6H PRN mild pain. * Bowel - Miralax 17GM daily, Senna/colace 1 tablet BID, Dulcolax 10MG PO daily PRN. * Pneumonia vaccination - Administer Prevnar 13 and/or Pneumovax 23 as necessary. * DVT prophylaxis - Not necessary, already on Eliquis. * Shortness of breath - Albuterol 2.5MG nebulized daily PRN. * Atrial Fibrillation - Eliquis 5MG BID. * Coronary Artery Disease - Ramipril 10MG daily, Aspirin 81MG daily. * Hyperlipidemia - Atorvastatin 10MG QHS. * Vitamin D deficiency - D3 2000IU daily. * Alzheimer's Disease - Donepezil 10MG QHS, Memantine 5MG daily. 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 * Allergic Rhinitis - Flonase 1 spray daily. * Hypothyroidism - Levothyroxine 125MCG daily. * Diabetes Mellitus II - Metformin XR 500MG BID, Ramipril 10MG daily, Aspirin 81MG daily, follow glucose. * GERD - Pantoprazole 20MG daily. * BPH - Tamsulosin 0.8MG QHS. * Appetite decrease - Rx Mirtazapine 7.5MG QHS, Prednisone 10MG daily. * Metastatic lung cancer - Resident no longer appears to be dying, recommend appointment with Dr. Corrigan in office to schedule EBUS for diagnosis and treatment. My opinion is resident does not have lung cancer at all. He is eating like a horse, and walking well.
[2018-10-24] MEDS: Levothyroxine 125 MCG Tablet PO (06:34)
[2018-10-24] MEDS: predniSONE 10 MG Tablet PO (08:54)
[2018-10-24] MEDS: Polyethylene Glycol 3350 17 GM PACKET PO (08:54)
[2018-10-24] MEDS: APIXABAN 5 MG TABLET PO ×2 (08:55→17:31)
[2018-10-24] MEDS: Ramipril 10 MG Capsule PO (08:55)
[2018-10-24] MEDS: Escitalopram Oxalate 10 MG Tablet PO (08:55)
[2018-10-24] MEDS: Aspirin E.C. 81 MG Tablet PO (08:55)
[2018-10-24] MEDS: Menthol/Lanolin/Calamine/Znox 113 GM Tube 1 APPLIC TOPICAL ×2 (08:56→20:55)
[2018-10-24] MEDS: Nystatin Powder 15gm Bottle 1 APPLIC TOPICAL ×2 (08:56→20:56)
[2018-10-24 09:03] VITALS: BP 133/69; PULSE 98
[2018-10-24 14:00] VITALS: PULSE 77; RESP 16; O2SAT 94
--- NOTE | 2018-10-24 14:34 | NURSING ---
Patient has appointment with Leslie Bright NP at [facility] on 10/25/18 at 0830. Patient and family made aware.
[2018-10-24 15:31] VITALS: BP 136/71; PULSE 74; RESP 18; TEMP 36.4; O2SAT 95
[2018-10-24] MEDS: Donepezil HCl 10 MG Tablet PO (20:56)
[2018-10-24] MEDS: Mirtazapine 15 MG Tablet PO (20:56)
[2018-10-24] MEDS: Tamsulosin HCl 0.4 MG Capsule 0.8 MG PO (20:57)
[2018-10-25] MEDS: Levothyroxine 125 MCG Tablet PO (05:10)
[2018-10-25 06:02] LABS: Anion Gap 8 (5-15); BUN 12 mg/dL (7-18); BUN/Creat Ratio 16.2 RATIO (10-20); Calcium,Total 8.6 mg/dL (8.5-10.1); Chloride 104 mmol/L (98-107); Creatinine, Serum 0.74 mg/dL (0.70-1.30); EST Glomerular Filtration Rate 108 mL/min (>60); Est Glom Filt Rate - Afr Amer 131 mL/min (>60); Estimated Creatinine Clearance 56.51 ml/min; Glucose 149 mg/dL (74-106); Mean Corp Hgb Conc 32.5 g/gl (32-36); Mean Corpuscular Hgb 27.5 pg (27.0-32.0); Mean Corpuscular Volume 84.7 fL (80-94); Mean Platelet Vol. 9.4 fl (6.2-12.0); Platelet Count 238 K/mm3 (150-450); Potassium 3.8 mmol/L (3.5-5.1); RBC Distribution Width CV 14.6 % (11.6-14.6); RBC Distribution Width SD 44.1 fl (35.1-43.9); Red Blood Count 4.72 M/mm3 (4.6-6.2); Sodium Level 142 mmol/L (136-145)
[2018-10-25 06:04] LABS: Differential Indicated MANUAL DIFF; POSITIVE COUNT YES; POSITIVE DIFFERENTIAL NO; POSITIVE MORPHOLOGY YES
[2018-10-25 06:45] LABS: Eosinophil 3 % (0-5); Lymphocyte 41 % (19-41); Metamyelocyte 2 % (0-1); Monocyte 7 % (0-10); Myelocyte 1 (0-0); Neutrophil-Band 3 % (0-5); Neutrophil-Segmented 43 % (47-70); Reactive Lymphocyte 1+; Total Cells Counted 100 (MANUAL DIFF)
[2018-10-25 06:46] LABS: Platelet Estimate ADEQUATE (ADEQ); Red Cell Morphology NORM C+C NORMAL (NORM C&C)
[2018-10-25 06:47] LABS: Absolute Lymphocyte Count 2.46 X10^3/ul (0.83-4.51); Absolute Neutrophil Count 2.8 X10^3/uL (2.0-7.7)
[2018-10-25] MEDS: Escitalopram Oxalate 10 MG Tablet PO (08:24)
[2018-10-25] MEDS: predniSONE 10 MG Tablet PO (08:24)
[2018-10-25] MEDS: APIXABAN 5 MG TABLET PO ×2 (08:25→17:23)
[2018-10-25] MEDS: Menthol/Lanolin/Calamine/Znox 113 GM Tube 1 APPLIC TOPICAL ×2 (08:25→20:31)
[2018-10-25] MEDS: Aspirin E.C. 81 MG Tablet PO (08:25)
[2018-10-25] MEDS: Ramipril 10 MG Capsule PO (08:25)
[2018-10-25] MEDS: Nystatin Powder 15gm Bottle 1 APPLIC TOPICAL ×2 (08:28→20:31)
[2018-10-25 08:34] VITALS: BP 142/83; PULSE 83
[2018-10-25] MEDS: Polyethylene Glycol 3350 17 GM PACKET PO (09:28)
[2018-10-25] MEDS: Acetaminophen 500 MG Tablet 1000 MG PO (10:59)
--- NOTE | 2018-10-25 11:02 | NURSING ---
PT COMPLAINED OF RIGHT RIB PAIN. WARM BLANKET TO AREA AND PAIN MED GIVEN. REPORTED TO LIBERTAD JACKSON
[2018-10-25 12:18] LABS: Pathologist Review Reviewed
--- NOTE | 2018-10-25 12:58 | CASEMGMT ---
Insurance Clinical information sent. Pending continued stay approval at this time. Auth#[id number] THOMAS Chandler, TREE TRIMMER HELPER
[2018-10-25 15:11] VITALS: BP 132/72; PULSE 90; RESP 14; TEMP 36.6; O2SAT 97
[2018-10-25] MEDS: Donepezil HCl 10 MG Tablet PO (20:32)
[2018-10-25] MEDS: Mirtazapine 15 MG Tablet PO (20:32)
[2018-10-25] MEDS: Tamsulosin HCl 0.4 MG Capsule 0.8 MG PO (20:32)
--- NOTE | 2018-10-25 20:35 | NURSING ---
Pt pleasant and alert, joking with this nurse. Took hs meds without any verbal cues. Family present. Continuing to monitor.
[2018-10-25 20:55] VITALS: PULSE 77; RESP 18; O2SAT 95
[2018-10-26] MEDS: Levothyroxine 125 MCG Tablet PO (06:35)
[2018-10-26] MEDS: Menthol/Lanolin/Calamine/Znox 113 GM Tube 1 APPLIC TOPICAL ×2 (08:48→20:13)
[2018-10-26] MEDS: Escitalopram Oxalate 10 MG Tablet PO (08:49)
[2018-10-26] MEDS: Nystatin Powder 15gm Bottle 1 APPLIC TOPICAL ×2 (08:49→20:13)
[2018-10-26] MEDS: Ramipril 10 MG Capsule PO (08:49)
[2018-10-26] MEDS: predniSONE 10 MG Tablet PO (08:49)
[2018-10-26] MEDS: Aspirin E.C. 81 MG Tablet PO (08:49)
[2018-10-26] MEDS: APIXABAN 5 MG TABLET PO ×2 (08:50→17:45)
[2018-10-26 08:56] VITALS: PULSE 88; RESP 18; O2SAT 99
--- NOTE | 2018-10-26 13:13 | CASEMGMT ---
Insurance Continued stay approved with next update due on 10/30/18. Auth#[id number] THOMAS Chandler, CORE DROPPER
[2018-10-26 15:19] VITALS: BP 128/70; PULSE 80; RESP 16; TEMP 36.2; O2SAT 98
[2018-10-26] MEDS: Tamsulosin HCl 0.4 MG Capsule 0.8 MG PO (20:15)
[2018-10-26] MEDS: Donepezil HCl 10 MG Tablet PO (20:16)
[2018-10-26] MEDS: Mirtazapine 15 MG Tablet PO (20:16)
[2018-10-27] MEDS: Levothyroxine 125 MCG Tablet PO (06:44)
[2018-10-27] MEDS: Menthol/Lanolin/Calamine/Znox 113 GM Tube 1 APPLIC TOPICAL ×2 (09:09→19:40)
[2018-10-27] MEDS: Aspirin E.C. 81 MG Tablet PO (09:10)
[2018-10-27] MEDS: Ramipril 10 MG Capsule PO (09:10)
[2018-10-27] MEDS: APIXABAN 5 MG TABLET PO ×2 (09:10→17:54)
[2018-10-27] MEDS: predniSONE 10 MG Tablet PO (09:11)
[2018-10-27] MEDS: Nystatin Powder 15gm Bottle 1 APPLIC TOPICAL ×2 (09:11→19:40)
[2018-10-27] MEDS: Escitalopram Oxalate 10 MG Tablet PO (09:11)
[2018-10-27] MEDS: Donepezil HCl 10 MG Tablet PO (19:39)
[2018-10-27] MEDS: Tamsulosin HCl 0.4 MG Capsule 0.8 MG PO (19:39)
[2018-10-27] MEDS: Mirtazapine 15 MG Tablet PO (19:41)
[2018-10-27 19:55] VITALS: PULSE 91; RESP 16; O2SAT 95
[2018-10-28] MEDS: Levothyroxine 125 MCG Tablet PO (05:51)
[2018-10-28] MEDS: APIXABAN 5 MG TABLET PO ×2 (08:47→18:07)
[2018-10-28] MEDS: predniSONE 10 MG Tablet PO (08:47)
[2018-10-28] MEDS: Ramipril 10 MG Capsule PO (08:47)
[2018-10-28] MEDS: Escitalopram Oxalate 10 MG Tablet PO (08:47)
[2018-10-28] MEDS: Aspirin E.C. 81 MG Tablet PO (08:49)
[2018-10-28] MEDS: Nystatin Powder 15gm Bottle 1 APPLIC TOPICAL ×2 (08:49→21:21)
[2018-10-28] MEDS: Menthol/Lanolin/Calamine/Znox 113 GM Tube 1 APPLIC TOPICAL ×2 (08:49→21:20)
[2018-10-28] MEDS: Polyethylene Glycol 3350 17 GM PACKET PO (08:50)
[2018-10-28 10:00] VITALS: PULSE 74; O2SAT 95
[2018-10-28 16:00] VITALS: BP 127/66; PULSE 82; RESP 18; TEMP 36.7; O2SAT 97
[2018-10-28] MEDS: Donepezil HCl 10 MG Tablet PO (21:20)
[2018-10-28] MEDS: Mirtazapine 15 MG Tablet PO (21:21)
[2018-10-28] MEDS: Tamsulosin HCl 0.4 MG Capsule 0.8 MG PO (21:21)
[2018-10-29] MEDS: Levothyroxine 125 MCG Tablet PO (05:56)
[2018-10-29] MEDS: Aspirin E.C. 81 MG Tablet PO (08:52)
[2018-10-29] MEDS: predniSONE 10 MG Tablet PO (08:52)
[2018-10-29] MEDS: Polyethylene Glycol 3350 17 GM PACKET PO (08:52)
[2018-10-29] MEDS: Ramipril 10 MG Capsule PO (08:52)
[2018-10-29] MEDS: Escitalopram Oxalate 10 MG Tablet PO (08:53)
[2018-10-29] MEDS: APIXABAN 5 MG TABLET PO ×2 (08:53→19:04)
[2018-10-29] MEDS: Menthol/Lanolin/Calamine/Znox 113 GM Tube 1 APPLIC TOPICAL ×2 (09:01→21:35)
[2018-10-29] MEDS: Nystatin Powder 15gm Bottle 1 APPLIC TOPICAL ×2 (09:01→21:36)
[2018-10-29 15:39] VITALS: BP 107/73; PULSE 88; RESP 16; TEMP 36.3; O2SAT 96
[2018-10-29] MEDS: Donepezil HCl 10 MG Tablet PO (21:36)
[2018-10-29] MEDS: Mirtazapine 15 MG Tablet PO (21:36)
[2018-10-29] MEDS: Tamsulosin HCl 0.4 MG Capsule 0.8 MG PO (21:36)
[2018-10-30] MEDS: Levothyroxine 125 MCG Tablet PO (05:53)
[2018-10-30] MEDS: Polyethylene Glycol 3350 17 GM PACKET PO (08:42)
[2018-10-30] MEDS: Aspirin E.C. 81 MG Tablet PO (08:42)
[2018-10-30] MEDS: Escitalopram Oxalate 10 MG Tablet PO (08:42)
[2018-10-30] MEDS: APIXABAN 5 MG TABLET PO ×2 (08:42→16:37)
[2018-10-30] MEDS: predniSONE 10 MG Tablet PO (08:42)
[2018-10-30] MEDS: Ramipril 10 MG Capsule PO (08:42)
[2018-10-30] MEDS: Menthol/Lanolin/Calamine/Znox 113 GM Tube 1 APPLIC TOPICAL ×2 (08:46→22:39)
[2018-10-30] MEDS: Nystatin Powder 15gm Bottle 1 APPLIC TOPICAL ×2 (08:46→22:40)
[2018-10-30 08:48] VITALS: BP 141/96; PULSE 89
[2018-10-30 10:00] VITALS: PULSE 77; RESP 16; O2SAT 97
--- NOTE | 2018-10-30 10:47 | CASEMGMT ---
Insurance Clinicals sent. Pending continued stay approval. Auth#[id number] THOMAS Chandler, CAREER GUIDANCE TECHNICIAN
--- NOTE | 2018-10-30 14:39 | NURSING ---
PT ON JUAN JOSE,LEFT BY WHEEL CHAIR AT 1435.
--- NOTE | 2018-10-30 15:08 | CASEMGMT ---
Insurance Continued stay denied with last cover day being 11/01/18 and resident to discharge or financial responsibility to begin on 11/02/18. Auth#[id number] THOMAS Chandler, CHECKMAN
--- NOTE | 2018-10-30 15:09 | CASEMGMT ---
Social Work Resident currently out on JUAN JOSE and will not be returning until later this evening. This socia worker left voicemail with resident communicating that continued stay has been denied by insurance and that last cover day is 11/01/18 and discharge or private pay to begin on 11/02/18. Nursing staff given Notice of Medicare Non-Coverage to have family sign when returning with resident later this evening. Therapy is recommending for resident to have continued physical and occupational therapy within the home, if resident does not discharge to home with hospice services. Will continue to follow with further discharge planning and support. Proposed discharge date: 11/02/18 PLAN: Discharge to home with spouse and home health care vs. hospice services. Dung Tidwell, TRAIN GATEMAN, PRESS MAINTAINER
--- NOTE | 2018-10-30 16:41 | CASEMGMT ---
Social Work Telephone call from Montserrat, resident spouse. Montserrat reporting to have obtained this social workers voicemail and to be planning for resident to discharge to home on 11/02/18 with physical and occupational therapy. Montserrat aware that nursing staff will have notice of medicare non-coverage for Montserrat to sign when returning with resident later this evening. This social sciences instructor to follow up Tuesday with any further discharge planning and support. Proposed discharge date: 11/02/18 PLAN: Discharge to home with spouse and home health care. THOMAS Chnadler, VIBRATION ENGINEER
[2018-10-30] MEDS: Tamsulosin HCl 0.4 MG Capsule 0.8 MG PO (22:40)
[2018-10-30] MEDS: Mirtazapine 15 MG Tablet PO (22:41)
[2018-10-30] MEDS: Donepezil HCl 10 MG Tablet PO (22:41)
[2018-10-31] MEDS: Levothyroxine 125 MCG Tablet PO (07:01)
[2018-10-31] MEDS: Menthol/Lanolin/Calamine/Znox 113 GM Tube 1 APPLIC TOPICAL ×2 (08:21→19:45)
[2018-10-31] MEDS: Escitalopram Oxalate 10 MG Tablet PO (08:23)
[2018-10-31] MEDS: APIXABAN 5 MG TABLET PO ×2 (08:23→19:47)
[2018-10-31] MEDS: predniSONE 10 MG Tablet PO (08:23)
[2018-10-31] MEDS: Aspirin E.C. 81 MG Tablet PO (08:23)
[2018-10-31] MEDS: Ramipril 10 MG Capsule PO (08:23)
[2018-10-31] MEDS: Polyethylene Glycol 3350 17 GM PACKET PO (08:23)
[2018-10-31] MEDS: Nystatin Powder 15gm Bottle 1 APPLIC TOPICAL ×2 (08:24→19:46)
[2018-10-31 10:00] VITALS: PULSE 68; RESP 16; O2SAT 94
[2018-10-31] MEDS: Mirtazapine 15 MG Tablet PO (19:48)
[2018-10-31] MEDS: Tamsulosin HCl 0.4 MG Capsule 0.8 MG PO (19:48)
[2018-10-31] MEDS: Donepezil HCl 10 MG Tablet PO (19:49)
[2018-11-01] MEDS: Levothyroxine 125 MCG Tablet PO (06:21)
[2018-11-01 07:08] LABS: Hematocrit 40.1 % (40-54); Hemoglobin 13.3 g/dl (13.0-16.5); Mean Corp Hgb Conc 33.2 g/gl (32-36); Mean Corpuscular Hgb 28.1 pg (27.0-32.0); Mean Corpuscular Volume 84.8 fL (80-94); Mean Platelet Vol. 9.7 fl (6.2-12.0); Platelet Count 200 K/mm3 (150-450); RBC Distribution Width SD 45.4 fl (35.1-43.9); Red Blood Count 4.73 M/mm3 (4.6-6.2); White Blood Count 6.4 K/mm3 (4.4-11.0)
[2018-11-01 07:10] LABS: Differential Indicated MANUAL DIFF; POSITIVE COUNT YES; POSITIVE DIFFERENTIAL NO; POSITIVE MORPHOLOGY YES
[2018-11-01 07:16] LABS: Anion Gap 9 (5-15); BUN 13 mg/dL (7-18); BUN/Creat Ratio 18.2 RATIO (10-20); Calcium,Total 8.7 mg/dL (8.5-10.1); Chloride 104 mmol/L (98-107); Creatinine, Serum 0.71 mg/dL (0.70-1.30); EST Glomerular Filtration Rate 113 mL/min (>60); Est Glom Filt Rate - Afr Amer 136 mL/min (>60); Estimated Creatinine Clearance 56.51 ml/min; Glucose 119 mg/dL (74-106); Potassium 3.8 mmol/L (3.5-5.1); Sodium Level 144 mmol/L (136-145)
[2018-11-01 07:45] LABS: Eosinophil 1 % (0-5); Lymphocyte 25 % (19-41); Metamyelocyte 5 % (0-1); Monocyte 2 % (0-10); Myelocyte 2 (0-0); Neutrophil-Segmented 65 % (47-70); Total Cells Counted 100 (MANUAL DIFF)
[2018-11-01 07:46] LABS: Platelet Estimate ADEQUATE (ADEQ); Red Cell Morphology NORM C+C NORMAL (NORM C&C)
--- NOTE | 2018-11-01 08:16 | PCM.DC ---
- Discharge Diagnoses Current Active Problems: Current Active and Chronic Problems (Last Reviewed 10/25/18 @ 08:48 by MATT Michelle) Encephalopathy (Acute) Lung mass (Acute) Mediastinal lymphadenopathy (Acute) Lytic bone lesions on xray (Acute) Atrial fibrillation (Chronic) Alzheimer's disease (Chronic) Depression (Chronic) GERD (gastroesophageal reflux disease) (Chronic) Tinea unguium (Chronic) Toe pain, right (Chronic) Toe pain, left (Chronic) You will use the following diet at home:: No restrictions, Regular Your food should be the consistency of: Regular Your liquids should be the consistency of: Regular/Thin Discharge Activity: Return to Normal Activity, May Shower, Use Walker Weight Bearing Status: Weight bearing as tolerated Call your doctor if you observe: Fever of 101 or Higher, Inability to urinate, Inability to have a bowel movement, Shortness of breath, Chest pain, Uncontrolled pain Allergies/Adverse Reactions: Allergies lovastatin [From Mevacor] Adverse Reaction (Severe, Verified 10/25/18 06:09) myalgias metoprolol succinate [From Toprol XL] Adverse Reaction (Severe, Verified 10/25/18 06:09) Heart rate too slow beta blockers Adverse Reaction (Uncoded 10/25/18 06:09) low heart rate Medications to take at Discharge Atorvastatin Calcium [Lipitor] 10 mg PO QHS 11/30/14 Donepezil HCl [Aricept] 10 mg PO DAILY 09/30/16 Tamsulosin HCl [Flomax] 0.8 mg PO QHS 09/30/16 Cholecalciferol (Vitamin D3) [Vitamin D3] 2,000 unit PO DAILY 11/04/16 Metformin HCl [Metformin HCl ER] 500 mg PO BID 11/04/16 Albuterol Sulfate [Ventolin Hfa] 18 gm IH DAILY PRN 05/03/17 memantine 5 mg tablet 5 mg PO QDAY 11/25/17 escitalopram 10 mg tablet 10 mg PO QDAY 12/29/17 Aspirin E.C. [Ecotrin] 81 mg PO DAILY 09/22/18 Fluticasone 0.05% [Flonase Nasal [place]] 1 spray NASAL PRN PRN 09/22/18 Levothyroxine Sodium [Synthroid] 125 mcg PO DAILY 09/22/18 Omeprazole Magnesium [Prilosec Otc] 20 mg PO DAILY 09/22/18 Ramipril 10 mg PO DAILY 09/22/18 Apixaban [Eliquis] 5 mg PO BID 09/27/18 Acetaminophen [Tylenol] 1,000 mg PO Q6H PRN PRN tablet 11/01/18 Donepezil HCl [Aricept] 10 mg PO QHS tablet 11/01/18 Lactobacillus Acidophilus [Acidophilus] 1 tablet PO 0800 tablet 11/01/18 Menthol/Lanolin/Calamine/Znox [Calmoseptine Ointment] 1 applic TOPICAL 0800,2200 tube 11/01/18 Mirtazapine [Remeron] 15 mg PO QHS #30 tablet 11/01/18 Nystatin Powder [Mycostatin Powder] 1 applic TOPICAL 0800,2200 bottle 11/01/18 The following prescriptions were given: Mirtazapine [Remeron] 15 mg PO QHS #30 tablet Primary Care Physician: Julio C Ridley MD [Primary Care Provider] - Please follow up with your Primary Care Physician in: 1 week. Test Results: Test results from this visit will be discussed in further detail at your follow-up appointment, if applicable. Please Follow Up With: Abdelrahman Mack MD When: 11/25/2018. Please Follow Up With: Flaquito Villa MD When: [phone] Proposed Discharge Date: 11/02/18
--- NOTE | 2018-11-01 08:18 | PCM.DC.SUM ---
Discharge Date and Diagnosis - Problem List Patient Problems: Active and Suspected Problems (Last Reviewed 10/25/18 @ 08:48 by MATT Michelle) Encephalopathy (Acute) Lung mass (Acute) Mediastinal lymphadenopathy (Acute) Lytic bone lesions on xray (Acute) Date of Admission: 09/27/18 Date of Discharge: 11/02/18 - Primary Discharge Diagnosis Active and Suspected Problems (Last Reviewed 10/25/18 @ 08:48 by MATT Michelle) Encephalopathy (Acute) Lung mass (Acute) Mediastinal lymphadenopathy (Acute) Lytic bone lesions on xray (Acute) - Secondary Discharge Diagnosis Chronic Problems (Last Reviewed 10/25/18 @ 08:48 by MATT Michelle) Atrial fibrillation (Chronic) Alzheimer's disease (Chronic) Depression (Chronic) GERD (gastroesophageal reflux disease) (Chronic) Tinea unguium (Chronic) Toe pain, right (Chronic) Toe pain, left (Chronic) Chronic atrial fibrillation (Chronic) Nonrheumatic tricuspid valve regurgitation (Chronic) Syncope and collapse (Chronic) Atherosclerosis of [place] coronary artery (Chronic) PTCA of RCA intracoronary stent November 1999 Presence of coronary angioplasty implant and graft (Chronic) PTCA of the RCA intracoronary stent 11/1999 HTN (hypertension) (Chronic) HLD (hyperlipidemia) (Chronic) Essential (primary) hypertension (Chronic) CAD (coronary artery disease) (Chronic) BPH (benign prostatic hyperplasia) (Chronic) DM2 (diabetes mellitus, type 2) (Chronic) S/P PTCA (percutaneous transluminal coronary angioplasty) (Chronic) PTCA of RCA intracoronary stent November 1999 HLD (hyperlipidemia) (Chronic) Diabetes mellitus (Chronic) Aphasia (Chronic) Hospital Course and Treatment Imaging Results: 09/30/18 13:21 Diet: Regular Diet Dietary Modifications:: Soft Diet Is pt able to select menu?: Yes Diet Comments: Supervision by family/staff; cut solids into small peices; in chair Clinical Impression(s) from Imaging Studies Chest X-Ray 09/28/18 14:40 KUB X-Ray 10/11/18 09:43 IMPRESSION: Nonspecific bowel gas pattern. Electronically Signed: Dragan Conteh MD at 13:37 EST Tel [phone], Service support , Labs (Last 48 Hours) 11/01/18 11/01/18 06:40 06:40 WBC 6.4 RBC 4.73 Hgb 13.3 Hct 40.1 MCV 84.8 MCH 28.1 MCHC 33.2 RDW 15.0 H RDW Differential 45.4 H Plt Count 200 MPV 9.7 Neut % (Auto) Not Reportable Absolute Neuts (auto) Not Reportable Total Counted 100 Neutrophils % (Manual) 65 Lymphocytes % (Manual) 25 Monocytes % (Manual) 2 Eosinophils % (Manual) 1 Metamyelocytes % 5 H Myelocytes % 2 H Diff Path Review May foll Platelet Estimate ADEQUATE RBC Morphology NORM C+C Sodium 144 Potassium 3.8 Chloride 104 Carbon Dioxide 31.0 Anion Gap 9 BUN 13 Creatinine 0.71 Estim Creat Clear Calc 56.51 Est GFR (MDRD) Af Amer 136 Est GFR (MDRD) Non-Af 113 BUN/Creatinine Ratio 18.2 Glucose 119 H Calcium 8.7 Operations: None Procedures: None Summary of Care Provided: The patient is a 78 year old Male with below past medical history significant for severe Alzheimer's Disease, hospitalized for encephalopathy secondary to community acquired pneumonia, complicated by metastatic lung cancer, admitted to TCU with debility, here for rehabilitation, strengthening, prior to disposition determination. Resident saw Leslie Parsons as outpatient, will need follow up to determine evaluation for potential metastatic lung cancer. Discharge home with spouse, and Home Health Services. Patient Problems: Active and Suspected Problems (Last Reviewed 10/25/18 @ 08:48 by Leslie Parsons, SHOE SPRAYER-C) Encephalopathy (Acute) Lung mass (Acute) Mediastinal lymphadenopathy (Acute) Lytic bone lesions on xray (Acute) - Physical Exam Vital Signs Temp Pulse Resp BP Pulse Ox 97.4 F L 68 16 141/96 H 94 10/29/18 15:39 10/31/18 10:00 10/31/18 10:00 10/30/18 08:48 10/31/18 10:00 Oxygen Flow Rate (L/min) 2 Oxygen Delivery Method Room Air Weight: 67.812 kg Body Mass Index (BMI) 24.0 Finger Stick Blood Glucose 181 Intake and Output for Last 24 Hours 10/30/18 10/31/18 11/01/18 23:59 23:59 23:59 Intake Total 510 / 510 240 / 240 120 / 120 Output Total 300 / 300 Balance 510 / 510 -60 / -60 120 / 120 Laboratory Tests Past 24 Hrs 11/01/18 11/01/18 06:40 06:40 WBC 6.4 RBC 4.73 Hgb 13.3 Hct 40.1 MCV 84.8 MCH 28.1 MCHC 33.2 RDW 15.0 H RDW Differential 45.4 H Plt Count 200 MPV 9.7 Neut % (Auto) Not Reportable Absolute Neuts (auto) Not Reportable Total Counted 100 Neutrophils % (Manual) 65 Lymphocytes % (Manual) 25 Monocytes % (Manual) 2 Eosinophils % (Manual) 1 Metamyelocytes % 5 H Myelocytes % [address] Diff [address] Review May foll Platelet Estimate ADEQUATE RBC Morphology NORM C+C Sodium 144 Potassium 3.8 Chloride 104 Carbon Dioxide 31.0 Anion Gap 9 BUN 13 Creatinine 0.71 Estim Creat Clear Calc 56.51 Est GFR (MDRD) Af Amer 136 Est GFR (MDRD) Non-Af 113 BUN/Creatinine Ratio 18.2 Glucose 119 H Calcium 8.7 Discharge Diet: No Restrictions Discharge Activity: Return to Normal Activity, May Shower, Use Walker Weight Bearing Status: Weight bearing as tolerated Call your doctor if you observe: Fever of 101 or Higher, Inability to urinate, Inability to have a bowel movement, Shortness of breath, Chest pain, Uncontrolled pain Home Medications: Medications to take at Discharge Atorvastatin Calcium [Lipitor] 10 mg PO QHS 11/30/14 Donepezil HCl [Aricept] 10 mg PO DAILY 09/30/16 Tamsulosin HCl [Flomax] 0.8 mg PO QHS 09/30/16 Cholecalciferol (Vitamin D3) [Vitamin D3] 2,000 unit PO DAILY 11/04/16 Metformin HCl [Metformin HCl ER] 500 mg PO BID 11/04/16 Albuterol Sulfate [Ventolin Hfa] 18 gm IH DAILY PRN 05/03/17 memantine 5 mg tablet 5 mg PO QDAY 11/25/17 escitalopram 10 mg tablet 10 mg PO QDAY 12/29/17 Aspirin E.C. [Ecotrin] 81 mg PO DAILY 09/22/18 Fluticasone 0.05% [Flonase Nasal [place]] 1 spray NASAL PRN PRN 09/22/18 Levothyroxine Sodium [Synthroid] 125 mcg PO DAILY 09/22/18 Omeprazole Magnesium [Prilosec Otc] 20 mg PO DAILY 09/22/18 Ramipril 10 mg PO DAILY 09/22/18 Apixaban [Eliquis] 5 mg PO BID 09/27/18 Acetaminophen [Tylenol] 1,000 mg PO Q6H PRN PRN tablet 11/01/18 Donepezil HCl [Aricept] 10 mg PO QHS tablet 11/01/18 Lactobacillus Acidophilus [Acidophilus] 1 tablet PO 0800 tablet 11/01/18 Menthol/Lanolin/Calamine/Znox [Calmoseptine Ointment] 1 applic TOPICAL 0800,2200 tube 11/01/18 Mirtazapine [Remeron] 15 mg PO QHS #30 tablet 11/01/18 Nystatin Powder [Mycostatin Powder] 1 applic TOPICAL 0800,2200 bottle 11/01/18 Following Prescrptions Were Given to Patient: Mirtazapine [Remeron] 15 mg PO QHS #30 tablet Primary Care Physician: Julio C Ridley MD [Primary Care Provider] - Please follow up with your Primary Care Physician in: 1 week. Please Follow Up With: Abdelrahman Mack MD When: 11/25/2018. Please Follow Up With: Flaquito Villa MD When: [phone] Disposition: Home with Home Health Minutes spent on discharge:: 35 Patient Condition:: Stable Medical Necessity - Tobacco Use Smoking Status: Former smoker Tobacco Use: Cigarettes Meaningful Use Info Meaningful Use Diagnoses (Choose all that apply): None applicable
--- NOTE | 2018-11-01 08:21 | DS.PCM_ITS ---
Discharge Date and Diagnosis - Problem List Patient Problems: Active and Suspected Problems (Last Reviewed 10/25/18 @ 08:48 by MATT Michelle) Encephalopathy (Acute) Lung mass (Acute) Mediastinal lymphadenopathy (Acute) Lytic bone lesions on xray (Acute) Date of Admission: 09/27/18 Date of Discharge: 11/02/18 - Primary Discharge Diagnosis Active and Suspected Problems (Last Reviewed 10/25/18 @ 08:48 by MATT Baldwin) Encephalopathy (Acute) Lung mass (Acute) Mediastinal lymphadenopathy (Acute) Lytic bone lesions on xray (Acute) - Secondary Discharge Diagnosis Chronic Problems (Last Reviewed 10/25/18 @ 08:48 by MATT Michelle) Atrial fibrillation (Chronic) Alzheimer's disease (Chronic) Depression (Chronic) GERD (gastroesophageal reflux disease) (Chronic) Tinea unguium (Chronic) Toe pain, right (Chronic) Toe pain, left (Chronic) Chronic atrial fibrillation (Chronic) Nonrheumatic tricuspid valve regurgitation (Chronic) Syncope and collapse (Chronic) Atherosclerosis of [place] coronary artery (Chronic) PTCA of RCA intracoronary stent November 1999 Presence of coronary angioplasty implant and graft (Chronic) PTCA of the RCA intracoronary stent 11/1999 HTN (hypertension) (Chronic) HLD (hyperlipidemia) (Chronic) Essential (primary) hypertension (Chronic) CAD (coronary artery disease) (Chronic) BPH (benign prostatic hyperplasia) (Chronic) DM2 (diabetes mellitus, type 2) (Chronic) S/P PTCA (percutaneous transluminal coronary angioplasty) (Chronic) PTCA of RCA intracoronary stent November 1999 HLD (hyperlipidemia) (Chronic) Diabetes mellitus (Chronic) Aphasia (Chronic) Hospital Course and Treatment Imaging Results: 09/30/18 13:21 Diet: Regular Diet Dietary Modifications:: Soft Diet Is pt able to select menu?: Yes Diet Comments: Supervision by family/staff; cut solids into small peices; in chair Clinical Impression(s) from Imaging Studies Chest X-Ray 09/28/18 14:40 KUB X-Ray 10/11/18 09:43 IMPRESSION: Nonspecific bowel gas pattern. Electronically Signed: Dragan Conteh MD at 13:37 EST Tel [phone], Service support , Labs (Last 48 Hours) 11/01/18 11/01/18 06:40 06:40 WBC 6.4 RBC 4.73 Hgb 13.3 Hct 40.1 MCV 84.8 MCH 28.1 MCHC 33.2 RDW 15.0 H RDW Differential 45.4 H Plt Count 200 MPV 9.7 Neut % (Auto) Not Reportable Absolute Neuts (auto) Not Reportable Total Counted 100 Neutrophils % (Manual) 65 Lymphocytes % (Manual) 25 Monocytes % (Manual) 2 Eosinophils % (Manual) 1 Metamyelocytes % 5 H Myelocytes % 2 H Diff Path Review May foll Platelet Estimate ADEQUATE RBC Morphology NORM C+C Sodium 144 Potassium 3.8 Chloride 104 Carbon Dioxide 31.0 Anion Gap 9 BUN 13 Creatinine 0.71 Estim Creat Clear Calc 56.51 Est GFR (MDRD) Af Amer 136 Est GFR (MDRD) Non-Af 113 BUN/Creatinine Ratio 18.2 Glucose 119 H Calcium 8.7 Operations: None Procedures: None Summary of Care Provided: The patient is a 78 year old Male with below past medical history significant for severe Alzheimer's Disease, hospitalized for encephalopathy secondary to community acquired pneumonia, complicated by metastatic lung cancer, admitted to TCU with debility, here for rehabilitation, strengthening, prior to disposition determination. Resident saw Leslie Parsons as outpatient, will need follow up to determine evaluation for potential metastatic lung cancer. Discharge home with spouse, and Home Health Services. Patient Problems: Active and Suspected Problems (Last Reviewed 10/25/18 @ 08:48 by Leslie Parsons, PRIMING MACHINE OPERATOR-C) Encephalopathy (Acute) Lung mass (Acute) Mediastinal lymphadenopathy (Acute) Lytic bone lesions on xray (Acute) - Physical Exam Vital Signs Temp Pulse Resp BP Pulse Ox 97.4 F L 68 16 141/96 H 94 10/29/18 15:39 10/31/18 10:00 10/31/18 10:00 10/30/18 08:48 10/31/18 10:00 Oxygen Flow Rate (L/min) 2 Oxygen Delivery Method Room Air Weight: 67.812 kg Body Mass Index (BMI) 24.0 Finger Stick Blood Glucose 181 Intake and Output for Last 24 Hours 10/30/18 10/31/18 11/01/18 23:59 23:59 23:59 Intake Total 510 / 510 240 / 240 120 / 120 Output Total 300 / 300 Balance 510 / 510 -60 / -60 120 / 120 Laboratory Tests Past 24 Hrs 11/01/18 11/01/18 06:40 06:40 WBC 6.4 RBC 4.73 Hgb 13.3 Hct 40.1 MCV 84.8 MCH 28.1 MCHC 33.2 RDW 15.0 H RDW Differential 45.4 H Plt Count 200 MPV 9.7 Neut % (Auto) Not Reportable Absolute Neuts (auto) Not Reportable Total Counted 100 Neutrophils % (Manual) 65 Lymphocytes % (Manual) 25 Monocytes % (Manual) 2 Eosinophils % (Manual) 1 Metamyelocytes % 5 H Myelocytes % 2 H Diff Path Review May foll Platelet Estimate ADEQUATE RBC Morphology NORM C+C Sodium 144 Potassium 3.8 Chloride 104 Carbon Dioxide 31.0 Anion Gap 9 BUN 13 Creatinine 0.71 Estim Creat Clear Calc 56.51 Est GFR (MDRD) Af Amer 136 Est GFR (MDRD) Non-Af 113 BUN/Creatinine Ratio 18.2 Glucose 119 H Calcium 8.7 Discharge Diet: No Restrictions Discharge Activity: Return to Normal Activity, May Shower, Use Walker Weight Bearing Status: Weight bearing as tolerated Call your doctor if you observe: Fever of 101 or Higher, Inability to urinate, Inability to have a bowel movement, Shortness of breath, Chest pain, Uncontrolled pain Home Medications: Medications to take at Discharge Atorvastatin Calcium [Lipitor] 10 mg PO QHS 11/30/14 Donepezil HCl [Aricept] 10 mg PO DAILY 09/30/16 Tamsulosin HCl [Flomax] 0.8 mg PO QHS 09/30/16 Cholecalciferol (Vitamin D3) [Vitamin D3] 2,000 unit PO DAILY 11/04/16 Metformin HCl [Metformin HCl ER] 500 mg PO BID 11/04/16 Albuterol Sulfate [Ventolin Hfa] 18 gm IH DAILY PRN 05/03/17 memantine 5 mg tablet 5 mg PO QDAY 11/25/17 escitalopram 10 mg tablet 10 mg PO QDAY 12/29/17 Aspirin E.C. [Ecotrin] 81 mg PO DAILY 09/22/18 Fluticasone 0.05% [Flonase Nasal [place]] 1 spray NASAL PRN PRN 09/22/18 Levothyroxine Sodium [Synthroid] 125 mcg PO DAILY 09/22/18 Omeprazole Magnesium [Prilosec Otc] 20 mg PO DAILY 09/22/18 Ramipril 10 mg PO DAILY 09/22/18 Apixaban [Eliquis] 5 mg PO BID 09/27/18 Acetaminophen [Tylenol] 1,000 mg PO Q6H PRN PRN tablet 11/01/18 Donepezil HCl [Aricept] 10 mg PO QHS tablet 11/01/18 Lactobacillus Acidophilus [Acidophilus] 1 tablet PO 0800 tablet 11/01/18 Menthol/Lanolin/Calamine/Znox [Calmoseptine Ointment] 1 applic TOPICAL 0800,2200 tube 11/01/18 Mirtazapine [Remeron] 15 mg PO QHS #30 tablet 11/01/18 Nystatin Powder [Mycostatin Powder] 1 applic TOPICAL 0800,2200 bottle 11/01/18 Following Prescrptions Were Given to Patient: Mirtazapine [Remeron] 15 mg PO QHS #30 tablet Primary Care Physician: Julio C Ridley MD [Primary Care Provider] - Please follow up with your Primary Care Physician in: 1 week. Please Follow Up With: Abdelrahman Mack MD When: 11/25/2018. Please Follow Up With: Flaquito Villa MD When: [phone] Disposition: Home with Home Health Minutes spent on discharge:: 35 Patient Condition:: Stable Medical Necessity - Tobacco Use Smoking Status: Former smoker Tobacco Use: Cigarettes Meaningful Use Info Meaningful Use Diagnoses (Choose all that apply): None applicable
--- NOTE | 2018-11-01 08:21 | HHNOTE_ITS ---
Home Health Note - Plan Overview of reason of hospitalization: The patient is a 78 year old Male with below past medical history significant for severe Alzheimer's Disease, hospitalized for encephalopathy secondary to community acquired pneumonia, complicated by metastatic lung cancer, admitted to TCU with debility, here for rehabilitation, strengthening, prior to disposition determination. Resident saw Leslie Parsons as outpatient, will need follow up to determine evaluation for potential metastatic lung cancer. Discharge home with spouse, and Home Health Services. Problems: Patient was seen for (Last Reviewed 10/25/18 @ 08:48 by Leslie Parsons, ELECTRONICS DEPARTMENT MANAGER-C) Encephalopathy (Acute) Lung mass (Acute) Mediastinal lymphadenopathy (Acute) Lytic bone lesions on xray (Acute) Atrial fibrillation (Chronic) Alzheimer's disease (Chronic) Depression (Chronic) GERD (gastroesophageal reflux disease) (Chronic) Tinea unguium (Chronic) Toe pain, right (Chronic) Toe pain, left (Chronic) Complete List of Medical Problems (Last Reviewed 10/25/18 @ 08:48 by Leslie Parsons NP-Suzette) Weakness (Acute) Community acquired pneumonia (Acute) Encephalopathy (Acute) Lung mass (Acute) Mediastinal lymphadenopathy (Acute) Lytic bone lesions on xray (Acute) Atrial fibrillation (Chronic) Alzheimer's disease (Chronic) Depression (Chronic) GERD (gastroesophageal reflux disease) (Chronic) Tinea unguium (Chronic) Toe pain, right (Chronic) Toe pain, left (Chronic) Chronic atrial fibrillation (Chronic) Nonrheumatic tricuspid valve regurgitation (Chronic) Syncope and collapse (Chronic) Atherosclerosis of [place] coronary artery (Chronic) Presence of coronary angioplasty implant and graft (Chronic) HTN (hypertension) (Chronic) HLD (hyperlipidemia) (Chronic) Essential (primary) hypertension (Chronic) CAD (coronary artery disease) (Chronic) BPH (benign prostatic hyperplasia) (Chronic) DM2 (diabetes mellitus, type 2) (Chronic) S/P PTCA (percutaneous transluminal coronary angioplasty) (Chronic) HLD (hyperlipidemia) (Chronic) Diabetes mellitus (Chronic) Aphasia (Chronic) - Requirements and Reasons Disciplines Needed/Ordered: Physical Therapy Reason for Disciplines: Gait Training, Stair Training, Fall Prevention, Home Safety/Equipment Instruction, Balance and/or Posture Training, Transfer Training Related To: Limited/Poor Endurance, Shortness of Breath with Activity, Physical Impairments, Unsteady Gait/Balance, Fall Risk Patient is unable to leave the home: Without Aid of Supportive Devices (crutches, cane, wheelchair, walker), Without the assistance of another person - Additional Disciplines Additional Disciplines Needed/Ordered: Occupational Therapy
[2018-11-01] MEDS: Aspirin E.C. 81 MG Tablet PO (08:41)
[2018-11-01] MEDS: Ramipril 10 MG Capsule PO (08:41)
[2018-11-01] MEDS: Polyethylene Glycol 3350 17 GM PACKET PO (08:42)
[2018-11-01] MEDS: predniSONE 10 MG Tablet PO (08:42)
[2018-11-01] MEDS: Escitalopram Oxalate 10 MG Tablet PO (08:42)
[2018-11-01] MEDS: APIXABAN 5 MG TABLET PO ×2 (08:42→17:42)
[2018-11-01] MEDS: Menthol/Lanolin/Calamine/Znox 113 GM Tube 1 APPLIC TOPICAL ×2 (08:46→21:19)
[2018-11-01] MEDS: Nystatin Powder 15gm Bottle 1 APPLIC TOPICAL ×2 (08:47→21:20)
[2018-11-01 08:48] VITALS: BP 139/68; PULSE 91
[2018-11-01 10:19] VITALS: BP 141/84; PULSE 75; RESP 18; TEMP 36.2; O2SAT 95
--- NOTE | 2018-11-01 10:21 | NURSING ---
THIS NURSE CALLED TO PT ROOM. UPSET,STATED PT GOT UP TO BRUSH TEETH AND THREW UP. PT STATED THE COLOR JUST DRAINED FROM HIS FACE. VITALS DONE AND DOCUMENTED. ASKED PT HOW HE WAS FEELING,PT STATED HE FELT OK. THIS NURSE STATED TO PT IF PT NEEDS TO GET UP OR ANY MORE CONCERNS TO PLEASE CALL US. AGREED REPORTED TO LIBERTAD HERNANDEZ
--- NOTE | 2018-11-01 12:56 | CASEMGMT ---
Social Work Spoke with resident and resident family in room. This social work manager communicating that physical and occupational therapy are recommending for resident to continue with services within the home for home health care. Resident/resident family is agreeable to recommendation and requesting for home health care to be set up through [facility] ([facility]). Resident also needs a walker at time of discharge. Resident/resident family does not have a preference of durable medical equipment, [employer] to be utilized. Resident spouse to provide transportation home for resident at time of discharge. Support given. [facility] This social work manager making referral for physical and occupational therapy. Order completed. Telephone call to Maricel Bush. This social work manager making referral for front wheeled walker. Order faxed. Eleazar to provide walker to resident room prior to resident discharge. Proposed discharge date: 11/02/18 PLAN: Discharge to home with spouse and home health care. THOMAS Chandler, RECREATIONAL DIRECTOR
[2018-11-01 14:00] VITALS: PULSE 76; RESP 16; O2SAT 96
[2018-11-01 15:19] VITALS: BP 112/57; PULSE 90; RESP 18; TEMP 37; O2SAT 95
--- NOTE | 2018-11-01 16:57 | CASEMGMT ---
Brief interview for mental status (BIMS) and resident mood interview (PHQ-9) completed on this day. BIMS score 06/21. PHQ-9 score
[2018-11-01] MEDS: Tamsulosin HCl 0.4 MG Capsule 0.8 MG PO (21:21)
[2018-11-01] MEDS: Mirtazapine 15 MG Tablet PO (21:21)
[2018-11-01] MEDS: Donepezil HCl 10 MG Tablet PO (21:22)
[2018-11-02] MEDS: Levothyroxine 125 MCG Tablet PO (06:59)
[2018-11-02] MEDS: Nystatin Powder 15gm Bottle 1 APPLIC TOPICAL (08:38)
[2018-11-02] MEDS: Menthol/Lanolin/Calamine/Znox 113 GM Tube 1 APPLIC TOPICAL (08:38)
[2018-11-02] MEDS: predniSONE 10 MG Tablet PO (08:40)
[2018-11-02] MEDS: Ramipril 10 MG Capsule PO (08:40)
[2018-11-02] MEDS: Escitalopram Oxalate 10 MG Tablet PO (08:40)
[2018-11-02] MEDS: APIXABAN 5 MG TABLET PO (08:40)
[2018-11-02] MEDS: Aspirin E.C. 81 MG Tablet PO (08:40)
[2018-11-02] MEDS: Polyethylene Glycol 3350 17 GM PACKET PO (08:45)
[2018-11-02 09:17] VITALS: PULSE 74; RESP 16; O2SAT 94
[2018-11-02 11:35] VITALS: BP 146/83; PULSE 90; RESP 16; TEMP 36.6
[2018-11-02 14:14] LABS: Pathologist Review Reviewed
--- NOTE | 2018-11-02 15:26 | CASEMGMT ---
Insurance Notified insurance of resident discharge on 11/02/18 to home with spouse and home health care. Auth#[id number] THOMAS Chandler, [employer]ER
== END 2018-11-02 12:15 | disposition home health service (06) | DRG 947 ==
PROVIDERS: Admitting Provider Family Medicine Geriatric Medicine; Family Provider Family Medicine; PCP Family Medicine; Referring Provider Family Medicine Geriatric Medicine; Visit Provider Family Medicine Geriatric Medicine
DX: R53.81 Other malaise (principal); J18.1 Lobar pneumonia, unspecified organism; C34.90 Malignant neoplasm of unspecified part of unspecified bronchus or lung; G93.40 Encephalopathy, unspecified; R47.01 Aphasia; Z79.01 Long term (current) use of anticoagulants; I48.2 Chronic atrial fibrillation; I25.10 Atherosclerotic heart disease of native coronary artery without angina pectoris; E78.5 Hyperlipidemia, unspecified; E03.9 Hypothyroidism, unspecified; K21.9 Gastro-esophageal reflux disease without esophagitis; Z23 Encounter for immunization; F32.9 Major depressive disorder, single episode, unspecified; E11.9 Type 2 diabetes mellitus without complications; G30.9 Alzheimer's disease, unspecified; F02.80 Dementia in other diseases classified elsewhere, unspecified severity, without behavioral disturbance, psychotic disturbance, mood disturbance, and anxiety; E55.9 Vitamin D deficiency, unspecified; N40.0 Benign prostatic hyperplasia without lower urinary tract symptoms; I10 Essential (primary) hypertension; Z95.5 Presence of coronary angioplasty implant and graft; Z87.891 Personal history of nicotine dependence; R59.0 Localized enlarged lymph nodes; B35.1 Tinea unguium; M79.674 Pain in right toe(s); M79.675 Pain in left toe(s); L60.2 Onychogryphosis; M89.9 Disorder of bone, unspecified
CPT/HCPCS: 36415; 71045; 74018; 80048; 81001; 82962; 85025; 87086; 92507; 92526; 92610; 97110; 97116; 97161; 97165; 97530; 97535; 97802; J7030; 90670; A4216

== ENCOUNTER → 2018-11-21 08:05 | Outpatient (CLI) | payer MEDICARE, SELFPAY ==
[2018-10-25 08:37] VITALS: BMI 20.2
--- NOTE | 2018-11-21 08:08 | CT_ITS ---
STUDY: CT CHEST WITHOUT CONTRAST REASON FOR EXAM: Male, 78 years old. History of right lung nodule. The patient was scheduled for percutaneous biopsy of the right upper lobe nodule. RADIATION DOSAGE (If Supplied By Facility): CTDIvol = ( 20.37 ) mGy, DLP = ( 475.87 ) mGycm TECHNIQUE: Transaxial imaging was performed without the administration of intravenous contrast material. Individualized dose optimization techniques were used for this CT. COMPARISON: Comparison is made with prior study dated September 23, 2018. FINDINGS: Since prior study, there is slight improvement in the right upper lobe infiltration. There is a persistent 1.3 cm nodule in the lateral posterior aspect of the right upper lobe as seen on axial image #7. The previously seen nodular infiltration in the right lower lobe has improved. Residual airspace disease is seen. The biopsy was canceled. Further follow-up is recommended. There is no demonstrated pleural abnormality. CT/Chest without Contrast IMPRESSION: The scheduled biopsy of the right lower lobe nodular densities was canceled as described. Further follow-up is recommended. Electronically Signed: Dragan Conteh MD at 9:29 EST Tel [phone], Service support ,
[2018-11-21 08:45] LABS: Platelet Count 217 K/mm3 (150-450)
[2018-11-21 09:09] LABS: Prothrombin Time (Protime)PT. 13.3 SECONDS (11.7-14.9)
[2018-11-21 09:10] LABS: Partial Thromboplast Time 41.7 Seconds (24.1-36.2)
[2018-11-21 09:23] VITALS: BP 141/79; PULSE 89; RESP 16; TEMP 36.7; O2SAT 99; BMI 20.9
[2018-11-21 10:19] VITALS: BP 153/93; PULSE 74; RESP 16; O2SAT 96
== END ==
PROVIDERS: Family Provider Family Medicine; PCP Family Medicine; Referring Provider Nurse Practitioner Acute Care; Visit Provider Nurse Practitioner Acute Care
DX: R91.1 Solitary pulmonary nodule (principal); J18.1 Lobar pneumonia, unspecified organism; I48.2 Chronic atrial fibrillation
CPT/HCPCS: 36415; 71250; 85049; 85610; 85730; J7040; A4216

== ENCOUNTER → 2018-12-11 13:35 | Outpatient (CLI) | payer MEDICARE, SELFPAY ==
[2018-11-30 10:57] VITALS: BMI 21.9
--- NOTE | 2018-12-11 13:30 | SP.MBSS_ITS ---
PRIMARY / SECONDARY DIAGNOSIS: dysphagia (R13.10) REFERRING PHYSICIAN: Dr. Israel Corrigan DO CURRENT DIET: regular-soft textures, thin liquids DENTITION: upper / lower dentures MENTAL STATUS: appropriate for participation RESPIRATORY STATUS: O2 via room air PREVIOUS MODIFIED BARIUM SWALLOW STUDY: none REASON FOR REFERRAL: Patient is an 78 year old male referred for a modified barium swallow (MBS) study to objectively assess the Patients oropharyngeal swallow function under fluoroscopy secondary to persistent dysphagia, with recent concerns for aspiration into the airway arising post pulmonology appointment. The Patient and Patients family is well known to this clinician from the initial portions of his recent [facility] admission on 09/27/2018, in which he was later transferred to [facility] admission from 09/27/2018 to 11/01/2018 due to community acquired pneumonia with encephalopathy complicated by what was thought to be metastatic lung cancer (appears to have resolved, with possible attribution to chronic lung disease and / or resolving infection per pulmonology documentation). He was discharged on a regular-soft textured, thin liquid diet with the following recommended aspiration precautions in place: supervision by staff or family, seated upright at 90 degrees in chair, and medications with liquid chaser. MEDICAL HISTORY: Alzheimer's disease with aphasia, gastroesophageal reflux disease, coronary artery disease, coronary angioplasty implant and graft, atherosclerosis of [place] coronary artery, nonrheumatic tricuspid valve regurgitation, chronic atrial fibrillation, essential hypertension, hyperlipidemia, benign prostatic hyperplasia, syncope and collapse, type II diabetes mellitus, depression, tinea unguium, bilateral toe pain; hearing impairment with bilateral hearing aids. STUDY FINDINGS: Patient participated in a Modified Barium Swallow (MBS) study on 12/11/2018. Dr. Conteh was the radiologist present for this evaluation. This study was recorded in the lateral view and images were sent to PACs for storage. The following consistencies were presented to this patient for analysis of oropharyngeal swallow function: thin liquids, pudding, and a regular textured, [place] cookie. Results of the MBS are as follows: PENETRATION / ASPIRATION SCALE (LOPEZ): 1 = does not enter airway 2 = enters airway/above vocal folds/ejected 3 = enters airway/above vocal folds/not ejected 4 = enters airway/contacts vocal folds/ejected 5 = enters airway/contacts vocal folds/not ejected 6 = enters airway/below vocal folds/ejected 7 = enters airway/below vocal folds/not ejected despite effort 8 = enters airway/below vocal folds/no effort PENETRATION / ASPIRATION SCALE (SCORE): Thin liquid - 5 mL tsp.: 2 Thin liquids via cup (single sip): 5 Thin liquids via cup (single sip): 3 Thin liquids via cup (sequential swallows): 2 Thin liquids via straw (sequential swallows): 2 Thin liquids via straw (chin tuck): 1 Thin liquids via straw (chin tuck): 1 Thin liquids via straw (chin tuck): 1 Pudding via spoon: 1 Regular textured cookie: 1 Thin liquids via cup (chin tuck): 2 IMPRESSION: DIAGNOSIS: mild to moderate oropharyngeal dysphagia (R13.12) Dysphagia Severity Rating Scale (DSRS): 3 ORAL PHASE CHARACTERIZED BY: LABIAL SEAL: no labial escape TONGUE CONTROL DURING BOLUS MANIPULATION: escape to lateral buccal cavity/floor of mouth BOLUS PREPARATION / MASTICATION: timely and efficient chewing and mashing BOLUS TRANSPORT / LINGUAL MOTION: brisk tongue motion ORAL RESIDUE: trace residue lining oral structures PHARYNGEAL PHASE CHARACTERIZED BY: INITIATION OF PHARYNGEAL SWALLOW: bolus head in valleculae at first hyoid excursion SOFT PALATE ELEVATION: no bolus between soft palate and pharyngeal wall LARYNGEAL ELEVATION: partial superior movement of thyroid cartilage/partial approximation of arytenoids cartilage to epiglottic petiole ANTERIOR HYOID EXCURSION: partial anterior movement EPIGLOTTIC MOVEMENT: complete epiglottic inversion LARYNGEAL VESTIBULE CLOSURE AT HEIGHT OF SWALLOW: incomplete laryngeal vestibule closure with narrow column of air/contrast in laryngeal vestibule PHARYNGEAL STRIPPING WAVE: pharyngeal stripping wave present / complete PHARYNGOESOPHAGEAL SEGMENT OPENING: complete distension and complete duration with no obstruction of flow TONGUE BASE RETRACTION: trace column of contrast between tongue base and posterior pharyngeal wall PHARYNGEAL RESIDUE: collection of residue within or on pharyngeal structures (pyriforms occasionally with thin liquids) ESOPHAGEAL PHASE CHARACTERIZED BY: ESOPHAGEAL BOLUS CLEARANCE IN THE UPRIGHT POSITION: complete clearance; esophageal coating EFFECTS OF TREATMENT STRATEGIES ATTEMPTED: Chin tuck posture = effective Anterior lean = effective Use of straw = effective DIET TEXTURE RECOMMENDATIONS: Will recommend a regular-soft textured, thin liquid diet. COMPENSATORY STRATEGIES RECOMMENDED: Chin tuck with thin liquids, reduced bolus volume, reduced rate of intake, straws with all liquids, seated upright at 90 degrees / slight anterior lean during PO intake, remain upright for 30-60 minutes post meal (GERD precaution), medications whole with applesauce. INTERPRETATION OF RESULTS: Patient presents with mild to moderate oropharyngeal dysphagia (R13.12) likely secondary to the diagnosis of dementia in addition to secondary presbyphagia. Oral preparatory phase marked by mild (albeit effective) mastication inefficiency with prolonged mastication; sufficient oral containment; preserved management of breathing / bolus formation without disrupted E ? S ? E pattern. Oral transitional phase appears unremarkable; sufficient bolus transportation; sufficient oral clearance; mild premature posterior bolus loss managed with chin tuck posture. Pharyngeal phase marked by mild reduction in hyolaryngeal excursion resulting in suboptimal laryngeal vestibule pressure with insufficient / inconsistent laryngeal vestibule pressure generated to expel penetrated material; very mild pharyngeal swallow delay / dyssynchrony (improved with execution of the chin tuck posture); sufficient pharyngeal dysmotility; sufficient velopharyngeal functioning. All deficits ameliorated with bolus volume adjustments and execution of the chin tuck posture. . RECOMMENDATIONS: The Patient requires continued skilled speech-language intervention targeting diet texture management and training / implementation of recommended compensatory strategies (namely the chin tuck posture); Patient / caregiver education regarding dysphagia and dementia. Would consider training and implementation of oropharyngeal strengthening exercises to facilitate improved oropharyngeal strength and coordination, though significant physical improvement is not likely due to the attributed etiology of the Patients swallow deficit, with intervention to primarily target behavioral / postural adjustments. ADDITIONAL COMMENTS/RECOMMENDATIONS: Results and recommendations were discussed with the Patient immediately following MBS completion, with the Patient verbalizing understanding and agreement with all recommendations and education provided. 35 minutes spent attaining order for study completion. IMAGE COUNT: 1950 Jose Juan Forde M.A., CCC-[employer] LEAD MBSImP Certified, LSVT Certified [facility] Speech-Language Pathology Department [email or web address]
--- NOTE | 2018-12-11 14:02 | RAD_ITS ---
STUDY: SWALLOWING STUDY REASON FOR EXAM: Male, 78 years old. Dysphagia. TECHNIQUE: The examination was performed with Speech Pathology in attendance. Under fluoroscopic observation, the patient ingested thin barium, thick barium, barium pudding, and barium coated cracker. FLUOROSCOPY TIME: 2:14 minutes/seconds. 1950 fluoroscopic images were obtained. RADIOLOGIST INVOLVEMENT: Radiologist was present and providing direct supervision. COMPARISON: None. FINDINGS: The following was observed during swallowing of the various mixtures of barium: Thin Barium: Transient penetration with ingestion of thin liquids. This improves with the use of the straw. Barium Pudding: There was no evidence of aspiration or laryngeal penetration. Barium Coated Cracker: There was no evidence of aspiration or laryngeal penetration. RAD/Swallowing Function w/Video IMPRESSION: Transient penetration with ingestion of thin liquids. The swallow study findings were discussed with the patient by the speech pathologist at the conclusion of the examination. Please see speech pathology report for more information and recommendations. Electronically Signed: Dragan Conteh MD at 14:59 EST , Service support ,
== END ==
PROVIDERS: Family Provider Family Medicine; PCP Family Medicine; Referring Provider Internal Medicine Critical Care Medicine; Visit Provider Internal Medicine Critical Care Medicine
DX: R13.10 Dysphagia, unspecified (principal)
CPT/HCPCS: 74230; 92611

== ENCOUNTER → 2018-12-12 14:18 | Outpatient (CLI) | payer MEDICARE, SELFPAY ==
[2018-11-30 10:57] VITALS: BMI 21.9
--- NOTE | 2018-12-12 14:25 | RAD_ITS ---
STUDY: X-RAY - LUMBAR SPINE REASON FOR EXAM: Male, 78 years old. Back pain. TECHNIQUE: 5 view(s) of the lumbar spine were obtained. COMPARISON: None FINDINGS: There is straightening of the normal lumbar lordosis. There is no substantial scoliosis. There is a normal alignment of the vertebrae. There is multilevel endplate spondylosis of the lumbar vertebrae. There is severe disc space narrowing of L3-L4 and to lesser extent L2-L3. There are posterior degenerative spurs at the level of L3-L4. There is no demonstrated fracture. The oblique views are suboptimal. There is probable spondylolysis at L5. There is atherosclerotic calcification of the abdominal aorta without a demonstrated aneurysm. Residual barium in the colon is seen. RAD/L/S Spine Min 4 Views IMPRESSION: Degenerative changes of the spine, as detailed above. Electronically Signed: Dane oColey MD at 13:55 EST Tel , Service support ,
[2018-12-12 17:30] LABS: Hematocrit 42.2 % (40-54); Hemoglobin 13.6 g/dl (13.0-16.5); Mean Corp Hgb Conc 32.2 g/gl (32-36); Mean Corpuscular Hgb 27.8 pg (27.0-32.0); Mean Corpuscular Volume 86.3 fL (80-94); Mean Platelet Vol. 10.7 fl (6.2-12.0); Platelet Count 273 K/mm3 (150-450); RBC Distribution Width CV 15.1 % (11.6-14.6); RBC Distribution Width SD 47.1 fl (35.1-43.9); Red Blood Count 4.89 M/mm3 (4.6-6.2); White Blood Count 6.6 K/mm3 (4.4-11.0)
[2018-12-12 17:35] LABS: Scan Indicated on CBC? Y/N NO
[2018-12-12 17:48] LABS: ALB/GLOB Ratio 0.9 RATIO (0.9-2.4); AST(SGOT) 40 U/L (15-37); Alanine Aminotransfer ALT/SGPT 37 U/L (16-61); Albumin, Serum 3.6 g/dL (3.2-5.0); Alkaline Phosphatase 203 U/L (45-117); Anion Gap 13 (5-15); BUN 7 mg/dL (7-18); Calcium,Total 9.1 mg/dL (8.5-10.1); Chloride 103 mmol/L (98-107); Creatinine, Serum 0.78 mg/dL (0.70-1.30); EST Glomerular Filtration Rate 101 mL/min (>60); Est Glom Filt Rate - Afr Amer 123 mL/min (>60); Glucose 102 mg/dL (74-106); Potassium 4.2 mmol/L (3.5-5.1); Protein, Total 7.6 g/dL (6.4-8.2); Sodium Level 142 mmol/L (136-145); Thyroid Stim Hormone (TSH) 1.17 uIU/mL (0.358-3.74)
[2018-12-12 18:15] LABS: PTHIN 22.9 pg/mL (18.4-80.1)
[2018-12-13 11:13] LABS: BNP,B-Type NATRIURETIC PEPTIDE 104.2 pg/mL (0-100)
== END ==
PROVIDERS: Family Provider Family Medicine; PCP Family Medicine; Referring Provider Family Medicine; Visit Provider Family Medicine
DX: R60.0 Localized edema (principal); M54.5 Low back pain; I25.10 Atherosclerotic heart disease of native coronary artery without angina pectoris
CPT/HCPCS: 36415; 72110; 80053; 83880; 83970; 84443; 85027

== ENCOUNTER 2018-12-14 11:00 | Outpatient (RCR) | payer MEDICARE, SELFPAY ==
[2018-11-30 10:57] VITALS: BMI 21.9
--- NOTE | 2018-12-07 10:45 | SOAP_ITS ---
REASON FOR REFERRAL: The Patient is an 78 year old male referred for a clinical assessment of the swallow function at [facility] on 12/07/2018 due to persistent dysphagia, with recent concerns for aspiration into the airway arising post pulmonology appointment. The Patient and Patients family is well known to this clinician from the initial portions of his recent [facility] admission on 09/27/2018, in which he was later transferred to [facility] Transitional Care Unit admission from 09/27/2018 to 11/01/2018 due to community acquired pneumonia with encephalopathy complicated by what was thought to be metastatic lung cancer (appears to have resolved, with possible attribution to chronic lung disease and / or resolving infection per pulmonology documentation). He was discharged on a regular-soft textured, thin liquid diet with the following recommended aspiration precautions in place: supervision by staff or family, seated upright at 90 degrees in chair, and medications with liquid chaser. The Patient was accompanied by his , with both providing insight into the Patient?s intake concerns since the last session with this clinician. Both report intermittent coughing particularly with thin liquids that appear to be more prominent towards the latter portions of meals. Since discharge from the Transitional Care Unit, both report a somewhat steady appetite that has improved in comparison to pre-acute admission with the maintained weights; the Patient reports persistent xerostomia, and denies the presence of diurnal sialorrhea. He reports mild hypogeusia, denies dysgeusia / ageusia. Denies the presence of globus sensation, odynophagia, substernal discomfort, or reflux. Both deny suboptimal intake behaviors (tachyphagia, bolus bolting, aerophagia), though report quite frequent post prandial eructation along with long duration of meals (> 30 minutes). Both report placement on nectar thickened liquids following completion of the 11/22/[address], though it is unclear as to who recommended this (no documentation found within EMR), with fluctuating compliance to date. MEDICAL HISTORY: Alzheimer's disease with aphasia, gastroesophageal reflux disease, coronary artery disease, coronary angioplasty implant and graft, atherosclerosis of [place] coronary artery, nonrheumatic tricuspid valve regurgitation, chronic atrial fibrillation, essential hypertension, hyperlipidemia, benign prostatic hyperplasia, syncope and collapse, type II diabetes mellitus, depression, tinea unguium, bilateral toe pain; hearing impairment with bilateral hearing aids. PREVIOUS MODIFIED BARIUM SWALLOW STUDY: none ADDITIONAL OBJECTIVE ASSESSMENT RESULTS: 11/22/[address] revealed a slight improvement in the right upper lobe infiltration; persistent 1.3 cm nodule in the lateral posterior aspect of the right upper lobe; improved nodular infiltration in the right lower lobe. 09/23/[address] revealed right lower lobe lung mass associated with prominent right hilar and mediastinal lymphadenopathy; right lower lobe and right upper lobe pulmonary nodules may reflect additional neoplasia; infiltrate of the right upper lobe posterior basilar segment is most suspicious for acute pneumonia; centered within this is a 1.3 cm pulmonary nodule suspicious for additional neoplasia; cardiomegaly and prominent three- vessel coronary atherosclerosis; conspicuous appearance of the bones, numerous small lytic foci, heterogeneous pattern of osteopenia, which must be regarded with suspicion for metastatic disease. 09/22/2018 CT revealed no acute intracranial findings or changes; negative for hemorrhage, hematoma or mass density; stable chronic involutional changes. ORAL MOTOR / MODIFIED CRANIAL NERVE ASSESSMENT: CN V, VII, IX, X, and IX grossly intact. Upper / lower dentures in place (ill-fitting). Mild xerostomia. Sufficient volitional cough intensity. Mild reflexive lip cupping with digital inspection of the oral cavity. No signs or symptoms of trismus. Mild horse vocal quality. SUPPLEMENTARY DYSPHAGIA ASSESSMENT RESULTS: Eating Assessment Tool ? 10 (EAT-10): 5 Sialorrhea Scoring Scale (SSS): 1/9 (dry, never drools) CLINICAL ASSESSMENT OF SWALLOW FUNCTION (STRUCTURED): Repetitive Saliva Swallowing Test (RSST): Pass; > 2 dry swallows within 30 seconds. 1oz (30mL) Water Swallowing Test (WST): Normal ? 1 (of 5); Drink all the water in one gulp without choking 3oz (90mL) Water Swallow Test (3oz WST): Abnormal; Throat clearing; Inability to consume entire amount Food Test: 5 (of 5); Score 4, plus two or more additional dry swallows in 30 seconds Bernstein Assessment of Swallowing Ability (MASA) Dysphagia Severity Score: 177 (mild) MASA Aspiration Severity Score: 177 (unremarkable) MASA Dysphagia Risk Rating: Probable; moderate evidence for disorder Swallowing Performance Scale (PSP): 4 (mild-moderate) CLINICAL ASSESSMENT OF SWALLOW FUNCTION (SUBJECTIVE): ORAL PREPARATORY PHASE: oral preparatory phase marked by mild (albeit effective) mastication inefficiency with prolonged mastication; sufficient oral containment; preserved management of breathing / bolus formation without disrupted E ? S ? E pattern. ORAL TRANSITIONAL PHASE: oral transitional phase appears unremarkable; sufficient bolus transportation; sufficient oral clearance; no signs or symptoms of premature posterior bolus loss. PHARYNGEAL PHASE: pharyngeal phase marked by mild reduction in hyolaryngeal excursion upon digital palpation possibly suggestive of suboptimal laryngeal vestibule closure / pressure / duration; consistent audible swallow with thin liquids possibly suggestive of pharyngeal swallow delay / dyssynchrony (improved with increased viscosities and / or use of chin tuck posture); no subjective signs of pharyngeal dysmotility; no subjective signs of velopharyngeal impairments; occasional coughing / throat clearing during consumption of thin liquids indicative of overt aspiration (ameliorated with chin tuck execution and / or viscosity adjustments); no further signs or symptoms of penetration / aspiration throughout trials. ESOPHAGEAL PHASE: esophageal phase marked by consistent post prandial eructation that appeared to improve with volume adjustments and execution of the chin tuck posture; otherwise esophageal phase appears unremarkable COMPLICATING FACTORS: complicating factors include baseline dementia that may impede with implementation of compensatory strategies. RESULTS OF THE EVALUATION: Clinical assessment of the swallow function completed this date, with the Patient presenting with mild to moderate oropharyngeal dysphagia (R13.12) likely secondary to the diagnosis of dementia in addition to secondary presbyphagia. RECOMMENDATIONS: Cannot definitively rule out silent aspiration at bedside; will recommend advancing with objective assessment of the oropharyngeal swallow function, particularly given the concerns raised during the Patients most recent pulmonology appointment. The Patient requires intensive skilled speech- language intervention targeting diet texture management and training / implementation of recommended compensatory strategies; Patient / caregiver education regarding dysphagia and dementia; with goal adjustment pending MBS completion (tentatively scheduled for 12/11/2018 at 1330). Encouraged continued use of the Patients incentive spirometer prior to completion of the MBS. DIET TEXTURE RECOMMENDATIONS: Will recommend a regular-soft textured, thin liquid diet with the following recommended aspiration precautions in place: distant supervision by family, chin tuck with thin liquids, straws with liquids, seated upright at 90 degrees during PO intake, remain upright for 30-60 minutes post meal (GERD precaution), medications one at a time with liquid chaser. FUNCTIONAL OUTCOMES: OUTCOME 1: The Patient will tolerate the least restrictive means of nutrition to facilitate adequate hydration / nutrition with optimum safety and efficiency of swallowing function during P.O. intake without overt signs and symptoms of aspiration. OUTCOME 2: The Patient will demonstrate and utilize recommended compensatory swallowing techniques to facilitate improved airway protection and decreased risk for aspiration during PO intake, across 3 consecutive sessions OUTCOME 3: The Patient will participate in a Modified Barium Swallow (MBS) study to objectively assess the Patient?s oropharyngeal swallowing function, to determine the least restrictive means of nutrition, to objectively assess the effectiveness of previously identified strategies / precautions, and to identify appropriate intervention approaches / strategies to implement during treatment sessions at the supervised level. OUTCOME 4: goal adjustment as needed post MBS Jose Juan Forde M.A., CCC-APPEALS NURSE MBSImP Certified; LSVT Certified [facility] Speech-Language Pathology Department [email or web address]
--- NOTE | 2019-07-06 14:53 | HP.SP.DC_ITS ---
ST Discharge Summary - Discharged: Discharge: The Patient is a 78 year old male who attended 2 skilled speech- language intervention sessions spanning from 12/07/2018 to 12/14/2018 targeting persistent dysphagia with concerns for aspiration into the airway arising post pulmonology appointment. The Patient participated in a 12/11/2018 MBS, with revealed mild to moderate oropharyngeal dysphagia (R13.12; DSRS:3) with penetration during trials of thin liquids without consistent ejection (ameliorated with execution of the chin tuck posture). The Patient participated in 1 intervention session consisting of training and implementation of compensatory intake postures (chin tuck posture with anterior lean). The Patient contacted [facility] on 01/03/2019, reporting that the Patient had fallen the week prior, and emotionally reported that she does not feel that he can participate in speech-language intervention targeting dysphagia any longer, and requested discharge from the caseload. Will discharge from the skilled speech-language pathology caseload as requested, though would gladly re-initiate intervention as needed moving forward.
== END 2018-12-14 19:00 | disposition home or self-care (01) ==
LOC: SP 11:00
PROVIDERS: Family Provider Family Medicine; PCP Family Medicine; Referring Provider Internal Medicine Critical Care Medicine; Visit Provider Internal Medicine Critical Care Medicine
DX: T17.908A Unspecified foreign body in respiratory tract, part unspecified causing other injury, initial encounter (principal); R47.02 Dysphasia
CPT/HCPCS: 92526; 92610

== ENCOUNTER → 2018-12-26 16:44 | Outpatient (CLI) | payer MEDICARE, SELFPAY ==
[2018-11-30 10:57] VITALS: BMI 21.9
[2018-12-26 17:30] LABS: Hematocrit 42.1 % (40-54); Hemoglobin 13.6 g/dl (13.0-16.5); Mean Corp Hgb Conc 32.3 g/gl (32-36); Mean Corpuscular Hgb 27.5 pg (27.0-32.0); Mean Corpuscular Volume 85.1 fL (80-94); Mean Platelet Vol. 9.9 fl (6.2-12.0); Platelet Count 242 K/mm3 (150-450); RBC Distribution Width CV 14.7 % (11.6-14.6); RBC Distribution Width SD 45.5 fl (35.1-43.9); Red Blood Count 4.95 M/mm3 (4.6-6.2); White Blood Count 6.9 K/mm3 (4.4-11.0)
[2018-12-26 17:31] LABS: Scan Indicated on CBC? Y/N NO
[2018-12-26 18:09] LABS: ALB/GLOB Ratio 0.8 RATIO (0.9-2.4); AST(SGOT) 32 U/L (15-37); Alanine Aminotransfer ALT/SGPT 25 U/L (16-61); Albumin, Serum 3.4 g/dL (3.2-5.0); Alkaline Phosphatase 164 U/L (45-117); BUN 10 mg/dL (7-18); BUN/Creat Ratio 11.5 RATIO (10-20); Calcium,Total 8.8 mg/dL (8.5-10.1); Chloride 105 mmol/L (98-107); Creatinine, Serum 0.87 mg/dL (0.70-1.30); EST Glomerular Filtration Rate 90 mL/min (>60); Est Glom Filt Rate - Afr Amer 109 mL/min (>60); Globulin 4.2 g/dL (2.2-4.2); Glucose 143 mg/dL (74-106); Potassium 4.3 mmol/L (3.5-5.1); Protein, Total 7.6 g/dL (6.4-8.2); Sodium Level 136 mmol/L (136-145)
[2018-12-26 18:10] LABS: Anion Gap 9 (5-15); Thyroid Stim Hormone (TSH) 3.18 uIU/mL (0.358-3.74)
== END ==
PROVIDERS: Family Provider Family Medicine; PCP Family Medicine; Visit Provider Family Medicine
DX: I48.91 Unspecified atrial fibrillation (principal); R26.81 Unsteadiness on feet
CPT/HCPCS: 36415; 80053; 84443; 85027

== ENCOUNTER → 2018-12-29 08:05 | Outpatient (CLI) | payer MEDICARE, SELFPAY ==
[2018-11-30 10:57] VITALS: BMI 21.9
--- NOTE | 2018-12-29 08:09 | CT_ITS ---
STUDY: CT BRAIN WITHOUT CONTRAST REASON FOR EXAM: Male, 78 years old. Gait instability. RADIATION DOSAGE (If Supplied By Facility): CTDIvol = ( 44.99 ) mGy, DLP = ( 779.24 ) mGycm TECHNIQUE: Transaxial CT imaging of the brain was performed without administration of intravenous contrast material. Individualized dose optimization techniques were used for this CT. COMPARISON: Noncontrast CT brain September 22, 2018. FINDINGS: Normal soft tissue structures. Normal calvarium. There are atherosclerotic calcifications of the distal internal carotid and vertebral arteries. There is stable mild to moderate cerebral atrophy with widening of the extra-axial spaces and ventricular dilatation. There are areas of decreased attenuation within the white matter tracts of the supratentorial brain, consistent with microvascular disease changes. Focal low-density consistent with old lacunar infarcts seen at the lateral margin of the right thalamus. Normal brainstem. There is chronic microvascular ischemic change/encephalomalacia in the inferior white matter of the right cerebellar hemisphere. There is no intracranial hemorrhage. There are no findings of an acute ischemic infarction. Normal visualized paranasal sinuses. CT/Brain/Head without Contrast IMPRESSION: Generally stable chronic involutional/microvascular ischemic changes of the brain, as described. Additional chronic ischemic change/encephalomalacia in the inferior white matter of the right cerebellar hemisphere is new since September 22, 2018. Electronically Signed: Brandon Zavala MD at 19:46 EST , Service support ,
[2018-12-29 08:45] LABS: Color, Urine Yellow (Yellow); Glucose, Dipstick Normal (Normal); Ketone-Dipstick Negative (Negative); Leukocyte Esterase-Dipstick Negative /ul (Negative); Nitrite-Dipstick Negative (Negative); Occult Blood-Urine Negative /ul (Negative); Protein-Dipstick Negative (Negative); Specific Gravity, Urine 1.015 (1.002-1.030); Urine Bilirubin Dipstick Negative (Negative); Urine Clarity Clear (Clear); Urine Urobilinogen Normal (Normal)
== END ==
PROVIDERS: Family Provider Family Medicine; PCP Family Medicine; Referring Provider Family Medicine; Visit Provider Family Medicine
DX: R26.81 Unsteadiness on feet (principal)
CPT/HCPCS: 70450; 81002

== ENCOUNTER 2018-12-29 15:33 | Emergency (ER) | payer MEDICARE, SELFPAY ==
[2018-11-30 10:57] VITALS: BMI 21.9
[2018-12-29 15:34] VITALS: BP 157/77; PULSE 81; RESP 16; TEMP 36.2; O2SAT 98; BMI 21.9
--- NOTE | 2018-12-29 16:04 | CT_ITS ---
STUDY: CT BRAIN WITHOUT CONTRAST REASON FOR EXAM: Male, 78 years old. Fall with laceration to back of head. RADIATION DOSAGE (If Supplied By Facility): CTDIvol = ( 44.99 ) mGy, DLP = ( 779.24 ) mGycm TECHNIQUE: Transaxial CT imaging of the brain was performed without administration of intravenous contrast material. Individualized dose optimization techniques were used for this CT. COMPARISON: Noncontrast CT brain December 29, 2018 FINDINGS: A dense, potentially blood soaked dressing is seen along the right occipital scalp. Normal calvarium. There are atherosclerotic calcifications of the distal internal carotid and vertebral arteries. There is mild to moderate cerebral atrophy with widening of the extra-axial spaces and ventricular dilatation. There are areas of decreased attenuation within the white matter tracts of the supratentorial brain, consistent with microvascular disease changes. Possible old focal lacunar infarct of the posterior margin of the left lentiform nuclei, otherwise normal basal ganglia and thalami. Normal brainstem. Encephalomalacia noted in the white matter of the right cerebellar hemisphere. There is no intracranial hemorrhage. There are no findings of an acute ischemic infarction. Normal visualized paranasal sinuses. CT/Brain/Head without Contrast IMPRESSION: Chronic involutional/microvascular ischemic changes of the brain. Right occipital scalp laceration. No acute intracranial injury. Electronically Signed: Brandon Zavala MD at 16:57 EST , Service support ,
--- NOTE | 2018-12-29 16:47 | ED.DCSUM_ITS ---
- ER Visit Summary Date of Service: 12/29/18 Chief Complaint: Head injury History of Present Illness: The patient is a 78 M who presents with head injury that occurred today. Patient states he got up to answer the door and got up too fast. Patient states he fell backwards and hit his head. thinks that he cut his head on a vase. Patient denies any loss of consciousness. Patient is in the process of being evaluated for dizziness. Patient states that he has been falling due to standing too quickly. Patient had a CT scan done this morning to evaluate that. Patient denies any paresthesias or weakness. Patient is unsure of his last tetanus. Patient is on Eliquis due to atrial fibrillation. Physical Examination: Vital signs are stable. Patient is afebrile. Patient is in no acute distress. Skin is warm and dry. There is a 5 cm laceration over the occipital scalp. There is some bleeding noted. There is no bony crepitance or step-off. There are no foreign bodies visualized. Cranial nerves II through XII are intact. Strength is 5/5 bilaterally upper and lower extremities. There are no sensory deficits noted. Pupils are equal, round, and reactive to light bilateral. Extraocular muscles are intact. Funduscopic examination is benign. Neck is supple. Heart was irregularly irregular. Lungs are clear and equal bilateral. There is good respiratory effort noted. The remaining physical exam is within normal limits. Test Results: CT scan of the brain was obtained. There is no acute intracranial bleeding. Emergency Department Course and Treatment: The wound was cleaned and irrigated with copious amounts normal saline. The wound was anesthetized 1% lidocaine with epinephrine. Wound was closed with 8 bernardo. Bacitracin dressing was applied. Patient tolerated the procedure well. Patient was instructed to follow-up with his primary care physician in 5 days for wound recheck and staple removal. Patient understood and was agreeable with the plan. All questions were answered. Disposition: Discharge home Impression: Scalp laceration This note was generated with [employer] dictation software. It may contain incorrect words, spelling, and punctuation that were not noted in review of the chart prior to signing ED Disposition - Plan for ED Patient: Disposition: Home or Assisted Living Diagnosis: Occipital scalp laceration Instructions: ED Laceration Scalp Stitch Or Stap Referrals: Julio C Ridley MD [Primary Care Provider] -
[2018-12-29] MEDS: BACITRACIN 15 GM Tube 1 APPLIC TOPICAL (17:05)
[2018-12-29] MEDS: Diphth,Pertuss(Acell),Tet Vac 0.5 ML Vial IM (17:06)
--- NOTE | 2018-12-29 18:00 | EKG12_ITS ---
Test Reason : SYNCOPE Blood Pressure : / mmHG Vent. Rate : 067 BPM Atrial Rate : 082 BPM P-R Int : 000 ms QRS Dur : 098 ms QT Int : 408 ms P-R-T Axes : 000 010 035 degrees QTc Int : 431 ms Atrial fibrillation Minimal voltage criteria for LVH, may be normal variant Inferior infarct , age undetermined Abnormal ECG Confirmed by JESSE KESSLER, LEW ([id number]), editorial director MARIAMA WELLS ([id number]) on 01/02/2019 4:44:19 PM Referred By: ISRRAEL Confirmed By:LEW MOLINA MD
[2018-12-29 19:22] VITALS: BP 130/75; PULSE 73; RESP 15; O2SAT 96
== END 2018-12-29 19:24 | disposition home or self-care (01) ==
PROVIDERS: Emergency Provider Emergency Medicine; Family Provider Family Medicine; PCP Family Medicine
DX: S01.01XA Laceration without foreign body of scalp, initial encounter (principal); I48.91 Unspecified atrial fibrillation; Z79.02 Long term (current) use of antithrombotics/antiplatelets; R26.81 Unsteadiness on feet; N39.41 Urge incontinence; W18.30XA Fall on same level, unspecified, initial encounter; Y93.89 Activity, other specified; Y92.009 Unspecified place in unspecified non-institutional (private) residence as the place of occurrence of the external cause; Y99.8 Other external cause status
CPT/HCPCS: 12002; 70450; 81002; 90471; 90715; 93005; 99284

== ENCOUNTER → 2019-02-20 | Outpatient (CLI) | payer MEDICARE, SELFPAY ==
[2018-11-30 10:57] VITALS: BMI 21.9
[2019-01-02 14:38] VITALS: BMI 21.9
--- NOTE | 2019-02-20 15:23 | CT_ITS ---
STUDY: CT CHEST WITHOUT CONTRAST REASON FOR EXAM: Male, 78 years old. Lung nodule. RADIATION DOSAGE (If Supplied By Facility): CTDIvol = ( 10.09 ) mGy, DLP = ( 360.56 ) mGycm TECHNIQUE: Transaxial imaging was performed without the administration of intravenous contrast material. Multiplanar coronal and sagittal images were reformatted. Individualized dose optimization techniques were used for this CT. COMPARISON: September 27, 2018. FINDINGS: There is right upper and lower lung reticulonodular infiltrates with improvement of airspace consolidation. There is 2.0 cm right upper lobe mass, series 4 image 34/124. There is 2.8 cm mass in the right lower lobe, series 4 image 75/124. There are left lower lobe nodules measuring 0.6 to 0.8 cm. There is no demonstrated pleural abnormality. There are calcifications of the coronary arteries. There are paratracheal lymph nodes measuring 1.3 cm. Normal hilar regions. Normal unenhanced pulmonary arteries. There is atherosclerotic calcification of the aortic arch with tortuosity and elongation of the aortic arch and descending thoracic aorta. There are multi-level degenerative changes of the thoracic spine. There is no demonstrated abnormality of the visualized upper abdomen. CT/Chest without Contrast IMPRESSION: There are bilateral nodules with improvement of airspace consolidation. There are persistent right upper and lower lobe confluent masses. Recommend PET scan and/or bronchoscopy to evaluate for potential malignancy. Electronically Signed: Cirilo Andersen MD at 16:28 EDT , Service support ,
== END | disposition home or self-care (01) ==
PROVIDERS: Family Provider Family Medicine; PCP Family Medicine; Referring Provider Nurse Practitioner Acute Care; Visit Provider Nurse Practitioner Acute Care
DX: R93.89 Abnormal findings on diagnostic imaging of other specified body structures (principal)
CPT/HCPCS: 71250

== ENCOUNTER 2019-03-05 11:40 | Emergency (ER) | payer MEDICARE, SELFPAY ==
[2019-01-02 14:38] VITALS: BMI 21.9
[2019-03-05 11:41] VITALS: BP 186/90; PULSE 66; RESP 13; TEMP 36.4; O2SAT 99; BMI 22.6
--- NOTE | 2019-03-05 12:22 | RAD_ITS ---
STUDY: X-RAY - RIGHT ELBOW REASON FOR EXAM: Male, 78 years old. Posterior elbow pain following a fall. TECHNIQUE: 4 view(s) of the elbow. COMPARISON: Comparison is made with prior study dated April 19, 2018. FINDINGS: Normal visualized humerus, radius and ulna. Normal radiocapitellar and ulnotrochlear articulations. Vascular calcifications. RAD/Elbow min 3 Views IMPRESSION: No acute abnormality is seen. Electronically Signed: Dragan Conteh, at 13:44 EDT , Service support ,
--- NOTE | 2019-03-05 12:22 | CT_ITS ---
STUDY: CT CERVICAL SPINE WITHOUT CONTRAST REASON FOR EXAM: Male, 78 years old. Head injury and neck injury secondary to a fall. RADIATION DOSAGE (If Supplied By Facility): CTDIvol = ( 23.43 ) mGy, DLP = ( 501.77 ) mGycm TECHNIQUE: High resolution transaxial imaging was performed without contrast material. Sagittal and coronal images were reconstructed. Individualized dose optimization techniques were used for this CT. COMPARISON: None FINDINGS: Normal craniovertebral junction. There are degenerative changes of the anterior atlantoaxial articulation. Normal odontoid process. There is straightening of the normal cervical lordosis. Multilevel spondylosis. C2-3: Normal endplates. Normal disc height and morphology. Normal central canal and intervertebral neuroforamina. C3-4: Facet joint osteoarthritis and hypertrophy on the left side. No significant stenosis is seen. C4-5: Moderate degree of disc space narrowing with spondylosis. Uncovertebral arthrosis. Minimal left neural foraminal stenosis. C5-6: Marked degree of disc space narrowing. Right posterior spondylosis with deformity of the thecal sac on the right side. Uncovertebral arthrosis. C6-7: Marked degree of disc space narrowing. Spondylosis. Uncovertebral arthrosis. Moderate degree of the left neural foraminal stenosis and mild degree of right neural foraminal stenosis. Atherosclerotic plaque calcification of the carotid bifurcations. CT/Spine Cervical without Contras IMPRESSION: Multilevel degenerative changes, as described above. Electronically Signed: Dragan Conteh, at 13:43 EDT , Service support ,
--- NOTE | 2019-03-05 12:22 | CT_ITS ---
STUDY: CT BRAIN WITHOUT CONTRAST REASON FOR EXAM: Male, 78 years old. Head injury due to a fall. Loss of consciousness. RADIATION DOSAGE (If Supplied By Facility): CTDIvol = ( 44.99 ) mGy, DLP = ( 745.49 ) mGycm TECHNIQUE: Transaxial CT imaging of the brain was performed without administration of intravenous contrast material. Individualized dose optimization techniques were used for this CT. COMPARISON: Comparison is made with prior study dated December 29, 2018. FINDINGS: Normal soft tissue structures. Normal calvarium. There is moderate cerebral atrophy with widening of the extra-axial spaces and ventricular dilatation. There are areas of decreased attenuation within the white matter tracts of the supratentorial brain, consistent with microvascular disease changes. Stable small bilateral lacunar infarcts in the basal ganglion. Normal brainstem. There is mild cerebellar atrophy. Stable focal encephalomalacia in the white matter of the right cerebellar hemisphere. There is no intracranial hemorrhage. There are no findings of an acute ischemic infarction. Calcified atherosclerotic plaques of the vertebral arteries and cavernous portions of the internal carotid arteries bilaterally. Mucosal thickening of the ethmoid sinuses. CT/Brain/Head without Contrast IMPRESSION: Chronic involutional changes of the brain. Electronically Signed: Dragan Conteh, at 13:39 EDT , Service support ,
[2019-03-05 12:43] VITALS: BP 180/107; PULSE 75; RESP 18; O2SAT 97
[2019-03-05 13:18] VITALS: BP 194/105; PULSE 62; RESP 18; O2SAT 100
--- NOTE | 2019-03-05 13:18 | ED.VISSUMM ---
- ER Visit Summary Date of Service: 03/05/19 Chief Complaint: Fall History of Present Illness: The patient is a 78 M presenting after fall. Patient's family states that he was trying to get to the bathroom. He was unable to get there in time and urinated on the floor. He then slipped on the wet floor. He hit his head. He did not lose consciousness. No vomiting. EMS was called to help get him up. He has abrasion to right elbow. No other injuries. He is on Eliquis for history of A. fib. Tetanus is up-to-date. Physical Examination: Vitals are stable. Patient is afebrile. Alert no acute distress. HEENT exam posterior scalp hematoma with abrasion Neck is c-collar in place, mild diffuse tenderness Lungs are clear and equal bilaterally. Heart is regular rate and rhythm. Abdomen is soft nontender nondistended. Extremities abrasion right elbow with active full range of motion Skin is warm and dry. No focal neurologic deficit. Remainder of exam is unremarkable. Emergency Department Course and Treatment: CT head and neck show no acute process. Right elbow x-ray shows no acute process. On reevaluation, patient is resting comfortably. He is able to ambulate in the ED. He is discharged to follow-up with his primary care physician. Advised to return to the ED for worsening complaints. Disposition: Discharge home Impression: Status post mechanical fall, closed head injury, right elbow skin abrasion This note was generated with [employer] dictation software. It may contain incorrect words, spelling, and punctuation that were not noted in review of the chart prior to signing ED Disposition - Plan for ED Patient: Disposition: Home or Assisted Living Instructions: ED Mechanical Fall Referrals: Julio C Ridley MD [Primary Care Provider] -
--- NOTE | 2019-03-05 14:13 | ED.DEP ---
ED Disposition - Plan for ED Patient: Instructions: ED Mechanical Fall Referrals: Julio C Ridley MD [Primary Care Provider] -
[2019-03-05 14:39] VITALS: BP 140/78; PULSE 62; RESP 18; TEMP 35.5
== END 2019-03-05 14:41 | disposition home or self-care (01) ==
LOC: ED 12:32
PROVIDERS: Emergency Provider Emergency Medicine; Family Provider Family Medicine; PCP Family Medicine
DX: S00.03XA Contusion of scalp, initial encounter (principal); S50.311A Abrasion of right elbow, initial encounter; I25.10 Atherosclerotic heart disease of native coronary artery without angina pectoris; E11.9 Type 2 diabetes mellitus without complications; I10 Essential (primary) hypertension; F03.90 Unspecified dementia, unspecified severity, without behavioral disturbance, psychotic disturbance, mood disturbance, and anxiety; Z79.02 Long term (current) use of antithrombotics/antiplatelets; Z79.82 Long term (current) use of aspirin; Z79.84 Long term (current) use of oral hypoglycemic drugs; Z79.899 Other long term (current) drug therapy; W01.0XXA Fall on same level from slipping, tripping and stumbling without subsequent striking against object, initial encounter; Y93.01 Activity, walking, marching and hiking; Y92.008 Other place in unspecified non-institutional (private) residence as the place of occurrence of the external cause; Y99.8 Other external cause status; I48.91 Unspecified atrial fibrillation
CPT/HCPCS: 70450; 72125; 73080; 99284

== ENCOUNTER → 2019-03-19 09:28 | Outpatient (CLI) | payer MEDICARE, SELFPAY ==
[2019-03-09 11:21] VITALS: BMI 22.5
--- NOTE | 2019-03-19 10:30 | PET_ITS ---
EXAMINATION: FDG PET CT INDICATIONS: An 78-year-old male with reported history of pulmonary nodularity. COMPARISON EXAMINATION: CT of the chest report dated 02/20/19. INDEX LESION SIZE SUV INTERPRETATION Right upper posterolateral hemithorax pulmonary parenchyma, right lower lateral lung field 23.4 mm largest (frame 244) 3.2 (max) Fulfills quantitative criteria for viable neoplasm, histopathologic analysis is recommended Mediastinum 31.1 mm largest (frame 230) 6.8 (max) Fulfills quantitative criteria for viable neoplasm TECHNIQUE: Following the intravenous administration of 17.78 mCi of F-18 deoxyglucose via the left forearm, multiplanar image acquisitions of the neck, chest, abdomen and pelvis to level of mid thigh, obtained at one hour post radiopharmaceutical administration contemporaneously interpreted with the current CT of the neck, chest, abdomen and pelvis to level of mid thigh, dated 03/19/[address] of the chest report dated 02/20/19 reveal: SERUM GLUCOSE LEVEL: 104 mg/dl. HEIGHT: 72 inches. WEIGHT: 168 lbs. FINDINGS: 1. A nodular focus of increased glucose metabolism is demonstrated in the right upper posterolateral hemithorax pulmonary parenchyma, right upper lobe and right lower lateral lung field generating a calculated maximum standard uptake value of 3.2. The maximal axial diameter of the corresponding parenchymal density on review of CT of the chest dated 03/19/19 is 23.4 mm (AP). 2. Multiple foci of increased FDG concentration extends from the pre to subcarinal mediastinum and bilateral thoracic perihilum generating a calculated maximum standard uptake value of 6.8. The maximal axial diameter of the largest individual hypermetabolic soft tissue density on review of CT of the chest dated is 31.1 mm (transverse). 3. Normal physiologic distribution of the radiopharmaceutical is apparent in the hepatic (2.6) and splenic parenchyma, both renal units, bladder and visualized intestinal tract. There is uniform distribution of the radiopharmaceutical concentration defined in the visualized cerebellar hemispheres and cerebral cortical structures.? Diffuse intestinal tract activity is noted throughout all four quadrants of the abdominal-pelvic retroperitoneum, mesentery consistent with normal physiologic distribution of the radiopharmaceutical. Pertinent CT findings are as follows. CHEST: Atherosclerotic calcification is defined in the thoracic aorta without evidence of dilatation, aneurysm formation. Coronary arterial calcification is observed. Scattered bilateral axillary and mediastinal soft tissue densities are non-glucose avid. A partially-calcified linear density noted in the left apical lung field is ametabolic. Additional parenchymal densities noted in the right-left hemithorax demonstrate no evidence of quantitatively significant increased glucose metabolism. Emphysematous changes appear evident in the bilateral upper lung zones. ABDOMEN AND PELVIS: Atherosclerotic calcification is defined in the abdominal aorta without evidence of dilatation, aneurysm formation. Pelvic arterial calcification is observed. Colonic diverticulosis is defined. SKELETAL: Degenerative changes defined in the cervical, thoracic and lumbar spine demonstrate no evidence for glucose hypermetabolism. PET/PET/CT Tumor Base -Thigh Init IMPRESSION: 1. Increased glucose metabolism defined in the right upper and lower hemithorax pulmonary parenchyma with nodular components fulfills quantitative criteria for viable neoplasm. Histopathologic analysis is recommended. 2. Mediastinal and bilateral thoracic perihilar increased FDG uptake fulfills quantitative criteria for viable neoplasm. (Don navarro al, Journal of Clinical Oncology 16:2142, 1998). Electronic Signature Minh Stevenson D.O. Electronically Signed: Minh Stevenson DO at 23:40 EDT Tel , Service support ,
== END ==
PROVIDERS: Family Provider Family Medicine; PCP Family Medicine; Referring Provider Nurse Practitioner Acute Care; Visit Provider Nurse Practitioner Acute Care
DX: R91.8 Other nonspecific abnormal finding of lung field (principal)
CPT/HCPCS: 78815; A9552

== ENCOUNTER → 2019-03-28 | Outpatient (CLI) | payer MEDICARE, SELFPAY ==
[2019-03-26 11:20] VITALS: BMI 22.1
[2019-03-28 14:06] LABS: Absolute Lymphocyte Count 0.61 X10^3/ul (0.83-4.51); Basophil# 0.01 X10^3/uL; Basophil% 0.2 % (0-1); Eosinophil# 0.03 X10^3/uL; Eosinophils% 0.7 % (0-5); Hematocrit 42.2 % (40-54); Hemoglobin 13.5 g/dl (13.0-16.5); Lymphocyte # 0.61 X10^3/ul (4.0); Lymphocyte % 13.4 % (19-41); Mean Corpuscular Hgb 26.4 pg (27.0-32.0); Mean Corpuscular Volume 82.6 fL (80-94); Mean Platelet Vol. 10.2 fl (6.2-12.0); Monocyte# 0.83 X10^3/uL; Monocyte% 18.2 % (0-10); Neutrophil # 3.03 X10^3/uL (2.7-7.7); Neutrophil % 66.6 % (47-70); Platelet Count 203 K/mm3 (150-450); RBC Distribution Width CV 14.2 % (11.6-14.6); RBC Distribution Width SD 42.7 fl (35.1-43.9); Red Blood Count 5.11 M/mm3 (4.6-6.2); White Blood Count 4.6 K/mm3 (4.4-11.0)
[2019-03-28 14:07] LABS: POSITIVE COUNT NO; POSITIVE DIFFERENTIAL NO; POSITIVE MORPHOLOGY NO
[2019-03-28 14:28] LABS: ALB/GLOB Ratio 0.9 RATIO (0.9-2.4); AST(SGOT) 25 U/L (15-37); Alanine Aminotransfer ALT/SGPT 12 U/L (16-61); Albumin, Serum 3.5 g/dL (3.2-5.0); Alkaline Phosphatase 133 U/L (45-117); Anion Gap 8 (5-15); BUN 13 mg/dL (7-18); BUN/Creat Ratio 14.5 RATIO (10-20); Chloride 104 mmol/L (98-107); EST Glomerular Filtration Rate 86 mL/min (>60); Est Glom Filt Rate - Afr Amer 104 mL/min (>60); Glucose 143 mg/dL (74-106); Iron 44 ug/dL (65-175); LDH 195 U/L (87-241); Prealbumin 17.8 mg/dL (20.0-40.0); Protein, Total 7.5 g/dL (6.4-8.2); Sodium Level 140 mmol/L (136-145)
[2019-03-28 14:33] LABS: Vitamin B12 697 pg/mL (211-911); Vitamin D,25 Hydroxy 45.8 ng/mL (29.95-100.01)
== END | disposition home or self-care (01) ==
LOC: MFPLAB 11:53
PROVIDERS: Family Provider Family Medicine; PCP Family Medicine; Visit Provider Family Medicine
DX: C34.90 Malignant neoplasm of unspecified part of unspecified bronchus or lung (principal); R53.83 Other fatigue; R63.0 Anorexia
CPT/HCPCS: 36415; 80053; 82306; 82607; 83540; 83615; 84134; 85025

== ENCOUNTER → 2019-04-03 | Outpatient (CLI) | payer MEDICARE, SELFPAY ==
[2019-03-26 11:20] VITALS: BMI 22.1
--- NOTE | 2019-04-03 15:46 | RAD_ITS ---
STUDY: X-RAY - UNILATERAL RIBS ( RIGHT ) WITH CHEST REASON FOR EXAM: Male, 78 years old. Trauma TECHNIQUE - RIBS: 2 view(s) of the ribs. TECHNIQUE - CHEST: PA COMPARISON: None. FINDINGS - RIBS: There is an acute mildly displaced fracture of the posterior aspect of the right fifth rib.. FINDINGS - CHEST: There is interstitial thickening seen in the lower lobes. There are small nodules in the right upper and lower lobes.. There is no demonstrated pleural abnormality. Normal size heart. Normal mediastinum and martin. Normal visualized pulmonary arteries. Tortuous calcified aortic arch and descending thoracic aorta. Dorsal spine demonstrates moderate spondylosis Normal visualized ribs, clavicles, and shoulders. There is no demonstrated abnormality of the visualized soft tissue structures of the upper abdomen. RAD/Ribs Uni Min 3V w/PA Chest IMPRESSION: RIBS: Acute mildly displaced fracture of the posterior right fifth rib. CHEST: Small upper and lower lobe nodules on the right. No evidence for pneumothorax Electronically Signed: Jeff Portillo MD at 16:12 EDT , Service support ,
== END | disposition home or self-care (01) ==
LOC: MTRAD 15:43
PROVIDERS: Family Provider Family Medicine; PCP Family Medicine; Referring Provider Nurse Practitioner Adult Health; Visit Provider Nurse Practitioner Adult Health
DX: R07.81 Pleurodynia (principal)
CPT/HCPCS: 71101

== ENCOUNTER 2019-04-26 10:09 | Inpatient (IN) | payer MEDICARE, SELFPAY ==
[2019-03-26 11:20] VITALS: BMI 22.1
[2019-04-26] VITALS (10 sets, daily range): BP systolic 143–165; BP diastolic 77–94; PULSE 38–78; RESP 16–20; TEMP 36.4–36.9; O2SAT 97–98; BMI 21.7; BMI 21.4; BMI 21.5
--- NOTE | 2019-04-26 10:53 | EKG12_ITS ---
Test Reason : CONFUSION Blood Pressure : / mmHG Vent. Rate : 051 BPM Atrial Rate : 288 BPM P-R Int : 000 ms QRS Dur : 094 ms QT Int : 446 ms P-R-T Axes : 000 009 062 degrees QTc Int : 411 ms Atrial fibrillation with slow ventricular response Possible Inferior infarct (cited on or before 29-DEC-2018) Abnormal ECG Confirmed by REX KESSLER, DANIELLA ([id number]), deputy editor in chief CHARMAINE IRIZARRY ([id number]) on 04/30/2019 11:18:46 AM Referred By: Archie Pinedo Confirmed By:JAGDISH GOODMAN MD
--- NOTE | 2019-04-26 10:53 | CT_ITS ---
STUDY: CT BRAIN WITHOUT CONTRAST REASON FOR EXAM: Male, 78 years old. Confusion. RADIATION DOSAGE (If Supplied By Facility): CTDIvol = ( 44.99 ) mGy, DLP = ( 745.49 ) mGycm TECHNIQUE: Transaxial CT imaging of the brain was performed without administration of intravenous contrast material. Individualized dose optimization techniques were used for this CT. COMPARISON: 05 March 2019 FINDINGS: Normal soft tissue structures. Normal calvarium. There is severe cerebral atrophy with widening of the extra-axial spaces and ventricular dilatation. There are areas of decreased attenuation within the white matter tracts of the supratentorial brain, consistent with microvascular disease changes. Hypodensities in bilateral basal ganglia consistent with old lacunar infarcts is present. Normal brainstem. Right inferior hypodensities consistent with old infarcts of the right cerebellum are noted. There is no intracranial hemorrhage. There are no findings of an acute ischemic infarction. Normal visualized paranasal sinuses. CT/Brain/Head without Contrast IMPRESSION: Senescent changes with no evidence of acute intracranial bleed, mass or ischemia. Electronically Signed: Roscoe Teran DO at 12:18 EDT , Service support ,
--- NOTE | 2019-04-26 11:00 | RAD_ITS ---
STUDY: X-RAY CHEST REASON FOR EXAM: Male, 78 years old. Confusion. TECHNIQUE: Single AP portable view of the chest. COMPARISON: Comparison is made with prior study April 03, 2019. FINDINGS: Patchy bibasilar infiltrates worse on the left side although these have improved as compared to prior study. New infiltrate in the right upper lobe. There is no demonstrated pleural abnormality. Normal size heart. Normal mediastinum and martin. Normal visualized pulmonary arteries. There is atherosclerotic calcification of the aortic arch with tortuosity. There are diffuse degenerative changes of the visualized thoracic spine. Normal visualized ribs, clavicles, and shoulders. There is no demonstrated abnormality of the visualized soft tissue structures of the upper abdomen. RAD/Chest 1 View (Portable) IMPRESSION: Bibasilar patchy infiltrates. Right upper lobe patchy infiltrate. Electronically Signed: Dragan Conteh, at 11:30 EDT , Service support ,
[2019-04-26 11:52] LABS: Absolute Lymphocyte Count 1.13 X10^3/ul (0.83-4.51); Absolute Neutrophil Count 2.9 X10^3/uL (2.0-7.7); Basophil# 0.01 X10^3/uL; Basophil% 0.2 % (0-1); Eosinophil# 0.19 X10^3/uL; Eosinophils% 3.8 % (0-5); Hematocrit 40.7 % (40-54); Lymphocyte # 1.13 X10^3/ul (4.0); Lymphocyte % 22.6 % (19-41); Mean Corp Hgb Conc 31.9 g/gl (32-36); Mean Corpuscular Hgb 26.1 pg (27.0-32.0); Mean Corpuscular Volume 81.7 fL (80-94); Monocyte# 0.66 X10^3/uL; Monocyte% 13.2 % (0-10); Neutrophil # 2.94 X10^3/uL (2.7-7.7); Neutrophil % 58.8 % (47-70); Platelet Count 185 K/mm3 (150-450); RBC Distribution Width CV 14.9 % (11.6-14.6); RBC Distribution Width SD 43.1 fl (35.1-43.9); Red Blood Count 4.98 M/mm3 (4.6-6.2)
[2019-04-26 11:58] LABS: ALB/GLOB Ratio 0.7 RATIO (0.9-2.4); AST(SGOT) 42 U/L (15-37); Alanine Aminotransfer ALT/SGPT < 6 U/L (16-61); Albumin, Serum 3.1 g/dL (3.2-5.0); Alkaline Phosphatase 134 U/L (45-117); Anion Gap 3 (5-15); BUN 12 mg/dL (7-18); BUN/Creat Ratio 13.2 RATIO (10-20); Chloride 107 mmol/L (98-107); Creatinine, Serum 0.91 mg/dL (0.70-1.30); EST Glomerular Filtration Rate 85 mL/min (>60); Est Glom Filt Rate - Afr Amer 103 mL/min (>60); Globulin 4.2 g/dL (2.2-4.2); Glucose 150 mg/dL (74-106); Potassium 4.9 mmol/L (3.5-5.1); Protein, Total 7.3 g/dL (6.4-8.2); Sodium Level 139 mmol/L (136-145)
[2019-04-26 12:07] LABS: POSITIVE COUNT NO; POSITIVE DIFFERENTIAL NO; POSITIVE MORPHOLOGY NO
--- NOTE | 2019-04-26 13:22 | ED.VISSUMM ---
- ER Visit Summary Date of Service: 04/26/19 Chief Complaint: Confusion History of Present Illness: The patient is a 78 M who presents with confusion. According to the , the patient has become more confused over the past 1 week. He does not know her room to go to does not know how to do certain tasks he normally can do. He has not had a fever. He has not had a cough. He was scheduled to have a bronchoscopy tomorrow but the called the office and told him of his symptoms and that she was concerned for a stroke so they canceled his procedure. He has a questionable history of lung cancer which is why they are doing this bronchoscopy tomorrow. He is also a diabetic. He does have a diagnosis of dementia. However, the states that this is different than his normal dementia symptoms Physical Examination: Vital signs are reviewed. HEENT exam unremarkable. Heart is regular rate and rhythm. Lungs clear to auscultation bilaterally. Abdomen soft nontender. Extremities have no edema. He is alert and oriented to self only. His neurologic exam is otherwise nonfocal. Test Results: EKG is atrial fibrillation with a rate of 51. There are nonspecific ST and T wave changes noted. Labs are unremarkable. Chest x-ray reveals bilateral patchy infiltrates. CAT scan of head reveals chronic issues. Emergency Department Course and Treatment: The patient does have infiltrates on his x-ray. I will treat him with Rocephin and azithromycin. He did have some bradycardia down into the upper 30s. After this the told hospitalist that he has been getting dizzy and falling at home. Due to all the symptoms I feel he needs to be admitted. Patient was discussed with the hospitalist. Dr. 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 Treatment Plan: [] Disposition: Admit Impression: Community-acquired pneumonia, delirium This note was generated with I-frontdesk dictation software. It may contain incorrect words, spelling, and punctuation that were not noted in review of the chart prior to signing ED Disposition - Plan for ED Patient: Disposition: Acute Care Hospital [facility]
--- NOTE | 2019-04-26 13:33 | HP.PCM_ITS ---
Problem List (1) History of coronary artery stent placement Status: Chronic Comment: [id number] 11/1999 (2) Dementia, vascular Status: Chronic Qualifiers: (3) Lung mass Status: Acute (4) Mediastinal lymphadenopathy Status: Acute (5) Abnormal chest CT Status: Chronic (6) Chronic atrial fibrillation Status: Chronic (7) HLD (hyperlipidemia) Status: Chronic (8) Essential (primary) hypertension Status: Chronic History of Present Illness Date of Admission: 04/26/19 Chief Complaint: Confusion. The patient is a 78 year old M with past medical history as mentioned above presented to the emergency room because of confusion. At this time, patient is alert but disoriented to time and place, oriented only to himself and he was not able to provide detailed history. Patient's was at the bedside and she provided the information. According to the patient's , patient has been having increasing confusion over the last week, being not going what is going on, forgetful and not be able to do tasks that he used to perform and he has been sleeping more than usual. Patient's mentioned that she asks him to go to eat, he replies where I am going to. She mentioned that he has been having issues with urine and stool incontinence without knowing. There was no reported history of cough, sputum production, fever or chills. The patient denied any symptoms. He denied chest pain or shortness of breath. Denies cough or sputum production. Denied abdominal pain, nausea or vomiting. Denies fever or chills. Recently, he was found to have bilateral lung nodules, right upper and lower lung masses and he had PET scan done on March 19, 2019 that revealed increased glucose metabolism in the right upper and lower hemithorax with high suspicion of malignancy. He is supposed to go for bronchoscopy tomorrow according to his but according to Dr. Corrigan, his called the office yesterday and she mentioned that her may have a stroke and schedule procedure was canceled. He had a history of chronic atrial fibrillation, has been only on Eliquis for anticoagulation but not on any rate control medicine. He had a history of CAD status post stents and he has been on Eliquis and ramipril. He has history of type 2 diabetes mellitus, history of has been under control on metformin. In the emergency department, patient was bradycardic, heart rate has been in the 50s, blood pressure stable, afebrile, pulse ox is 98% on room air. Routine blood work was unremarkable. LFT was normal. CT scan brain showed no acute infarction or hemorrhage. EKG revealed atrial fibrillation, bradycardia, rate has been on the 50s, no acute ischemic changes. Chest x-ray reported officially as bilateral basilar patchy infiltrate, right upper lobe patchy infiltrate. I reviewed the chest x-ray myself and to me, there may be minimal haziness on the right base and the right upper lobe, left lung is clear. Patient is being admitted for worsening confusion/encephalopathy likely because of baseline dementia and probable pneumonia and also being admitted for probable community acquired pneumonia. Past Medical History Past Medical History (Chronic Problems): Chronic Problems (Last Updated 04/26/19 @ 13:47 by Archie Pinedo MD) History of coronary artery stent placement (Chronic 11/1999) [id number]-VUE 11/1999 Dementia, vascular (Chronic) Tinea unguium (Chronic) Toe pain, right (Chronic) Toe pain, left (Chronic) Abnormal chest CT (Chronic) Chronic atrial fibrillation (Chronic) Nonrheumatic tricuspid valve regurgitation (Chronic) Atherosclerosis of [place] coronary artery (Chronic) PTCA of RCA intracoronary stent November 1999 HLD (hyperlipidemia) (Chronic) Essential (primary) hypertension (Chronic) HLD (hyperlipidemia) (Chronic) Medical History: Medical History (Last Updated 04/26/19 @ 13:47 by Archie Pinedo MD) Abnormal chest CT (Chronic) R93.89 Chronic atrial fibrillation (Chronic) I48.2 Nonrheumatic tricuspid valve regurgitation (Chronic) I36.1 Atherosclerosis of [place] coronary artery (Chronic) I25.10 PTCA of RCA intracoronary stent November 1999 HLD (hyperlipidemia) (Chronic) E78.5 Essential (primary) hypertension (Chronic) I10 HLD (hyperlipidemia) (Chronic) E78.5 Alzheimer disease G30.9, F02.80 Aphasia R47.01 BPH (benign prostatic hyperplasia) N40.0 Depression F32.9 GERD (gastroesophageal reflux disease) K21.9 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.899 Type 2 diabetes mellitus E11.9 Allergies lovastatin [From Mevacor] Adverse Reaction (Severe, Verified 04/26/19 10:10) myalgias metoprolol succinate [From Toprol XL] Adverse Reaction (Severe, Verified 04/26/19 10:10) Heart rate too slow beta blockers Adverse Reaction (Uncoded 04/26/19 10:10) low heart rate Home Medications: Ambulatory Orders Medication Instructions Recorded Donepezil HCl [Aricept] 10 mg PO DAILY 09/30/16 Tamsulosin HCl [Flomax] 1 cap PO QHS 09/30/16 Albuterol Sulfate [Ventolin Hfa] 18 gm IH DAILY PRN PRN 05/03/17 memantine 5 mg tablet 5 mg PO QDAY 11/25/17 escitalopram 10 mg tablet 10 mg PO DAILY 12/29/17 Levothyroxine Sodium [Synthroid] 125 mcg PO DAILY 09/22/18 Apixaban [Eliquis] 5 mg PO BID 09/27/18 Acetaminophen [Tylenol] 1,000 mg PO Q6H PRN PRN tab 11/01/18 Mirtazapine [Remeron] 15 mg PO QHS #30 tab 11/01/18 Carbidopa/Levodopa [Carbidopa-Levo 1 tab PO 0900 04/25/19 ER 50-200 Tab] Carbidopa/Levodopa [Carbidopa-Levo 2 tab PO QHS 04/25/19 ER 50-200 Tab] Ramipril 5 mg PO DAILY 04/25/19 Sumatriptan Succinate [Imitrex] 50 mg PO .X1 PRN 04/25/19 Cholecalciferol (Vitamin D3) 2,000 unit PO QHS 04/26/19 [Vitamin D3] Metformin HCl 500 mg PO BID 04/26/19 Surgical History: Surgical History (Last Updated 04/26/19 @ 13:47 by Archie Pinedo MD) History of coronary artery stent placement (Chronic) Onset Date: 11/1999 Z95.5 [id number] 11/1999 H/O hernia repair Z98.890, Z87.19 History of left heart catheterization (LHC) Z98.890 LHC: 11/20/1999 History of tonsillectomy Z98.890, Z90.89 Surgical History: angioplasty, herniorrhaphy, tonsillectomy Psychiatric History: Depression Lives: Spouse/ Significant Other Smoking Status: Never smoker Alcohol: None, Rare - *Family History Offspring Family History: Family History (Last Reviewed 03/26/19 @ 11:32 by MALDONADO MichelleC) Father Cancer Mother CAD (coronary artery disease) CVA (cerebral vascular accident) Brother CAD (coronary artery disease) Brother CVA (cerebral vascular accident) Hypertension Sister Myocardial infarction, Onset Age: 73 Sister CVA (cerebral vascular accident) Sister CVA (cerebral vascular accident) Sister Breast cancer Sister CVA (cerebral vascular accident) Sister TIA (transient ischemic attack) History Items: Heart Disease Review of Systems Constitutional: Reports: Anorexia, Weakness. Denies: Chills, Fever Eyes: Denies: Blurred vision, Double vision, Drainage, Redness HEENT: Denies: Difficulty Hearing, Ear Pain, Eye Pain, Nasal Congestion, Sore Throat Cardiovascular: Denies: Chest Pain, Chest Pressure, Chest Tightness, Heaviness, Light Headedness, Palpitations, Paroxysmal Noc. Dyspnea, Syncope Respiratory: Denies: Cough, Pleuritic Pain, Shortness of Breath, Sputum production, Wheezing Gastrointestinal: Denies: Abdominal Pain, Constipation, Diarrhea, Nausea, Vomiting Genitourinary: Reports: Incontinence. Denies: Dysuria, Frequency, Hematuria Musculoskeletal: Denies: Arm Pain, Back Pain, Foot Pain Skin: Denies: Dryness, Rash Neurological: Reports: Confusion. Denies: Balance problems, Double vision, Change in Speech, Slurred speech, Focal weakness, Headaches, Incoordination, Numbness Psychiatric: Denies: Anxiety, Depression VTE Information - Inpt Only VTE Present on Admission: No VTE Mechan Device Prophylaxis: SCD's VTE Pharm Prophylaxis ordered?: No - Physical Exam General: Alert, Cooperative, No apparent distress, Confused, Disoriented HEENT: Atraumatic, PERRLA, EOMI, Normocephalic Oral: Moist Mucosa, No Gingival or Mucosal Lesions/ Ulcerations Neck: Supple, No JVD, Negative Carotid Bruits, Trachea Midline, Thyroid Normal Size and Texture Lungs: Clear to auscultation, Normal air movement, No rhonchi, No wheeze, No rales, - - Decreased breath sounds on the left base, otherwise clear. Cardiovascular: Normal S1, Normal S2, No murmurs, PMI Normal, Bradycardic, Irregular Rate Abdomen: Bowel Sounds Present, Soft, Non Tender, Non-Distended, No Hepato- splenomegaly Extremities: No clubbing, No cyanosis, No edema Skin: No rashes, No breakdown Lymphatic: No Cervical, Supraclavicular, or Inguinal Adenopathy Neurological: Cranial nerves II-XII grossly intact, Motor Exam 5/5 strength throughout Psych/Mental Status: Flat Affect Vital Signs Temp Pulse Resp BP Pulse Ox 98.5 F 38 L 18 147/77 H 98 04/26/19 10:11 04/26/19 12:33 04/26/19 12:33 04/26/19 10:11 04/26/19 10:11 Oxygen Delivery Method Room Air Weight: 160 lb 5.475 oz Body Mass Index (BMI) 21.7 Finger Stick Blood Glucose 181 Laboratory Tests Past 24 Hrs 04/26/19 04/26/19 11:20 11:20 WBC 5.0 RBC 4.98 Hgb 13.0 Hct 40.7 MCV 81.7 MCH 26.1 L MCHC 31.9 L RDW 14.9 H RDW Differential 43.1 Plt Count 185 MPV 11.0 Immature Gran % (Auto) 1.400 H Neut % (Auto) 58.8 Lymph % (Auto) 22.6 [place] % (Auto) 13.2 H Eos % (Auto) 3.8 Baso % (Auto) 0.2 Absolute Neuts (auto) 2.9 Absolute Lymphs (auto) 1.13 Total Counted Not Reportable Sodium 139 Potassium 4.9 Chloride 107 Carbon Dioxide 29.0 Anion Gap 3 L BUN 12 Creatinine 0.91 Estim Creat Clear Calc 66.60 Est GFR (MDRD) Af Amer 103 Est GFR (MDRD) Non-Af 85 BUN/Creatinine Ratio 13.2 Glucose 150 H Calcium 9.0 Total Bilirubin 0.80 AST 42 H ALT < 6 L Alkaline Phosphatase 134 H Total Protein 7.3 Albumin 3.1 L Globulin 4.2 Albumin/Globulin Ratio 0.7 L Clinical Impression(s) from Imaging Studies Brain CT 04/26/19 10:53 IMPRESSION: Senescent changes with no evidence of acute intracranial bleed, mass or ischemia. Electronically Signed: Roscoe Teran DO at 12:18 EDT , Service support , Chest X-Ray 04/26/19 11:00 IMPRESSION: Bibasilar patchy infiltrates. Right upper lobe patchy infiltrate. Electronically Signed: Dragan Conteh, at 11:30 EDT , Service support , Assessment/Plan All Active Problems (Last Updated 04/26/19 @ 13:47 by Archie Pinedo MD) Lung mass (Acute) Mediastinal lymphadenopathy (Acute) Lytic bone lesions on xray (Acute) This is an 78 years old male patient presented to the emergency room because of report of increasing confusion, change in mental status and behavior, found to have questionable infiltrate on chest x-ray, diagnosed with probable community- acquired pneumonia and he is being admitted for evaluation and treatment. #1 confusion/encephalopathy: With history of dementia, could be exaggerated by probable pneumonia. Patient is confused and disoriented, oriented only to himself. His vital signs are stable, afebrile. CT scan brain showed no acute findings. He has no focal deficit on physical examination. Plan: Admit to PCU, cardiac monitoring, IV antibiotics, IV fluids, repeat chest x-ray tomorrow morning, PT OT evaluation and treatment. #2 probable community-acquired pneumonia: Chest x-ray reviewed, questionable infiltrate. No reported symptoms suggestive of pneumonia. Patient has been afebrile, no leukocytosis, no cough or sputum production. Plan: IV fluids, pneumococcal and Legionella antigen, urinalysis, start empiric IV Levaquin, albuterol as needed, incentive spirometer, repeat chest x-ray tomorrow morning, repeat CBC and BMP tomorrow morning. #3 bradycardia: With history of chronic atrial fibrillation. Heart rate has been in the 50s, patient complained of intermittent dizziness and lightheaded ness as well as frequent falls. At this time, he is not on any beta blockers or rate controlling medicine. EKG reviewed, no acute ischemic changes. Plan to monitor, patient may need pacemaker in the near future. #4 recent history of bilateral lung nodules/right upper, left lower lung masses/mediastinal adenopathy: He had PET scan done on Mar, 2019 with increased glucose metabolism in the mentioned area highly suggestive of malignancy. Patient supposed to go for bronchoscopy and biopsy tomorrow but it was canceled because his called Dr. Corrigan's office for symptoms of confusion and she thought that he may have stroke. Dr. Corrigan consulted. #5 CAD status post stents: No chest pain, EKG without ischemic changes. Continue ramipril. Patient is not on aspirin because he is on Eliquis and not on beta-blockers because of bradycardia. #6 chronic atrial fibrillation: He is bradycardic with symptoms. He is only on Eliquis for anticoagulation. Eliquis will be held at this time. #7 hypertension: Blood pressure stable, continue ramipril. #8 hyperlipidemia: Continue statins. #9 dementia: Continue Aricept, Remeron and carbidopa levodopa. #10 DVT prophylaxis: SCDs, hold Eliquis as patient may go for procedures. This note was generated with W[employer] dictation software. It may contain incorrect words, spelling, and punctuation that were not noted in checking the note before signing. Code Visit Inpatient E&M: 46519 Init Hosp L3
[2019-04-26] MEDS: Ceftriaxone 1 GM/50 ML BAG IV (13:41)
--- NOTE | 2019-04-26 14:34 | CON.PCM_ITS ---
Reason for Consult Date of Consultation: 04/26/19 Reason for Consultation: CAP History of Present Illness: The patient is an 79-year-old male, with a history as outlined below, who presented to the emergency department on April 26 with altered mentation. The patient is known to me from the pulmonary medicine clinic. I initially saw the patient when he was admitted to the hospital in September 2018. A CT chest was obtained at that time and revealed a masslike density/consolidation in the right lower lobe along with several pulmonary nodules and evidence of right upper lobe groundglass changes. There was also significant mediastinal and hilar adenopathy. The patient was treated at that time for community-acquired pneumonia. An attempt was made to obtain a CT-guided lung biopsy. However, despite sedation, the patient was agitated throughout the entire procedure and so the biopsy was not successful. The patient then followed up in the pulmonary medicine clinic to formulate a plan for moving forward. A repeat CT chest without contrast was then obtained in mid November 2018. That imaging study showed interval improvement in the right upper lobe infiltration along with a persistent 1.3 cm nodule in the right upper lobe. The previously seen infiltration in the right lower lobe had improved. While the patient does have an approximate [id number] smoking history, he quit completely in 1962. Follow-up chest imaging in February followed by PET scan in March did reveal increased glucose metabolism in the right upper and lower hemithorax along with mediastinal and bilateral thoracic perihilar activity. Following my review of the aforementioned imaging, I recommended that the patient proceed with EBUS to obtain a histopathologic diagnoses. The patient was initially scheduled to undergo the procedure on April 27. However, 2 days prior to the procedure, our office was contacted by the patient's who indicated a concern that the patient's mentation had been altered over the last week and she was concerned for the possibility of a stroke. She was advised by our office to take the patient to the emergency department for evaluation. The patient was subsequently seen in the emergency department on the afternoon of April 26. The patient was noted to be afebrile and hemodynamically stable. There was no evidence of a leukocytosis. CT head revealed no acute intracranial pathology. There was evidence of severe cerebral atrophy with widening of the extra-axial spaces and ventricular dilation. Although the patient's plain film chest x-ray was read by the radiologist to reveal bibasilar patchy infiltrates and a right upper lobe infiltrate. However, upon my review of the chest x-ray, these findings likely represent possible progression of the patient's underlying suspected lung malignancy. He has not had any form of a cough or shortness of breath. The patient's did report to me that she told her approximately 1 week ago of news that his sister had been placed in hospice care. Since that time, she reported that his mentation had been off. The patient has known underlying dementia along with Parkinson's disease. The patient was subsequently placed on IV antibiotics and admitted to the progressive care unit. Past Medical History Past Medical History (Chronic Problems): Chronic Problems (Last Updated 04/26/19 @ 13:47 by Archie Pinedo MD) History of coronary artery stent placement (Chronic 11/1999) [id number] 11/1999 Dementia, vascular (Chronic) Tinea unguium (Chronic) Toe pain, right (Chronic) Toe pain, left (Chronic) Abnormal chest CT (Chronic) Chronic atrial fibrillation (Chronic) Nonrheumatic tricuspid valve regurgitation (Chronic) Atherosclerosis of [place] coronary artery (Chronic) PTCA of RCA intracoronary stent November 1999 HLD (hyperlipidemia) (Chronic) Essential (primary) hypertension (Chronic) HLD (hyperlipidemia) (Chronic) Medical History: Medical History (Last Updated 04/26/19 @ 13:47 by Archie Pinedo MD) Abnormal chest CT (Chronic) R93.89 Chronic atrial fibrillation (Chronic) I48.2 Nonrheumatic tricuspid valve regurgitation (Chronic) I36.1 Atherosclerosis of [place] coronary artery (Chronic) I25.10 PTCA of RCA intracoronary stent November 1999 HLD (hyperlipidemia) (Chronic) E78.5 Essential (primary) hypertension (Chronic) I10 HLD (hyperlipidemia) (Chronic) E78.5 Alzheimer disease G30.9, F02.80 Aphasia R47.01 BPH (benign prostatic hyperplasia) N40.0 Depression F32.9 GERD (gastroesophageal reflux disease) K21.9 retirement use of drug Z79.899 Type 2 diabetes mellitus E11.9 Allergies lovastatin [From Mevacor] Adverse Reaction (Severe, Verified 04/26/19 10:10) myalgias metoprolol succinate [From Toprol XL] Adverse Reaction (Severe, Verified 04/26/19 10:10) Heart rate too slow beta blockers Adverse Reaction (Uncoded 04/26/19 10:10) low heart rate Home Medications: Ambulatory Orders Medication Instructions Recorded Donepezil HCl [Aricept] 10 mg PO DAILY 09/30/16 Tamsulosin HCl [Flomax] 1 cap PO QHS 09/30/16 Albuterol Sulfate [Ventolin Hfa] 18 gm IH DAILY PRN PRN 05/03/17 memantine 5 mg tablet 5 mg PO QDAY 11/25/17 escitalopram 10 mg tablet 10 mg PO DAILY 12/29/17 Levothyroxine Sodium [Synthroid] 125 mcg PO DAILY 09/22/18 Apixaban [Eliquis] 5 mg PO BID 09/27/18 Acetaminophen [Tylenol] 1,000 mg PO Q6H PRN PRN tab 11/01/18 Mirtazapine [Remeron] 15 mg PO QHS #30 tab 11/01/18 Carbidopa/Levodopa [Carbidopa-Levo 1 tab PO 0900 04/25/19 ER 50-200 Tab] Carbidopa/Levodopa [Carbidopa-Levo 2 tab PO QHS 04/25/19 ER 50-200 Tab] Ramipril 5 mg PO DAILY 04/25/19 Sumatriptan Succinate [Imitrex] 50 mg PO .X1 PRN 04/25/19 Cholecalciferol (Vitamin D3) 2,000 unit PO QHS 04/26/19 [Vitamin D3] Metformin HCl 500 mg PO BID 04/26/19 Surgical History: Surgical History (Last Updated 04/26/19 @ 13:47 by Archie Pinedo MD) History of coronary artery stent placement (Chronic) Onset Date: 11/1999 Z95.5 [id number] 11/1999 H/O hernia repair Z98.890, Z87.19 History of left heart catheterization (LHC) Z98.890 LHC: 11/20/1999 History of tonsillectomy Z98.890, Z90.89 Surgical History: angioplasty, herniorrhaphy, tonsillectomy Psychiatric History: Depression Lives: Spouse/ Significant Other Smoking Status: Never smoker Alcohol: None, Rare - *Family History Offspring Family History: Family History (Last Reviewed 03/26/19 @ 11:32 by MALDONADO MichelleC) Father Cancer Mother CAD (coronary artery disease) CVA (cerebral vascular accident) Brother CAD (coronary artery disease) Brother CVA (cerebral vascular accident) Hypertension Sister Myocardial infarction, Onset Age: 73 Sister CVA (cerebral vascular accident) Sister CVA (cerebral vascular accident) Sister Breast cancer Sister CVA (cerebral vascular accident) Sister TIA (transient ischemic attack) History Items: Heart Disease Review of Systems Constitutional: Denies: Chills, Fever, Night Sweats Eyes: Denies: Blurred vision, Double vision HEENT: Reports: Difficulty Hearing, Hard of Hearing Cardiovascular: Denies: Chest Pain, Palpitations Respiratory: Denies: Cough, Shortness of Breath, Sputum production Gastrointestinal: Denies: Abdominal Pain, Nausea, Vomiting Genitourinary: Denies: Dysuria Musculoskeletal: Denies: Joint Pain, Joint Tenderness Skin: Denies: Rash, Wounds Neurological: Reports: Balance problems, Confusion Psychiatric: Denies: Anxiety, Depression, Homicidal Ideations, Suicidal Ideations Hematologic/ Lymphatic: Denies: Easy Bruising, Easy Bleeding Objective: The patient's most recent lab work, culture data and imaging studies have all been personally reviewed. - Physical Exam General: Alert, Cooperative, No apparent distress, Confused HEENT: Atraumatic, PERRLA, Normocephalic Oral: No Gingival or Mucosal Lesions/ Ulcerations Neck: Supple, No Nodes, Trachea Midline Lungs: No rhonchi, No wheeze, No rales, Diminished Cardiovascular: Normal S1, Normal S2, No murmurs, Irregular Rate Abdomen: Bowel Sounds Present, Soft, Non Tender Extremities: No clubbing, No cyanosis, No edema Skin: No breakdown Musculoskeletal: No Tenderness to Palpation of Joints or Extremities Lymphatic: No Cervical, Supraclavicular, or Inguinal Adenopathy Neurological: Neuro grossly intact Psych/Mental Status: Flat Affect Vital Signs Temp Pulse Resp BP Pulse Ox 97.5 F L 53 L 16 143/85 H 98 04/26/19 14:25 04/26/19 14:25 04/26/19 14:25 04/26/19 14:25 04/26/19 14:25 Oxygen Delivery Method Room Air Weight: 160 lb 5.475 oz Body Mass Index (BMI) 21.7 Finger Stick Blood Glucose 181 Laboratory Tests Past 24 Hrs 04/26/19 04/26/19 11:20 11:20 WBC 5.0 RBC 4.98 Hgb 13.0 Hct 40.7 MCV 81.7 MCH 26.1 L MCHC 31.9 L RDW 14.9 H RDW Differential 43.1 Plt Count 185 MPV 11.0 Immature Gran % (Auto) 1.400 H Neut % (Auto) 58.8 Lymph % (Auto) 22.6 [place] % (Auto) 13.2 H Eos % (Auto) 3.8 Baso % (Auto) 0.2 Absolute Neuts (auto) 2.9 Absolute Lymphs (auto) 1.13 Total Counted Not Reportable Sodium 139 Potassium 4.9 Chloride 107 Carbon Dioxide 29.0 Anion Gap 3 L BUN 12 Creatinine 0.91 Estim Creat Clear Calc 66.60 Est GFR (MDRD) Af Amer 103 Est GFR (MDRD) Non-Af 85 BUN/Creatinine Ratio 13.2 Glucose 150 H Calcium 9.0 Total Bilirubin 0.80 AST 42 H ALT < 6 L Alkaline Phosphatase 134 H Total Protein 7.3 Albumin 3.1 L Globulin 4.2 Albumin/Globulin Ratio 0.7 L Clinical Impression(s) from Imaging Studies Brain CT 04/26/19 10:53 IMPRESSION: Senescent changes with no evidence of acute intracranial bleed, mass or ischemia. Electronically Signed: Rosoce Teran, at 12:18 EDT , Service support , Chest X-Ray 04/26/19 11:00 IMPRESSION: Bibasilar patchy infiltrates. Right upper lobe patchy infiltrate. Electronically Signed: Dragan Conteh, at 11:30 EDT , Service support , Assessment/Plan All Active Problems (Last Updated 04/26/19 @ 13:47 by Archie Pinedo MD) Lung mass (Acute) Mediastinal lymphadenopathy (Acute) Lytic bone lesions on xray (Acute) RECOMMENDATIONS: 1. Continue IV antibiotics overnight. 2. If clinically stable in the a.m., transition to PO Levaquin with plans to complete a 5-day treatment course. 3. EBUS has been rescheduled for Jag[place] 5. IMPRESSIONS: 1. Altered mentation I do suspect that this is likely just the patient's underlying dementia and Parkinson's disease. Perhaps news of the patient's sisters enrollment hospice care precipitated some form of a neuropsychiatric event. In addition, the patient's CT head revealed severe cerebral atrophy along with widening of the extra-axial spaces and ventricular dilation, which may certainly suggest normal pressure hydrocephalus. No acute CVA or intracranial hemorrhage was identified. Although the patient was initially admitted to the hospital for treatment of presumptive pneumonia, I have a low clinical index of suspicion for an underlying pulmonary infectious process. At this time, we will plan to continue antibiotics overnight. If the patient is doing well in the morning, I would recommend that we transition him to PO Levaquin with plans to complete a 5-day treatment course. I also contacted surgery scheduling and have placed the patient back on the schedule for his EBUS on May 11. I will update the patient and his in the morning. This note was generated with [employer] dictation software. It may contain incorrect words, spelling, and punctuation that were not noted in checking the note before signing. Code Visit Inpatient E&M: 53448 Init Hosp L2
[2019-04-26] MEDS: 0.9% Normal Saline 1,000 ML 75 ML IV (14:38)
[2019-04-26] MEDS: levoFLOXacin IV 750 MG/150 ML BAG 100 MG IV (15:11)
[2019-04-26] MEDS: metFORMIN (XR) 500 MG Tablet PO (16:04)
[2019-04-26 16:11] LABS: Bedside Glucose 90 mg/dL (70-110)
[2019-04-26 18:22] LABS: Bacteria 0 SEEN /hpf (None Seen); Mucous, Urine 0 SEEN /hpf (<or=2+); Squamous Epithelial Cells - UA 0 SEEN /hpf (0-5)
[2019-04-26 18:28] LABS: Color, Urine Yellow (Yellow); Glucose, Dipstick Normal (Normal); Ketone-Dipstick 5 mg/dl (Negative); Leukocyte Esterase-Dipstick Negative /ul (Negative); Nitrite-Dipstick Negative (Negative); Occult Blood-Urine 10 /ul (Negative); Protein-Dipstick Negative (Negative); Urine Bilirubin Dipstick Negative (Negative); Urine Clarity Clear (Clear); Urine Urobilinogen Normal (Normal)
[2019-04-26 18:37] LABS: Red Blood Cells-Urine 0-5 SEEN /hpf (0-5); White Blood Cells 0-5 SEEN /hpf (0-5)
[2019-04-26 21:16] LABS: Bedside Glucose 133 mg/dL (70-110)
[2019-04-26] MEDS: Tamsulosin HCl 0.4 MG Capsule PO (21:38)
[2019-04-26] MEDS: CARBIDOPA/LEVODOPA CR 50/200 Tablet PO (21:39)
[2019-04-26] MEDS: guaiFENesin 1,200 MG Tablet 1200 MG PO (21:39)
[2019-04-26] MEDS: Mirtazapine 15 MG Tablet PO (21:39)
[2019-04-27] VITALS (12 sets, daily range): BP systolic 141–154; BP diastolic 81–89; PULSE 46–87; RESP 18; TEMP 36.7–37.1; O2SAT 95–98
[2019-04-27] MEDS: 0.9% Normal Saline 1,000 ML 75 ML IV ×3 (05:00→22:18)
--- NOTE | 2019-04-27 06:00 | RAD_ITS ---
HISTORY: Cough XR Chest 2 Views TECHNIQUE: Frontal and lateral views of chest. # of images incl. paperwork: 2 COMPARISON: 04/26/2019 FINDINGS: Cardiomegaly. No pulmonary venous congestion. Patchy parenchymal airspace opacities right upper lobe and left lower lobe suspicious for pneumonia. Ill-defined subtle right lower lobe airspace opacities which may represent additional foci of pneumonitis versus parenchymal scarring. The lateral view is motion degraded. Minimal bilateral effusions are not excluded. No layering effusions are seen. No pneumothorax. Senescent osseous changes. No acute osseous abnormality of the thorax. RAD/Chest PA and Lateral IMPRESSION: 1. Patchy parenchymal opacities right upper lobe and left lower lobe suspicious for pneumonia. 2. Subtle right lower lobe opacities which may represent parenchymal scarring versus additional foci of pneumonitis. 3. Cardiomegaly. at 1250 Reported and signed by: Juan Bruce MD Electronically Signed: Juan Bruce MD at 12:48 EDT Tel , Service support ,
[2019-04-27 06:04] LABS: Absolute Lymphocyte Count 1.09 X10^3/ul (0.83-4.51); Absolute Neutrophil Count 3.9 X10^3/uL (2.0-7.7); Basophil# 0.01 X10^3/uL; Basophil% 0.2 % (0-1); Eosinophil# 0.17 X10^3/uL; Eosinophils% 2.8 % (0-5); Hematocrit 37.5 % (40-54); Hemoglobin 12.3 g/dl (13.0-16.5); Lymphocyte # 1.09 X10^3/ul (4.0); Lymphocyte % 17.7 % (19-41); Mean Corp Hgb Conc 32.8 g/gl (32-36); Mean Corpuscular Hgb 26.5 pg (27.0-32.0); Mean Corpuscular Volume 80.8 fL (80-94); Mean Platelet Vol. 10.3 fl (6.2-12.0); Monocyte# 0.87 X10^3/uL; Monocyte% 14.1 % (0-10); Neutrophil # 3.92 X10^3/uL (2.7-7.7); Neutrophil % 63.7 % (47-70); Platelet Count 162 K/mm3 (150-450); RBC Distribution Width CV 14.4 % (11.6-14.6); RBC Distribution Width SD 41.6 fl (35.1-43.9); Red Blood Count 4.64 M/mm3 (4.6-6.2); White Blood Count 6.2 K/mm3 (4.4-11.0)
[2019-04-27 06:09] LABS: POSITIVE COUNT NO; POSITIVE DIFFERENTIAL NO; POSITIVE MORPHOLOGY NO
[2019-04-27 06:22] LABS: Anion Gap 9 (5-15); BUN 8 mg/dL (7-18); BUN/Creat Ratio 10.9 RATIO (10-20); Calcium,Total 8.6 mg/dL (8.5-10.1); Chloride 106 mmol/L (98-107); Creatinine, Serum 0.74 mg/dL (0.70-1.30); EST Glomerular Filtration Rate 109 mL/min (>60); Est Glom Filt Rate - Afr Amer 132 mL/min (>60); Estimated Creatinine Clearance 58.92 ml/min; Glucose 124 mg/dL (74-106); Potassium 3.9 mmol/L (3.5-5.1); Sodium Level 141 mmol/L (136-145)
[2019-04-27 06:24] LABS: International Normalized Ratio 1.1; Prothrombin Time (Protime)PT. 14.4 SECONDS (11.7-14.9)
[2019-04-27] MEDS: Levothyroxine 125 MCG Tablet PO (06:27)
[2019-04-27 06:50] LABS: Bedside Glucose 127 mg/dL (70-110)
--- NOTE | 2019-04-27 08:13 | MRI_ITS ---
HISTORY: Confusion, history of cancer COMPARISON: 04/26/2019 TECHNIQUE: Multiphasic multiplanar MR imaging of the brain per department protocol without and with 14 ml of Gadavist intravenous gadolinium. # of images including paperwork: 332 FINDINGS: Diffusion-weighted imaging shows a large acute right basal ganglia infarct with involvement of the right caudate nucleus, anterior limb internal capsule and subjacent putamen as demonstrated by hyperintense signal on DWI with corresponding decreased signal on ADC maps. No other areas of acute infarct. There are dilated perivascular spaces within the deep calderon matter also known as Virchow Alon spaces. Small old right cerebellar infarcts. Small old right putaminal lacunar infarct along the posterior aspect. Old left basal ganglia lacunar infarct. No parenchymal hemorrhage, intra-axial mass, mass effect, or midline shift. No abnormal extra-axial fluid collections. Mild diffuse parenchymal atrophy with compensatory increase size of CSF spaces. No hydrocephalus. Moderate periventricular white matter changes as seen by hyperintense signal on FLAIR and T2 weighting. No abnormal enhancing parenchymal or dural based lesions. Paranasal sinuses are clear. Mastoid air cells are clear. Orbits are unremarkable. MRI/Brain W/WO Contrast IMPRESSION: 1. Large size acute right basal ganglia lacunar infarct. 2. Small old bilateral basal ganglia lacunar infarcts. Small old right cerebellar infarcts. 3. No evidence for metastatic disease to brain. 4. Moderate chronic small vessel ischemic white matter changes. Mild diffuse atrophy. at 1430 Reported and signed by: Juan Bruce MD N.B. : The above information has been verbally conveyed by Juan Bruce MD to Dr. Archie Pinedo MD, on 04/27/2019 14:57:45 (ET). Electronically Signed: Juan Bruce MD at 14:29 EDT Tel , Service support ,
--- NOTE | 2019-04-27 08:55 | PCM.PN.PUL ---
Subjective: The patient was seen and examined at the bedside this morning. Events from the last 24 hours have been reviewed. The patient is currently afebrile, hemodynamically stable and maintaining appropriate oxygen saturations on room air. The patient's remains at the bedside. The patient continues to deny shortness of breath or the presence of a cough. The patient's did confirm to me that the patient has never formally been diagnosed with Parkinson's disease, despite the fact that he is prescribed Sinemet by his PCP. The patient's CT head from yesterday did raise concerns of a potential normal pressure hydrocephalus. There are plans for the patient to be evaluated by neurology today, prior to consideration for discharge home. Objective: The patient's most recent lab work, culture data and imaging studies have all been personally reviewed. - Physical Exam General: Alert, Cooperative, No apparent distress, Confused HEENT: Atraumatic, PERRLA, Normocephalic Oral: No Gingival or Mucosal Lesions/ Ulcerations Neck: Supple, No Nodes, Trachea Midline Lungs: No rhonchi, No wheeze, No rales, Diminished Cardiovascular: Regular rate, Normal S1, Normal S2, No murmurs Abdomen: Bowel Sounds Present, Soft, Non Tender Extremities: No clubbing, No cyanosis, No edema Skin: No breakdown Musculoskeletal: No Muscle Wasting Lymphatic: No Cervical, Supraclavicular, or Inguinal Adenopathy Neurological: - - No focal neurological deficits. Psych/Mental Status: Flat Affect Vital Signs Temp Pulse Resp BP Pulse Ox 98.7 F 84 18 149/88 H 95 04/27/19 02:00 04/27/19 03:52 04/27/19 02:00 04/27/19 02:00 04/27/19 02:00 Oxygen Delivery Method Room Air Weight: 158 lb 8.198 oz Body Mass Index (BMI) 21.4 Finger Stick Blood Glucose 181 Intake and Output for Last 24 Hours 04/25/19 04/26/19 04/27/19 23:59 23:59 23:59 Intake Total 966 / 966 533 / 533 Output Total 61 / 61 2 / 2 Balance 905 / 905 531 / 531 Microbiology Past 72 Hours 04/26/19 17:30 Streptococcus pneumoniae Antigen (M - Final Urine Catheter - Catheter 04/26/19 17:30 Legionella Antigen - Final Urine Catheter - Catheter Laboratory Tests Past 24 Hrs 04/26/19 04/26/19 04/26/19 11:20 11:20 17:30 WBC 5.0 RBC 4.98 Hgb 13.0 Hct 40.7 MCV 81.7 MCH 26.1 L MCHC 31.9 L RDW 14.9 H RDW Differential 43.1 Plt Count 185 MPV 11.0 Immature Gran % (Auto) 1.400 H Neut % (Auto) 58.8 Lymph % (Auto) 22.6 [place] % (Auto) 13.2 H Eos % (Auto) 3.8 Baso % (Auto) 0.2 Absolute Neuts (auto) 2.9 Absolute Lymphs (auto) 1.13 Total Counted Not Reportable PT INR Sodium 139 Potassium 4.9 Chloride 107 Carbon Dioxide 29.0 Anion Gap 3 L BUN 12 Creatinine 0.91 Estim Creat Clear Calc 66.60 Est GFR (MDRD) Af Amer 103 Est GFR (MDRD) Non-Af 85 BUN/Creatinine Ratio 13.2 Glucose 150 H Calcium 9.0 Total Bilirubin 0.80 AST 42 H ALT < 6 L Alkaline Phosphatase 134 H Total Protein 7.3 Albumin 3.1 L Globulin 4.2 Albumin/Globulin Ratio 0.7 L Urine Color Yellow Urine Clarity Clear Urine pH 6.0 Ur Specific [place] 1.020 Urine Protein Negative Urine Glucose (UA) Normal Urine Ketones 5 H Urine Occult Blood 10 H Urine Nitrite Negative Urine Bilirubin Negative Urine Urobilinogen Normal Ur Leukocyte Esterase Negative Urine RBC 0-5 SEEN Urine WBC 0-5 SEEN Ur Squamous Epith Cells 0 SEEN Urine Bacteria 0 SEEN Urine Mucus 0 SEEN 04/27/19 04/27/19 04/27/19 05:46 05:46 05:46 WBC 6.2 RBC 4.64 Hgb 12.3 L Hct 37.5 L MCV 80.8 MCH 26.5 L MCHC 32.8 RDW 14.4 RDW Differential 41.6 Plt Count 162 MPV 10.3 Immature Gran % (Auto) 1.500 H Neut % (Auto) 63.7 Lymph % (Auto) 17.[address] [place] % (Auto) 14.1 H Eos % (Auto) 2.8 Baso % (Auto) 0.2 Absolute Neuts (auto) 3.9 Absolute Lymphs (auto) 1.09 Total Counted Not Reportable PT 14.4 INR 1.1 Sodium 141 Potassium 3.9 Chloride 106 Carbon Dioxide 26.0 Anion Gap 9 BUN 8 Creatinine 0.74 Estim Creat Clear Calc 58.92 Est GFR (MDRD) Af Amer 132 Est GFR (MDRD) Non-Af 109 BUN/Creatinine Ratio 10.9 Glucose 124 H Calcium 8.6 Total Bilirubin AST ALT Alkaline Phosphatase Total Protein Albumin Globulin Albumin/Globulin Ratio Urine Color Urine Clarity Urine pH Ur Specific [place] Urine Protein Urine Glucose (UA) Urine Ketones Urine Occult Blood Urine Nitrite Urine Bilirubin Urine Urobilinogen Ur Leukocyte Esterase Urine RBC Urine WBC Ur Squamous Epith Cells Urine Bacteria Urine Mucus POC Glucose 04/27/19 04/26/19 04/26/19 06:23 21:00 16:04 POC Glucose 127 H 133 H 90 Clinical Impression(s) from Imaging Studies Brain CT 04/26/19 10:53 IMPRESSION: Senescent changes with no evidence of acute intracranial bleed, mass or ischemia. Electronically Signed: Roscoe Teran, DO at 12:18 EDT , Service support , Chest X-Ray 04/26/19 11:00 IMPRESSION: Bibasilar patchy infiltrates. Right upper lobe patchy infiltrate. Electronically Signed: Dragan Conteh, at 11:30 EDT , Service support , Medical Necessity - Tobacco Use Smoking Status: Former smoker Assessment/Plan All Active Problems (Last Reviewed 04/27/19 @ 13:12 by Juan De Guzman MD) Lung mass (Acute) Mediastinal lymphadenopathy (Acute) Lytic bone lesions on xray (Acute) RECOMMENDATIONS: 1. Transition to p.o. Levaquin with plans to complete a 5-day treatment course. 2. Await neurology evaluation. 3. MRI brain is pending. 4. EBUS procedure has been rescheduled for May 11. Patient and his have been notified accordingly. IMPRESSIONS: 1. Altered mentation I do suspect that this is likely just the patient's underlying dementia and potential hydrocephalus. Perhaps news of the patient's sisters enrollment hospice care precipitated some form of a neuropsychiatric event. In addition, the patient's CT head revealed severe cerebral atrophy along with widening of the extra-axial spaces and ventricular dilation, which may certainly suggest normal pressure hydrocephalus. However, given the findings concerning for an underlying primary lung malignancy, there is always a possibility for intracranial metastatic disease or CVA. Although the patient was initially admitted to the hospital for treatment of presumptive pneumonia, I have a low clinical index of suspicion for an underlying pulmonary infectious process. I agree with obtaining neurology consultation and MRI. The patient is currently scheduled to undergo EBUS on May 11. If the patient and his wish to proceed with the procedure, his Eliquis will need to be placed on hold effective May 07. This note was generated with [employer] dictation software. It may contain incorrect words, spelling, and punctuation that were not noted in checking the note before signing. Code Visit Inpatient E&M: 42823 Subs Hosp L2
[2019-04-27] MEDS: Ramipril 5 MG Capsule PO (09:07)
[2019-04-27] MEDS: metFORMIN (XR) 500 MG Tablet PO ×2 (09:07→17:45)
[2019-04-27] MEDS: CARBIDOPA/LEVODOPA CR 50/200 Tablet PO (09:07)
[2019-04-27] MEDS: Memantine Hydrochloride 5 MG Tablet PO (09:08)
[2019-04-27] MEDS: Donepezil HCl 10 MG Tablet PO (09:08)
[2019-04-27] MEDS: guaiFENesin 1,200 MG Tablet 1200 MG PO ×2 (09:08→21:07)
[2019-04-27] MEDS: Escitalopram Oxalate 10 MG Tablet PO (09:08)
--- NOTE | 2019-04-27 10:40 | CASEMGMT ---
[facility] assessment: Face to Face with patient for initial transition planning/care coordination assessment. [facility] introduced self and role at [facility] to pt/, voices understanding and consents to assessment at this time. Pt is confused at this time and unable to answer questions appropriately and answers all questions for pt at this time. Per , pt has been diagnosed with dementia previously and states that pt has been much worse for the last week or so. Pt is lying in bed in no distress at this time. Care providers, pharmacy, and demographics verified at this time. PCP: Khai Specialists: Jacob cardio Preferred Pharmacy: [facility] Living Will/HPOA: states that pt has LW/HPOA and is aware that they are not currently on file at [facility] at this time. states that she is pt's HPOA. LNOK: Montserrat Villafuerte, Living Arrangements: states that pt lives with her on main level of 1.5 story home with 1 step in and states no concerns at home at this time. Per , she helps pt with ADL's. Transportation: states that she drives and states no transportation concerns at this time. DME/HHC: Pt has the following DME: walker, grab bars, and transport chair. states has had [facility] in the past but states has never been to a SNF. states some concerns with pt going home at discharge in regards to pt's dementia. provided with resources on dementia/alzheimers at this time. Pt is retired. Per , pt does not smoke or drink ETOH. voices no further questions/concerns/needs at this time. CM to follow for PT/OT evals and MRI results as well as any further discharge planning/needs. Advised pt/ to ask for CM if any further questions/concerns/needs arise, voice understanding. Pt Goal: Home Plan: TBD, pending MRI results and PT/OT evals. [place] [facility]
[2019-04-27 10:51] LABS: Bedside Glucose 189 mg/dL (70-110)
[2019-04-27] MEDS: levoFLOXacin 500 MG Tablet PO (10:51)
[2019-04-27] MEDS: Insulin Lispro 100 UNIT/ML INSULN.PEN SC (10:51)
--- NOTE | 2019-04-27 12:13 | PCM.CONS.B ---
- Consult Date of Consult: 04/27/19 - Reason for Consult per admit note:The patient is a 78 year old M with past medical history as mentioned above presented to the emergency room because of confusion. At this time, patient is alert but disoriented to time and place, oriented only to himself and he was not able to provide detailed history. Patient's was at the bedside and she provided the information. According to the patient's , patient has been having increasing confusion over the last week, being not going what is going on, forgetful and not be able to do tasks that he used to perform and he has been sleeping more than usual. Patient's mentioned that she asks him to go to eat, he replies where I am going to. She mentioned that he has been having issues with urine and stool incontinence without knowing. There was no reported history of cough, sputum production, fever or chills. The patient denied any symptoms. He denied chest pain or shortness of breath. Denies cough or sputum production. Denied abdominal pain, nausea or vomiting. Denies fever or chills. Recently, he was found to have bilateral lung nodules, right upper and lower lung masses and he had PET scan done on March 19, 2019 that revealed increased glucose metabolism in the right upper and lower hemithorax with high suspicion of malignancy. He is supposed to go for bronchoscopy tomorrow according to his but according to Dr. Corrigan, his called the office yesterday and she mentioned that her may have a stroke and schedule procedure was canceled. He had a history of chronic atrial fibrillation, has been only on Eliquis for anticoagulation but not on any rate control medicine. He had a history of CAD status post stents and he has been on Eliquis and ramipril. He has history of type 2 diabetes mellitus, history of has been under control on metformin. In the emergency department, patient was bradycardic, heart rate has been in the 50s, blood pressure stable, afebrile, pulse ox is 98% on room air. Routine blood work was unremarkable. LFT was normal. CT scan brain showed no acute infarction or hemorrhage. EKG revealed atrial fibrillation, bradycardia, rate has been on the 50s, no acute ischemic changes. Chest x-ray reported officially as bilateral basilar patchy infiltrate, right upper lobe patchy infiltrate. I reviewed the chest x-ray myself and to me, there may be minimal haziness on the right base and the right upper lobe, left lung is clear. Patient is being admitted for worsening confusion/encephalopathy likely because of baseline dementia and probable pneumonia and also being admitted for probable community acquired pneumonia.
--- NOTE | 2019-04-27 13:11 | CON.PCM_ITS ---
Reason for Consult Date of Consultation: 04/27/19 Reason for Consultation: confusion History of Present Illness: The patient is a 79 year old presents with confusion. acting abnormally for over a week, progressively worse, eliquis (for afib) last dose tuesday night in anticipation of lung biopsy to evaluate lung nodules. no weight loss. reports no pd, sinemet was started at [facility]. not currently helping, family ok with dc. reports baseline memory fairly good, although has lost interest in reading. doesnt drive due to familys concern of accident. was otherwise independent with adls upto about one month ago. per notes:The patient is an 79-year-old male, with a history as outlined below, who presented to the emergency department on April 26 with altered mentation. The patient is known to me from the pulmonary medicine clinic. I initially saw the patient when he was admitted to the hospital in September 2018. A CT chest was obtained at that time and revealed a masslike density/consolidation in the right lower lobe along with several pulmonary nodules and evidence of right upper lobe groundglass changes. There was also significant mediastinal and hilar adenopathy. The patient was treated at that time for community-acquired pneumonia. An attempt was made to obtain a CT-guided lung biopsy. However, despite sedation, the patient was agitated throughout the entire procedure and so the biopsy was not successful. The patient then followed up in the pulmonary medicine clinic to formulate a plan for moving forward. A repeat CT chest without contrast was then obtained in mid November 2018. That imaging study showed interval improvement in the right upper lobe infiltration along with a persistent 1.3 cm nodule in the right upper lobe. The previously seen infiltration in the right lower lobe had improved. While the patient does have an approximate [id number] smoking history, he quit completely in 1962. Follow-up chest imaging in February followed by PET scan in March did reveal increased glucose metabolism in the right upper and lower hemithorax along with mediastinal and bilateral thoracic perihilar activity. Following my review of the aforementioned imaging, I recommended that the patient proceed with EBUS to obtain a histopathologic diagnoses. The patient was initially scheduled to undergo the procedure on April 27. However, 2 days prior to the procedure, our office was contacted by the patient's who indicated a concern that the patient's mentation had been altered over the last week and she was concerned for the possibility of a stroke. She was advised by our office to take the patient to the emergency department for evaluation. The patient was subsequently seen in the emergency department on the afternoon of April 26. The patient was noted to be afebrile and hemodynamically stable. There was no evidence of a leukocytosis. CT head revealed no acute intracranial pathology. There was evidence of severe cerebral atrophy with widening of the extra-axial spaces and ventricular dilation. Although the patient's plain film chest x-ray was read by the radiologist to reveal bibasilar patchy infiltrates and a right upper lobe infiltrate. However, upon my review of the chest x-ray, these findings likely represent possible progression of the patient's underlying suspected lung malignancy. He has not had any form of a cough or shortness of breath. The patient's did report to me that she told her approximately 1 week ago of news that his sister had been placed in hospice care. Since that time, she reported that his mentation had been off. The patient has known underlying dementia along with Parkinson's disease. The patient was subsequently placed on IV antibiotics and admitted to the progressive care unit. Past Medical History Past Medical History (Chronic Problems): Chronic Problems (Last Reviewed 04/27/19 @ 13:12 by Juan De Guzman MD) History of coronary artery stent placement (Chronic 11/1999) [id number] 11/1999 Dementia, vascular (Chronic) Tinea unguium (Chronic) Toe pain, right (Chronic) Toe pain, left (Chronic) Abnormal chest CT (Chronic) Chronic atrial fibrillation (Chronic) Nonrheumatic tricuspid valve regurgitation (Chronic) Atherosclerosis of [place]alton coronary artery (Chronic) PTCA of RCA intracoronary stent November 1999 HLD (hyperlipidemia) (Chronic) Essential (primary) hypertension (Chronic) HLD (hyperlipidemia) (Chronic) Medical History: Medical History (Last Reviewed 04/27/19 @ 13:12 by Juan De Guzman MD) Abnormal chest CT (Chronic) R93.89 Chronic atrial fibrillation (Chronic) I48.2 Nonrheumatic tricuspid valve regurgitation (Chronic) I36.1 Atherosclerosis of [place]al[place] coronary artery (Chronic) I25.10 PTCA of RCA intracoronary stent November 1999 HLD (hyperlipidemia) (Chronic) E78.5 Essential (primary) hypertension (Chronic) I10 HLD (hyperlipidemia) (Chronic) E78.5 Alzheimer disease G30.9, F02.80 Aphasia R47.01 BPH (benign prostatic hyperplasia) N40.0 Depression F32.9 GERD (gastroesophageal reflux disease) K21.9 speech and language assistant use of drug Z79.899 Type 2 diabetes mellitus E11.9 Allergies lovastatin [From Mevacor] Adverse Reaction (Severe, Verified 04/26/19 10:10) myalgias metoprolol succinate [From Toprol XL] Adverse Reaction (Severe, Verified 04/26/19 10:10) Heart rate too slow beta blockers Adverse Reaction (Uncoded 04/26/19 10:10) low heart rate Home Medications: Ambulatory Orders Medication Instructions Recorded Donepezil HCl [Aricept] 10 mg PO DAILY 09/30/16 Tamsulosin HCl [Flomax] 1 cap PO QHS 09/30/16 Albuterol Sulfate [Ventolin Hfa] 18 gm IH DAILY PRN PRN 05/03/17 memantine 5 mg tablet 5 mg PO QDAY 11/25/17 escitalopram 10 mg tablet 10 mg PO DAILY 12/29/17 Levothyroxine Sodium [Synthroid] 125 mcg PO DAILY 09/22/18 Apixaban [Eliquis] 5 mg PO BID 09/27/18 Acetaminophen [Tylenol] 1,000 mg PO Q6H PRN PRN tab 11/01/18 Mirtazapine [Remeron] 15 mg PO QHS #30 tab 11/01/18 Carbidopa/Levodopa [Carbidopa-Levo 1 tab PO 0900 04/25/19 ER 50-200 Tab] Carbidopa/Levodopa [Carbidopa-Levo 2 tab PO QHS 04/25/19 ER 50-200 Tab] Ramipril 5 mg PO DAILY 04/25/19 Sumatriptan Succinate [Imitrex] 50 mg PO .X1 PRN 04/25/19 Cholecalciferol (Vitamin D3) 2,000 unit PO QHS 04/26/19 [Vitamin D3] Metformin HCl 500 mg PO BID 04/26/19 Surgical History: Surgical History (Last Reviewed 04/27/19 @ 13:12 by Juan De Guzman MD) History of coronary artery stent placement (Chronic) Onset Date: 11/1999 Z95.5 [id number] 11/1999 H/O hernia repair Z98.890, Z87.19 History of left heart catheterization (LHC) Z98.890 [facility]: 11/20/1999 History of tonsillectomy Z98.890, Z90.89 Surgical History: angioplasty, herniorrhaphy, tonsillectomy Psychiatric History: Depression Lives: Spouse/ Significant Other Smoking Status: Former smoker Alcohol: None, Rare - *Family History Offspring Family History: Family History (Last Reviewed 03/26/19 @ 11:32 by MATT Michelle) Father Cancer Mother CAD (coronary artery disease) CVA (cerebral vascular accident) Brother CAD (coronary artery disease) Brother CVA (cerebral vascular accident) Hypertension Sister Myocardial infarction, Onset Age: 73 Sister CVA (cerebral vascular accident) Sister CVA (cerebral vascular accident) Sister Breast cancer Sister CVA (cerebral vascular accident) Sister TIA (transient ischemic attack) History Items: Heart Disease Review of Systems Constitutional: Denies: Chills, Fever, Weight Change HEENT: Denies: Head Aches, Sinus Congestion, Sinus Drainage Cardiovascular: Denies: Chest Pain, Palpitations Respiratory: Denies: Cough, Shortness of breath at rest, Sputum production Gastrointestinal: Denies: Abdominal Pain, Nausea, Vomiting Genitourinary: Denies: Dysuria Musculoskeletal: Denies: Joint Pain, Joint Tenderness Skin: Denies: Rash, Wounds Neurological: Denies: Numbness, Tingling, Focal weakness Psychiatric: Denies: Anxiety, Depression, Homicidal Ideations, Suicidal Ideations Hematologic/ Lymphatic: Denies: Easy Bruising, Easy Bleeding - Physical Exam Vital Signs Temp Pulse Resp BP Pulse Ox 36.7 C 61 18 147/81 H 97 04/27/19 08:00 04/27/19 08:00 04/27/19 08:00 04/27/19 08:00 04/27/19 08:00 Oxygen Delivery Method Room Air Weight: 71.9 kg Body Mass Index (BMI) 21.4 Finger Stick Blood Glucose 181 Intake and Output for Last 24 Hours 04/25/19 04/26/19 04/27/19 23:59 23:59 23:59 Intake Total 966 / 966 1068 / 1068 Output Total 61 / 61 2 / 2 Balance 905 / 905 1066 / 1066 Microbiology Past 72 Hours 04/26/19 17:30 Streptococcus pneumoniae Antigen (M - Final Urine Catheter - Catheter 04/26/19 17:30 Legionella Antigen - Final Urine Catheter - Catheter Laboratory Tests Past 24 Hrs 04/26/19 04/27/19 04/27/19 17:30 05:46 05:46 WBC 6.2 RBC 4.64 Hgb 12.3 L Hct 37.5 L MCV 80.8 MCH 26.5 L MCHC 32.8 RDW 14.4 RDW Differential 41.6 Plt Count 162 MPV 10.3 Immature Gran % (Auto) 1.500 H Neut % (Auto) 63.7 Lymph % (Auto) 17.7 L [place] % (Auto) 14.1 H Eos % (Auto) 2.8 Baso % (Auto) 0.2 Absolute Neuts (auto) 3.9 Absolute Lymphs (auto) 1.09 Total Counted Not Reportable PT 14.4 INR 1.1 Sodium Potassium Chloride Carbon Dioxide Anion Gap BUN Creatinine Estim Creat Clear Calc Est GFR (MDRD) Af Amer Est GFR (MDRD) Non-Af BUN/Creatinine Ratio Glucose Calcium Urine Color Yellow Urine Clarity Clear Urine pH 6.0 Ur Specific [place] 1.020 Urine Protein Negative Urine Glucose (UA) Normal Urine Ketones 5 H Urine Occult Blood 10 H Urine Nitrite Negative Urine Bilirubin Negative Urine Urobilinogen Normal Ur Leukocyte Esterase Negative Urine RBC 0-5 SEEN Urine WBC 0-5 SEEN Ur Squamous Epith Cells 0 SEEN Urine Bacteria 0 SEEN Urine Mucus 0 SEEN 04/27/19 05:46 WBC RBC Hgb Hct MCV MCH MCHC RDW RDW Differential Plt Count MPV Immature Gran % (Auto) Neut % (Auto) Lymph % (Auto) [place] % (Auto) Eos % (Auto) Baso % (Auto) Absolute Neuts (auto) Absolute Lymphs (auto) Total Counted PT INR Sodium 141 Potassium 3.9 Chloride 106 Carbon Dioxide 26.0 Anion Gap 9 BUN 8 Creatinine 0.74 Estim Creat Clear Calc 58.92 Est GFR (MDRD) Af Amer 132 Est GFR (MDRD) Non-Af 109 BUN/Creatinine Ratio 10.9 Glucose 124 H Calcium 8.6 Urine Color Urine Clarity Urine pH Ur Specific [place] Urine Protein Urine Glucose (UA) Urine Ketones Urine Occult Blood Urine Nitrite Urine Bilirubin Urine Urobilinogen Ur Leukocyte Esterase Urine RBC Urine WBC Ur Squamous Epith Cells Urine Bacteria Urine Mucus POC Glucose 04/27/19 04/27/19 04/26/19 10:47 06:23 21:00 POC Glucose 189 H 127 H 133 H 04/26/19 16:04 POC Glucose 90 mri reivewed, new right bg infarct (acute) Current Home Med List Medication Instructions Recorded Confirmed Type Donepezil HCl [Aricept] 10 mg PO DAILY 09/30/16 04/26/19 History Tamsulosin HCl [Flomax] 1 cap PO QHS 09/30/16 04/26/19 History Albuterol Sulfate [Ventolin Hfa] 18 gm IH DAILY PRN PRN 05/03/17 04/26/19 History memantine 5 mg tablet 5 mg PO QDAY 11/25/17 04/26/19 History escitalopram 10 mg tablet 10 mg PO DAILY 12/29/17 04/26/19 History Levothyroxine Sodium [Synthroid] 125 mcg PO DAILY 09/22/18 04/26/19 History Apixaban [Eliquis] 5 mg PO BID 09/27/18 04/26/19 History Acetaminophen [Tylenol] 1,000 mg PO Q6H PRN PRN tab 11/01/18 04/26/19 Rx Mirtazapine [Remeron] 15 mg PO QHS #30 tab 11/01/18 04/26/19 Rx Carbidopa/Levodopa [Carbidopa-Levo 1 tab PO 0900 04/25/19 04/26/19 History ER 50-200 Tab] Carbidopa/Levodopa [Carbidopa-Levo 2 tab PO QHS 04/25/19 04/26/19 History ER 50-200 Tab] Ramipril 5 mg PO DAILY 04/25/19 04/26/19 History Sumatriptan Succinate [Imitrex] 50 mg PO .X1 PRN 04/25/19 04/26/19 History Cholecalciferol (Vitamin D3) 2,000 unit PO QHS 04/26/19 04/26/19 History [Vitamin D3] Metformin HCl 500 mg PO BID 04/26/19 04/26/19 History Current Medications Generic Name Dose Route Start Last Admin Trade Name Freq PRN Reason Stop Dose Admin Acetaminophen 650 mg 04/26/19 14:13 Tylenol PO Q6H PRN PRN Mild pain 1-3/Temp > 100.7 F Albuterol Sulfate 2.5 mg 04/26/19 14:13 Ventolin Aerosols INHALATION Q4H PRN PRN SOB/Wheezing Carbidopa/Levodopa 1 tablet 04/27/19 09:00 04/27/19 09:07 Sinemet Cr PO 1 tablet 0900 SHELDON Administration Carbidopa/Levodopa 2 tablet 04/26/19 22:00 04/26/19 21:39 Sinemet Cr PO 2 tablet QHS SHELDON Administration Dextrose 0 gm 04/26/19 14:13 [id number] Syringe IV X1 PRN Hypoglycemia Protocol Donepezil HCl 10 mg 04/27/19 10:00 04/27/19 09:08 Aricept PO 10 mg DAILY SHELDON Administration Escitalopram Oxalate 10 mg 04/27/19 10:00 04/27/19 09:08 Lexapro PO 10 mg DAILY SHELDON Administration Glucagon 1 mg 04/26/19 14:13 IM .X1 PRN Hypoglycemia Guaifenesin 1,200 mg 04/26/19 22:00 04/27/19 09:08 Mucinex PO 1,200 mg BID SHELDON Administration Sodium Chloride 1,000 mls @ 75 mls/hr 04/26/19 14:13 04/27/19 05:00 IV 75 mls/hr .[id number] SHELDON Administration Insulin Human Lispro 0 unit 04/26/19 16:00 04/27/19 10:51 Humalog Kwikpen (Bkc) SC 1 u ACHS SHELDON Administration Protocol Levofloxacin 500 mg 04/27/19 09:00 04/27/19 10:51 Levaquin Tablet PO 04/30/19 06:01 500 mg DAILY@0600 SHELDON Administration Levothyroxine Sodium 125 mcg 04/27/19 06:00 04/27/19 06:27 Synthroid PO 125 mcg DAILY@0600 SHELDON Administration Memantine 5 mg 04/27/19 10:00 04/27/19 09:08 Namenda PO 5 mg DAILY SHELDON Administration Metformin HCl 500 mg 04/26/19 17:00 04/27/19 09:07 Glucophage Xr PO 500 mg BIDCM SHELDON Administration Mirtazapine 15 mg 04/26/19 22:00 04/26/19 21:39 Remeron PO 15 mg QHS SHELDON Administration Nutritional Formula (Lactose Free) 120 ml 04/26/19 18:00 04/27/19 09:08 Glucerna Shake PO Not Given 4X/DAY SHELDON Ondansetron HCl 4 mg 06/20/19 14:13 Zofran IV Q8H PRN PRN NAUSEA/VOMITING Ramipril 5 mg 04/27/19 10:00 04/27/19 09:07 Altace PO 5 mg DAILY SHELDON Administration Senna/Docusate Sodium 2 tablet 04/26/19 14:13 Senokot-S, Jes-Colace PO BID PRN PRN Constipation Sodium Chloride 5 - 15 ml 04/26/19 14:50 IV UD PRN SALINE FLUSH Tamsulosin HCl 0.4 mg 04/26/19 22:00 04/26/19 21:38 Flomax PO 0.4 mg QHS SHELDON Administration mri shows acute right subcortical infarct Assessment/Plan All Active Problems (Last Reviewed 04/27/19 @ 13:12 by Juan De Guzman MD) Lung mass (Acute) Mediastinal lymphadenopathy (Acute) Lytic bone lesions on xray (Acute) acute right subcortical infarct, encephalopathy complicated by dementia and possible underlying cancer eliquis for now supportive rx family aware and considering options
--- NOTE | 2019-04-27 15:00 | ECHOD_ITS ---
Reason For Study: TIA/CVA Procedure This was a 2D Doppler, Color Flow transthoracic echocardiogram. Exam performed portable in patient room. Left Ventricle Mild concentric left ventricular hypertrophy. The estimated ejection fraction is 65 %. Unable to assess diastolic dysfunction due to arrhythmia. No regional wall motion abnormalities noted. Right Ventricle Normal size and thickness. Normal systolic function. Atria The left atrium is moderately enlarged. The right atrium is severely enlarged. Normal atrial septum. Mitral Valve The mitral valve is structurally normal. No prolapse or stenosis seen. Mild (1+) mitral valve insufficiency. Tricuspid Valve Normal tricuspid valve. Moderate (2+) tricuspid valve insufficiency. Right ventricular systolic pressure estimated to be 40 mmHg. Mild pulmonary hypertension. Aortic Valve Trisinus/trileaflet aortic valve. Mild focal aortic valve thickening. Pulmonic Valve Normal pulmonic valve. Great Vessels Normal aortic root. Normal arch. Normal inferior vena cava. Inferior vena cava collapse with sniff. Pericardium/Pleural No pericardial effusion. MMode/2D Measurements & Calculations LVIDd: 3.9 cm IVSd: 1.6 cm LVOT diam: 2.0 cm LVIDs: 2.6 cm LVPWd: 1.3 cm LVOT area: 3.2 cm2 FS: 31.7 % LA dimension: 4.4 cm LAV(MOD-bp): 77.5 ml LA A4 area: 23.0 cm2 LAV(MOD-bp) Indexed: 40.0 ml/m2 LAV(MOD-sp2): 69.7 ml LAV(MOD-sp4): 68.1 ml RA A4 area: 25.6 cm2 Time Measurements MV dec time: 0.21 sec Doppler Measurements & Calculations MV E max félix: 102.7 cm/sec MV V2 max: 111.7 cm/sec MV P1/2t max félix: 110.7 cm/sec MV max P.0 mmHg MV P1/2t: 71.0 msec MV V2 mean: 55.7 cm/sec MV dec slope: 457.0 cm/sec2 MV mean P.5 mmHg MV V2 VTI: 30.2 cm MVA(P1/2t): 3.1 cm2 MVA(VTI): 1.6 cm2 Ao V2 max: 113.9 cm/sec LV V1 max: 81.9 cm/sec MR max félix: 481.4 cm/sec Ao max P.2 mmHg LV V1 max P.7 mmHg MR max P.7 mmHg Ao V2 mean: 76.1 cm/sec LV V1 mean P.5 mmHg Ao mean P.6 mmHg LV V1 mean: 56.2 cm/sec Ao V2 VTI: 21.0 cm LV V1 VTI: 15.7 cm LG(I,D): 2.4 cm2 LG(V,D): 2.3 cm2 SV(LVOT): 49.6 ml PA V2 max: 72.2 cm/sec TR max félix: 247.8 cm/sec TR max P.6 mmHg Interpretation Summary Mild concentric left ventricular hypertrophy. The estimated ejection fraction is 65 %. Unable to assess diastolic dysfunction due to arrhythmia. The left atrium is moderately enlarged. The right atrium is severely enlarged. Mild (1+) mitral valve insufficiency. Moderate (2+) tricuspid valve insufficiency. Right ventricular systolic pressure estimated to be 40 mmHg. Mild pulmonary hypertension. Pt appears to be in atrial fibrillation. There is no comparison study available. Ordering Physician: Archie Pinedo Referring Physician: Archie Pinedo Performed By: Raul Gonzalez RCS
--- NOTE | 2019-04-27 15:01 | CDU_ITS ---
Reason For Study: XXXXXXXCAROTID DUPLEXXXXXXXX Rt. Velocities/BP Lt. Velocities/BP Prox CCA 53.5/10.1 cm/sec. Prox CCA 73.8/11 cm/sec. Mid CCA 59.2/10.1 cm/sec. Mid CCA 60.8/10.2 cm/sec. Dist CCA 54.5/7.2 cm/sec. Dist CCA 60.8/7.5 cm/sec. Prox ICA 63/13.8 cm/sec. Prox ICA 45/11 cm/sec. Mid ICA 77.9/19.5 cm/sec. Mid ICA 72.1/17.2 cm/sec. Dist ICA 98/19.5 cm/sec. Dist ICA 96.3/13.9 cm/sec. Rt. ICA/CCA = 1.8. Lt. ICA/CCA = 1.3. Prox ECA 87.5/6.3 cm/sec. Prox ECA 93.2/14.8 cm/sec. Rt. Vert. 39/10.2 cm/sec. Lt. Vert. 38.2/10.4 cm/sec. Right Extracranial There is homogeneous, smooth atherosclerotic plaque noted in the right common carotid artery. There is heterogeneous, irregular atherosclerotic plaque noted in the right internal carotid artery. There is intimal thickening but no significant atherosclerotic plaque noted in the right external carotid artery. Left Extracranial There is homogeneous, smooth atherosclerotic plaque noted in the left common carotid artery. There is heterogeneous, irregular atherosclerotic plaque noted in the left internal carotid artery. There is intimal thickening but no significant atherosclerotic plaque noted in the left external carotid artery. Antegrade flow is noted in the left vertebral artery. Procedure Carotid Duplex [id number]. Exam performed portable in patient room. Interpretation Summary Mild (<50%) stenosis right extracranial internal carotid. Mild (<50%) stenosis left extracranial internal carotid. Flow within the vertebral arteries is antegrade bilaterally. Ordering Physician: Archie Pinedo Referring Physician: Michael Ridley MD Performed By: Jennifer Yanez RVT
--- NOTE | 2019-04-27 15:19 | PCM.PROGNOTE ---
Subjective: Chief complaint: Follow-up after admission for worsening confusion/encephalopathy, probable pneumonia and he was found to have new large acute right basal ganglia lacunar infarct without evidence of metastatic brain lesions. Patient seen and examined. No acute events overnight. Patient remained confused and disoriented, oriented only to himself. He denies any complaints. His vital signs are stable. - Physical Exam General: Alert, Cooperative, No apparent distress, Confused, Disoriented HEENT: Atraumatic, PERRLA, EOMI, Normocephalic Oral: Moist Mucosa, No Gingival or Mucosal Lesions/ Ulcerations Neck: Supple, No JVD, Negative Carotid Bruits, Trachea Midline, Thyroid Normal Size and Texture Lungs: Clear to auscultation, Normal air movement, No rhonchi, No wheeze, No rales Cardiovascular: Regular rate, Regular Rhythm, Normal S1, Normal S2, PMI Normal Abdomen: Bowel Sounds Present, Soft, Non Tender, Non-Distended, No Hepato-splenomegaly Extremities: No clubbing, No cyanosis, No edema Skin: No rashes, No breakdown Lymphatic: No Cervical, Supraclavicular, or Inguinal Adenopathy Neurological: Cranial nerves II-XII grossly intact, Motor Exam 5/5 strength throughout Psych/Mental Status: Flat Affect Vital Signs Temp Pulse Resp BP Pulse Ox 98.1 F 61 18 147/81 H 97 04/27/19 08:00 04/27/19 08:00 04/27/19 08:00 04/27/19 08:00 04/27/19 08:00 Oxygen Delivery Method Room Air Weight: 158 lb 8.198 oz Body Mass Index (BMI) 21.4 Finger Stick Blood Glucose 181 Intake and Output for Last 24 Hours 04/25/19 04/26/19 04/27/19 23:59 23:59 23:59 Intake Total 966 / 966 1068 / 1068 Output Total 61 / 61 2 / 2 Balance 905 / 905 1066 / 1066 Microbiology Past 72 Hours 04/26/19 17:30 Streptococcus pneumoniae Antigen (M - Final Urine Catheter - Catheter 04/26/19 17:30 Legionella Antigen - Final Urine Catheter - Catheter Laboratory Tests Past 24 Hrs 04/26/19 04/27/19 04/27/19 17:30 05:46 05:46 WBC 6.2 RBC 4.64 Hgb 12.3 L Hct 37.5 L MCV 80.8 MCH 26.5 L MCHC 32.8 RDW 14.4 RDW Differential 41.6 Plt Count 162 MPV 10.3 Immature Gran % (Auto) 1.500 H Neut % (Auto) 63.7 Lymph % (Auto) 17.7 L [place] % (Auto) 14.1 H Eos % (Auto) 2.8 Baso % (Auto) 0.2 Absolute Neuts (auto) 3.9 Absolute Lymphs (auto) 1.09 Total Counted Not Reportable PT 14.4 INR 1.1 Sodium Potassium Chloride Carbon Dioxide Anion Gap BUN Creatinine Estim Creat Clear Calc Est GFR (MDRD) Af Amer Est GFR (MDRD) Non-Af BUN/Creatinine Ratio Glucose Calcium Urine Color Yellow Urine Clarity Clear Urine pH 6.0 Ur Specific [place] 1.020 Urine Protein Negative Urine Glucose (UA) Normal Urine Ketones 5 H Urine Occult Blood 10 H Urine Nitrite Negative Urine Bilirubin Negative Urine Urobilinogen Normal Ur Leukocyte Esterase Negative Urine RBC 0-5 SEEN Urine WBC 0-5 SEEN Ur Squamous Epith Cells 0 SEEN Urine Bacteria 0 SEEN Urine Mucus 0 SEEN 04/27/19 05:46 WBC RBC Hgb Hct MCV MCH MCHC RDW RDW Differential Plt Count MPV Immature Gran % (Auto) Neut % (Auto) Lymph % (Auto) [place] % (Auto) Eos % (Auto) Baso % (Auto) Absolute Neuts (auto) Absolute Lymphs (auto) Total Counted PT INR Sodium 141 Potassium 3.9 Chloride 106 Carbon Dioxide 26.0 Anion Gap 9 BUN 8 Creatinine 0.74 Estim Creat Clear Calc 58.92 Est GFR (MDRD) Af Amer 132 Est GFR (MDRD) Non-Af 109 BUN/Creatinine Ratio 10.9 Glucose 124 H Calcium 8.6 Urine Color Urine Clarity Urine pH Ur Specific [place] Urine Protein Urine Glucose (UA) Urine Ketones Urine Occult Blood Urine Nitrite Urine Bilirubin Urine Urobilinogen Ur Leukocyte Esterase Urine RBC Urine WBC Ur Squamous Epith Cells Urine Bacteria Urine Mucus POC Glucose 04/27/19 04/27/19 04/26/19 10:47 06:23 21:00 POC Glucose 189 H 127 H 133 H 04/26/19 16:04 POC Glucose 90 Clinical Impression(s) from Imaging Studies Brain MRI 04/27/19 08:13 IMPRESSION: 1. Large size acute right basal ganglia lacunar infarct. 2. Small old bilateral basal ganglia lacunar infarcts. Small old right cerebellar infarcts. 3. No evidence for metastatic disease to brain. 4. Moderate chronic small vessel ischemic white matter changes. Mild diffuse atrophy. at 1430 Reported and signed by: Juan Bruce MD N.B. : The above information has been verbally conveyed by Juan Bruce MD to Dr. Archie Pinedo MD, on 04/27/2019 14:57:45 (ET). Electronically Signed: Juan Bruce MD at 14:29 EDT Tel , Service support , Medical Necessity - Tobacco Use Smoking Status: Former smoker Assessment/Plan All Active Problems (Last Reviewed 04/27/19 @ 13:12 by Juna De Guzman MD) Lung mass (Acute) Mediastinal lymphadenopathy (Acute) Lytic bone lesions on xray (Acute) This is an 78 years old male patient presented to the emergency room because of report of increasing confusion, change in mental status and behavior, admitted as a case of probable pneumonia which was ruled out, found to have acute large right basal ganglia lacunar infarct. #1 Worsening confusion/encephalopathy: Probably due to acute stroke in addition to baseline dementia. Pneumonia is unlikely at this time. Patient remained confused and disoriented. MRI brain revealed acute right basal ganglia infarct. His vital signs are stable, blood pressure stable. Patient does have a history of atrial fibrillation, now sinus rhythm. Eliquis was held because there was a question of patient will go for a procedure. Neurology consulted, recommendations reviewed. #2 acute large right basal ganglia infarct: Without significant focal motor deficit. MRI brain reviewed. Patient has no focal deficit on physical exam. Normal pressure hydrocephalus is in the differential diagnosis based on CT scan and MRI brain findings. At this time, blood pressure stable, heart rate stable. Patient is allergic to statins. Plan: Resume Eliquis, 2D echocardiogram, bilateral carotid Doppler, PT OT evaluation and treatment. #2 probable community-acquired pneumonia: Repeat chest x-ray reviewed, again showed questionable infiltrate. The findings that has been seen on chest x-ray is likely due to the lung masses that patient has. Patient remained without any symptoms suggestive for pneumonia. No cough or sputum production. He has been afebrile, no leukocytosis. Pulse ox is normal on room air. At this time, pneumonia is unlikely. Plan: DC IV Levaquin, complete p.o. Levaquin 500 mg p.o. daily for 5 days. #3 bradycardia: Heart rate has been around high 50s to 60s, rarely down to 40s. He denies dizziness or lightheadedness. No chest pain or shortness of breath. He is not on any beta-blockers. EKG without ischemic changes. #4 recent history of bilateral lung nodules/right upper, left lower lung masses/mediastinal adenopathy: He had PET scan done on Mar, 2019 with increased glucose metabolism in the mentioned area highly suggestive of malignancy. Bronchoscopy is scheduled for May 11. #5 CAD status post stents: No chest pain, EKG without ischemic changes. Continue ramipril, restart Eliquis. #6 chronic atrial fibrillation: Heart rate stable, resume Eliquis. #7 hypertension: Blood pressure stable, continue ramipril. #8 hyperlipidemia: Continue statins. #9 dementia: Continue Aricept, Remeron and carbidopa levodopa. #10 DVT prophylaxis: Resume Eliquis. This note was generated with [employer] dictation software. It may contain incorrect words, spelling, and punctuation that were not noted in checking the note before signing. Code Visit Inpatient E&M: 75520 Subs Hosp L3
--- NOTE | 2019-04-27 15:48 | CHAPLAIN ---
patient was unavailable at time of attempted visit
--- NOTE | 2019-04-27 15:52 | CASEMGMT ---
SW did not complete PHQ9 with patient as he has Dementia and is unable to answer questions. Kathleen STORY MSW
--- NOTE | 2019-04-27 15:54 | CASEMGMT ---
Patient's is aware that patient's Healthcare LW and Healthcare POA are not on file at [facility]. Kathleen STORY MSW
[2019-04-27 17:50] LABS: Bedside Glucose 98 mg/dL (70-110)
[2019-04-27] MEDS: Tamsulosin HCl 0.4 MG Capsule PO (21:07)
[2019-04-27] MEDS: Mirtazapine 15 MG Tablet PO (21:08)
[2019-04-27] MEDS: APIXABAN 5 MG TABLET PO (21:11)
[2019-04-27 23:11] LABS: Bedside Glucose 119 mg/dL (70-110)
[2019-04-28] VITALS (11 sets, daily range): BP systolic 131–171; BP diastolic 62–89; PULSE 36–99; RESP 14–18; TEMP 36.6–36.8; O2SAT 94–99
[2019-04-28] MEDS: levoFLOXacin 500 MG Tablet PO (07:00)
[2019-04-28] MEDS: Levothyroxine 125 MCG Tablet PO (07:00)
[2019-04-28 07:16] LABS: Bedside Glucose 115 mg/dL (70-110)
--- NOTE | 2019-04-28 08:13 | PN_ITS ---
Subjective: The patient was seen and examined at the bedside this morning. Events from the last 24 hours have been reviewed. The patient is currently afebrile, hemodynamically stable and maintaining appropriate oxygen saturations on room air. The patient's is present at the bedside again this morning. The patient did question me as to the potential side effects of treatment with chemotherapy. I did have a prolonged discussion with them regarding his potential diagnosis of lung cancer. I explained to them that I was not sure that he would even be a candidate for chemotherapy, based upon his performance status. His voiced frustration over whether or not to proceed with the scheduled EBUS procedure, if he would not even be a candidate for aggressive treatment measures. Objective: The patient's most recent lab work, culture data and imaging studies have all been personally reviewed. MRI head completed yesterday did reveal a large acute right-sided basal ganglia lacunar infarction. There is no evidence for metastatic disease to the brain. Surface echocardiogram revealed mild concentric LVH with an ejection fraction of 65%. There was evidence of biatrial enlargement and a right ventricular systolic pressure estimated to be 40 mmHg. - Physical Exam General: Alert, Cooperative, Confused, Disoriented HEENT: Atraumatic, PERRLA, Normocephalic Oral: No Gingival or Mucosal Lesions/ Ulcerations Neck: Supple, No Nodes, Trachea Midline Lungs: No rhonchi, No wheeze, No rales, Diminished Cardiovascular: Normal S1, Normal S2, Irregular Rate Abdomen: Bowel Sounds Present, Soft, Non Tender Extremities: No clubbing, No cyanosis, No edema Skin: - - No significant change from previous Musculoskeletal: No Tenderness to Palpation of Joints or Extremities Lymphatic: No Cervical, Supraclavicular, or Inguinal Adenopathy Neurological: Neuro grossly intact Psych/Mental Status: Flat Affect Vital Signs Temp Pulse Resp BP Pulse Ox 98.0 F 71 18 168/77 H 95 04/28/19 03:00 04/28/19 07:00 04/28/19 03:00 04/28/19 03:00 04/28/19 03:00 Oxygen Delivery Method Room Air Weight: 158 lb 8.198 oz Body Mass Index (BMI) 21.4 Finger Stick Blood Glucose 181 Intake and Output for Last 24 Hours 04/26/19 04/27/19 04/28/19 23:59 23:59 23:59 Intake Total 966 / 966 1765 / 1765 1224 / 1224 Output Total 61 / 61 2 / 2 Balance 905 / 905 1763 / 1763 1224 / 1224 Microbiology Past 72 Hours 04/26/19 17:30 Streptococcus pneumoniae Antigen (M - Final Urine Catheter - Catheter 04/26/19 17:30 Legionella Antigen - Final Urine Catheter - Catheter POC Glucose 04/28/19 04/27/19 04/27/19 07:02 21:05 17:41 POC Glucose 115 H 119 H 98 04/27/19 10:47 POC Glucose 189 H Labs (Last 48 Hours) 04/26/19 04/26/19 04/26/19 11:20 11:20 16:04 WBC 5.0 RBC 4.98 Hgb 13.0 Hct 40.7 MCV 81.7 MCH 26.1 L MCHC 31.9 L RDW 14.9 H RDW Differential 43.1 Plt Count 185 MPV 11.0 Immature Gran % (Auto) 1.400 H Neut % (Auto) 58.8 Lymph % (Auto) 22.6 [place] % (Auto) 13.2 H Eos % (Auto) 3.8 Baso % (Auto) 0.2 Absolute Neuts (auto) 2.9 Absolute Lymphs (auto) 1.13 Total Counted Not Reportable PT INR Sodium 139 Potassium 4.9 Chloride 107 Carbon Dioxide 29.0 Anion Gap 3 L BUN 12 Creatinine 0.91 Estim Creat Clear Calc 66.60 Est GFR (MDRD) Af Amer 103 Est GFR (MDRD) Non-Af 85 BUN/Creatinine Ratio 13.2 Glucose 150 H Calcium 9.0 Total Bilirubin 0.80 AST 42 H ALT < 6 L Alkaline Phosphatase 134 H Total Protein 7.3 Albumin 3.1 L Globulin 4.2 Albumin/Globulin Ratio 0.7 L Urine Color Urine Clarity Urine pH Ur Specific [place] Urine Protein Urine Glucose (UA) Urine Ketones Urine Occult Blood Urine Nitrite Urine Bilirubin Urine Urobilinogen Ur Leukocyte Esterase Urine RBC Urine WBC Ur Squamous Epith Cells Urine Bacteria Urine Mucus POC Glucose 90 04/26/19 04/26/19 04/27/19 17:30 21:00 05:46 WBC 6.2 RBC 4.64 Hgb 12.3 L Hct 37.5 L MCV 80.8 MCH 26.5 L MCHC 32.8 RDW 14.4 RDW Differential 41.6 Plt Count 162 MPV 10.3 Immature Gran % (Auto) 1.500 H Neut % (Auto) 63.7 Lymph % (Auto) 17.7 L [place] % (Auto) 14.1 H Eos % (Auto) 2.8 Baso % (Auto) 0.2 Absolute Neuts (auto) 3.9 Absolute Lymphs (auto) 1.09 Total Counted Not Reportable PT INR Sodium Potassium Chloride Carbon Dioxide Anion Gap BUN Creatinine Estim Creat Clear Calc Est GFR (MDRD) Af Amer Est GFR (MDRD) Non-Af BUN/Creatinine Ratio Glucose Calcium Total Bilirubin AST ALT Alkaline Phosphatase Total Protein Albumin Globulin Albumin/Globulin Ratio Urine Color Yellow Urine Clarity Clear Urine pH 6.0 Ur Specific [place] 1.020 Urine Protein Negative Urine Glucose (UA) Normal Urine Ketones 5 H Urine Occult Blood 10 H Urine Nitrite Negative Urine Bilirubin Negative Urine Urobilinogen Normal Ur Leukocyte Esterase Negative Urine RBC 0-5 SEEN Urine WBC 0-5 SEEN Ur Squamous Epith Cells 0 SEEN Urine Bacteria 0 SEEN Urine Mucus 0 SEEN POC Glucose 133 H 04/27/19 04/27/19 04/27/19 05:46 05:46 06:23 WBC RBC Hgb Hct MCV MCH MCHC RDW RDW Differential Plt Count MPV Immature Gran % (Auto) Neut % (Auto) Lymph % (Auto) [place] % (Auto) Eos % (Auto) Baso % (Auto) Absolute Neuts (auto) Absolute Lymphs (auto) Total Counted PT 14.4 INR 1.1 Sodium 141 Potassium 3.9 Chloride 106 Carbon Dioxide 26.0 Anion Gap 9 BUN 8 Creatinine 0.74 Estim Creat Clear Calc 58.92 Est GFR (MDRD) Af Amer 132 Est GFR (MDRD) Non-Af 109 BUN/Creatinine Ratio 10.9 Glucose 124 H Calcium 8.6 Total Bilirubin AST ALT Alkaline Phosphatase Total Protein Albumin Globulin Albumin/Globulin Ratio Urine Color Urine Clarity Urine pH Ur Specific [place] Urine Protein Urine Glucose (UA) Urine Ketones Urine Occult Blood Urine Nitrite Urine Bilirubin Urine Urobilinogen Ur Leukocyte Esterase Urine RBC Urine WBC Ur Squamous Epith Cells Urine Bacteria Urine Mucus POC Glucose 127 H 04/27/19 04/27/19 04/27/19 10:47 17:41 21:05 WBC RBC Hgb Hct MCV MCH MCHC RDW RDW Differential Plt Count MPV Immature Gran % (Auto) Neut % (Auto) Lymph % (Auto) [place] % (Auto) Eos % (Auto) Baso % (Auto) Absolute Neuts (auto) Absolute Lymphs (auto) Total Counted PT INR Sodium Potassium Chloride Carbon Dioxide Anion Gap BUN Creatinine Estim Creat Clear Calc Est GFR (MDRD) Af Amer Est GFR (MDRD) Non-Af BUN/Creatinine Ratio Glucose Calcium Total Bilirubin AST ALT Alkaline Phosphatase Total Protein Albumin Globulin Albumin/Globulin Ratio Urine Color Urine Clarity Urine pH Ur Specific [place] Urine Protein Urine Glucose (UA) Urine Ketones Urine Occult Blood Urine Nitrite Urine Bilirubin Urine Urobilinogen Ur Leukocyte Esterase Urine RBC Urine WBC Ur Squamous Epith Cells Urine Bacteria Urine Mucus POC Glucose 189 H 98 119 H 04/28/19 07:02 WBC RBC Hgb Hct MCV MCH MCHC RDW RDW Differential Plt Count MPV Immature Gran % (Auto) Neut % (Auto) Lymph % (Auto) [place] % (Auto) Eos % (Auto) Baso % (Auto) Absolute Neuts (auto) Absolute Lymphs (auto) Total Counted PT INR Sodium Potassium Chloride Carbon Dioxide Anion Gap BUN Creatinine Estim Creat Clear Calc Est GFR (MDRD) Af Amer Est GFR (MDRD) Non-Af BUN/Creatinine Ratio Glucose Calcium Total Bilirubin AST ALT Alkaline Phosphatase Total Protein Albumin Globulin Albumin/Globulin Ratio Urine Color Urine Clarity Urine pH Ur Specific [place] Urine Protein Urine Glucose (UA) Urine Ketones Urine Occult Blood Urine Nitrite Urine Bilirubin Urine Urobilinogen Ur Leukocyte Esterase Urine RBC Urine WBC Ur Squamous Epith Cells Urine Bacteria Urine Mucus POC Glucose 115 H Microbiology 04/26/19 17:30 Urine Catheter - Catheter Streptococcus pneumoniae Antigen (M - Final 04/26/19 17:30 Urine Catheter - Catheter Legionella Antigen - Final Clinical Impression(s) from Imaging Studies Brain CT 04/26/19 10:53 IMPRESSION: Senescent changes with no evidence of acute intracranial bleed, mass or ischemia. Electronically Signed: Roscoe Teran, at 12:18 EDT , Service support , Chest X-Ray 04/26/19 11:00 IMPRESSION: Bibasilar patchy infiltrates. Right upper lobe patchy infiltrate. Electronically Signed: Dragan Conteh, at 11:30 EDT , Service support , Chest X-Ray 04/27/19 06:00 IMPRESSION: 1. Patchy parenchymal opacities right upper lobe and left lower lobe suspicious for pneumonia. 2. Subtle right lower lobe opacities which may represent parenchymal scarring versus additional foci of pneumonitis. 3. Cardiomegaly. at 1250 Reported and signed by: Juan Bruce MD Electronically Signed: Juan Bruce MD at 12:48 EDT Tel , Service support , Brain MRI 04/27/19 08:13 IMPRESSION: 1. Large size acute right basal ganglia lacunar infarct. 2. Small old bilateral basal ganglia lacunar infarcts. Small old right cerebellar infarcts. 3. No evidence for metastatic disease to brain. 4. Moderate chronic small vessel ischemic white matter changes. Mild diffuse atrophy. at 1430 Reported and signed by: Juan Bruce MD N.B. : The above information has been verbally conveyed by Juan Bruce MD to Dr. Archie Pinedo MD, on 04/27/2019 14:57:45 (ET). Electronically Signed: Juan Bruce MD at 14:29 EDT Tel , Service support , Medical Necessity - Tobacco Use Smoking Status: Former smoker Assessment/Plan All Active Problems (Last Reviewed 04/27/19 @ 13:12 by Juan De Guzman MD) Lung mass (Acute) Mediastinal lymphadenopathy (Acute) Lytic bone lesions on xray (Acute) RECOMMENDATIONS: 1. Continue p.o. Levaquin with plans to complete a 5-day treatment course. 2. EBUS procedure has been rescheduled for May 11. Patient and his have been notified accordingly. 3. Consider Oncology evaluation to assist in medical decision making regarding moving forward with EBUS vs initiation of comfort measures. IMPRESSIONS: 1. Acute ischemic CVA/altered mentation While the patient does have underlying dementia at his baseline, his MRI did reveal a large acute right basal ganglia lacunar infarction. There was no evidence of intracranial metastatic disease. Although the patient was initially admitted to the hospital for treatment of presumptive pneumonia, I have a low clinical index of suspicion for an underlying pulmonary infectious process. I strongly suspect that the findings noted on his plain film chest x-ray are likely reflective of his known underlying pulmonary lesions, which may have progressed. Nevertheless, I agree with continuing p.o. Levaquin to complete a 5-day treatment course. I do suspect that the patient will likely require placement for rehabilitation purposes. The patient's seems torn over whether to proceed with bronchoscopy, given that the patient may not be an ideal candidate for aggressive treatment due to his poor performance status. The patient is currently scheduled to undergo EBUS on May 11. If the patient and his wish to proceed with the procedure, his Eliquis will need to be placed on hold effective May 07. This note was generated with [employer] dictation software. It may contain incorrect words, spelling, and punctuation that were not noted in checking the note before signing. Code Visit Inpatient E&M: 31237 Subs Hosp L2
[2019-04-28] MEDS: Donepezil HCl 10 MG Tablet PO (09:15)
[2019-04-28] MEDS: Memantine Hydrochloride 5 MG Tablet PO (09:16)
[2019-04-28] MEDS: Ramipril 5 MG Capsule PO (09:16)
[2019-04-28] MEDS: Escitalopram Oxalate 10 MG Tablet PO (09:16)
[2019-04-28] MEDS: metFORMIN (XR) 500 MG Tablet PO ×2 (09:16→16:09)
[2019-04-28] MEDS: guaiFENesin 1,200 MG Tablet 1200 MG PO ×2 (09:16→21:28)
[2019-04-28] MEDS: APIXABAN 5 MG TABLET PO ×2 (09:16→21:28)
[2019-04-28] MEDS: 0.9% Normal Saline 1,000 ML 75 ML IV ×2 (09:26→21:35)
[2019-04-28] MEDS: Insulin Lispro 100 UNIT/ML INSULN.PEN SC ×2 (11:04→16:09)
[2019-04-28 11:26] LABS: Bedside Glucose 172 mg/dL (70-110)
--- NOTE | 2019-04-28 12:07 | PCM.PROGNOTE ---
Subjective: Chief complaint: Follow-up after admission for worsening confusion/encephalopathy, probable pneumonia which was ruled out and he was found to have new large acute right basal ganglia lacunar infarct without evidence of metastatic brain lesions. Patient seen and examined. No acute events overnight. Patient is alert, oriented to self, remained confused and disoriented. He denies any complaints and he feels fine. was at the bedside. His vital signs are stable. - Physical Exam General: Alert, Cooperative, No apparent distress, Confused, Disoriented HEENT: Atraumatic, PERRLA, EOMI, Normocephalic Oral: Moist Mucosa, No Gingival or Mucosal Lesions/ Ulcerations Neck: Supple, No JVD, Negative Carotid Bruits, Trachea Midline, Thyroid Normal Size and Texture Lungs: Clear to auscultation, No rhonchi, No wheeze, No rales, Diminished Cardiovascular: Normal S1, Normal S2, No murmurs, PMI Normal, Irregular Rate Abdomen: Bowel Sounds Present, Soft, Non Tender, Non-Distended, No Hepato-splenomegaly Extremities: No clubbing, No cyanosis, No edema Skin: No rashes, No breakdown Lymphatic: No Cervical, Supraclavicular, or Inguinal Adenopathy Neurological: Cranial nerves II-XII grossly intact, Neuro grossly intact, Motor Exam 5/5 strength throughout Psych/Mental Status: Normal Affect, Appropriate Vital Signs Temp Pulse Resp BP Pulse Ox 98.1 F 80 14 156/79 H 96 04/28/19 09:15 04/28/19 09:15 04/28/19 09:15 04/28/19 09:15 04/28/19 09:15 Oxygen Delivery Method Room Air Weight: 158 lb 8.198 oz Body Mass Index (BMI) 21.4 Finger Stick Blood Glucose 181 Intake and Output for Last 24 Hours 04/26/19 04/27/19 04/28/19 23:59 23:59 23:59 Intake Total 966 / 966 1765 / 1765 1224 / 1224 Output Total 61 / 61 2 / 2 Balance 905 / 905 1763 / 1763 1224 / 1224 Microbiology Past 72 Hours 04/26/19 17:30 Streptococcus pneumoniae Antigen (M - Final Urine Catheter - Catheter 04/26/19 17:30 Legionella Antigen - Final Urine Catheter - Catheter POC Glucose 04/28/19 04/28/19 04/27/19 11:02 07:02 21:05 POC Glucose 172 H 115 H 119 H 04/27/19 17:41 POC Glucose 98 Medical Necessity - Tobacco Use Smoking Status: Former smoker Assessment/Plan All Active Problems (Last Reviewed 04/27/19 @ 13:12 by Juan De Guzman MD) Lung mass (Acute) Mediastinal lymphadenopathy (Acute) Lytic bone lesions on xray (Acute) This is an 78 years old male patient presented to the emergency room because of report of increasing confusion, change in mental status and behavior, admitted as a case of probable pneumonia which was ruled out, found to have acute large right basal ganglia lacunar infarct. #1 Worsening confusion/encephalopathy: Attributed to acute stroke in addition to baseline dementia. Pneumonia ruled out.. Patient remained confused and disoriented. MRI brain revealed acute right basal ganglia infarct. His vital signs are stable, blood pressure stable. He is on Eliquis ythm., Allergic to statins. His vital signs are stable, blood pressure under control. Plan for PT OT, patient will need placement to custodial facility. #2 acute large right basal ganglia infarct: Without significant focal motor deficit. MRI brain reviewed as above. Patient is on Eliquis. He is not on statins because he is allergic to it. Vital signs are stable, blood pressure under control. Normal pressure hydrocephalus is in the differential diagnosis based on CT scan and MRI brain findings. 2D echocardiogram revealed ejection fraction of 65%, mild pulmonary hypertension, other findings reviewed. Bilateral carotid Doppler done, report is pending. Plan to continue same treatment, placement to custodial facility. #2 probable community-acquired pneumonia: Repeat chest x-ray reviewed, again showed questionable infiltrate. The findings that has been seen on chest x-ray is likely due to the lung masses that patient has. Pneumonia ruled out. Patient kept on p.o. Levaquin to complete 5 days of treatment empirically. #4 recent history of bilateral lung nodules/right upper, left lower lung masses/mediastinal adenopathy: He had PET scan done on Mar, 2019 with increased glucose metabolism in the mentioned area highly suggestive of malignancy. Bronchoscopy is scheduled for May 11. After multiple discussions with the , she is questioning if patient should go to bronchoscopy and biopsy and if he should go to chemotherapy and radiation if recommended by oncology. I explained to the patient's that this her decision and her family's decision. I think this patient will not be able to take any decision like this at this time. Plan: Oncology consult. #5 CAD status post stents: No chest pain, EKG without ischemic changes. Continue ramipril, Eliquis. #6 chronic atrial fibrillation: Heart rate stable, continue Eliquis. #7 hypertension: Blood pressure stable, continue ramipril. #8 hyperlipidemia: Continue statins. #9 dementia: Continue Aricept, Remeron. Carbidopa levodopa discontinued by neurology. #10 DVT prophylaxis: Continue Eliquis. This note was generated with [employer] dictation software. It may contain incorrect words, spelling, and punctuation that were not noted in checking the note before signing. Code Visit Inpatient E&M: 00056 Subs Hosp L2
--- NOTE | 2019-04-28 13:23 | CON.PCM_ITS ---
Consult Referring Physician: dr. Ivy Pinedo Consult Results: Probable lung cancer stage IIIC Subjective Date of Service:: 04/28/19 Chief Complaint: Asked to see Pt for probable lung cancer management. History of Present Illness: 79y.o.man with history of dementia, probable lung cancer, was admitted with increasing confusion. MRI on 04/27/2019 showed large size acute right basal ganglia lacunar infarct no evidence of metastatic disease to the brain. He was found to had lung nodules, had a PET/CT scan on 03/19/2019 which showed hypermetabolic activity in right upper and lower lobes, right hilar, mediastinal and left hilar nodes. He was scheduled for FOB with biopsy on 04/27/2019 when he was admitted with increasing confusion. History is taken from the . 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 Dementia, vascular (Chronic) Tinea unguium (Chronic) Toe pain, right (Chronic) Toe pain, left (Chronic) Abnormal chest CT (Chronic) Chronic atrial fibrillation (Chronic) Nonrheumatic tricuspid valve regurgitation (Chronic) Atherosclerosis of [place] coronary artery (Chronic) PTCA of RCA intracoronary stent November 1999 HLD (hyperlipidemia) (Chronic) Essential (primary) hypertension (Chronic) HLD (hyperlipidemia) (Chronic) Past Medical/Surgical History: Past Medical History - Most Recent Inpatient Visit Past Medical History Start: 04/26/19 14:24 Text: Status: Complete Freq: ONCE Protocol: Document 04/26/19 14:52 AMG (Rec: 04/26/19 14:54 AMG [id number]) BMI Required to complete PMH What is Patient's BMI 21.5 Past Medical History Unable History Recalled No Query Text:Pt Unable/Family Not Present Neurologic Medical History Hx Stroke/TIA No: possible TIA 2016 Hx Dementia/Alzheimer's Yes Hx Parkinson's Disease No Hx Seizures No Hx Multiple Sclerosis No Hx Migraines Yes Cardiac Medical History VTE Present on Admission Yes Hx of Deep Vein Thrombosis/VTE/PE No Hx Hypertension Yes Hx Chest Pain/Angina No Hx Heart Attack No Hx Cardiac Surgery/Stents/Etc. Yes: stent 1999 Hx Heart Failure No Hx Pacemaker/AICD No Hx Irregular Heartbeat and/or Afib Yes Hx Anticoagulant Therapy Yes: Eliquis Query Text:(Coumadin, Aspirin, Plavix, Xarelto, etc.) Hx Pain in Legs when Walking/Leg Cramps No Respiratory Medical History Hx COPD Yes Hx Emphysema No Hx Smoking Yes Smoking Status Former smoker Hx Smoking Cessation Counseling No Hx Smoking Exposure No Hx Tobacco Use in last 12 months No Hx of Pipe Smoking No Hx Sleep Apnea No: has never had sleep study Do you snore loudly (louder than talking No or can be heard through closed doors)? Do you often feel tired/ fatigued/ No sleepy during daytime? Has anyone observed you stop breathing Yes during sleep? STOP Results Positive GI Medical History Hx Ulcer No Hx Hepatitis No Hx Cirrhosis No Hx GI Bleed No Hx Unplanned Weight Loss Yes Genitourinary Medical History Indwelling Catheter in Place on Arrival/ No Admission Hx Renal Disease No Hx Dialysis No Musculoskeletal History Hx Arthritis Yes Hx Rheumatoid Arthritis No Endocrine Medical History Hx Diabetes Yes Hx Thyroid Disease Yes Hematologic Medical History Hx of Blood Transfusion No Hx of Transfusion in last 3 Months No Ever experience any problems with No transfusion(s)? Hx of Preganancy in last 3 Months N/A Nurse Filling Out Transfusion & AGILL Questions: Date: 04/26/19 Time: 14:53 Psycho/Social Medical History Hx Depression Yes Hx Anxiety Yes Hx Behavior Disorder No Hx Alcohol Use No Hx Substance Use No Other Medical History Hx Blood Disorders No Hx Anemia No Hx Cancer No: had lung CT showed mass Hx Drug Resistant Organism No Wound/Pressure Injury Present on Arrival No /Admission Query Text:If yes, chart assessment in Shift/Clinical Findings Central Line/PICC/VAD Present on Arrival No /Admission Antibiotics within last 7 days? No Risk for Readmission Number of Risk Factors 8 At Risk for Readmission Patient is At Risk For Readmission Patient is eligible for Call Back Y Past Medical History (Last Reviewed 04/27/19 @ 13:12 by Juan De Guzman MD) Abnormal chest CT (Chronic) Chronic atrial fibrillation (Chronic) Nonrheumatic tricuspid valve regurgitation (Chronic) Atherosclerosis of [place] coronary artery (Chronic) HLD (hyperlipidemia) (Chronic) Essential (primary) hypertension (Chronic) HLD (hyperlipidemia) (Chronic) Alzheimer disease (Chronic) Aphasia (Chronic) BPH (benign prostatic hyperplasia) (Chronic) Depression (Chronic) GERD (gastroesophageal reflux disease) (Chronic) 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) Type 2 diabetes mellitus (Chronic) Past Surgical History (Last Reviewed 04/27/19 @ 13:12 by Juan De Guzman MD) History of coronary artery stent placement (Chronic 11/1999) H/O hernia repair (Resolved) History of left heart catheterization (LHC) (Resolved) History of tonsillectomy (Resolved) Offspring Family History: Family History (Last Reviewed 03/26/19 @ 11:32 by Leslie Parsons NP-C) Father Cancer Mother CAD (coronary artery disease) CVA (cerebral vascular accident) Brother CAD (coronary artery disease) Brother CVA (cerebral vascular accident) Hypertension Sister Myocardial infarction, Onset Age: 73 Sister CVA (cerebral vascular accident) Sister CVA (cerebral vascular accident) Sister Breast cancer Sister CVA (cerebral vascular accident) Sister TIA (transient ischemic attack) Family History: Heart Disease - Social History Lives: Spouse/ Significant Other Smoking Status: Former smoker Alcohol: None, Rare Allergies/Adverse Reactions: Allergy/AdvReac Type Severity Reaction Status Date / Time lovastatin [From Mevacor] AdvReac Severe myalgias Verified 04/26/19 10:10 metoprolol succinate AdvReac Severe Heart rate Verified 04/26/19 10:10 [From Toprol XL] too slow beta blockers AdvReac low heart Uncoded 04/26/19 10:10 rate Review of Systems Constitutional:: Denies: Fever, Sweats, Weight loss, Appetite change, Chills Cardiovascular:: Denies: Chest pain, Palpitations, Dyspnea on exertion, Orthopnea, PND, Shortness of breath Respiratory: Denies: Cough, Hemoptysis, Shortness of Breath, Wheezing Gastrointestinal:: Denies: Abdominal pain, Nausea, Vomiting, Diarrhea, Constipation, Hematochezia Genitourinary: Denies: Dysuria, Hematuria, 15, Flank pain Musculoskeletal:: Denies: Back pain, Myalgia, Arthralgia Skin: Denies: Rash, Skin Changes, Wounds Neurological:: Reports: Memory loss Psychiatric: Denies: Anxiety, Depression, Homicidal Ideations, Suicidal Ideations Vital Signs Height 6 ft Weight: 71.9 kg Weight in Pounds 158.5 lbs Pulse Ox 96 Temperature 98.1 F Pulse Rate 80 Respiratory Rate 14 Blood Pressure [2nd BP] 165/87 Blood Pressure 156/79 Blood Pressure Position [2nd Semi-Fowlers BP] Blood Pressure Position Semi-Fowlers - Physical Exam General: Alert, Cooperative HEENT: Atraumatic, PERRLA, EOMI, Normocephalic Oropharynx:: - - +dentures Neck:: Supple, Trachea midline. Negative for: JVD, bilateral Cardiac:: Regular rate, Regular rhythm, Normal S1, Normal S2. Negative for: Murmur Lungs: Clear to auscultation, Excusion symmetrical. Negative for: Rhonchi, Wheezes Abdomen:: Bowel sounds x 4, Soft, Non-tender, Non-distended. Negative for: Hepatosplenomegaly Extremities:: Negative for: Edema Neurological: Cranial nerves II-XII grossly intact Skin:: Negative for: Lesions, Rash, Petechiae, Ecchymosis Psychiatric:: Poor memory Lymphatics:: Negative for: Cervical lymphadenopathy, Supraclavicular lymphadenopathy, Axillary lymphadenopathy Laboratory Data: Microbiology 04/26/19 17:30 Streptococcus pneumoniae Antigen (M - Final Urine Catheter - Catheter 04/26/19 17:30 Legionella Antigen - Final Urine Catheter - Catheter Laboratory Tests 04/28/19 04/28/19 04/27/19 Range/Units 11:02 07:02 21:05 POC Glucose 172 H 115 H 119 H (70-110) mg/dL 04/27/19 Range/Units 17:41 POC Glucose 98 (70-110) mg/dL Diagnostic Data: Diagnostic Data Brain CT 04/26/19 10:53 IMPRESSION: Senescent changes with no evidence of acute intracranial bleed, mass or ischemia. Electronically Signed: Roscoe Teran DO at 12:18 EDT , Service support , Chest X-Ray 04/27/19 06:00 IMPRESSION: 1. Patchy parenchymal opacities right upper lobe and left lower lobe suspicious for pneumonia. 2. Subtle right lower lobe opacities which may represent parenchymal scarring versus additional foci of pneumonitis. 3. Cardiomegaly. at 1250 Reported and signed by: Juan Bruce MD Electronically Signed: Juan Bruce MD at 12:48 EDT Tel , Service support , Brain MRI 04/27/19 08:13 IMPRESSION: 1. Large size acute right basal ganglia lacunar infarct. 2. Small old bilateral basal ganglia lacunar infarcts. Small old right cerebellar infarcts. 3. No evidence for metastatic disease to brain. 4. Moderate chronic small vessel ischemic white matter changes. Mild diffuse atrophy. at 1430 Reported and signed by: Juan Bruce MD N.B. : The above information has been verbally conveyed by Juan Bruce MD to Dr. Archie Pinedo MD, on 04/27/2019 14:57:45 (ET). Electronically Signed: Juan Bruce MD at 14:29 EDT Tel , Service support , 03/19/2019 PET/CT reviewed. PET/PET/CT Tumor Base -Thigh Initial staging IMPRESSION: 1. Increased glucose metabolism defined in the right upper and lower hemithorax pulmonary parenchyma with nodular components fulfills quantitative criteria for viable neoplasm. Histopathologic analysis is recommended. 2. Mediastinal and bilateral thoracic perihilar increased FDG uptake fulfills quantitative criteria for viable neoplasm. (Don et al, Journal of Clinical Oncology 16:2142, 1998). Electronic Signature Mnih Stevenson D.O. Electronically Signed: Minh Stevenson DO at 23:40 EDT Assessment and Plan Probable R lung cancer, clinically stage IIIC(cT4 cN3 M0), 2 nodules in RUL and LL based on PET/CT. Frail adult, Dementia with new Lacunar infarct. Poor candidate for combined modality treatment for lung cancer be it small or non-small cell type. is ambivalent about the need for a biopsy to be done. Suggestion is to do supportive care and hospice care at a later date. Please call if new problems arise. Medications: Prescriptions This Visit Medication Instructions Recorded Cholecalciferol (Vitamin D3) 2,000 unit PO QHS 04/26/19 [Vitamin D3] Metformin HCl 500 mg PO BID 04/26/19 Primary Care Provider: Julio C Ridley MD Referring Provider: Archie Pinedo MD - Problem List (1) Lung cancer Status: Chronic Qualifiers: Laterality: right (2) Dementia Status: Chronic Code Visit Office Visits / Consults: [id number] IP Consult L5
--- NOTE | 2019-04-28 13:37 | CASEMGMT ---
Social Work Met with patient and patient spouse in room. Patient is a poor historian due to being diagnosed with Dementia. Patient spouse, Montserrat reporting that patient was doing well prior to this hospitalization. Patient was ambulatory without a device and able to get most of patient's own meals. Mnotserrat reporting to have 1 step to enter their 1 story home and to be aware that it is being recommended for patient to transition to a skilled facility. Montserrat voicing that first choice would be [facility] ([facility]). This manager social services educated Montserrat on the referral process. Montserrat aware that a precert will need to be obtained. Support provided. Social work to make referral to [facility] on Tuesday as precert will need to be obtained and no admissions person is in on the weekends at [facility]. Social work to continue to follow. Dung NUR, JEZ
[2019-04-28 16:45] LABS: Bedside Glucose 156 mg/dL (70-110)
[2019-04-28] MEDS: Mirtazapine 15 MG Tablet PO (21:28)
[2019-04-28] MEDS: Tamsulosin HCl 0.4 MG Capsule PO (21:28)
[2019-04-28 21:40] LABS: Bedside Glucose 127 mg/dL (70-110)
[2019-04-29] VITALS (10 sets, daily range): BP systolic 146–170; BP diastolic 51–97; PULSE 36–76; RESP 12–18; TEMP 36.7–37.3; O2SAT 95–100
[2019-04-29] MEDS: levoFLOXacin 500 MG Tablet PO (05:42)
[2019-04-29] MEDS: Levothyroxine 125 MCG Tablet PO (05:42)
[2019-04-29 06:51] LABS: Bedside Glucose 115 mg/dL (70-110)
--- NOTE | 2019-04-29 07:16 | PN_ITS ---
Subjective: The patient was seen and examined at the bedside this morning. Events from the last 24 hours have been reviewed. The patient is currently afebrile, hemodynamically stable and maintaining appropriate oxygen saturations on room air. The patient remains confused. Unfortunately, his is not currently present at the bedside. The patient was evaluated by oncology yesterday. I agree that based upon his PET CT findings, if the patient is found to be positive for malignancy on biopsy, he would be at least stage III disease. Oncology did feel that he would not be a candidate for combined modality treatment due to his poor performance status. Therefore, the patient and his are no longer wishing to proceed with the EBUS. Objective: The patient's most recent lab work, culture data and imaging studies have all been personally reviewed. MRI head completed yesterday did reveal a large acute right-sided basal ganglia lacunar infarction. There is no evidence for metastatic disease to the brain. Surface echocardiogram revealed mild concentric LVH with an ejection fraction of 65%. There was evidence of biatrial enlargement and a right ventricular systolic pressure estimated to be 40 mmHg. - Physical Exam General: Alert, Cooperative, No apparent distress, Confused HEENT: Atraumatic, PERRLA, Normocephalic Oral: No Gingival or Mucosal Lesions/ Ulcerations Neck: Supple, No Nodes, Trachea Midline Lungs: No rhonchi, No wheeze, No rales, Diminished Cardiovascular: Normal S1, Normal S2, No murmurs, Irregular Rate Abdomen: Bowel Sounds Present, Soft, Non Tender, Non-Distended Extremities: No clubbing, No cyanosis, No edema Skin: - - No significant change from previous Musculoskeletal: No Tenderness to Palpation of Joints or Extremities Lymphatic: No Cervical, Supraclavicular, or Inguinal Adenopathy Neurological: Neuro grossly intact Psych/Mental Status: Flat Affect Vital Signs Temp Pulse Resp BP Pulse Ox 98.3 F 36 L 16 169/97 H 95 04/29/19 03:15 04/29/19 03:25 04/29/19 03:15 04/29/19 03:15 04/29/19 03:15 Oxygen Delivery Method Room Air Weight: 158 lb 8.198 oz Body Mass Index (BMI) 21.4 Finger Stick Blood Glucose 181 Intake and Output for Last 24 Hours 04/27/19 04/28/19 04/29/19 23:59 23:59 23:59 Intake Total 1765 / 1765 3457 / 3457 348 / 348 Output Total 2 / 2 Balance 1763 / 1763 3457 / 3457 348 / 348 Microbiology Past 72 Hours 04/26/19 17:30 Streptococcus pneumoniae Antigen (M - Final Urine Catheter - Catheter 04/26/19 17:30 Legionella Antigen - Final Urine Catheter - Catheter POC Glucose 04/29/19 04/28/19 04/28/19 06:34 21:25 16:07 POC Glucose 115 H 127 H 156 H 04/28/19 04/28/19 11:02 07:02 POC Glucose 172 H 115 H Labs (Last 48 Hours) 04/27/19 04/27/19 04/27/19 10:47 17:41 21:05 POC Glucose 189 H 98 119 H 04/28/19 04/28/19 04/28/19 07:02 11:02 16:07 POC Glucose 115 H 172 H 156 H 04/28/19 04/29/19 21:25 06:34 POC Glucose 127 H 115 H Clinical Impression(s) from Imaging Studies Brain CT 04/26/19 10:53 IMPRESSION: Senescent changes with no evidence of acute intracranial bleed, mass or ischemia. Electronically Signed: Roscoe Teran DO at 12:18 EDT , Service support , Chest X-Ray 04/26/19 11:00 IMPRESSION: Bibasilar patchy infiltrates. Right upper lobe patchy infiltrate. Electronically Signed: Dragan Conteh, at 11:30 EDT , Service support , Chest X-Ray 04/27/19 06:00 IMPRESSION: 1. Patchy parenchymal opacities right upper lobe and left lower lobe suspicious for pneumonia. 2. Subtle right lower lobe opacities which may represent parenchymal scarring versus additional foci of pneumonitis. 3. Cardiomegaly. at 1250 Reported and signed by: Juan Bruce MD Electronically Signed: Juan Bruce MD at 12:48 EDT Tel , Service support , Brain MRI 04/27/19 08:13 IMPRESSION: 1. Large size acute right basal ganglia lacunar infarct. 2. Small old bilateral basal ganglia lacunar infarcts. Small old right cerebellar infarcts. 3. No evidence for metastatic disease to brain. 4. Moderate chronic small vessel ischemic white matter changes. Mild diffuse atrophy. at 1430 Reported and signed by: Juan Bruce MD N.B. : The above information has been verbally conveyed by Juan Bruce MD to Dr. Archie Pinedo MD, on 04/27/2019 14:57:45 (ET). Electronically Signed: Juan Bruce MD at 14:29 EDT Tel , Service support , Medical Necessity - Tobacco Use Smoking Status: Former smoker Assessment/Plan All Active Problems (Last Reviewed 04/27/19 @ 13:12 by Juan De Guzman MD) Lung mass (Acute) Mediastinal lymphadenopathy (Acute) Lytic bone lesions on xray (Acute) RECOMMENDATIONS: 1. Continue p.o. Levaquin with plans to complete a 5-day treatment course. 2. Precertification for senior living facility is pending. 3. Will plan to cancel scheduled EBUS. IMPRESSIONS: 1. Acute ischemic CVA/altered mentation While the patient does have underlying dementia at his baseline, his MRI did reveal a large acute right basal ganglia lacunar infarction. There was no evidence of intracranial metastatic disease. Although the patient was initially admitted to the hospital for treatment of presumptive pneumonia, I have a low clinical index of suspicion for an underlying pulmonary infectious process. I strongly suspect that the findings noted on his plain film chest x-ray are likely reflective of his known underlying pulmonary lesions, which may have progressed. Nevertheless, I agree with continuing p.o. Levaquin to complete a 5-day treatment course. I do suspect that the patient will likely require placement for rehabilitation purposes. The patient and his are no longer wishing to proceed with the scheduled EBUS, following discussion with oncology. Will cancel procedure accordingly. Will sign off at this time. Please call with any questions. This note was generated with Phase III Development[employer] software. It may contain incorrect words, spelling, and punctuation that were not noted in checking the note before signing. Code Visit Inpatient E&M: 10818 Subs Hosp L2
--- NOTE | 2019-04-29 08:43 | PCM.PROGNOTE ---
Subjective: Chief complaint: Follow-up after admission for worsening confusion/encephalopathy, probable pneumonia which was ruled out and he was found to have new large acute right basal ganglia lacunar infarct. Patient seen and examined. No acute events overnight. He denies any complaints. He remained disoriented, oriented only to self. His blood pressure slightly elevated, other vital signs are stable. - Physical Exam General: Alert, Cooperative, No apparent distress, Confused, Disoriented HEENT: Atraumatic, PERRLA, EOMI, Normocephalic Oral: Moist Mucosa, No Gingival or Mucosal Lesions/ Ulcerations Neck: Supple, No JVD, Negative Carotid Bruits, Trachea Midline, Thyroid Normal Size and Texture Lungs: Clear to auscultation, Normal air movement, No rhonchi, No wheeze, No rales, Diminished Cardiovascular: Normal S1, Normal S2, No murmurs, PMI Normal, Irregular Rate Abdomen: Bowel Sounds Present, Soft, Non Tender, Non-Distended, No Hepato-splenomegaly Extremities: No clubbing, No cyanosis, No edema Skin: No rashes, No breakdown Lymphatic: No Cervical, Supraclavicular, or Inguinal Adenopathy Neurological: Cranial nerves II-XII grossly intact, Neuro grossly intact Psych/Mental Status: Normal Affect, Appropriate Vital Signs Temp Pulse Resp BP Pulse Ox 98.3 F 65 16 169/97 H 95 04/29/19 03:15 04/29/19 07:00 04/29/19 03:15 04/29/19 03:15 04/29/19 03:15 Oxygen Delivery Method Room Air Weight: 158 lb 8.198 oz Body Mass Index (BMI) 21.4 Finger Stick Blood Glucose 181 Intake and Output for Last 24 Hours 04/27/19 04/28/19 04/29/19 23:59 23:59 23:59 Intake Total 1765 / 1765 3457 / 3457 348 / 348 Output Total 2 / 2 Balance 1763 / 1763 3457 / 3457 348 / 348 Microbiology Past 72 Hours 04/26/19 17:30 Streptococcus pneumoniae Antigen (M - Final Urine Catheter - Catheter 04/26/19 17:30 Legionella Antigen - Final Urine Catheter - Catheter POC Glucose 04/29/19 04/28/19 04/28/19 06:34 21:25 16:07 POC Glucose 115 H 127 H 156 H 04/28/19 11:02 POC Glucose 172 H Medical Necessity - Tobacco Use Smoking Status: Former smoker Assessment/Plan All Active Problems (Last Reviewed 04/27/19 @ 13:12 by Juan De Guzman MD) Lung mass (Acute) Mediastinal lymphadenopathy (Acute) Lytic bone lesions on xray (Acute) This is an 78 years old male patient presented to the emergency room because of report of increasing confusion, change in mental status and behavior, admitted as a case of probable pneumonia which was ruled out, found to have acute large right basal ganglia lacunar infarct. #1 Worsening confusion/encephalopathy: Attributed to acute stroke in addition to baseline dementia. Pneumonia ruled out.. Patient remained confused and disoriented. MRI brain revealed acute right basal ganglia infarct. His vital signs are stable, blood pressure slightly elevated. He is on Eliquis. Allergic to statins. His vital signs are stable, blood pressure under control. Plan for PT OT, awaiting insurance approval for placement to alf facility.. #2 acute large right basal ganglia infarct: Without significant focal motor deficit. MRI brain reviewed as above. Patient is on Eliquis. He is not on statins because he is allergic to it. Vital signs are stable, blood pressure slightly elevated. Normal pressure hydrocephalus is in the differential diagnosis based on CT scan and MRI brain findings. 2D echocardiogram revealed ejection fraction of 65%, mild pulmonary hypertension, other findings reviewed. Carotid Doppler revealed mild less than 50% stenosis on the right extracranial internal carotid artery, mild less than 50% stenosis of the left extracranial internal carotid artery. Plan as above. #2 probable community-acquired pneumonia: Ruled out. Patient on p.o. Levaquin empirically to complete 5 days of treatment. #4 recent history of bilateral lung nodules/right upper, left lower lung masses/mediastinal adenopathy: He had PET scan done on Mar, 2019 with increased glucose metabolism in the mentioned area highly suggestive of malignancy. Bronchoscopy is scheduled for May 11. Oncology consulted, stated that the patient clinically has stage IIIc lung cancer and he is a poor candidate for combined modality treatment including chemotherapy and radiation and suggested supportive care and may be hospice and palliative care later. Will discuss with the if she wants to go for the bronchoscopy and biopsy. #5 CAD status post stents: No chest pain, EKG without ischemic changes. Continue ramipril, Eliquis. #6 chronic atrial fibrillation: Heart rate stable, continue Eliquis. #7 hypertension: Blood pressure slightly elevated, continue ramipril. #8 hyperlipidemia: Continue statins. #9 dementia: Continue Aricept, Remeron. Carbidopa levodopa discontinued by neurology. #10 DVT prophylaxis: Continue Eliquis. This note was generated with [employer] software. It may contain incorrect words, spelling, and punctuation that were not noted in checking the note before signing. Code Visit Inpatient E&M: 16332 Subs Hosp L2
[2019-04-29] MEDS: metFORMIN (XR) 500 MG Tablet PO ×2 (08:53→16:32)
[2019-04-29] MEDS: Ramipril 5 MG Capsule PO (08:53)
[2019-04-29] MEDS: Donepezil HCl 10 MG Tablet PO (08:53)
[2019-04-29] MEDS: Memantine Hydrochloride 5 MG Tablet PO (08:54)
[2019-04-29] MEDS: Escitalopram Oxalate 10 MG Tablet PO (08:54)
[2019-04-29] MEDS: APIXABAN 5 MG TABLET PO ×2 (08:54→22:30)
[2019-04-29] MEDS: guaiFENesin 1,200 MG Tablet 1200 MG PO ×2 (08:54→22:30)
[2019-04-29] MEDS: 0.9% Normal Saline 1,000 ML 75 ML IV (08:59)
[2019-04-29 12:11] LABS: Bedside Glucose 147 mg/dL (70-110)
[2019-04-29] MEDS: Tamsulosin HCl 0.4 MG Capsule PO (22:30)
[2019-04-29] MEDS: Mirtazapine 15 MG Tablet PO (22:30)
[2019-04-30] VITALS (7 sets, daily range): BP systolic 134–171; BP diastolic 65–77; PULSE 53–80; RESP 14–18; TEMP 36.6–37.1; O2SAT 94–98
[2019-04-30] MEDS: Levothyroxine 125 MCG Tablet PO (05:35)
[2019-04-30] MEDS: levoFLOXacin 500 MG Tablet PO (05:35)
--- NOTE | 2019-04-30 08:12 | PN_ITS ---
Subjective: Patient was seen and examined. He is oriented to person but not to place or time. He was sitting up in a chair at time of exam. Denied any new complaints. No acute events overnight. Waiting on insurance precertification for discharge. Objective: Physical Exam General: Alert, Cooperative, No apparent distress, oriented to self only, not place or time HEENT: Atraumatic, PERRLA, EOMI, Normocephalic Oral: Moist Mucosa, No Gingival or Mucosal Lesions/ Ulcerations Neck: Supple, No JVD, Negative Carotid Bruits, Trachea Midline, Thyroid Normal Size and Texture Lungs: Clear to auscultation, Normal air movement, No rhonchi, No wheeze, No rales, Diminished Cardiovascular: Normal S1, Normal S2, No murmurs, PMI Normal, Irregular Rate Abdomen: Bowel Sounds Present, Soft, Non Tender, Non-Distended, No Hepato- splenomegaly Extremities: No clubbing, No cyanosis, No edema Skin: No rashes, No breakdown Lymphatic: No Cervical, Supraclavicular, or Inguinal Adenopathy Neurological: Cranial nerves II-XII grossly intact, Neuro grossly intact Psych/Mental Status: Normal Affect, Appropriate Vitals/I&O's: Vital Signs Temp Pulse Resp BP Pulse Ox 98.3 F 80 14 171/76 H 98 04/30/19 08:04 04/30/19 08:04 04/30/19 08:04 04/30/19 08:04 04/30/19 08:04 Oxygen Delivery Method Room Air Weight: 71.9 kg Body Mass Index (BMI) 21.4 Finger Stick Blood Glucose 181 Intake and Output for Last 24 Hours 04/28/19 04/29/19 04/30/19 23:59 23:59 23:59 Intake Total 3457 / 3457 1631 / 1631 1307 / 1307 Balance 3457 / 3457 1631 / 1631 1307 / 1307 Laboratory Results 04/29/19 11:19: POC Glucose 147 H Current Medications Acetaminophen (Tylenol) 650 mg PO Q6H PRN PRN PRN Reason: Mild pain 1-3/Temp > 100.7 F Albuterol Sulfate (Ventolin Aerosols) 2.5 mg INHALATION Q4H PRN PRN PRN Reason: SOB/Wheezing Apixaban (Eliquis) 5 mg PO BID [facility] Last Admin: 04/29/19 22:30 Dose: 5 mg Documented by: Dextrose (D50w Syringe) 0 gm IV X1 PRN; Protocol PRN Reason: Hypoglycemia Donepezil HCl (Aricept) 10 mg PO DAILY [facility] Last Admin: 04/29/19 08:53 Dose: 10 mg Documented by: Escitalopram Oxalate (Lexapro) 10 mg PO DAILY [facility] Last Admin: 04/29/19 08:54 Dose: 10 mg Documented by: Glucagon () 1 mg IM .X1 PRN PRN Reason: Hypoglycemia Guaifenesin (Mucinex) 1,200 mg PO BID [facility] Last Admin: 04/29/19 22:30 Dose: 1,200 mg Documented by: Sodium Chloride () 1,000 mls @ 75 mls/hr IV .[id number] [facility] Last Admin: 04/29/19 08:59 Dose: 75 mls/hr Documented by: Insulin Human Lispro (Humalog Kwikpen (Bkc)) 0 unit SC ACHS [facility]; Protocol Last Admin: 04/30/19 04:46 Dose: Not Given Documented by: Levothyroxine Sodium (Synthroid) 125 mcg PO DAILY@0600 [facility] Last Admin: 04/30/19 05:35 Dose: 125 mcg Documented by: Memantine (Namenda) 5 mg PO DAILY [facility] Last Admin: 04/29/19 08:54 Dose: 5 mg Documented by: Metformin [facility] ([facility]) [facility] Last Admin: 04/29/19 16:32 Dose: 500 mg Documented by: Mirtazapine (Remeron) 15 mg PO QHS [facility] Last Admin: 04/29/19 22:30 Dose: 15 mg Documented by: Ondansetron HCl (Zofran) 4 mg IV Q8H PRN PRN PRN Reason: NAUSEA/VOMITING Ramipril (Altace) 5 mg PO DAILY [facility] Last Admin: 04/29/19 08:53 Dose: 5 mg Documented by: Senna/Docusate Sodium (Senokot-S, Jes-Colace) 2 tablet PO BID PRN PRN PRN Reason: Constipation Sodium Chloride () 5 - 15 ml IV UD PRN PRN Reason: SALINE FLUSH Tamsulosin HCl (Flomax) 0.4 mg PO QHS [facility] Last Admin: 04/29/19 22:30 Dose: 0.4 mg Documented by: Medical Necessity - Tobacco Use Smoking Status: Former smoker Assessment/Plan All Active Problems (Last Reviewed 04/27/19 @ 13:12 by Juan De Guzman MD) Lung mass (Acute) Mediastinal lymphadenopathy (Acute) Lytic bone lesions on xray (Acute) 78-year-old male admitted with progressive confusion and altered mental status and found to have an acute large right basal ganglia lacunar infarct. 1. Acute metabolic encephalopathy secondary to acute stroke in a patient with underlying dementia, patient appears to be improved, this may be the patient's new baseline, will continue to monitor 2. Acute large right basal ganglia infarct without significant multiple deficit, on Eliquis, stable vitals 3. Lung CA, stage IIIc, not a candidate for chemotherapy or radiotherapy, palliative care/hospice suggested 4. CAD s/p stents, on ramipril and Eliquis 5. Chronic atrial fibrillation, rate controlled, on Eliquis 6. Hypertension, uncontrolled, on ramipril, will increase ramipril to 10 mg p.o. daily 7. Hyperlipidemia, on statin 8. Dementia, on aricept, remeron 9. DVT PPx- Eliquis Code Visit Inpatient E&M: 43774 Subs Hosp L2
[2019-04-30] MEDS: guaiFENesin 1,200 MG Tablet 1200 MG PO ×2 (08:51→22:51)
[2019-04-30] MEDS: Memantine Hydrochloride 5 MG Tablet PO (08:51)
[2019-04-30] MEDS: Ramipril 5 MG Capsule PO ×2 (08:51→11:57)
[2019-04-30] MEDS: APIXABAN 5 MG TABLET PO ×2 (08:52→22:51)
[2019-04-30] MEDS: metFORMIN (XR) 500 MG Tablet PO ×2 (08:52→17:11)
[2019-04-30] MEDS: Donepezil HCl 10 MG Tablet PO (08:52)
[2019-04-30] MEDS: Escitalopram Oxalate 10 MG Tablet PO (08:52)
--- NOTE | 2019-04-30 09:59 | CASEMGMT ---
SW called [facility] and left a message with referral. SW also faxed referral. SW spoke with patient's letting her know a referral was made to [facility]. SW explained that once [facility] calls back SW can let her know if they can accept him or not. SW also told her to have a back up plan in the event insurance denies the request for SNF. SW told her if this would happen she would have to private pay for SNF. She verbalized understanding. Kathleen STORY MSW
[2019-04-30] MEDS: 0.9% Normal Saline 1,000 ML 75 ML IV ×2 (11:29→23:57)
--- NOTE | 2019-04-30 12:57 | CHAPLAIN ---
Type of Pastoral Visit _x__ Initial Visit ___ Follow-up Visit ___ On-call Visit ___ General Patient Visit ___ Spiritual Assessment ___ Family Conference ___ Bereavement ___ Rapid Response ___ Code Blue ___ Other (describe below) Pastoral Care Referral From ___ Patient _x__ Family ___ Nurse ___ Physician ___ Instrumentation Engineer ___ Telephone Order Dispatcher ___ Other (describe below) Sacrament/Intervention _x__ Active listening ___ Anointing ___ Orthodoxy ___ Bereavement ___ Communion ___ Maricel exploration ___ ___ Life review _x__ Prayer ___ Reconciliation ___ Sacrament of Sick _x__ Supportive presence ___ Wedding ___ Other (describe below) Pastoral Comments met this patient in previous admission; as known from before, pt is from a large and supportive family and has a strong connection to maricel and holiness; pt is pleasant but says things that indicate he is not aware where he is and what is taking place; prayer and presence welcomed
--- NOTE | 2019-04-30 13:22 | CASEMGMT ---
[facility] can take patient and they will start the pre-cert process. SW notified patient's of this information. [facility]. Kathleen STORY MSW
[2019-04-30] MEDS: Tamsulosin HCl 0.4 MG Capsule PO (22:51)
[2019-04-30] MEDS: Mirtazapine 15 MG Tablet PO (22:52)
[2019-05-01] VITALS (7 sets, daily range): BP systolic 117–160; BP diastolic 57–97; PULSE 54–73; RESP 14–16; TEMP 36.7–36.9; O2SAT 95–96
[2019-05-01 05:45] LABS: Absolute Lymphocyte Count 1.36 X10^3/ul (0.83-4.51); Absolute Neutrophil Count 3.3 X10^3/uL (2.0-7.7); Basophil# 0.01 X10^3/uL; Basophil% 0.2 % (0-1); Eosinophil# 0.11 X10^3/uL; Eosinophils% 1.8 % (0-5); Hematocrit 36.9 % (40-54); Hemoglobin 12.4 g/dl (13.0-16.5); Lymphocyte # 1.36 X10^3/ul (4.0); Lymphocyte % 22.7 % (19-41); Mean Corp Hgb Conc 33.6 g/gl (32-36); Mean Corpuscular Volume 80.2 fL (80-94); Mean Platelet Vol. 10.3 fl (6.2-12.0); Monocyte# 1.04 X10^3/uL; Monocyte% 17.4 % (0-10); Neutrophil # 3.34 X10^3/uL (2.7-7.7); Neutrophil % 55.9 % (47-70); Platelet Count 183 K/mm3 (150-450); RBC Distribution Width CV 14.8 % (11.6-14.6); RBC Distribution Width SD 42.3 fl (35.1-43.9)
[2019-05-01 05:53] LABS: POSITIVE COUNT YES; POSITIVE DIFFERENTIAL NO; POSITIVE MORPHOLOGY YES
[2019-05-01 05:55] LABS: Anion Gap 7 (5-15); BUN 11 mg/dL (7-18); BUN/Creat Ratio 14.5 RATIO (10-20); Calcium,Total 8.6 mg/dL (8.5-10.1); Chloride 107 mmol/L (98-107); Creatinine, Serum 0.76 mg/dL (0.70-1.30); EST Glomerular Filtration Rate 105 mL/min (>60); Est Glom Filt Rate - Afr Amer 126 mL/min (>60); Estimated Creatinine Clearance 58.92 ml/min; Glucose 107 mg/dL (74-106); Potassium 3.6 mmol/L (3.5-5.1); Sodium Level 141 mmol/L (136-145)
[2019-05-01] MEDS: Levothyroxine 125 MCG Tablet PO (06:20)
[2019-05-01 06:45] LABS: Bedside Glucose 104 mg/dL (70-110)
[2019-05-01] MEDS: metFORMIN (XR) 500 MG Tablet PO ×2 (09:42→16:53)
[2019-05-01] MEDS: guaiFENesin 1,200 MG Tablet 1200 MG PO (09:43)
[2019-05-01] MEDS: APIXABAN 5 MG TABLET PO (09:43)
[2019-05-01] MEDS: Ramipril 10 MG Capsule PO (09:43)
[2019-05-01] MEDS: Donepezil HCl 10 MG Tablet PO (09:43)
[2019-05-01] MEDS: Memantine Hydrochloride 5 MG Tablet PO (09:43)
[2019-05-01] MEDS: Escitalopram Oxalate 10 MG Tablet PO (09:43)
--- NOTE | 2019-05-01 10:28 | CASEMGMT ---
Addendum entered by Kathleen Vogel 05/01/19 11:32: AARON faxed PT/OT notes to [facility]. AARON also called [facility] and let her know this information was faxed. Kathleen NUR Original Note: Luma from [facility] called and said insurance wants information on patient's mental status and ability to follow commands. AARON faxed some nursing notes and physician's note from yesterday. AARON will fax PT/OT notes as well. Kathleen STORY SALES AND SERVICE ENGINEER
--- NOTE | 2019-05-01 11:28 | PCM.PN.HOSP ---
Vitals/I&O's: Vital Signs Temp Pulse Resp BP Pulse Ox 98.4 F 57 L 14 153/97 H 96 05/01/19 08:00 05/01/19 08:00 05/01/19 08:00 05/01/19 08:00 05/01/19 08:00 Oxygen Delivery Method Room Air Weight: 71.9 kg Body Mass Index (BMI) 21.4 Finger Stick Blood Glucose 181 Intake and Output for Last 24 Hours 04/29/19 04/30/19 05/01/19 23:59 23:59 23:59 Intake Total 1631 / 1631 2534 / 2534 484 / 484 Balance 1631 / 1631 2534 / 2534 484 / 484 Laboratory Results 05/01/19 05:30: WBC 6.0, RBC 4.60, Hgb 12.4 L, Hct 36.9 L, MCV 80.2, MCH 27.0, MCHC 33.6, RDW 14.8 H, RDW Differential 42.3, Plt Count 183, MPV 10.3, Immature Gran % (Auto) 2.000 H, Neut % (Auto) 55.9, Lymph % (Auto) 22.7, [place] % (Auto) 17.4 H, Eos % (Auto) 1.8, Baso % (Auto) 0.2, Absolute Neuts (auto) 3.3, Absolute Lymphs (auto) 1.36, Total Counted Not Reportable, Diff Path Review March05/01/19 05:30: Sodium 141, Potassium 3.6, Chloride 107, Carbon Dioxide 27.0, Anion Gap 7, BUN 11, Creatinine 0.76, Estim Creat Clear Calc 58.92, Est GFR (MDRD) Af Amer 126, Est GFR (MDRD) Non-Af 105, BUN/Creatinine Ratio 14.5, Glucose 107 H, Calcium 8.6 05/01/19 06:21: POC Glucose 104 Current Medications Acetaminophen (Tylenol) 650 mg PO Q6H PRN PRN PRN Reason: Mild pain 1-3/Temp > 100.7 F Albuterol Sulfate (Ventolin Aerosols) 2.5 mg INHALATION Q4H PRN PRN PRN Reason: SOB/Wheezing Apixaban (Eliquis) 5 mg PO BID [facility] Last Admin: 05/01/19 09:43 Dose: 5 mg Documented by: Dextrose (D50w Syringe) 0 gm IV X1 PRN; Protocol PRN Reason: Hypoglycemia Donepezil HCl (Aricept) 10 mg PO DAILY [facility] Last Admin: 05/01/19 09:43 Dose: 10 mg Documented by: Escitalopram Oxalate (Lexapro) 10 mg PO DAILY [facility] Last Admin: 05/01/19 09:43 Dose: 10 mg Documented by: Glucagon () 1 mg IM .X1 PRN PRN Reason: Hypoglycemia Guaifenesin (Mucinex) 1,200 mg PO BID [facility] Last Admin: 05/01/19 09:43 Dose: 1,200 mg Documented by: Sodium Chloride () 1,000 mls @ 75 mls/hr IV .[id number] [facility] Last Admin: 04/30/19 23:57 Dose: 75 mls/hr Documented by: Levothyroxine Sodium (Synthroid) 125 mcg PO DAILY@0600 [facility] Last Admin: 05/01/19 06:20 Dose: 125 mcg Documented by: Memantine (Namenda) 5 mg PO DAILY [facility] Last Admin: 05/01/19 09:43 Dose: 5 mg Documented by: Metformin HCl (Glucophage Xr) 500 mg PO BIDCM [facility] Last Admin: 05/01/19 09:42 Dose: 500 mg Documented by: Mirtazapine (Remeron) 15 mg PO QHS [facility] Last Admin: 04/30/19 22:52 Dose: 15 mg Documented by: Ondansetron HCl (Zofran) 4 mg IV Q8H PRN PRN PRN Reason: NAUSEA/VOMITING Ramipril (Altace) 10 mg PO DAILY [facility] Last Admin: 05/01/19 09:43 Dose: 10 mg Documented by: Senna/Docusate Sodium (Senokot-S, Jes-Colace) 2 tablet PO BID PRN PRN PRN Reason: Constipation Sodium Chloride () 5 - 15 ml IV UD PRN PRN Reason: SALINE FLUSH Tamsulosin HCl (Flomax) 0.4 mg PO QHS [facility] Last Admin: 04/30/19 22:51 Dose: 0.4 mg Documented by: Medical Necessity - Tobacco Use Smoking Status: Former smoker Assessment/Plan All Active Problems (Last Reviewed 04/27/19 @ 13:12 by Juan De Guzman MD) Lung mass (Acute) Mediastinal lymphadenopathy (Acute) Lytic bone lesions on xray (Acute)
--- NOTE | 2019-05-01 16:08 | CASEMGMT ---
SW received a call from Luma at [facility] and she received insurance authorization. AARON notified physician, RN, barrel liner, and patient's . SW completed convalescent on [facility]. AARON will leave instructions with barrel liner to fax orders to [facility] once completed. Plan: d/c to [facility] under skilled level of care on a convalescent stay. Staff to arrange transportation. Kathleen NUR
--- NOTE | 2019-05-01 16:40 | PCM.TXEXTCAR ---
- Diet 04/26/19 14:14 Diet: Cardiac: Calorie-Controlled Food consistency:: Regular Liquid Consistency:: Regular/Thin How many daily calories?: 1999 calorie - Routine Orders/Code Status Routine Lab Work: CBC - within 3 days, BMP - within 3 days - Therapies Weight Bearing: Weight bearing as tolerated Physical Therapy: Eval and Treat Occupational Therapy: Eval and Treat Speech Therapy: Eval and Treat - Allergies/Procedures Done in Hospital Allergies/Adverse Reactions: Allergies lovastatin [From Mevacor] Adverse Reaction (Severe, Verified 04/26/19 10:10) myalgias metoprolol succinate [From Toprol XL] Adverse Reaction (Severe, Verified 04/26/19 10:10) Heart rate too slow beta blockers Adverse Reaction (Uncoded 04/26/19 10:10) low heart rate Procedures: None - Type of Care/Length of Stay Estimated LOS: Convalescent Care Less Than 30 days Type of Care Needed: Skilled Rehab Potential: Good Prognosis: Good - Additional Orders/Day of Discharge Day of Discharge: 05/01/19 - Dietary and Speech Recommendations Dietitian Recommendations/Changes: Recommend change diet to Regular d/t requesting no restrictions. Consider BUSINESS ENTERPRISE OFFICER consult d/t pt concern for swallowing issues. - Follow Up Care Primary Care Physician: Julio C Ridley MD [Primary Care Provider] - Please follow up with your Primary Care Physician in: within 2 weeks
--- NOTE | 2019-05-01 17:48 | DS.PCM_ITS ---
Discharge Date and Diagnosis Date of Admission: 04/26/19 Date of Discharge: 05/01/19 - Primary Discharge Diagnosis 1. Acute metabolic encephalopathy secondary to acute stroke 2. Acute large right basal ganglia infarct without significant neurological deficit - Secondary Discharge Diagnosis Chronic Problems (Last Reviewed 04/27/19 @ 13:12 by Juan De Guzman MD) Lung cancer (Chronic) Dementia (Chronic) History of coronary artery stent placement (Chronic 11/1999) [id number] 11/1999 Dementia, vascular (Chronic) Tinea unguium (Chronic) Toe pain, right (Chronic) Toe pain, left (Chronic) Abnormal chest CT (Chronic) Chronic atrial fibrillation (Chronic) Nonrheumatic tricuspid valve regurgitation (Chronic) Atherosclerosis of [place] coronary artery (Chronic) PTCA of RCA intracoronary stent November 1999 HLD (hyperlipidemia) (Chronic) Essential (primary) hypertension (Chronic) HLD (hyperlipidemia) (Chronic) Hospital Course and Treatment Imaging Results: Clinical Impression(s) from Imaging Studies Brain CT 04/26/19 10:53 IMPRESSION: Senescent changes with no evidence of acute intracranial bleed, mass or ischemia. Electronically Signed: Roscoe Teran DO at 12:18 EDT , Service support , Chest X-Ray 04/26/19 11:00 IMPRESSION: Bibasilar patchy infiltrates. Right upper lobe patchy infiltrate. Electronically Signed: Dragan Conteh, at 11:30 EDT , Service support , Chest X-Ray 04/27/19 06:00 IMPRESSION: 1. Patchy parenchymal opacities right upper lobe and left lower lobe suspicious for pneumonia. 2. Subtle right lower lobe opacities which may represent parenchymal scarring versus additional foci of pneumonitis. 3. Cardiomegaly. at 1250 Reported and signed by: Juan Bruce MD Electronically Signed: Juan Bruce MD at 12:48 EDT Tel , Service support , Brain MRI 04/27/19 08:13 IMPRESSION: 1. Large size acute right basal ganglia lacunar infarct. 2. Small old bilateral basal ganglia lacunar infarcts. Small old right cerebellar infarcts. 3. No evidence for metastatic disease to brain. 4. Moderate chronic small vessel ischemic white matter changes. Mild diffuse atrophy. at 1430 Reported and signed by: Juan Bruce MD N.B. : The above information has been verbally conveyed by Juan Bruce MD to Dr. Archie Pinedo MD, on 04/27/2019 14:57:45 (ET). Electronically Signed: Juan Bruce MD at 14:29 EDT Tel , Service support , Neurology Operations: None Procedures: 2-D Echocardiogram Summary of Care Provided: 78-year-old male with past medical history of dementia, history of chronic atrial fibrillation on Eliquis comes in with progressive confusion and altered mental status and found to have an acute large right basal ganglia lacunar infarct. 1. Acute metabolic encephalopathy secondary to acute stroke in a patient with underlying dementia, patient was [facility] 2. Acute large right basal ganglia infarct without significant multiple deficit, on Eliquis, neurology consulted 3. Right CAP, present on admission, completed antibiotics in the hospital 4. Lung CA, stage IIIc, not a candidate for chemotherapy or radiotherapy, follows with pulmonology, palliative care/hospice suggested 5. CAD s/p stents, on Ramipril and Eliquis 6. Chronic atrial fibrillation, rate controlled, on Eliquis 7. Hypertension, on ramipril 8. Hyperlipidemia, on statin 9. Dementia, on Aricept, remeron Subjective: The day of discharge, patient was seen and examined. No new complaints. He is oriented x1. I met with his at the bedside. Objective: Physical Exam General: Alert, Cooperative, No apparent distress, oriented to self only, not place or time HEENT: Atraumatic, PERRLA, EOMI, Normocephalic Oral: Moist Mucosa, No Gingival or Mucosal Lesions/ Ulcerations Neck: Supple, No JVD, Negative Carotid Bruits, Trachea Midline, Thyroid Normal Size and Texture Lungs: Clear to auscultation, Normal air movement, No rhonchi, No wheeze, No rales, Diminished Cardiovascular: Normal S1, Normal S2, No murmurs, PMI Normal, Irregular Rate Abdomen: Bowel Sounds Present, Soft, Non Tender, Non-Distended, No Hepato- splenomegaly Extremities: No clubbing, No cyanosis, No edema Skin: No rashes, No breakdown Lymphatic: No Cervical, Supraclavicular, or Inguinal Adenopathy Neurological: Cranial nerves II-XII grossly intact, Neuro grossly intact Psych/Mental Status: Normal Affect, Appropriate - Physical Exam Vital Signs Temp Pulse Resp BP Pulse Ox 98.0 F 62 14 117/57 L 95 05/01/19 14:00 05/01/19 15:00 05/01/19 14:00 05/01/19 14:00 05/01/19 14:00 Oxygen Delivery Method Room Air Weight: 71.9 kg Body Mass Index (BMI) 21.4 Finger Stick Blood Glucose 181 Intake and Output for Last 24 Hours 04/29/19 04/30/19 05/01/19 23:59 23:59 23:59 Intake Total 1631 / 1631 2534 / 2534 484 / 484 Balance 1631 / 1631 2534 / 2534 484 / 484 Laboratory Tests Past 24 Hrs 05/01/19 05/01/19 05:30 05:30 WBC 6.0 RBC 4.60 Hgb 12.4 L Hct 36.9 L MCV 80.2 MCH 27.0 MCHC 33.6 RDW 14.8 H RDW Differential 42.3 Plt Count 183 MPV 10.3 Immature Gran % (Auto) 2.000 H Neut % (Auto) 55.9 Lymph % (Auto) 22.7 [place] % (Auto) 17.4 H Eos % (Auto) 1.8 Baso % (Auto) 0.2 Absolute Neuts (auto) 3.3 Absolute Lymphs (auto) 1.36 Total Counted Not Reportable Diff Path Review March Sodium 141 Potassium 3.6 Chloride 107 Carbon Dioxide 27.0 Anion Gap 7 BUN 11 Creatinine 0.76 Estim Creat Clear Calc 58.92 Est GFR (MDRD) Af Amer 126 Est GFR (MDRD) Non-Af 105 BUN/Creatinine Ratio 14.5 Glucose 107 H Calcium 8.6 POC Glucose 05/01/19 06:21 POC Glucose 104 Discharge Diet: Low fat/ Low Cholesterol, 2000 mg Sodium Diet Discharge Activity: Return to Normal Activity Home Medications: Medications to take at Discharge Donepezil HCl [Aricept] 10 mg PO DAILY 09/30/16 Tamsulosin HCl [Flomax] 1 cap PO QHS 09/30/16 Albuterol Sulfate [Ventolin Hfa] 18 gm IH DAILY PRN PRN 05/03/17 memantine 5 mg tablet 5 mg PO QDAY 11/25/17 escitalopram 10 mg tablet 10 mg PO DAILY 12/29/17 Levothyroxine Sodium [Synthroid] 125 mcg PO DAILY 09/22/18 Apixaban [Eliquis] 5 mg PO BID 09/27/18 Acetaminophen [Tylenol] 1,000 mg PO Q6H PRN PRN tab 11/01/18 Mirtazapine [Remeron] 15 mg PO QHS #30 tab 11/01/18 Carbidopa/Levodopa [Carbidopa-Levo ER 50-200 Tab] 2 tab PO QHS 04/25/19 Ramipril 5 mg PO DAILY 04/25/19 Cholecalciferol (Vitamin D3) [Vitamin D3] 2,000 unit PO QHS 04/26/19 Metformin HCl 500 mg PO BID 04/26/19 Senna/Docusate Sodium [Senokot-S] 2 tab PO BID PRN PRN tab 05/01/19 metFORMIN (XR) [Glucophage Xr] 500 mg PO BIDCM tab 05/01/19 Primary Care Physician: Julio C Ridley MD [Primary Care Provider] - Please follow up with your Primary Care Physician in: within 2 weeks Disposition: Longterm facility Minutes spent on discharge:: 45 Patient Condition:: Stable Medical Necessity - Tobacco Use Tobacco Use: Non-smoker Meaningful Use Info Meaningful Use Diagnoses (Choose all that apply): Ischemic CVA - CVA Therapy Assessed for PT,OT and/or ST?: Yes - Ischemic Stroke Antithrombotic order at d/c?: Yes Reason antithrombotic not ordered: Treatment not Indicated Dx of Atrial fib/flutter?: Yes Anticoagulant at discharge?: Yes Statins at discharge?: Yes Primary Dx Acute Ischemic CVA?: Yes IV tPA ordered during stay?: No Reason IV t-PA not ordered: Treatment not Indicated Code Visit Inpatient E&M: 83968 Disch Hosp
[2019-05-02 14:24] LABS: Pathologist Review Reviewed
== END 2019-05-01 17:39 | disposition skilled nursing facility (03) | DRG 64 ==
LOC: ED 11:12 → PCU 14:00
PROVIDERS: Admitting Provider Hospitalist; Emergency Provider Emergency Medicine; Family Provider Family Medicine; PCP Family Medicine; Referring Provider Hospitalist; Visit Provider Internal Medicine
DX: I63.81 Other cerebral infarction due to occlusion or stenosis of small artery (principal); J18.9 Pneumonia, unspecified organism; G93.49 Other encephalopathy; C34.91 Malignant neoplasm of unspecified part of right bronchus or lung; C77.1 Secondary and unspecified malignant neoplasm of intrathoracic lymph nodes; I48.2 Chronic atrial fibrillation; I25.10 Atherosclerotic heart disease of native coronary artery without angina pectoris; F01.50 Vascular dementia, unspecified severity, without behavioral disturbance, psychotic disturbance, mood disturbance, and anxiety; E11.9 Type 2 diabetes mellitus without complications; R00.1 Bradycardia, unspecified; I10 Essential (primary) hypertension; E78.5 Hyperlipidemia, unspecified; I36.1 Nonrheumatic tricuspid (valve) insufficiency; Z79.01 Long term (current) use of anticoagulants; Z95.5 Presence of coronary angioplasty implant and graft; Z87.891 Personal history of nicotine dependence
CPT/HCPCS: 36415; 70450; 70553; 71045; 71046; 80048; 80053; 81001; 82962; 85025; 85610; 87449; 93005; 93306; 93880; 97110; 97163; 97166; 97530; 97535; 97802; 99285; A9575; J7030; J7050; A4216